=== PATIENT | male | born 1945 ===

== ENCOUNTER 2018-01-21 13:49 | Inpatient (IN) ==
--- NOTE | 2018-01-21 14:09 | XR ---
EXAM DATE: 01/21/2018 1:52 PM EDT AGE/SEX: 89 years / Male INDICATIONS: TRAUMA ALERT. Patient fell from a ladder. CLINICAL DATA: This is the patient's initial encounter. Patient reports that signs and symptoms have been present for 1 day and indicates a pain score of Nonresponsive. MEDICAL/SURGICAL HISTORY: . Unobtainable. . Unobtainable. COMPARISON: No prior exams available for comparison. FINDINGS: Examination of the pelvis demonstrates no evidence of fracture or dislocation. Bony mineralization i s normal. There is no widening of the sacroiliac joints. No foreign body is identified. CONCLUSION: Negative examination. Electronically signed by: Jaguar Braun MD 01/21/2018 2:08 PM EDT
[2018-01-21 14:11] LABS: Baso # (Auto) 0.1 th/mm3 (0.0-0.2); Baso % (Auto) 0.9 % (0.0-2.0); Eos # (Auto) 0.2 th/mm3 (0.0-0.4); Eos % (Auto) 2.6 % (0.0-4.0); Hematocrit 39.9 % (39.0-51.0); Hemoglobin 14.5 gm/dL (13.0-17.0); Lymph % (Auto) 13.1 % (9.0-44.0); Mean Corpuscular Volume 85.3 fL (80.0-100.0); Mean Platelet Volume 7.7 fL (7.0-11.0); Mono # (Auto) 0.6 th/mm3 (0.0-0.9); Mono % (Auto) 8.1 % (0.0-8.0); Neut # (Auto) 5.9 th/mm3 (1.8-7.7); Neut % (Auto) 75.3 % (16.0-70.0); Platelet Count 169 th/mm3 (150-450); Red Blood Count 4.68 mil/mm3 (4.50-5.90); Red Cell Distribution Width 13.1 % (11.6-17.2); White Blood Count 7.8 th/mm3 (4.0-11.0)
--- NOTE | 2018-01-21 14:12 | XR ---
EXAM DATE: 01/21/2018 1:52 PM EDT AGE/SEX: 89 years / Male INDICATIONS: TRAUMA ALERT. Patient fell from a ladder. CLINICAL DATA: This is the patient's initial encounter. Patient reports that signs and symptoms have been present for 1 day and indicates a pain score of Nonresponsive. MEDICAL/SURGICAL HISTORY: . Unobtainable. . Unobtainable. COMPARISON: No prior exams available for comparison. FINDINGS: Artifact from backboard. Mild cardiomegaly. No infiltrate, pneumothorax or failure. The portion of th e bony skeleton visualized is unremarkable. CONCLUSION: Artifact, negative for pneumothorax Electronically signed by: Mich Sepulveda MD 01/21/2018 2:11 PM EDT
--- NOTE | 2018-01-21 14:15 | ED ---
HPI General Stated Complaint: Trauma Alert/Fall History of Present Illness HPI narrative: This is a 71-year-old male who fell backwards off a ladder. Its estimated he was about 5 foot in the air. He fell backwards onto grass. However, just after he hit the ground. He could not move his legs. He has very significant weakness of both arms. He has no sensation below the nipple level. He is brought in as a trauma alert on suspicion of spinal cord injury. Symptoms are severe. Duration 30 minutes. No alleviating factors. No exacerbating factors. He takes no blood thinners. Related Data Allergies Allergy/AdvReac Type Severity Reaction Status Date / Time No Allergy Information Allergy Unverified 01/21/18 13:51 Available Review of Systems ROS: all other systems reviewed are negative Exam Narrative Exam Narrative: GENERAL: Well-nourished, well-developed patient in no apparent distress. SKIN: Focused skin assessment reveals no rash and nodules. Skin is Warm and dry. Has minimal abrasion to the lower left side HEAD: Atraumatic. Normocephalic. EYES: Pupils equal and round. No scleral icterus. No injection or drainage. ENT: No nasal bleeding or discharge. Mucous membranes pink and moist. NECK: Trachea midline. No JVD. CARDIOVASCULAR: Regular rate and rhythm. No murmur appreciated. RESPIRATORY: No accessory muscle use. Clear to auscultation. Breath sounds equal bilaterally. GASTROINTESTINAL: Abdomen soft, non-tender, nondistended. Hepatic and splenic margins not palpable. MUSCULOSKELETAL: No obvious deformities. No clubbing. No cyanosis. No edema. No bony tenderness. NEUROLOGICAL: Awake and alert. No obvious cranial nerve deficits. Motor exam shows that both legs are paralyzed. He is [place] 0 movement in either leg. He cannot wiggle his toes. He has very advanced weakness of both arms and hands and fingers. He has a very weak live hanger bilaterally. Sensory exam reveals loss of light touch basically from the nipple level down. This includes both arms both legs and the torso. He has poor sphincter tone. Normal speech. PSYCHIATRIC: Appropriate mood and affect; insight and judgment normal. Course Initial Documented Vital Signs Pulse Oximetry 96 01/21/18 14:08 Last Documented Vital Signs Pulse Oximetry 96 01/21/18 14:08 Critical Care Time Critical Care Time: Yes Total Critical Care Time: 80 Attestation: Aggregate critical care time was 80 minutes. Time to perform other separately billable procedures was not included in the critical care time. My time did not include minutes spent treating any other patients simultaneously or on activities that did not directly contribute to the patient's treatment. The services I provided to this patient were to treat and/or prevent clinically significant deterioration that could result in: Spinal cord injury, permanent neurologic deficit, spinal shock I provided critical care services requiring my management, as noted below: Chart data review, documentation time, medication orders and management, vital sign assessments/reviewing monitor data, ordering and reviewing lab tests, ordering and interpreting/reviewing x-rays and diagnostic studies, care of the patient and discussion of the patient with the admitting physicians. Medical Decision Making MDM Narrative Medical decision making narrative: This patient arrives critically ill as a trauma alert with suspicion of spinal cord injury. He has prominent neurologic abnormalities on exam. He has a heart rate of 16 a blood pressure of 100 systolic. I placed 2 IVs and I am giving him 2 L bolus normal saline IV. Mental status is normal. Chest and pelvis x-rays show no obvious fracture I am sending him to CT scan for hernández scan plus complete spine CT imaging High likelihood he will need MRIs of his spinal cord as well I reviewed the case in detail with neurosurgeon on-call Dr. Szymanski. Trauma surgeon is in the operating room with the previous trauma case. I spoke with the backup trauma surgeon but he is an hour and 15 minutes away so no report given. I am told belatedly that the trauma surgeon saw the patient in the CAT scanner. I reviewed the CTs of the spine with radiologist Dr. Neil Sepulveda. I reviewed the findings a second time with neurosurgeon who is aware of the C6 pedicle fracture. Medical Screen Exam Complete: Yes Emergency Medical Condition: Yes Differential Diagnosis Differential Diagnosis: Spinal cord injury, vertebral fracture, spinal cord hematoma, spinal shock Lab Data Lab results reviewed: Yes I reviewed the patient's lab results. Lab results narrative: I-STAT looks normal. Result diagrams: 01/21/18 13:50 Lab Results 01/21/18 01/21/18 01/21/18 Range/Units 13:50 13:50 13:50 WBC 7.8 (4.0-11.0) th/mm3 RBC 4.68 (4.50-5.90) mil/mm3 Hgb 14.5 (13.0-17.0) gm/dL POC Hgb (Calc) 12.9 L (13.0-17.0) g/dL Hct 39.9 (39.0-51.0) % POC Hct 38.0 L (39-51.0) % MCV 85.3 (80.0-100.0) fL MCH 31.0 (27.0-34.0) pg MCHC 36.3 H (32.0-36.0) % RDW 13.1 (11.6-17.2) % Plt Count 169 (150-450) th/mm3 MPV 7.7 (7.0-11.0) fL Prelim Diff (Auto) Slide review pending Neut % (Auto) 75.3 H (16.0-70.0) % Lymph % (Auto) 13.1 (9.0-44.0) % [place] % (Auto) 8.1 H (0.0-8.0) % Eos % (Auto) 2.6 (0.0-4.0) % Baso % (Auto) 0.9 (0.0-2.0) % Neut # (Auto) 5.9 (1.8-7.7) th/mm3 Lymph # (Auto) 1.0 (1.0-4.8) th/mm3 [place] # (Auto) 0.6 (0.0-0.9) th/mm3 Eos # (Auto) 0.2 (0.0-0.4) th/mm3 Baso # (Auto) 0.1 (0.0-0.2) th/mm3 Differential Comment . PT 11.0 (9.8-11.6) sec INR 1.1 Ratio APTT 20.6 L (24.3-30.1) sec POC Sodium 146 H (137-144) mmol/L POC Potassium 4.3 (3.6-5.0) mmol/L POC Chloride 107 (102-111) mmol/L POC BUN 20 (5-21) mg/dL POC Creatinine 1.0 (0.6-1.3) mg/dL POC Glucose 105 (68-110) mg/dL Serum Alcohol (0-5) mg/dL Blood Type Antibody Screen 01/21/18 01/21/18 Range/Units 13:50 13:50 WBC (4.0-11.0) th/mm3 RBC (4.50-5.90) mil/mm3 Hgb (13.0-17.0) gm/dL POC Hgb (Calc) (13.0-17.0) g/dL Hct (39.0-51.0) % POC Hct (39-51.0) % MCV (80.0-100.0) fL MCH (27.0-34.0) pg MCHC (32.0-36.0) % RDW (11.6-17.2) % Plt Count (150-450) th/mm3 MPV (7.0-11.0) fL Prelim Diff (Auto) Neut % (Auto) (16.0-70.0) % Lymph % (Auto) (9.0-44.0) % [place] % (Auto) (0.0-8.0) % Eos % (Auto) (0.0-4.0) % Baso % (Auto) (0.0-2.0) % Neut # (Auto) (1.8-7.7) th/mm3 Lymph # (Auto) (1.0-4.8) th/mm3 [place] # (Auto) (0.0-0.9) th/mm3 Eos # (Auto) (0.0-0.4) th/mm3 Baso # (Auto) (0.0-0.2) th/mm3 Differential Comment PT (9.8-11.6) sec INR Ratio APTT (24.3-30.1) sec POC Sodium (137-144) mmol/L POC Potassium (3.6-5.0) mmol/L POC Chloride (102-111) mmol/L POC BUN (5-21) mg/dL POC Creatinine (0.6-1.3) mg/dL POC Glucose (68-110) mg/dL Serum Alcohol Less than 3 (0-5) mg/dL Blood Type O Negative Antibody Screen Negative Imaging Data Attestation: I personally reviewed and interpreted this imaging study as follows : Radiologist's impression: Chest X-Ray 01/21/18 13:52 CONCLUSION: Artifact, negative for pneumothorax Pelvis X-Ray 01/21/18 13:52 CONCLUSION: Negative examination. Abdomen/Pelvis CT 01/21/18 13:56 Bony Structures: See the CT of the thoracic and lumbar spine is reported separately. The pelvis is intact. CONCLUSION: 1. No acute abnormality. 2. 2.9 x 2.0 cm rim calcified nodule within the right costophrenic angle with associated calcified pleural plaque. Consider outpatient PET CT to further assess. At this point a mesothelioma cannot be completely excluded. Cervical Spine CT 01/21/18 13:56 CONCLUSION: 1. Fracture at the C5 and C6 level. 2. MRI would be of benefit given the symptomatology. Chest CT 01/21/18 13:56 CONCLUSION: 1. No acute abnormality. 2. 2.9 cm rim calcified nodule involving the posterior costophrenic sulcus on the right. 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 A mesothelioma must be considered. Consider PET CT to further assess. Head CT 01/21/18 13:56 CONCLUSION: Negative for an acute process . Discharge Plan Discharge Disposition Patient Disposition: 30 Still Patient Discharge Details Diagnosis: Spinal cord injury at T1-T6 level, Closed C6 fracture Physicians Team ED Provider: Kwabena Bryant Primary Care Provider: UNKNOWN, Other Providers: Elizabeth Noyola ; Sarah Lainez ; Chucky Cuellar ; Jennifer Paz ; Cate Iverson ; Carlito Fuentes ; Justin Richards ; Jose Cruz Pedraza ; [employer] Discharge Interventions Interventions: ED Discharge Assessment Last Done: 01/21/18 14:42 Status ED Status: In Room
--- NOTE | 2018-01-21 14:18 | CT ---
EXAM DATE: 01/21/2018 1:59 PM EDT AGE/SEX: 89 years / Male INDICATIONS: Trauma alert, Fall from ladder, flaccidly in lower extremities CLINICAL DATA: This is the patient's initial encounter. Patient reports that signs and symptoms have been present for 1 day and indicates a pain score of Nonresponsive. MEDICAL/SURGICAL HISTORY: Non-responsive. Non-responsive. RADIATION DOSE: 61.02 CTDI (mGy) COMPARISON: No prior exams available for comparison. TECHNIQUE: CT of the head without contrast. Using automated exposure control and adjustment of the mA and/or kV according to patient size, radiation dose was kept as low as reasonably achievable to ob tain optimal diagnostic quality images. DICOM format image data is available electronically for revi ew and comparison. FINDINGS: Cerebrum: The ventricles are normal for age. No evidence of midline shift, mass lesion, hemorrhage or acute infarction. No extraaxial fluid collections are seen. Posterior Fossa: The cerebellum and brainstem are intact. The 4th ventricle is midline. The cerebe llopontine angle is unremarkable. Extracranial: The visualized portion of the orbits is intact. Skull: The calvaria is intact. No evidence of skull fracture. CONCLUSION: Negative for an acute process . Electronically signed by: Mich Sepulveda MD 01/21/2018 2:17 PM EDT
[2018-01-21 14:22] LABS: Mean Corpuscular HGB Conc 36.3 % (32.0-36.0)
[2018-01-21 14:28] LABS: Activated Partial Thrombo Time 20.6 sec (24.3-30.1); INR 1.1 Ratio
--- NOTE | 2018-01-21 14:32 | CT ---
EXAM DATE: 01/21/2018 1:59 PM EDT AGE/SEX: 89 years / Male INDICATIONS: Trauma alert, Fall from ladder, flaccidly in lower extremities CLINICAL DATA: This is the patient's initial encounter. Patient reports that signs and symptoms have been present for 1 day and indicates a pain score of Nonresponsive. MEDICAL/SURGICAL HISTORY: Non-responsive. Non-responsive. ORAL CONTRAST: No oral contrast ingested. RADIATION DOSE: 16.96 CTDI (mGy) ; Combined studies COMPARISON: No prior exams available for comparison. TECHNIQUE: Multiple contiguous axial images were obtained through the abdomen and pelvis following b olus infusion of 100 ml Omnipaque 350 (iohexol) nonionic water-soluble contrast as a cumulative dos e for multiple exams. No oral contrast ingested. Using automated exposure control and adjustment of the mA and/or kV according to patient size, radiation dose was kept as low as reasonably achievable t o obtain optimal diagnostic quality images. DICOM format image data is available electronically for review and comparison. FINDINGS: Lower Lungs: There is an oval-shaped soft tissue mass involving the posterior right costophrenic sulc us. This measures 2.9 x 2.0 cm there is rim calcification involving this nodule. There is a calcified pleural plaque also seen within the lower hemithoraces bilaterally but more pronounced on the right. . Liver: The liver has a homogeneous density without space-occupying lesion. There is no dilation of th e biliary tree. Spleen: Homogeneous density without enlargement. Pancreas: Unremarkable without mass or calcification. Kidneys: Normal in size and shape. No evidence of mass or hydronephrosis. Adrenal Glands: Unremarkable. Aorta: The aorta and proximal iliac vessels are grossly unremarkable without aneurysmal dilation. Bowel/Mesentery: Scattered colonic diverticula without acute inflammation. The bowel loops are gross ly unremarkable. The cecum and sigmoid colon have a normal configuration. Abdominal Wall: Intact. Retroperitoneum: No evidence of adenopathy in the retrocrural, para-aortic, or deep pelvic regions. Bladder: Contours are smooth. Reproductive Organs: No abnormal masses or calcifications seen. Inguinal: The inguinal region is unremarkable without evidence of adenopathy. Bony Structures: See the CT of the thoracic and lumbar spine is reported separately. The pelvis is in tact. CONCLUSION: 1. No acute abnormality. 2. 2.9 x 2.0 cm rim calcified nodule within the right costophrenic angle with associated calcified p leural plaque. Consider outpatient PET CT to further assess. At this point a mesothelioma cannot be c ompletely excluded. Electronically signed by: Jaguar Braun MD 01/21/2018 2:30 PM EDT
--- NOTE | 2018-01-21 14:41 | CT ---
EXAM DATE: 01/21/2018 1:59 PM EDT AGE/SEX: 89 years / Male INDICATIONS: Trauma alert, Fall from ladder, flaccidly in lower extremities CLINICAL DATA: This is the patient's initial encounter. Patient reports that signs and symptoms have been present for 1 day and indicates a pain score of Nonresponsive. MEDICAL/SURGICAL HISTORY: Non-responsive. Non-responsive. RADIATION DOSE: 16.96 CTDI (mGy) ; Combined studies COMPARISON: No prior exams available for comparison. TECHNIQUE: Multiple contiguous axial images were obtained through the chest during bolus infusion of 100 ml Omnipaque 350 (iohexol) nonionic water-soluble contrast as a cumulative dose for multiple ex ams. Images were obtained in suspended respiration using multiple row detector helical technique. Using automated exposure control and adjustment of the mA and/or kV according to patient size, radiat ion dose was kept as low as reasonably achievable to obtain optimal diagnostic quality images. DICOM format image data is available electronically for review and comparison. FINDINGS: Lungs: The lungs are symmetrically aerated. No infiltrates or nodular densities are seen. Mediastinum: The heart is at the upper limits of normal in terms of size. No pericardial effusion. C oronary artery and aortic atherosclerotic calcifications are noted. No mediastinal fluid or hematoma. Tiny anterior mediastinal lymph nodes without adenopathy.. Pleurae: There is a rim calcified nodule within the posterior costophrenic sulcus on the right. This measures 2.9 x 2.0 cm. There is an associated smooth calcified pleural plaque with this mass. Tiny c alcified pleural plaques are seen involving the posterior left costophrenic angle. No effusions. Axillae: Unremarkable. Bony Structures: Unremarkable. Miscellaneous: The examination was extended to include the upper abdomen, and both adrenal glands ar e normal in size and configuration. CONCLUSION: 1. No acute abnormality. 2. 2.9 cm rim calcified nodule involving the posterior costophrenic sulcus on the right. 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 A mesothelioma must be considered. Consider PET CT to further assess. Electronically signed by: Jaguar Braun MD 01/21/2018 2:40 PM EDT
--- NOTE | 2018-01-21 14:57 | CT ---
EXAM DATE: 01/21/2018 1:59 PM EDT AGE/SEX: 89 years / Male INDICATIONS: Trauma alert, Fall from ladder, flaccidly in lower extremities CLINICAL DATA: This is the patient's initial encounter. Patient reports that signs and symptoms have been present for 1 day and indicates a pain score of Nonresponsive. MEDICAL/SURGICAL HISTORY: Non-responsive. Non-responsive. RADIATION DOSE: 22.03 CTDI (mGy) COMPARISON: No prior exams available for comparison. TECHNIQUE: Contiguous axial images were obtained using helical multirow detector technique. The vol umetric data was post-processed with multiplanar reconstruction in oblique axial, sagittal, and coron al planes. Using automated exposure control and adjustment of the mA and/or kV according to patient s ize, radiation dose was kept as low as reasonably achievable to obtain optimal diagnostic quality vanesa ges. DICOM format image data is available electronically for review and comparison. FINDINGS: Vertebrae: Normal vertebral body height. Alignment: Normal. No subluxation. C2-3: The bony spinal canal is normal in size. No evidence of disc bulge or herniation. The neural foramina are bilaterally patent. C3-4: The bony spinal canal is normal in size. No evidence of disc bulge or herniation. The neural foramina are bilaterally patent. C4-5: Mild uncinate ridging is present with minimal spinal stenosis and bilateral neural foraminal e ncroachment. C5-6: Moderate uncinate ridging with minimal central to right-sided disc protrusion. There is a frac ture of the lamina of C5 Minimal right-sided neural foraminal encroachment. C6-7: There is a fracture of the right pedicle of C6 in anatomic alignment. Mild degenerative change s. C7-T1: Mild degenerative changes. CONCLUSION: 1. Fracture at the C5 and C6 level. 2. MRI would be of benefit given the symptomatology. Electronically signed by: Mich Sepulveda MD 01/21/2018 2:55 PM EDT
[2018-01-21] MEDS ORDERED: Morphine Sulfate Inj 2 MG/ML Vial IV.PUSH PRN (15:02)
--- NOTE | 2018-01-21 15:09 | CT ---
EXAM DATE: 01/21/2018 1:59 PM EDT AGE/SEX: 89 years / Male INDICATIONS: Trauma alert, Fall from ladder, flaccidly in lower extremities CLINICAL DATA: This is the patient's initial encounter. Patient reports that signs and symptoms have been present for 1 day and indicates a pain score of Nonresponsive. MEDICAL/SURGICAL HISTORY: Non-responsive. Non-responsive. RADIATION DOSE: 0.0 CTDI (mGy) ; Reconstructed from previous dataset, no dose COMPARISON: No prior exams available for comparison. TECHNIQUE: Contiguous axial images were acquired with a multirow detector CT scanner after intraveno us administration of 100 ml Omnipaque 350 (iohexol) nonionic water-soluble contrast as a cumulative dose for multiple exams. Multiplanar reconstructions in the sagittal and coronal plane were also per formed. Using automated exposure control and adjustment of the mA and/or kV according to patient size , radiation dose was kept as low as reasonably achievable to obtain optimal diagnostic quality images . DICOM format image data is available electronically for review and comparison. FINDINGS: There is good preservation of vertebral body heights. There are moderate calcified pleural plaques ar e evident. T12-L1: The thecal sac has a normal diameter. No evidence of disc bulge or protrusion. The neural foramina are patent bilaterally. L1-L2: The thecal sac has a normal diameter. No evidence of disc bulge or protrusion. The neural f oramina are patent bilaterally. L2-L3: Mild disc bulging present. Minimal bilateral neural foraminal encroachment. L3-L4: Central to right-sided disc bulging with minimal right-sided neural foraminal encroachment. L4-L5: Mild generalized disc bulging present with moderate degenerative changes in the facets. Minim al neural foraminal encroachment. L5-S1: Mild lateral recess stenosis. Neural foramen are adequate. Degenerative changes about both SI joints. CONCLUSION: 1. Negative CT scan of the thoracic spine for acute process. MRI be of benefit given the symptomatol ogy. 2. Arrangements have been made for such. Electronically signed by: Mich Sepulveda MD 01/21/2018 3:07 PM EDT
--- NOTE | 2018-01-21 15:10 | CT ---
EXAM DATE: 01/21/2018 1:59 PM EDT AGE/SEX: 89 years / Male INDICATIONS: Trauma alert, Fall from ladder, flaccidly in lower extremities CLINICAL DATA: This is the patient's initial encounter. Patient reports that signs and symptoms have been present for 1 day and indicates a pain score of Nonresponsive. MEDICAL/SURGICAL HISTORY: Non-responsive. Non-responsive. RADIATION DOSE: 0.0 CTDI (mGy) ; Reconstructed from previous dataset, no dose COMPARISON: No prior exams available for comparison. TECHNIQUE: Contiguous axial images were acquired using a multirow detector CT scanner after intraven ous administration of 100 ml Omnipaque 350 (iohexol) nonionic water-soluble contrast as a cumulative dose for multiple exams. Multiplanar reconstruction in the sagittal and coronal planes was perform ed. Using automated exposure control and adjustment of the mA and/or kV according to patient size, r adiation dose was kept as low as reasonably achievable to obtain optimal diagnostic quality images. DICOM format image data is available electronically for review and comparison. FINDINGS: There is minimal loss of vertebral body height at T7 and T8. In spite of the history thoracic spine fracture is not evident. There is no abnormal contrast enhance ment. Minimal asymmetrical apical pleural thickening is evident. There is no abnormal contrast enhancement. There are mild degenerative changes in the midthoracic spine with some vacuum disc changes evident at T7-T8 and T8-T9. Moderate pleural calcifications. CONCLUSION: 1. Mild degenerative changes in the thoracic spine,.. Etiology for the flaccid lower extremities is not apparent. Arrangements have been made for emergent MRI. Electronically signed by: Mich Sepulveda MD 01/21/2018 3:09 PM EDT
[2018-01-21 16:10] LABS: Platelet Estimate Normal (Normal); Platelet Morphology Normal (Normal)
--- NOTE | 2018-01-21 16:20 | P.CONNS ---
History of Present Illness Primary Care Provider: UNKNOWN Chief Complaint: paraplegia History of Present Illness: 71yo previously healthy man who fell 3 feet back off a ladder earlier this day. Cannot feel his legs nor his distal arms (distal to biceps). Cannot use his hands. History of Rheumatoid Arthritis, no blood thinner. Imaging shows fracture at C6 (C-spine) with MRI showing posterior compression of the cord at this level due to ligament, poss hematoma. [facility] - History History Provided By: Patient - Medical History Medical History: Medical History (Last Updated 01/21/18 @ 15:53 by Mayelin Beverly RN) Rheumatoid arthritis - Tobacco History Second Hand Smoke Exposure: No Tobacco Use In Past 30 Days: No Smoking Status: Never smoker - Alcohol History How Often Do You Have a Drink Containing Alcohol: Monthly or less - Substance Use History Substance History: No History of Abuse - Immunization History Hx Influenza Vaccine This Season: No Medications and Allergies Active Medications: Active Medications Al Hydroxide/Mg Hydroxide (Milk Of Magntyson Liq) 30 ml PO BID LOS Bacitracin (Baciguent Oint) 1 applicatio TOPICAL BID LOS Chlorhexidine Gluconate (Chlorhexidine 2% Cloth) 3 pack TOPICAL DAILY@0400 LOS Stop: 01/27/18 03:59 Chlorhexidine Gluconate (Chlorhexidine 2% Cloth) 3 pack TOPICAL DAILY@0400 PRN PRN Reason: Extra cloth needed Stop: 01/27/18 03:59 Docusate Sodium (Colace) 100 mg PO BID [facility] Enalaprilat (Vasotec Inj) 1.25 mg IV.PUSH Q8H PRN PRN Reason: Blood pressure 180/95 Sodium Chloride (Ns Inj) 1,000 mls @ 50 mls/hr IV.CONT .Q20H LOS Morphine Sulfate (Morphine Inj) 2 mg IV.PUSH Q3H PRN PRN Reason: BREAKTHROUGH PAIN Ondansetron HCl (Zofran Inj) 4 mg IV.PUSH Q6H PRN PRN Reason: NAUSEA OR VOMITING Oxycodone/Acetaminophen (Percocet 5/325 Mg) 1 tab PO Q4H PRN PRN Reason: Acute Pain scale 1 - 5 Oxycodone/Acetaminophen (Percocet 7.5/325 Mg) 1 tab PO Q4H PRN PRN Reason: Acute Pain SCALE 6 - 10 Pantoprazole Sodium (Protonix Inj) 40 mg IV.PUSH Q24H LOS Sodium Chloride (Ns Flush) 2 ml IV.FLUSH UNSCH PRN PRN Reason: FLUSH AFTER USING IV ACCESS Allergies Allergy/AdvReac Type Severity Reaction Status Date / Time No Allergy Information Allergy Unverified 01/21/18 13:51 Available Exam Vital signs: Vital Signs 01/21/18 14:08 01/21/18 14:38 01/21/18 14:45 Temperature Pulse Rate 79 83 Respiratory Rate 6 L 20 Blood Pressure 139/66 Pulse Oximetry 96 98 98 01/21/18 15:00 Temperature 97.7 F Pulse Rate 77 Respiratory Rate 30 H Blood Pressure 148/75 H Pulse Oximetry 97 Intake & Output 01/20/18 01/21/18 01/21/18 18:59 06:59 18:59 Weight 65.9 kg Other: Weight On Admission 65.9 kg Narrative: C6 paraplegia A&O x 3 Delt 5, Biceps 4, Triceps 4, Hand 1-2 No lower extremity function No sensation below nippe and not in arms below elbows Results - Laboratory Findings CBC and BMP: 01/21/18 13:50 Abnormal lab findings: Abnormal Labs 01/21/18 01/21/18 01/21/18 13:50 13:50 13:50 POC Hgb (Calc) 12.9 L POC Hct 38.0 L MCHC 36.3 H Neut % (Auto) 75.3 H Pettis % (Auto) 8.1 H APTT 20.6 L POC Sodium 146 H Assessment and Plan - Plan 71yoM with unstable C-spine injury C6 level, requiring posterior decompression and fusion. Urgent decompression and stabilization. C4 to T2 with laminectomy at C4/5/6. MAP > 80 postop in ICU. Keep intubated overnight. Linneus J collar Reactive cord edema can cause delayed respiratory failure ascending up to C3 and beyond-- will need to monitor in ICU in delayed fashion.
--- NOTE | 2018-01-21 16:26 | P.HPCC ---
History of Present Illness Primary Care Physician: UNKNOWN History of Present Illness: 71 y.o male fell from the ladder about 5 feet.Could not move his legs and had weakness b/l UE- level 1 trauma alert,HD stable,no abdominal pain Inpatient Certification: I certify that the inpatient services were ordered in accordance with Medicare regulations governing the order. This includes certification that hospital inpatient services are reasonable and necessary and in the case of services not specified as inpatient-only under 42 CFR 419.22(n), that they are appropriately provided as inpatient services in accordance to with the 2-midnight benchmark under 43 CFR 412.3(e) Estimated Total Length of Stay (Days): 3 Plans for Post Hospital Care: Not yet determined Review of Systems All other systems reviewed negative except as stated in HPI [facility] - History History Provided By: Patient - Medical History Medical History: Medical History (Last Updated 01/21/18 @ 15:53 by Mayelin Beverly RN) Rheumatoid arthritis - Tobacco History Second Hand Smoke Exposure: No Tobacco Use In Past 30 Days: No Smoking Status: Never smoker - Alcohol History How Often Do You Have a Drink Containing Alcohol: Monthly or less - Substance Use History Substance History: No History of Abuse - Immunization History Hx Influenza Vaccine This Season: No Medications and Allergies Active Medications: Active Medications Al Hydroxide/Mg Hydroxide (Milk Of Bibi Evans) 30 ml PO BID LOS Bacitracin (Baciguent Oint) 1 applicatio TOPICAL BID LOS Chlorhexidine Gluconate (Chlorhexidine 2% Cloth) 3 pack TOPICAL DAILY@0400 [facility] Stop: 01/27/18 03:59 Chlorhexidine Gluconate (Chlorhexidine 2% Cloth) 3 pack TOPICAL DAILY@0400 PRN PRN Reason: Extra cloth needed Stop: 01/27/18 03:59 Docusate Sodium (Colace) 100 mg PO BID LOS Enalaprilat (Vasotec Inj) 1.25 mg IV.PUSH Q8H PRN PRN Reason: Blood pressure 180/95 Sodium Chloride (Ns Inj) 1,000 mls @ 50 mls/hr IV.CONT .Q20H LOS Morphine Sulfate (Morphine Inj) 2 mg IV.PUSH Q3H PRN PRN Reason: BREAKTHROUGH PAIN Ondansetron HCl (Zofran Inj) 4 mg IV.PUSH Q6H PRN PRN Reason: NAUSEA OR VOMITING Oxycodone/Acetaminophen (Percocet 5/325 Mg) 1 tab PO Q4H PRN PRN Reason: Acute Pain scale 1 - 5 Oxycodone/Acetaminophen (Percocet 7.5/325 Mg) 1 tab PO Q4H PRN PRN Reason: Acute Pain SCALE 6 - 10 Pantoprazole Sodium (Protonix Inj) 40 mg IV.PUSH Q24H LOS Sodium Chloride (Ns Flush) 2 ml IV.FLUSH UNSCH PRN PRN Reason: FLUSH AFTER USING IV ACCESS Allergies Allergy/AdvReac Type Severity Reaction Status Date / Time No Allergy Information Allergy Unverified 01/21/18 13:51 Available Results - Labs CBC & Chem 7: 01/21/18 13:50 Labs: Short CBC 01/21/18 Range/Units 13:50 WBC 7.8 (4.0-11.0) th/mm3 Hgb 14.5 (13.0-17.0) gm/dL Hct 39.9 (39.0-51.0) % Plt Count 169 (150-450) th/mm3 - Imaging Impressions Chest X-Ray 01/21/18 13:52 CONCLUSION: Artifact, negative for pneumothorax Pelvis X-Ray 01/21/18 13:52 CONCLUSION: Negative examination. Abdomen/Pelvis CT 01/21/18 13:56 Bony Structures: See the CT of the thoracic and lumbar spine is reported separately. The pelvis is intact. CONCLUSION: 1. No acute abnormality. 2. 2.9 x 2.0 cm rim calcified nodule within the right costophrenic angle with associated calcified pleural plaque. Consider outpatient PET CT to further assess. At this point a mesothelioma cannot be completely excluded. Cervical Spine CT 01/21/18 13:56 CONCLUSION: 1. Fracture at the C5 and C6 level. 2. MRI would be of benefit given the symptomatology. Chest CT 01/21/18 13:56 CONCLUSION: 1. No acute abnormality. 2. 2.9 cm rim calcified nodule involving the posterior costophrenic sulcus on the right. 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 A mesothelioma must be considered. Consider PET CT to further assess. Head CT 01/21/18 13:56 CONCLUSION: Negative for an acute process . Lumbar Spine CT 01/21/18 13:56 CONCLUSION: 1. Negative CT scan of the thoracic spine for acute process. MRI be of benefit given the symptomatology. 2. Arrangements have been made for such. Thoracic Spine CT 01/21/18 13:56 CONCLUSION: 1. Mild degenerative changes in the thoracic spine,.. Etiology for the flaccid lower extremities is not apparent. Arrangements have been made for emergent MRI. Exam Vital signs: Vital Signs 01/21/18 14:08 01/21/18 14:38 01/21/18 14:45 Temperature Pulse Rate 79 83 Respiratory Rate 6 L 20 Blood Pressure 139/66 Pulse Oximetry 96 98 98 01/21/18 15:00 Temperature 97.7 F Pulse Rate 77 Respiratory Rate 30 H Blood Pressure 148/75 H Pulse Oximetry 97 Intake & Output 01/20/18 01/21/18 01/21/18 18:59 06:59 18:59 Weight 65.9 kg Other: Weight On Admission 65.9 kg - Constitutional mild distress, average body habitus - Routine HEENT Exam Head: Present: normocephalic, atraumatic Eye: Present: EOMI, PERRL ENT: Present: mucous membranes moist - Routine Neck Exam Present: supple (midline tenderness), trachea midline - Routine Respiratory Exam Present: CTA bilaterally - Routine Cardiovascular Exam Present: RRR - Routine Abdominal Exam Present: soft - Routine Extremities Exam Present: normal capillary refill (no swelling no deformity) - Routine Neurological Exam Present: alert, oriented X3 (no movements b/l LE; weakness b/l UE) Caprini VTE Risk Assessment Caprini VTE Risk Assessment: Moderate/High Risk (score >= 2) VTE Pharmacological Exception Reason: High risk for bleeding (TRAUMA) Caprini Risk Assessment Model: Point Value = 1 Point Value = 2 Point Value = 3 Point Value = 5 Age 41-60 Minor surgery BMI > 25 kg/m2 Swollen legs Varicose veins or History of unexplained or recurrent spontaneous Oral contraceptives or hormone replacement Sepsis (< 1 month) Serious lung disease, including pneumonia (< 1 month) Abnormal pulmonary function Acute myocardial infarction Congestive heart failure (< 1 month) History of inflammatory bowel disease Medical patient at bed rest Age 61-74 Arthroscopic surgery Major open surgery (> 45 min) Laparoscopic surgery (> 45 min) Malignancy Confined to bed (> 72 hours) Immobilizing plaster cast Central venous access Age >= 75 History of VTE Family history of VTE Factor V Leiden Prothrombin [id number] Lupus anticoagulant Anticardiolipin antibodies Elevated serum homocysteine Heparin-induced thrombocytopenia Other congenital or acquired thrombophilia Stroke (< 1 month) Elective arthroplasty Hip, pelvis, or leg fracture Acute spinal cord injury (< 1 month) Prophylaxis Regimen: Total Risk Factor Score Risk Level Prophylaxis Regimen 0-1 Low Early ambulation 2 Moderate Order ONE of the following: *Sequential Compression Device (SCD) *Heparin 5000 units SQ BID 3-4 Higher Order ONE of the following medications: *Heparin 5000 units SQ TID *Enoxaparin/Lovenox 40 mg SQ daily (WT < 150 kg, CrCl > 30 mL/min) *Enoxaparin/Lovenox 30 mg SQ daily (WT < 150 kg, CrCl > 10-29 mL/min) *Enoxaparin/Lovenox 30 mg SQ BID (WT < 150 kg, CrCl > 30 mL/min) AND/OR *Sequential Compression Device (SCD) 5 or more Highest Order ONE of the following medications: *Heparin 5000 units SQ TID (Preferred with Epidurals) *Enoxaparin/Lovenox 40 mg SQ daily (WT < 150 kg, CrCl > 30 mL/min) *Enoxaparin/Lovenox 30 mg SQ daily (WT < 150 kg, CrCl > 10-29 mL/min) *Enoxaparin/Lovenox 30 mg SQ BID (WT < 150 kg, CrCl > 30 mL/min) AND *Sequential Compression Device (SCD) Assessment and Plan - Assessment and Plan Plan: C5/C6 fx SCI MRI p admit ISC neuro protection d/w NS -patient going to the OR H&P: Quality - VTE Deep Vein Thrombosis/Pulmonary Embolism Present on Admission: No
--- NOTE | 2018-01-21 16:26 | MR ---
EXAM DATE: 01/21/2018 3:38 PM EDT AGE/SEX: 89 years / Male INDICATIONS: Pain. Neck pain due to fall off ladder. CLINICAL DATA: This is the patient's initial encounter. Patient reports that signs and symptoms have been present for 1 day and indicates a pain score of 8/10. MEDICAL/SURGICAL HISTORY: None. Tonsillectomy. COMPARISON: [facility] [place]AST, 01/21/2018. . TECHNIQUE: Multiplanar, multisequence MRI examination of the cervical spine was performed without co ntrast. FINDINGS: There is increased signal in the cervical cord from mid C4-C6 C7 with radiographically significant sp inal stenosis from C4 to C7. Thecal sac is obliterated both anteriorly and posteriorly. Findings woul d be consistent with cord contusion from significant spinal stenosis. There is subtle increased signa l in the interspinous ligaments at the C5-C6 level and to lesser degree the C4-C5 level suggesting mo tion at these levels. C2-C3: The thecal sac has a normal configuration. There is no evidence of disc herniation or spinal canal stenosis. The neural foramina are patent bilaterally. C3-C4: Mild bulging is present without significant spinal stenosis. Neural foramen are adequate. C4-C5: Mild bulging without significant spinal stenosis. Minimal left-sided neural foraminal encroac hment. C5-C6: Central disc bulge there is space ridging and mild bilateral neural foraminal encroachment. C entral disc bulging with mild interspace ridging with minimal right-sided neural foraminal encroachme nt. C6-C7: Central disc bulging with mild interspace ridging with minimal right-sided neural foraminal e ncroachment. C7-T1: No epidural impressions seen. Both vertebral arteries are patent on the axial images. MRA of the carotids and vertebral pending. CONCLUSION: Cord contusion mid C4-C6 C7 with injury pattern suggesting instability across the C5-C6 level. Electronically signed by: Mich Sepulveda MD 01/21/2018 4:24 PM EDT
--- NOTE | 2018-01-21 16:30 | MR ---
EXAM DATE: 01/21/2018 3:38 PM EDT AGE/SEX: 89 years / Male INDICATIONS: Pain. Trauma today from fall of ladder. CLINICAL DATA: This is the patient's initial encounter. Patient reports that signs and symptoms have been present for 1 day and indicates a pain score of 9/10. MEDICAL/SURGICAL HISTORY: None. Tonsillectomy. [place] [facility] [place] 01/21/2018. . TECHNIQUE: Multiplanar, multisequence MRI of the thoracic spine was performed. FINDINGS: Limited MRI of the thoracic spine was performed in this individual with flaccid paralysis. Signal int ensity in the thoracic cord is normal. There is mild interspace ridging at T4-T5 without cord willy claudia. There is mild interspace ridging at T7-T8 without cord compression. There is good preservation of vertebral body heights without acute compression. Soft tissue mass pleural-based with calcification arising on the right at T11. Multiple calcified ple ural plaques. CONCLUSION: 1. Limited MRI show no cortical cord contusion. Electronically signed by: Mich Sepulveda MD 01/21/2018 4:29 PM EDT
[2018-01-21] MEDS ORDERED: Gelatin Size 100 Topical Foam ONE (16:43)
[2018-01-21] MEDS ORDERED: Thrombin Topical Soln 5,000 UNIT Vial TOPICAL ONE (16:43)
[2018-01-21] MEDS ORDERED: Lidocaine PF 1% Inj 5 ML Syringe OTHER ONE (17:01)
[2018-01-21] MEDS ORDERED: Neostigmine Inj 5 MG/5 ML Syringe IV.PUSH ONE (17:01)
[2018-01-21] MEDS ORDERED: Glycopyrrolate Inj 1 MG/5 ML Syringe IV.PUSH ONE (17:01)
[2018-01-21] MEDS ORDERED: Succinylcholine Inj 100 MG/5 ML Syringe IV.PUSH ONE (17:01)
[2018-01-21] MEDS ORDERED: Phenylephrine/NS 1000 MCG/10ML Syringe IV.PUSH ONE (17:01)
--- NOTE | 2018-01-21 17:09 | MR ---
EXAM DATE: 01/21/2018 4:00 PM EDT AGE/SEX: 89 years / Male INDICATIONS: . Neck pain due to fall off ladder. CLINICAL DATA: This is the patient's initial encounter. Patient reports that signs and symptoms have been present for 1 day and indicates a pain score of 8/10. MEDICAL/SURGICAL HISTORY: None. Tonsillectomy. COMPARISON: [facility] – [place], [place] CERVICAL SPINE W/O CONTRAST, 01/21/2018.. . TECHNIQUE: 10 ml Gadavist (gadobutrol) contrast infused MRA (single exam dose) of the extracranial circulation was performed using a neurovascular coil. Postprocessing was performed, including rotati ng sub-volume maximum intensity projections of each carotid artery, rotating full-volume maximum inte nsity projections of both carotid arteries, sagittal and coronal sliding thin-slab reformations of ea ch carotid artery, and left oblique sliding thin-slab reformation through the aortic arch to include the origin of the arch branch vessels. FINDINGS: Aortic Arch : There is a three-vessel origin of the great vessels from the aorta. No evidence of o stial narrowing. Right Carotid : Atherosclerotic plaque involving the origin of the ICA generates a 10-20% stenosis w ithout ulceration. The more cephalad portion of the extracranial ICA is tortuous but patent. Common c arotid artery is patent.. Left Carotid : Atherosclerotic plaque involving the origin of the ICA generates a 20-30% stenosis wi thout ulceration. The more cephalad aspects of the extracranial ICA are patent. ECA and CCA are paten t. Vertebrals : The vertebral arteries have a symmetric diameter. No stenotic lesions are seen. CONCLUSION: 1. Atherosclerotic plaque involving the ICA origins bilaterally generating a 20-30% stenosis on the left at a 10-20% stenosis on the right. 2. Patent vertebral arteries. Percent stenosis is calculated using the diameter of the stenotic region over the diameter of the nor mal distal internal carotid artery Electronically signed by: Jaguar Braun MD 01/21/2018 5:07 VALARIE
[2018-01-21] MEDS ORDERED: Lidocaine 1%/Epinephrine 1:100,000 Inj 50 ML Vial ONE (18:07)
[2018-01-21] MEDS ORDERED: Propofol Inj 500 MG/50 ML Vial ONE (18:30)
[2018-01-21] MEDS: Pantoprazole Inj 40 MG Vial IV.PUSH SCH (18:39)
[2018-01-21] MEDS ORDERED: ceFAZolin 2 GM Premix Inj 2 GM/50 ML PIGGYBACK IV.SIG ONE (18:54)
[2018-01-21] MEDS ORDERED: Gadobutrol PF 10 MMOL/10 ML Vial (for RAD) IV.SIG ONE (19:01)
--- NOTE | 2018-01-21 21:02 | XR ---
EXAM DATE: 01/21/2018 12:00 AM EDT AGE/SEX: 89 years / Male INDICATIONS: Cervical spine fusion. CLINICAL DATA: This is the patient's initial encounter. Patient reports that signs and symptoms have been present for 1 day and indicates a pain score of Nonresponsive. MEDICAL/SURGICAL HISTORY: Non-responsive. Non-responsive. COMPARISON: . FINDINGS: Screws are seen through the posterior elements at C3 bilaterally, right C4, bilaterally at C5, bilate rally at C6, and bilaterally at T1. The inferior cervical spine is not well-visualized on the lateral view provided. There are vertical rods connecting these screws on the right and left sides. The myra ent is status post laminectomy at C3-C6. CONCLUSION: Good placement of surgical hardware. Electronically signed by: Edgardo Green MD 01/21/2018 9:01 PM EDT
--- NOTE | 2018-01-21 21:12 | P.OP ---
Date of procedure: 01/21/18 Anesthesia: GETA Surgeon: Antelmo Szymanski MD Estimated blood loss (mL): 250 Operation and Findings: Procedure: C4-6 laminectomy C3-T1 instrumentation posterior cervical C3,C4,C5,C6 lateral mass skipping left C4 -- all 3.5 x 14mm T1 pedicle - 4.0 x 28mm Exateck [place], 90mm rods Description: 71yoM with C6 level SCI with C6 fracture and posterior compression. Urgent decompression and stabilization indicated. Patient brought to Main OR where procedure was done under General Anesthesia, with MAPS > 80mm and Monitoring (MEP/SSEP, with only signal recorded weakly from right upper extremity, throughout the case). Patient placed prone on the Ilia table with lami rolls and head fixated in a 3-pin headrest. Posterior cervicothoracic spine prepped and draped in the usual sterile fashion. After infiltration with local anesthetic, incision carried down to C7 spinous process , verified by fluoroscopy. Subperiosteal dissection carried down from C3 to T1 bilaterally. Pedicle screws placed at T1 using AP fluoro and then lateral mass screws placed at C3,C4,C5, and C6 bilaterally with left C4 unable to accept a screw. Laminectomy performed using 2-0 Kerrison punch rongeurs starting at C6 working rostral to C4, with areas of maximal compression at C5/6 and C4/5 with a fracture noted through lamina of C6. Cord decompressed. Rods placed 90mm bilaterally and set screws secured. Bone graft placed along edges of bone and rods. Hemostasis assured with surgiflo and a 7-flat drain used and secured to skin with nylon. Wound irrigated with gentamicin irrigation prior to placement of graft, gelfoam placed over the dura, then closed in layers with interrupted 0 -Vicryl for deep fascia, superficial fascia, inverted 2-0 Vicryl for dermis and erica for skin. Sterile dressings applied. Patient returned supine, taken out of pins, taken to ICU in stable condition. Plan for intubation to stay in place next few days and MAP > 80 x 24(-48 hours) . Case discussed with his , who understands guarded prognosis re: SCI recovery.
[2018-01-21] MEDS ORDERED: fentaNYL Citrate Inj 100 MCG/2 ML Ampul ONE (21:27)
[2018-01-21 21:37] LABS: ABG Base Excess -1.8 mmol/L (-2-2); ABG PCO2 41 mmHg (38-42); ABG PO2 407 mmHg (61-120)
--- NOTE | 2018-01-21 21:52 | XR ---
EXAM DATE: 01/21/2018 9:31 PM EDT AGE/SEX: 89 years / Male INDICATIONS: Evaluate ET tube placement. CLINICAL DATA: This is the patient's subsequent encounter. Patient reports that signs and symptoms h ave been present for 1 day and indicates a pain score of Nonresponsive. MEDICAL/SURGICAL HISTORY: Non-responsive. Non-responsive. [place] [facility] [place]. . FINDINGS: ET tube is present with tip overlapping approximately 2-3 above the romy. There is cr owding of the bronchovascular markings due to the partially expiratory nature of the radiographs crea ting prominence of the perivascular interstitial markings, however mild case of pulmonary edema is no t excluded. Focal consolidation is not seen. The rest of the examination has not changed. CONCLUSION: ET tube placement as above. Electronically signed by: Michell Alcala MD 01/21/2018 9:50 PM EDT
[2018-01-21] MEDS: Sod Chloride 0.9% Inj 1,000 ML IV.CONT SCH (21:57)
[2018-01-21] MEDS: fentaNYL 10 mcg/mL Premix Drip 2,500 MCG/250 ML BAG IV.SIG PRN (22:14)
[2018-01-21] MEDS: Propofol 1000 mg/100 ml Inj 1,000 MG/100 ML BOTTLE IV.CONT PRN (22:19)
[2018-01-21 22:22] LABS: Baso # (Auto) 0.1 th/mm3 (0.0-0.2); Baso % (Auto) 0.6 % (0.0-2.0); Eos % (Auto) 0.1 % (0.0-4.0); Hematocrit 40.2 % (39.0-51.0); Hemoglobin 13.6 gm/dL (13.0-17.0); Lymph # (Auto) 0.6 th/mm3 (1.0-4.8); Mean Corpuscular HGB Conc 33.7 % (32.0-36.0); Mean Corpuscular Hemoglobin 29.5 pg (27.0-34.0); Mean Corpuscular Volume 87.4 fL (80.0-100.0); Mean Platelet Volume 7.5 fL (7.0-11.0); Mono # (Auto) 0.5 th/mm3 (0.0-0.9); Mono % (Auto) 4.1 % (0.0-8.0); Neut # (Auto) 10.1 th/mm3 (1.8-7.7); Neut % (Auto) 90.2 % (16.0-70.0); Platelet Count 130 th/mm3 (150-450); Red Cell Distribution Width 13.2 % (11.6-17.2); White Blood Count 11.2 th/mm3 (4.0-11.0)
[2018-01-21 22:43] LABS: Calcium 7.8 mg/dL (8.5-10.1); Carbon Dioxide 25.5 meq/L (21.0-32.0); Potassium 4.5 meq/L (3.5-5.1)
[2018-01-22] MEDS ORDERED: Sod Chloride 0.9% Inj 1,000 ML IV.SIG ONE (03:05)
[2018-01-22] MEDS ORDERED: Chlorhexidine Gluconate 2% 1 Pack (2 Cloths) TOPICAL PRN (04:00)
[2018-01-22 04:42] LABS: Baso % (Auto) 0.3 % (0.0-2.0); Hemoglobin 12.5 gm/dL (13.0-17.0); Lymph # (Auto) 0.4 th/mm3 (1.0-4.8); Lymph % (Auto) 3.6 % (9.0-44.0); Mean Corpuscular HGB Conc 34.7 % (32.0-36.0); Mean Corpuscular Hemoglobin 29.9 pg (27.0-34.0); Mean Corpuscular Volume 86.1 fL (80.0-100.0); Mean Platelet Volume 7.4 fL (7.0-11.0); Mono # (Auto) 0.6 th/mm3 (0.0-0.9); Mono % (Auto) 5.7 % (0.0-8.0); Neut # (Auto) 10.2 th/mm3 (1.8-7.7); Neut % (Auto) 90.4 % (16.0-70.0); Platelet Count 124 th/mm3 (150-450); Red Blood Count 4.18 mil/mm3 (4.50-5.90); Red Cell Distribution Width 13.3 % (11.6-17.2); White Blood Count 11.3 th/mm3 (4.0-11.0)
--- NOTE | 2018-01-22 04:58 | XR ---
EXAM DATE: 01/22/2018 6:00 AM EDT AGE/SEX: 72 years / Male INDICATIONS: Follow up trauma. CLINICAL DATA: This is the patient's subsequent encounter. Patient reports that signs and symptoms h ave been present for 2 days and indicates a pain score of Nonresponsive. MEDICAL/SURGICAL HISTORY: None. . C-spine fusion. COMPARISON: [facility], CHEST 1V SINGLE AP, 01/21/2018. . FINDINGS: Endotracheal tube in good position. Previous fusion of the cervical spine. Basilar and dependent atel ectasis in the lungs. No effusion or pneumothorax. CONCLUSION: Mild basilar dependent atelectasis in the lungs. No significant effusion. No pneumothorax. Endotrache al tube in good position. Electronically signed by: Woody Valdez MD 01/22/2018 4:57 AM EDT
[2018-01-22 05:16] LABS: Albumin 2.8 g/dL (3.4-5.0); Calcium 7.2 mg/dL (8.5-10.1); Carbon Dioxide 25.1 meq/L (21.0-32.0); Potassium 4.1 meq/L (3.5-5.1); Total Protein 5.1 g/dL (6.4-8.2)
[2018-01-22] MEDS: Chlorhexidine Gluconate 2% 1 Pack (2 Cloths) TOPICAL SCH (06:06)
[2018-01-22 09:00] LABS: ABG Base Excess -0.5 mmol/L (-2-2); ABG PCO2 36 mmHg (38-42); ABG PO2 248 mmHg (61-120)
[2018-01-22] MEDS ORDERED: Magnesium Oxide 400 MG Tablet PO PRN (09:42)
[2018-01-22] MEDS ORDERED: Potassium Chlor 20 mEq Premix 20 MEQ/100 ML PIGGYBACK IV.SIG PRN ×2 (09:42)
[2018-01-22] MEDS ORDERED: Potassium Chloride 25 MEQ Effervescent Tablet PO PRN (09:42)
[2018-01-22] MEDS ORDERED: Potassium Chlor 40 mEq Premix 40 MEQ/100 ML PIGGYBACK IV.SIG PRN ×2 (09:42)
[2018-01-22] MEDS ORDERED: Magnesium Sulfate Inj 2 GM in Sodium Chlor 0.9% Inj 96 ML IV.SIG PRN (09:42)
[2018-01-22] MEDS ORDERED: Sodium Phosphate Inj 30 MMOL in Sodium Chlor 0.9% Inj 250 ML IV.SIG PRN (09:42)
[2018-01-22] MEDS ORDERED: Magnesium Sulfate Inj 4 GM in Sodium Chlor 0.9% Inj 92 ML IV.SIG PRN (09:42)
[2018-01-22] MEDS ORDERED: Potassium Phosphate Inj 30 MMOL in Sodium Chlor 0.9% Inj 250 ML IV.SIG PRN (09:42)
[2018-01-22] MEDS ORDERED: Potassium Phosphate 500 MG Soluble Tablet PO PRN ×2 (09:42)
--- NOTE | 2018-01-22 11:39 | P.PNNS ---
Subjective Interval history: Intubated Physical Exam Vital signs: Vital Signs 01/21/18 14:08 01/21/18 14:38 01/21/18 14:45 Temperature Pulse Rate 79 83 Respiratory Rate 6 L 20 Blood Pressure 139/66 Pulse Oximetry 96 98 98 01/21/18 15:00 01/21/18 16:00 01/21/18 22:00 Temperature 97.7 F 98.7 F 97.6 F Pulse Rate 77 70 72 Respiratory Rate 30 H 20 16 Blood Pressure 148/75 H 172/69 H Pulse Oximetry 97 99 100 01/21/18 22:51 01/21/18 23:00 01/22/18 00:00 Temperature 98.8 F Pulse Rate 63 64 Respiratory Rate 16 16 16 Blood Pressure Pulse Oximetry 100 100 100 01/22/18 00:03 01/22/18 01:00 01/22/18 02:00 Temperature Pulse Rate 63 60 Respiratory Rate 16 16 16 Blood Pressure Pulse Oximetry 100 100 99 01/22/18 03:00 01/22/18 04:00 01/22/18 04:14 Temperature Pulse Rate 64 65 Respiratory Rate 16 16 20 Blood Pressure Pulse Oximetry 100 99 100 01/22/18 05:00 01/22/18 06:00 01/22/18 06:30 Temperature Pulse Rate 65 65 67 Respiratory Rate 16 14 9 L Blood Pressure Pulse Oximetry 99 99 99 01/22/18 07:00 01/22/18 07:30 01/22/18 07:56 Temperature Pulse Rate 67 63 Respiratory Rate 13 10 L 16 Blood Pressure 114/54 L 115/55 L Pulse Oximetry 99 99 99 01/22/18 08:00 01/22/18 08:30 01/22/18 09:00 Temperature 100.1 F H Pulse Rate 62 60 63 Respiratory Rate 6 L 14 8 L Blood Pressure 109/57 L Pulse Oximetry 98 98 99 Intake & Output 01/21/18 01/22/18 01/22/18 18:59 06:59 18:59 Intake Total 50 / 50 2400 / 2400 Output Total 0 / 0 2350 / 2350 Balance 50 / 50 50 / 50 Weight 65.9 kg 72.8 kg Intake: IV 50 / 50 1000 / 1000 NS Inj 1,000 ML @ As Directed 1000 / 1000 IV.SIG ONCE ONE Rx#:[id number] Ancef 2 GM Premix Inj 2 gm In 50 / 50 50 ml @ 100 mls/hr IV.SIG ONCE ONE Rx#:[id number] Oral 0 / 0 Anesthesia Amount 1400 / 1400 Output: Urine 0 / 0 Estimated Blood Loss 250 / 250 Urine Amount (Catheter) 2099 / 2099 Indwelling Urethral Catheter 2099 / 2099 Wound Drainage 0 / 0 # 1 UPPER BACK 0 / 0 Other: Date of Last Bowel Movement 01/21/18 # Bowel Movements 0 Weight On Admission 65.9 kg Narrative: Intubated E3 FC in the UEs R L D 4- 1 B 4- 2 T 4- 1 WE 1 0 HI 1 0 LE 0 0 C5-6 sensory level - Urinary Catheter Management Indwelling Urethral Catheter Cath placed during this visit: yes Reason for continuing: Hourly intake/output Insertion date: 01/21/18 Insertion time: 17:35 Assessment and Plan - Plan 71yoM POD 1 C3-T2 fusion, C4-6 lami for cervical spine fractures and SCI -continue MAP goal >85 -Collar at all times
[2018-01-22] MEDS: Docusate Sodium 100 MG Capsule PO SCH ×2 (12:21→21:40)
[2018-01-22] MEDS ORDERED: Dextrose 50% in Water 50 ML Vial IV.PUSH PRN (12:57)
--- NOTE | 2018-01-22 13:09 | P.PNCC ---
Subjective Brief History: 71 y.o male fell from the ladder about 5 feet.Could not move his legs and had weakness b/l UE- level 1 trauma alert,HD stable,no abdominal pain 24 Hour Review/Hospital Course: 01/22 With spinal cord injury0 C5-C6 level he went to the OR with the neurosurgeon for decompression and fusion He is moving his upper extremities not the lowers however Hemodynamically normal with a map around 80 Sodium is 149 so we will give him 1 L of LR Pain is controlled fentanyl drip and propofol drip for sedation Abdomen is soft and benign Objective Vital Signs / I&O: Vital Signs 01/21/18 14:08 01/21/18 14:38 01/21/18 14:45 Temperature Pulse Rate 79 83 Respiratory Rate 6 L 20 Blood Pressure 139/66 Pulse Oximetry 96 98 98 01/21/18 15:00 01/21/18 16:00 01/21/18 22:00 Temperature 97.7 F 98.7 F 97.6 F Pulse Rate 77 70 72 Respiratory Rate 30 H 20 16 Blood Pressure 148/75 H 172/69 H Pulse Oximetry 97 99 100 01/21/18 22:51 01/21/18 23:00 01/22/18 00:00 Temperature 98.8 F Pulse Rate 63 64 Respiratory Rate 16 16 16 Blood Pressure Pulse Oximetry 100 100 100 01/22/18 00:03 01/22/18 01:00 01/22/18 02:00 Temperature Pulse Rate 63 60 Respiratory Rate 16 16 16 Blood Pressure Pulse Oximetry 100 100 99 01/22/18 03:00 01/22/18 04:00 01/22/18 04:14 Temperature Pulse Rate 64 65 Respiratory Rate 16 16 20 Blood Pressure Pulse Oximetry 100 99 100 01/22/18 05:00 01/22/18 06:00 01/22/18 06:30 Temperature Pulse Rate 65 65 67 Respiratory Rate 16 14 9 L Blood Pressure Pulse Oximetry 99 99 99 01/22/18 07:00 01/22/18 07:30 01/22/18 07:56 Temperature Pulse Rate 67 63 Respiratory Rate 13 10 L 16 Blood Pressure 114/54 L 115/55 L Pulse Oximetry 99 99 99 01/22/18 08:00 01/22/18 08:30 01/22/18 09:00 Temperature 100.1 F H Pulse Rate 62 60 63 Respiratory Rate 6 L 14 8 L Blood Pressure 109/57 L Pulse Oximetry 98 98 99 Intake & Output 01/21/18 01/22/18 01/22/18 18:59 06:59 18:59 Intake Total 50 / 50 2400 / 2400 Output Total 0 / 0 2350 / 2350 Balance 50 / 50 50 / 50 Weight 65.9 kg 72.8 kg Intake: IV 50 / 50 1000 / 1000 NS Inj 1,000 ML @ As Directed 1000 / 1000 IV.SIG ONCE ONE Rx#:[id number] Ancef 2 GM Premix Inj 2 gm In 50 / 50 50 ml @ 100 mls/hr IV.SIG ONCE ONE Rx#:[id number] Oral 0 / 0 Anesthesia Amount 1400 / 1400 Output: Urine 0 / 0 Estimated Blood Loss 250 / 250 Urine Amount (Catheter) 2099 Indwelling Urethral Catheter 2099 Wound Drainage 0 / 0 # 1 UPPER BACK 0 / 0 Other: Date of Last Bowel Movement 01/21/18 # Bowel Movements 0 Weight On Admission 65.9 kg Result Diagrams: 01/22/18 04:25 01/22/18 04:25 Imaging: Impressions Cervical Spine X-Ray 01/21/18 00:00 CONCLUSION: Good placement of surgical hardware. Neck MRA 01/21/18 00:00 CONCLUSION: 1. Atherosclerotic plaque involving the ICA origins bilaterally generating a 20 -30% stenosis on the left at a 10-20% stenosis on the right. 2. Patent vertebral arteries. Percent stenosis is calculated using the diameter of the stenotic region over the diameter of the normal distal internal carotid artery Thoracic Spine MRI 01/21/18 00:00 CONCLUSION: 1. Limited MRI show no cortical cord contusion. Chest X-Ray 01/21/18 13:52 CONCLUSION: Artifact, negative for pneumothorax Pelvis X-Ray 01/21/18 13:52 CONCLUSION: Negative examination. Abdomen/Pelvis CT 01/21/18 13:56 Bony Structures: See the CT of the thoracic and lumbar spine is reported separately. The pelvis is intact. CONCLUSION: 1. No acute abnormality. 2. 2.9 x 2.0 cm rim calcified nodule within the right costophrenic angle with associated calcified pleural plaque. Consider outpatient PET CT to further assess. At this point a mesothelioma cannot be completely excluded. Cervical Spine CT 01/21/18 13:56 CONCLUSION: 1. Fracture at the C5 and C6 level. 2. MRI would be of benefit given the symptomatology. Chest CT 01/21/18 13:56 CONCLUSION: 1. No acute abnormality. 2. 2.9 cm rim calcified nodule involving the posterior costophrenic sulcus on the right. 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 A mesothelioma must be considered. Consider PET CT to further assess. Head CT 01/21/18 13:56 CONCLUSION: Negative for an acute process . Lumbar Spine CT 01/21/18 13:56 CONCLUSION: 1. Negative CT scan of the thoracic spine for acute process. MRI be of benefit given the symptomatology. 2. Arrangements have been made for such. Thoracic Spine CT 01/21/18 13:56 CONCLUSION: 1. Mild degenerative changes in the thoracic spine,.. Etiology for the flaccid lower extremities is not apparent. Arrangements have been made for emergent MRI. Cervical Spine MRI 01/21/18 15:23 CONCLUSION: Cord contusion mid C4-C6 C7 with injury pattern suggesting instability across the C5-C6 level. Chest X-Ray 01/21/18 21:31 CONCLUSION: ET tube placement as above. Chest X-Ray 01/22/18 06:00 CONCLUSION: Mild basilar dependent atelectasis in the lungs. No significant effusion. No pneumothorax. Endotracheal tube in good position. 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
[2018-01-22] MEDS: Oral Hygiene Kit OROPHARYNG SCH ×2 (13:58→15:00)
[2018-01-22] MEDS: Pantoprazole Inj 40 MG Vial IV.PUSH SCH (15:00)
[2018-01-22] MEDS: Propofol 1000 mg/100 ml Inj 1,000 MG/100 ML BOTTLE IV.CONT PRN (15:03)
[2018-01-22] MEDS: Insulin NovoLOG Aspart Correctional Sugar Inj SQ SCH (18:26)
[2018-01-22] MEDS: Sod Chloride 0.9% Inj 1,000 ML IV.CONT SCH (18:26)
[2018-01-22] MEDS: Chlorhexidine 0.12% Oral Kit 15 ML UDC OROPHARYNG SCH (20:00)
[2018-01-23] MEDS: Insulin NovoLOG Aspart Correctional Sugar Inj SQ SCH ×4 (01:00→18:36)
[2018-01-23] MEDS: Chlorhexidine Gluconate 2% 1 Pack (2 Cloths) TOPICAL SCH (04:24)
[2018-01-23] MEDS: Oral Hygiene Kit OROPHARYNG SCH ×4 (04:24→16:36)
[2018-01-23 04:51] LABS: Baso # (Auto) 0.1 th/mm3 (0.0-0.2); Baso % (Auto) 0.5 % (0.0-2.0); Hematocrit 35.3 % (39.0-51.0); Hemoglobin 12.1 gm/dL (13.0-17.0); Lymph # (Auto) 0.9 th/mm3 (1.0-4.8); Lymph % (Auto) 8.1 % (9.0-44.0); Mean Corpuscular HGB Conc 34.3 % (32.0-36.0); Mean Corpuscular Hemoglobin 30.6 pg (27.0-34.0); Mean Platelet Volume 7.6 fL (7.0-11.0); Mono # (Auto) 1.2 th/mm3 (0.0-0.9); Mono % (Auto) 11.5 % (0.0-8.0); Neut # (Auto) 8.4 th/mm3 (1.8-7.7); Neut % (Auto) 79.9 % (16.0-70.0); Platelet Count 99 th/mm3 (150-450); Red Blood Count 3.96 mil/mm3 (4.50-5.90); Red Cell Distribution Width 13.6 % (11.6-17.2); White Blood Count 10.5 th/mm3 (4.0-11.0)
[2018-01-23 05:20] LABS: Albumin 2.8 g/dL (3.4-5.0); Anion Gap 7 meq/L (5-15); Aspartate Aminotransferase 38 U/L (15-37); Blood Urea Nitrogen 24 mg/dL (7-18); Calcium 7.5 mg/dL (8.5-10.1); Carbon Dioxide 26.5 meq/L (21.0-32.0); Chloride 113 meq/L (98-107); Glomerular Filtration Rate 72 mL/min (>89); Glucose,Random 118 mg/dL (74-106); Potassium 4.2 meq/L (3.5-5.1); Sodium 146 meq/L (136-145)
[2018-01-23 05:24] LABS: Alanine Aminotransferase 29 U/L (12-78); Alkaline Phosphatase 57 U/L (45-117); Total Protein 5.7 g/dL (6.4-8.2)
[2018-01-23 05:50] LABS: ABG Base Excess 1.1 mmol/L (-2-2); ABG PCO2 40 mmHg (38-42); ABG PO2 68 mmHg (61-120)
[2018-01-23] MEDS: Propofol 1000 mg/100 ml Inj 1,000 MG/100 ML BOTTLE IV.CONT PRN ×2 (06:00→20:48)
--- NOTE | 2018-01-23 06:40 | XR ---
EXAM DATE: 01/23/2018 6:00 AM EDT AGE/SEX: 72 years / Male INDICATIONS: Shortness of breath. CLINICAL DATA: This is the patient's subsequent encounter. Patient reports that signs and symptoms h ave been present for 2 days and indicates a pain score of Nonresponsive. MEDICAL/SURGICAL HISTORY: Rheumatoid arthritis. Fusion, cervical. COMPARISON: [facility], CHEST 1V SINGLE AP, 01/22/2018. . FINDINGS: Endotracheal tube in good position. NG coiled in stomach. Basilar airspace disease slightly increased from January 22. No significant effusion or pneumothorax. CONCLUSION: Increase in basilar airspace disease since January 22. Nasogastric tube has been placed with tip in t he stomach. Electronically signed by: Woody Valdez MD 01/23/2018 6:39 AM EDT
[2018-01-23 07:01] LABS: Platelet Morphology Normal (Normal); RBC Morphology Normal (Normal)
--- NOTE | 2018-01-23 08:17 | P.PNNS ---
Subjective Interval history: per nursing patient with spontaneous movements in the UEs but not antigravity Physical Exam Vital signs: Vital Signs 01/22/18 08:30 01/22/18 09:00 01/22/18 10:00 Temperature 100.1 F H Pulse Rate 60 63 67 Respiratory Rate 14 8 L 17 Blood Pressure 109/57 L Pulse Oximetry 98 99 100 01/22/18 10:26 01/22/18 11:00 01/22/18 11:26 Temperature Pulse Rate 63 62 63 Respiratory Rate 13 16 16 Blood Pressure 107/58 L 109/58 L Pulse Oximetry 99 99 99 01/22/18 12:00 01/22/18 12:26 01/22/18 13:00 Temperature 99.3 F Pulse Rate 62 64 61 Respiratory Rate 16 16 16 Blood Pressure 111/55 L Pulse Oximetry 100 100 100 01/22/18 13:26 01/22/18 14:00 01/22/18 14:26 Temperature Pulse Rate 61 70 67 Respiratory Rate 6 L 22 6 L Blood Pressure 113/55 L 120/61 Pulse Oximetry 100 100 100 01/22/18 15:00 01/22/18 15:26 01/22/18 16:00 Temperature Pulse Rate 67 63 63 Respiratory Rate 16 16 16 Blood Pressure 108/58 L Pulse Oximetry 100 99 100 01/22/18 16:26 01/22/18 17:00 01/22/18 17:26 Temperature Pulse Rate 62 61 62 Respiratory Rate 16 16 16 Blood Pressure 113/58 L 117/55 L Pulse Oximetry 100 100 100 01/22/18 18:00 01/22/18 18:26 01/22/18 19:00 Temperature Pulse Rate 61 61 63 Respiratory Rate 16 16 16 Blood Pressure 113/56 L Pulse Oximetry 100 100 98 01/22/18 19:41 01/22/18 20:00 01/22/18 20:20 Temperature 100.4 F H Pulse Rate 61 66 Respiratory Rate 16 16 19 Blood Pressure 111/58 L Pulse Oximetry 98 96 01/22/18 21:00 01/22/18 22:00 01/22/18 23:00 Temperature 99.2 F Pulse Rate 66 60 72 Respiratory Rate 16 16 19 Blood Pressure 107/57 L 120/58 L 117/58 L Pulse Oximetry 98 01/23/18 00:00 01/23/18 01:00 01/23/18 01:09 Temperature 100.0 F H 98.7 F 98.7 F Pulse Rate 61 71 71 Respiratory Rate 17 17 17 Blood Pressure 129/54 L 139/59 L 139/59 L Pulse Oximetry 97 97 01/23/18 01:19 01/23/18 03:47 01/23/18 05:09 Temperature 99.7 F H Pulse Rate 57 L 66 Respiratory Rate 17 16 16 Blood Pressure 124/59 L Pulse Oximetry 97 97 93 L 01/23/18 07:33 Temperature Pulse Rate 69 Respiratory Rate 19 Blood Pressure Pulse Oximetry Intake & Output 01/22/18 01/23/18 01/23/18 18:59 06:59 18:59 Intake Total 2099 / 2099 286 / 286 Output Total 500 / 500 450 / 450 Balance 1600 / 1600 -164 / -164 Weight 70.4 kg Intake: IV 2099 100 / 100 Diprivan 1000 mg/100 ml Inj 1, 100 / 100 100 / 100 000 mg In 100 ml @ 5 MCG/KG/MIN 1.977 mls/hr IV.CONT TITRATE PRN Rx#:[id number] NS Inj 1,000 ML @ 50 mls/hr IV. 1000 / 1000 CONT .Q20H LOS Rx#:[id number] LR 1000 mL Inj 1,000 ML @ Wide 1000 / 1000 Open IV.SIG BOLUS ONE Rx#: [id number] Tube Feeding 86 / 86 Tube Irrigant 100 / 100 Output: Urine Amount (Catheter) 500 / 500 425 / 425 Indwelling Urethral Catheter 500 / 500 425 / 425 Gastric Drainage 25 / 25 Right Nare Nasogastric Tube 25 / 25 Wound Drainage 0 / 0 0 / 0 # 1 UPPER BACK 0 / 0 0 / 0 Other: # Incontinent Bowel Movements 0 Narrative: Intubated E3 with significant prompting and stimulation will intermittently follow simple commands. exam challenging to assess individual muscle groups. with painful stimulation is able to assess if at least antigravity R L D 1 1 B 3 2 T 2 2 WE 0 0 HI 0 0 LE 0 0 KIANA without any output. holds suction. without any kinks of clots noted along the tubing - Urinary Catheter Management Indwelling Urethral Catheter Cath placed during this visit: yes Reason for continuing: Hourly intake/output Insertion date: 01/21/18 Insertion time: 17:35 Assessment and Plan - Plan 71yoM POD 2 C3-T2 fusion, C4-6 lami for cervical spine fractures and SCI -neuro decline, stat MRI cervical spine to evaluate for post op hematoma ( without any KIANA output) versus evolution of cord edema -continue MAP goal >85 for 48-72 hours post op -Collar at all times
--- NOTE | 2018-01-23 08:41 | MR ---
EXAM DATE: 01/23/2018 7:07 AM EDT AGE/SEX: 72 years / Male INDICATIONS: . Change in strength. CLINICAL DATA: This is the patient's initial encounter. Patient reports that signs and symptoms have been present for 2 days and indicates a pain score of 0/10. MEDICAL/SURGICAL HISTORY: Hypothyroidism. Hypercholesterolemia. Arthritis. Tonsillectomy. COMPARISON: [facility] [place], MR CERVICAL SPINE W/O CONTRAST, 01/21/2018. [facility] [place], MR THORACIC SPINE W/O CONTR AST, 01/21/2018. . TECHNIQUE: Multiplanar, multisequence MRI examination of the cervical spine was performed without co ntrast. FINDINGS: There is a large fluid collection identified within the posterior soft tissues with a drai n present and terminating at the level of C5/C6 posteriorly. There is posterior decompression from C4 through C6. There is metallic susceptibility artifact present throughout the cervical spine from C2 through C7/T1. These findings are new from prior exam of January 21, 2018. Vertebrae: Normal vertebral body height. Homogeneous marrow signal. Alignment: Normal. Cord: There is abnormal expansion of the the cervical cord from C4 through C6 measuring approximatel y 5 cm in length. There is progressive increased T2 signal identified within the cord within this are a of expansion. Post Fossa: The cerebellar tonsils are normal in position. CONCLUSION: 1. Patient is status post posterior fusion and decompression of the cervical spine with a large flui d collection and drain placement. There is progressive abnormal enlargement of the cervical cord from C4 through C6 with increased T2 signal consistent with progressive myelopathy. No abnormal increased T1 signal identified within the cord to suggest hemorrhage. Electronically signed by: Ellen Zavala MD 01/23/2018 8:40 AM EDT
--- NOTE | 2018-01-23 09:37 | P.DIET ---
Nutritional Evaluation Type of nutrition evaluation: initial Nutrition consult regarding: Tube Feeding Objective - Diagnosis Trauma Alert: Fall - Objective Whigham body weight: 62 kg % IBW: 107 Body Weight Used for Calculations: Actual (66kg) Energy Needs - Lower Range (kCal/kg): 28 Energy Needs - Upper Range (kCal/kg): 33 Lower Limit kCal/kg (kCals): 1,848 Upper Limit kCal/kg (kCals): 2,178 Lower Limit Protein Factor (Grams per Kg): 1.2 Upper Limit Protein Factor (Grams per Kg): 1.5 Lower Protein Needs (Protein): 79 Upper Protein Needs (Protein): 99 Dietitian Reviewed in Medical Record: Curent medications, Intake & Output, Labs , Medical history, Tube feeding Diet Order: NPO Objective Comments: PMH: RA Assessment Assessment: Pt at nutritional risk r/t dx and need for a TF for nutrition support. Pt admitted due to fall from a ladder, POD 2 C3-T2 fusion, C4-6 lami for cervical spine fractures and SCI. Pt is intubated and sedated on propofol. Nutritional needs as assessed above. Current TF Jevity 1.5 with goal rate 55ml/hr will provide 1980kcals, 84gms protein and 1003mls free water. This is adequate to meet pt's nutritional needs at this time. Propofol adds kcals when running. Will monitor TF tolerance, clinical course. Recommendations: TF Jevity 1.5 with goal rate 55ml/hr Dietitian to Monitor: Lab values, Intake & Output, Tube feeding tolerance, Weight change, Medical course
--- NOTE | 2018-01-23 09:42 | P.EN ---
Reviewed MRI cervical spine with radiology. Without any compressive hematoma but with significant extension of cord edema. -continue Map goals >80-85 -MR demonstrates adequate decompression, no further surgery indicated at this time -likely will require early trach/PEG 2/2 high cervical cord injury -would not recommend steroids, high associated morbidity with limited benefit
[2018-01-23] MEDS: Acetaminophen 325 MG Tablet PO PRN ×2 (09:49→16:35)
[2018-01-23] MEDS: Docusate Sodium 100 MG Capsule PO SCH ×2 (09:49→20:48)
[2018-01-23] MEDS: Chlorhexidine 0.12% Oral Kit 15 ML UDC OROPHARYNG SCH ×2 (09:49→20:49)
[2018-01-23] MEDS ORDERED: Sod Chloride 0.9% Inj 1,000 ML IV.SIG SCH (11:30)
[2018-01-23] MEDS: Sod Chloride 0.9% Inj 1,000 ML IV.CONT SCH ×2 (11:59→15:16)
[2018-01-23] MEDS: Pantoprazole Inj 40 MG Vial IV.PUSH SCH (15:16)
[2018-01-23] MEDS: fentaNYL 10 mcg/mL Premix Drip 2,500 MCG/250 ML BAG IV.SIG PRN (20:48)
[2018-01-24] MEDS: Insulin NovoLOG Aspart Correctional Sugar Inj SQ SCH ×4 (01:01→18:42)
[2018-01-24] MEDS: Oral Hygiene Kit OROPHARYNG SCH ×4 (01:01→16:38)
--- NOTE | 2018-01-24 04:33 | XR ---
EXAM DATE: 01/24/2018 6:00 AM EDT AGE/SEX: 72 years / Male INDICATIONS: Respiratory distress. CLINICAL DATA: This is the patient's subsequent encounter. Patient reports that signs and symptoms h ave been present for 3 days and indicates a pain score of Nonresponsive. MEDICAL/SURGICAL HISTORY: Rheumatoid arthritis. Fusion, cervical. COMPARISON: [facility], CHEST 1V SINGLE AP, 01/23/2018. . FINDINGS: The cardiac silhouette is enlarged in transverse diameter. A nasogastric tube is in place with its ti p in the stomach. There is bilateral lower lobe atelectasis versus pneumonia left greater than right Small bilateral pleural effusions are identified. CONCLUSION: Bilateral lower lobe atelectasis versus pneumonia. There has been no significant change when compared to the prior exam. Electronically signed by: Pk Sena MD 01/24/2018 4:32 AM EDT
[2018-01-24 05:51] LABS: Baso % (Auto) 0.4 % (0.0-2.0); Hematocrit 30.3 % (39.0-51.0); Hemoglobin 10.7 gm/dL (13.0-17.0); Lymph # (Auto) 0.5 th/mm3 (1.0-4.8); Lymph % (Auto) 8.8 % (9.0-44.0); Mean Corpuscular HGB Conc 35.5 % (32.0-36.0); Mean Corpuscular Volume 87.4 fL (80.0-100.0); Mean Platelet Volume 7.7 fL (7.0-11.0); Mono # (Auto) 0.5 th/mm3 (0.0-0.9); Mono % (Auto) 9.2 % (0.0-8.0); Neut # (Auto) 4.7 th/mm3 (1.8-7.7); Neut % (Auto) 81.6 % (16.0-70.0); Platelet Count 83 th/mm3 (150-450); Red Blood Count 3.46 mil/mm3 (4.50-5.90); Red Cell Distribution Width 13.3 % (11.6-17.2); White Blood Count 5.7 th/mm3 (4.0-11.0)
[2018-01-24 06:04] LABS: ABG Base Excess 1.7 mmol/L (-2-2); ABG PCO2 40 mmHg (38-42); ABG PO2 116 mmHg (61-120)
[2018-01-24 06:17] LABS: Albumin 2.3 g/dL (3.4-5.0); Anion Gap 6 meq/L (5-15); Aspartate Aminotransferase 44 U/L (15-37); Blood Urea Nitrogen 24 mg/dL (7-18); Calcium 7.5 mg/dL (8.5-10.1); Carbon Dioxide 26.2 meq/L (21.0-32.0); Chloride 115 meq/L (98-107); Glomerular Filtration Rate 84 mL/min (>89); Glucose,Random 137 mg/dL (74-106); Sodium 147 meq/L (136-145)
[2018-01-24 06:19] LABS: Alanine Aminotransferase 36 U/L (12-78)
[2018-01-24 06:21] LABS: Alkaline Phosphatase 83 U/L (45-117); Total Protein 5.2 g/dL (6.4-8.2)
[2018-01-24] MEDS: Chlorhexidine Gluconate 2% 1 Pack (2 Cloths) TOPICAL SCH (07:27)
[2018-01-24] MEDS: Sod Chloride 0.9% Inj 1,000 ML IV.CONT SCH (08:25)
[2018-01-24] MEDS: Acetaminophen 325 MG Tablet PO PRN ×2 (08:26→16:38)
[2018-01-24] MEDS: Docusate Sodium 100 MG Capsule PO SCH ×2 (08:26→22:25)
[2018-01-24] MEDS: Propofol 1000 mg/100 ml Inj 1,000 MG/100 ML BOTTLE IV.CONT PRN (08:26)
[2018-01-24] MEDS: Chlorhexidine 0.12% Oral Kit 15 ML UDC OROPHARYNG SCH ×2 (08:27→22:25)
[2018-01-24 09:11] LABS: Lymphocytes 10 % (9-44); Monocytes 4 % (0-8)
[2018-01-24 09:12] LABS: Platelet Morphology Normal (Normal)
[2018-01-24] MEDS ORDERED: RASS Change Order MISCELLANE ONE ×2 (12:00)
[2018-01-24] MEDS ORDERED: Sodium Chloride 0.9% 2 ML Flush PRN IV.FLUSH (12:02)
[2018-01-24] MEDS: Midazolam 50 MG/50 ML Inj 50 MG/50 ML BAG IV.CONT PRN ×2 (12:37→22:28)
--- NOTE | 2018-01-24 14:34 | XR ---
EXAM DATE: 01/24/2018 2:09 PM EDT AGE/SEX: 72 years / Male INDICATIONS: Post ET tube exchange. CLINICAL DATA: This is the patient's subsequent encounter. Patient reports that signs and symptoms h ave been present for 1 day and indicates a pain score of Nonresponsive. MEDICAL/SURGICAL HISTORY: None. None. COMPARISON: [facility] [place], CHEST 1V SINGLE AP, 01/24/2018. . FINDINGS: ETT is less than 5 mm above the romy. NGT is in the stomach. Redemonstration of bilateral pleural-p arenchymal opacities in the lower lung zones. Cardiomediastinal contours are stable. Remainder of exa m is unchanged. CONCLUSION: 1. ETT is less than 5 mm above the romy. 2. NGT in the stomach. 3. Persistent bilateral lower lung zone pleural-parenchymal opacities. Electronically signed by: Yoav Andrews MD 01/24/2018 2:32 PM EDT
--- NOTE | 2018-01-24 14:36 | P.PNNS ---
Subjective Interval history: intubated, sedated. f/u postop MRI C-spine obtained Physical Exam Vital signs: Vital Signs 01/23/18 15:00 01/23/18 16:00 01/23/18 16:25 Temperature 102.2 F H Pulse Rate 75 69 69 Respiratory Rate 24 19 20 Blood Pressure Pulse Oximetry 92 L 92 L 01/23/18 16:50 01/23/18 17:00 01/23/18 17:17 Temperature Pulse Rate 71 66 63 Respiratory Rate 5 L 27 H 6 L Blood Pressure 118/58 L 102/51 L Pulse Oximetry 94 L 93 L 94 L 01/23/18 18:00 01/23/18 18:13 01/23/18 18:24 Temperature Pulse Rate 65 69 Respiratory Rate 20 21 21 Blood Pressure 102/52 L 134/65 Pulse Oximetry 96 95 95 01/23/18 18:29 01/23/18 19:00 01/23/18 20:00 Temperature 99.3 F Pulse Rate 65 72 64 Respiratory Rate 19 16 10 L Blood Pressure Pulse Oximetry 95 96 01/23/18 20:24 01/23/18 20:48 01/23/18 21:00 Temperature Pulse Rate 62 74 69 Respiratory Rate 18 26 H 15 Blood Pressure 112/59 L Pulse Oximetry 96 92 L 93 L 01/23/18 22:00 01/23/18 22:24 01/23/18 23:20 Temperature Pulse Rate 65 63 Respiratory Rate 16 16 17 Blood Pressure 106/56 L Pulse Oximetry 96 97 96 01/24/18 00:00 01/24/18 03:06 01/24/18 03:55 Temperature 99.4 F Pulse Rate 66 59 L Respiratory Rate 16 16 23 Blood Pressure 107/55 L Pulse Oximetry 94 L 92 L 01/24/18 04:00 01/24/18 08:00 01/24/18 08:18 Temperature 99.8 F H 102.0 F H Pulse Rate 73 69 81 Respiratory Rate 20 18 26 H Blood Pressure 125/59 L 124/58 L Pulse Oximetry 93 L 94 L 91 L 01/24/18 11:20 Temperature Pulse Rate Respiratory Rate 17 Blood Pressure Pulse Oximetry 95 Intake & Output 01/23/18 01/24/18 01/24/18 18:59 06:59 18:59 Intake Total 2670 / 2670 730 / 730 1032 / 1032 Output Total 550 / 550 450 / 450 Balance 2120 / 2120 280 / 280 1032 / 1032 Weight 75.1 kg Intake: IV 1999 / 1999 350 / 350 1032 / 1032 Diprivan 1000 mg/100 ml Inj 1, 100 / 100 132 / 132 000 mg In 100 ml @ 5 MCG/KG/MIN 1.977 mls/hr IV.CONT TITRATE PRN Rx#:[id number] NS Inj 1,000 ML @ 50 mls/hr IV. 1000 / 1000 900 / 900 CONT .Q20H LOS Rx#:[id number] NS Inj 1,000 ML @ 999 mls/hr IV 1000 / 1000 .SIG .Q1H1M [facility] Rx#:[id number] fentaNYL 10 mcg/mL Premix Drip 250 / 250 2,500 mcg In 250 ml @ 50 MCG/HR 5 mls/hr IV.SIG TITRATE PRN Rx #:[id number] Oral 670 / 670 Tube Feeding 280 / 280 Tube Irrigant 100 / 100 Output: Urine 0 / 0 Urine Amount (Catheter) 550 / 550 450 / 450 Indwelling Urethral Catheter 550 / 550 450 / 450 Wound Drainage 0 / 0 # 1 UPPER BACK 0 / 0 Other: Date of Last Bowel Movement 01/21/18 # Bowel Movements 0 # Incontinent Bowel Movements 0 Narrative: intubated, sedated [place] collar in place nursing report spont LUE withdrawal to central pain, questionable gross 1/5 LE movement. no movement or response to extremities to my exam pupils 4 mm equal bilaterally wound dressing clean and dry. - Urinary Catheter Management Indwelling Urethral Catheter Cath placed during this visit: yes Reason for continuing: Hourly intake/output Insertion date: 01/21/18 Insertion time: 17:35 Assessment and Plan - Plan 71yoM with C6 level SCI with C6 fracture and posterior compression. Urgent decompression and stabilization indicated. s/p C3-T1 posterior fusion, C4-6 lami for cervical spine fractures and SCI by Dr. Szymanski (01/21) 01/23 neuro decline, stat MRI cervical spine to evaluate for post op hematoma ( without any KIANA output) versus evolution of cord edema follow up MRI C-spine 01/23 Patient is status post posterior fusion and decompression of the cervical spine with a large fluid collection and drain placement. There is progressive abnormal enlargement of the cervical cord from C4 through C6 with increased T2 signal consistent with progressive myelopathy. No abnormal increased T1 signal identified within the cord to suggest hemorrhage. Plan: cont critical care management cont neuro checks sedation weaning as tolerated continue MAP goal >85 for 48-72 hours post op
[2018-01-24] MEDS: Metoprolol Inj 5 MG/5 ML Vial IV.PUSH SCH ×2 (16:38→22:24)
[2018-01-24] MEDS: Pantoprazole Inj 40 MG Vial IV.PUSH SCH (16:38)
--- NOTE | 2018-01-24 16:46 | P.PNCC ---
Subjective Brief History: 71 y.o male fell from the ladder about 5 feet.Could not move his legs and had weakness b/l UE- level 1 trauma alert,HD stable,no abdominal pain C6 paraplegia A&O x 3 Delt 5, Biceps 4, Triceps 4, Hand 1-2 No lower extremity function No sensation below nippe and not in arms below elbows 24 Hour Review/Hospital Course: 01/22 With spinal cord injury0 C5-C6 level he went to the OR with the neurosurgeon for decompression and fusion He is moving his upper extremities not the lowers however Hemodynamically normal with a map around 80 Sodium is 149 so we will give him 1 L of LR Pain is controlled fentanyl drip and propofol drip for sedation Abdomen is soft and benign 01/24/2018 Neurologically patient is the same Remains somewhat sedated on ventilator on propofol and fentanyl Hemodynamically stable and somewhat hypertensive will be started on Coreg and Catapres patch EKG does not show any acute changes Bilateral breath sounds patient remains on assist control ventilation with good PO2 FiO2 gradient Tolerating CPAP trials and depending on patient's progression he may be extubated will in next few days Patients with this level of injury C5-C6 should be able to breathe on their own and utilize the diaphragm as well as intercostal muscles Nonetheless spinal cord injury can be higher and lower than the actual level of the vertebral fracture so the patient may need temporary tracheostomy and will see this in next few days Objective Vital Signs / I&O: Vital Signs 01/23/18 16:50 01/23/18 17:00 01/23/18 17:17 Temperature Pulse Rate 71 66 63 Respiratory Rate 5 L 27 H 6 L Blood Pressure 118/58 L 102/51 L Pulse Oximetry 94 L 93 L 94 L 01/23/18 18:00 01/23/18 18:13 01/23/18 18:24 Temperature Pulse Rate 65 69 Respiratory Rate 20 21 21 Blood Pressure 102/52 L 134/65 Pulse Oximetry 96 95 95 01/23/18 18:29 01/23/18 19:00 01/23/18 20:00 Temperature 99.3 F Pulse Rate 65 72 64 Respiratory Rate 19 16 10 L Blood Pressure Pulse Oximetry 95 96 01/23/18 20:24 01/23/18 20:48 01/23/18 21:00 Temperature Pulse Rate 62 74 69 Respiratory Rate 18 26 H 15 Blood Pressure 112/59 L Pulse Oximetry 96 92 L 93 L 01/23/18 22:00 01/23/18 22:24 01/23/18 23:20 Temperature Pulse Rate 65 63 Respiratory Rate 16 16 17 Blood Pressure 106/56 L Pulse Oximetry 96 97 96 01/24/18 00:00 01/24/18 03:06 01/24/18 03:55 Temperature 99.4 F Pulse Rate 66 59 L Respiratory Rate 16 16 23 Blood Pressure 107/55 L Pulse Oximetry 94 L 92 L 01/24/18 04:00 01/24/18 08:00 01/24/18 08:18 Temperature 99.8 F H 102.0 F H Pulse Rate 73 69 81 Respiratory Rate 20 18 26 H Blood Pressure 125/59 L 124/58 L Pulse Oximetry 93 L 94 L 91 L 01/24/18 11:20 01/24/18 16:12 Temperature Pulse Rate 71 Respiratory Rate 17 18 Blood Pressure Pulse Oximetry 95 92 L Intake & Output 01/23/18 01/24/18 01/24/18 18:59 06:59 18:59 Intake Total 2670 / 2670 730 / 730 1032 / 1032 Output Total 550 / 550 450 / 450 Balance 2120 / 2120 280 / 280 1032 / 1032 Weight 75.1 kg Intake: IV 1999 / 1999 350 / 350 1032 / 1032 Diprivan 1000 mg/100 ml Inj 1, 100 / 100 132 / 132 000 mg In 100 ml @ 5 MCG/KG/MIN 1.977 mls/hr IV.CONT TITRATE PRN Rx#:[id number] NS Inj 1,000 ML @ 50 mls/hr IV. 1000 / 1000 900 / 900 CONT .Q20H [facility] Rx#:[id number] NS Inj 1,000 ML @ 999 mls/hr IV 1000 / 1000 .SIG .Q1H1M [facility] Rx#:[id number] fentaNYL 10 mcg/mL Premix Drip 250 / 250 2,500 mcg In 250 ml @ 50 MCG/HR 5 mls/hr IV.SIG TITRATE PRN Rx #:[id number] Oral 670 / 670 Tube Feeding 280 / 280 Tube Irrigant 100 / 100 Output: Urine 0 / 0 Urine Amount (Catheter) 550 / 550 450 / 450 Indwelling Urethral Catheter 550 / 550 450 / 450 Wound Drainage 0 / 0 # 1 UPPER BACK 0 / 0 Other: Date of Last Bowel Movement 10/12/18 # Bowel Movements 0 # Incontinent Bowel Movements 0 Result Diagrams: 01/24/18 05:15 01/24/18 05:15 Imaging: Impressions Chest X-Ray 01/24/18 06:00 CONCLUSION: Bilateral lower lobe atelectasis versus pneumonia. There has been no significant change when compared to the prior exam. Chest X-Ray 01/24/18 14:09 CONCLUSION: 1. ETT is less than 5 mm above the romy. 2. NGT in the stomach. 3. Persistent bilateral lower lung zone pleural-parenchymal opacities. 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 patient is the same Remains somewhat sedated on ventilator on propofol and fentanyl Hemodynamic/Cardiac: Hemodynamically stable and somewhat hypertensive will be started on Coreg and Catapres patch EKG does not show any acute changes Pulmonary/Respiratory: Bilateral breath sounds patient remains on assist control ventilation with good PO2 FiO2 gradient Tolerating CPAP trials and depending on patient's progression he may be extubated will in next few days Patients with this level of injury C5-C6 should be able to breathe on their own and utilize the diaphragm as well as intercostal muscles Nonetheless spinal cord injury can be higher and lower than the actual level of the vertebral fracture so the patient may need temporary tracheostomy and will see this in next few days Abdomen/GI Nutrition: Abdomen soft active bowel sounds will start on enteral feedings Renal/I&O: Renal function preserved and normal patient somewhat hypervolemic probably Assessment and Plan Plan: Continue neuro protection for ACI Continue pain control and sedation Continue mechanical ventilation Plan to extubate in the next 48 hours Attestation: Critical care 34 minutes
--- NOTE | 2018-01-24 17:54 | P.PNWCN ---
Wound Care Nurse Consult Description: Received consult from Doctor Paz for pressure injury prevention evaluate for specialty bed Communicated with: NA Vogt [facility] Recommendation: Please order Wave bed from [facility]. Manually turn and reposition patient every 2 hours. Additional information: Patient is a new paraplegic, needs low air loss mattress or bed.
[2018-01-24] MEDS ORDERED: Piperacil/Tazo 3.375 GM Premix 50 ML IV.SIG SCH (21:00)
[2018-01-24] MEDS: Sodium Chloride 0.9% 2 ML Flush BID IV.FLUSH SCH (22:43)
[2018-01-24 22:47] LABS: ABG Base Excess 2.4 mmol/L (-2-2); ABG PCO2 43 mmHg (38-42); ABG PO2 60 mmHg (61-120)
[2018-01-25] MEDS: Insulin NovoLOG Aspart Correctional Sugar Inj SQ SCH ×2 (01:05→07:51)
[2018-01-25] MEDS: Oral Hygiene Kit OROPHARYNG SCH ×4 (01:06→15:58)
[2018-01-25] MEDS: Chlorhexidine Gluconate 2% 1 Pack (2 Cloths) TOPICAL SCH (04:24)
[2018-01-25] MEDS: Metoprolol Inj 5 MG/5 ML Vial IV.PUSH SCH ×4 (05:52→20:36)
[2018-01-25 06:53] LABS: Baso % (Auto) 0.4 % (0.0-2.0); Eos % (Auto) 0.5 % (0.0-4.0); Hematocrit 30.4 % (39.0-51.0); Hemoglobin 10.4 gm/dL (13.0-17.0); Lymph # (Auto) 0.4 th/mm3 (1.0-4.8); Lymph % (Auto) 8.2 % (9.0-44.0); Mean Corpuscular HGB Conc 34.3 % (32.0-36.0); Mean Corpuscular Hemoglobin 30.5 pg (27.0-34.0); Mean Corpuscular Volume 88.8 fL (80.0-100.0); Mean Platelet Volume 8.5 fL (7.0-11.0); Mono # (Auto) 0.4 th/mm3 (0.0-0.9); Mono % (Auto) 7.8 % (0.0-8.0); Neut % (Auto) 83.1 % (16.0-70.0); Platelet Count 95 th/mm3 (150-450); Red Blood Count 3.42 mil/mm3 (4.50-5.90); Red Cell Distribution Width 13.2 % (11.6-17.2); White Blood Count 4.8 th/mm3 (4.0-11.0)
[2018-01-25 07:53] LABS: Anion Gap 6 meq/L (5-15); Blood Urea Nitrogen 26 mg/dL (7-18); Calcium 7.7 mg/dL (8.5-10.1); Chloride 114 meq/L (98-107); Glomerular Filtration Rate Greater Than 89 mL/min (>89); Glucose,Random 125 mg/dL (74-106); Sodium 148 meq/L (136-145)
[2018-01-25] MEDS: Docusate Sodium Liq 100 MG/10 ML UDC NG/OG SCH ×2 (08:53→20:37)
[2018-01-25] MEDS: Chlorhexidine 0.12% Oral Kit 15 ML UDC OROPHARYNG SCH ×2 (08:53→20:35)
[2018-01-25] MEDS: Sodium Chloride 0.9% 2 ML Flush BID IV.FLUSH SCH ×2 (08:54→20:36)
[2018-01-25 09:21] LABS: ABG Base Excess 3.5 mmol/L (-2-2); ABG PCO2 39 mmHg (38-42); ABG PO2 195 mmHg (61-120)
[2018-01-25] MEDS: Enoxaparin Inj 30 MG/0.3 ML Syringe SQ SCH ×2 (11:36→20:36)
[2018-01-25] MEDS: Acetaminophen 325 MG Tablet PO PRN ×2 (11:50→20:35)
--- NOTE | 2018-01-25 15:42 | ECG ---
Date Performed: 01/24/2018 Time Performed: 10:57:09 PTAGE: 72 years EKG: Sinus rhythm MODERATE INTRAVENTRICULAR CONDUCTION DELAY BORDERLINE ECG NO PREVIOUS TRACING DOCTOR: Ivana Maher Interpretating Date/Time 01/25/2018 15:41:03
[2018-01-25] MEDS: Pantoprazole Inj 40 MG Vial IV.PUSH SCH (15:52)
--- NOTE | 2018-01-25 16:38 | P.PNNS ---
Subjective Interval history: intubated, off all sedative drips since early this morning. nursing called in the afternoon to report pt has not opened eyes, no movements. Ct Brain on arrival rereviewed and was negative Physical Exam Vital signs: Vital Signs 01/24/18 17:00 01/24/18 17:01 01/24/18 17:28 Temperature Pulse Rate 78 76 70 Respiratory Rate 16 0 L 0 L Blood Pressure 145/66 H 121/55 L Pulse Oximetry 95 93 L 93 L 01/24/18 18:00 01/24/18 18:01 01/24/18 19:00 Temperature Pulse Rate 65 65 61 Respiratory Rate 0 L 0 L 0 L Blood Pressure 106/51 L Pulse Oximetry 93 L 93 L 94 L 01/24/18 19:01 01/24/18 19:55 01/24/18 20:00 Temperature 98.9 F Pulse Rate 62 61 62 Respiratory Rate 16 16 12 Blood Pressure 106/57 L 119/60 Pulse Oximetry 94 L 94 L 95 01/24/18 20:01 01/24/18 21:00 01/24/18 21:01 Temperature Pulse Rate 61 60 60 Respiratory Rate 7 L 16 13 Blood Pressure 119/60 121/61 Pulse Oximetry 95 94 L 94 L 01/24/18 22:00 01/24/18 22:01 01/24/18 23:00 Temperature Pulse Rate 87 86 66 Respiratory Rate 21 21 0 L Blood Pressure 159/74 H Pulse Oximetry 85 L 87 L 97 01/24/18 23:01 01/25/18 00:00 01/25/18 00:01 Temperature 99.8 F H Pulse Rate 66 61 61 Respiratory Rate 0 L 0 L 0 L Blood Pressure 109/54 L 114/57 L 114/57 L Pulse Oximetry 97 98 98 01/25/18 00:34 01/25/18 01:00 01/25/18 01:01 Temperature Pulse Rate 70 69 Respiratory Rate 22 16 15 Blood Pressure 139/66 Pulse Oximetry 98 97 96 01/25/18 02:00 01/25/18 02:01 01/25/18 03:00 Temperature Pulse Rate 62 62 60 Respiratory Rate 16 16 16 Blood Pressure 116/57 L Pulse Oximetry 97 97 98 01/25/18 03:01 01/25/18 04:00 01/25/18 04:01 Temperature 99.9 F H Pulse Rate 60 62 62 Respiratory Rate 16 16 16 Blood Pressure 130/66 131/51 L 144/64 H Pulse Oximetry 98 97 97 01/25/18 05:00 01/25/18 05:13 01/25/18 05:27 Temperature Pulse Rate 78 81 83 Respiratory Rate 7 L 9 L 22 Blood Pressure 128/62 Pulse Oximetry 91 L 90 L 92 L 01/25/18 06:00 01/25/18 06:01 01/25/18 07:00 Temperature Pulse Rate 72 71 66 Respiratory Rate 13 15 10 L Blood Pressure 133/62 Pulse Oximetry 96 96 96 01/25/18 07:01 01/25/18 08:00 01/25/18 08:01 Temperature 99.8 F H 99.8 F H Pulse Rate 66 67 67 Respiratory Rate 12 12 16 Blood Pressure 117/59 L 134/65 134/65 Pulse Oximetry 96 96 95 01/25/18 08:02 01/25/18 09:00 01/25/18 09:01 Temperature Pulse Rate 68 63 63 Respiratory Rate 18 4 L 12 Blood Pressure 128/61 Pulse Oximetry 95 95 95 01/25/18 10:00 01/25/18 10:01 01/25/18 11:00 Temperature Pulse Rate 66 66 66 Respiratory Rate 11 L 13 17 Blood Pressure 133/64 Pulse Oximetry 94 L 94 L 95 01/25/18 11:01 01/25/18 11:56 01/25/18 12:00 Temperature 100.9 F H Pulse Rate 66 85 Respiratory Rate 16 21 17 Blood Pressure 129/63 Pulse Oximetry 95 90 L 90 L 01/25/18 12:01 01/25/18 13:00 01/25/18 13:01 Temperature Pulse Rate 85 73 75 Respiratory Rate 20 20 24 Blood Pressure 146/68 H 116/61 Pulse Oximetry 90 L 93 L 93 L 01/25/18 14:00 01/25/18 14:01 01/25/18 15:00 Temperature Pulse Rate 69 69 70 Respiratory Rate 26 H 28 H 26 H Blood Pressure 118/58 L Pulse Oximetry 94 L 94 L 92 L 01/25/18 15:01 01/25/18 16:02 Temperature 100.1 F H Pulse Rate 70 73 Respiratory Rate 25 H 23 Blood Pressure 119/59 L 128/63 Pulse Oximetry 92 L 91 L Intake & Output 10/01/25/18 01/25/18 18:59 06:59 18:59 Intake Total 1833 / 1833 640 / 640 300 / 300 Output Total 550 / 550 475 / 475 Balance 1283 / 1283 165 / 165 300 / 300 Intake: IV 1032 / 1032 50 / 50 300 / 300 Versed Inj 50 mg In 50 ml @ 2 50 / 50 50 / 50 MG/HR 2 mls/hr IV.CONT TITRATE PRN Rx#:[id number] Diprivan 1000 mg/100 ml Inj 1, 132 / 132 000 mg In 100 ml @ 5 MCG/KG/MIN 1.977 mls/hr IV.CONT TITRATE PRN Rx#:[id number] NS Inj 1,000 ML @ 50 mls/hr IV. 900 / 900 CONT .Q20H LOS Rx#:[id number] fentaNYL 10 mcg/mL Premix Drip 250 / 250 2,500 mcg In 250 ml @ 50 MCG/HR 5 mls/hr IV.SIG TITRATE PRN Rx #:[id number] Oral 0 / 0 Tube Feeding 681 / 681 500 / 500 Water Bolus Amount 120 / 120 90 / 90 Output: Urine Amount (Catheter) 550 / 550 475 / 475 Indwelling Urethral Catheter 550 / 550 475 / 475 Other: Date of Last Bowel Movement 01/21/18 01/21/18 # Bowel Movements 0 0 Narrative: intubated, sedated Rosebud collar in place not opening eyes, not following commands no movement or response to pain to extremities to my exam pupils 4 mm equal bilaterally plantars silent b/l,no ankle clonus - Urinary Catheter Management Indwelling Urethral Catheter Cath placed during this visit: yes Reason for continuing: Hourly intake/output Insertion date: 01/21/18 Insertion time: 17:35 Assessment and Plan - Plan 71yoM with C6 level SCI with C6 fracture and posterior compression. Urgent decompression and stabilization indicated. s/p C3-T1 posterior fusion, C4-6 lami for cervical spine fractures and SCI by Dr. Szymanski (01/21) 01/23 neuro decline, stat MRI cervical spine to evaluate for post op hematoma ( without any KIANA output) versus evolution of cord edema follow up MRI C-spine 01/23 Patient is status post posterior fusion and decompression of the cervical spine with a large fluid collection and drain placement. There is progressive abnormal enlargement of the cervical cord from C4 through C6 with increased T2 signal consistent with progressive myelopathy. No abnormal increased T1 signal identified within the cord to suggest hemorrhage. 01/25: pt has been off sedation since the morning, remains unresponsive, CT Brain on arrival negative intracranial pathologies Plan: maria luisa marie obtain f/u CT Brain tomorrow am cont keep off sedation as tolerated and f/u exam cont q1 hour neuro checks cont critical care management
[2018-01-25] MEDS ORDERED: hydrALAZINE HCl Inj 20 MG/ML Vial IV.PUSH PRN (17:36)
--- NOTE | 2018-01-25 17:55 | P.PNCC ---
Subjective Brief History: 71 y.o male fell from the ladder about 5 feet.Could not move his legs and had weakness b/l UE- level 1 trauma alert,HD stable,no abdominal pain C6 paraplegia A&O x 3 Delt 5, Biceps 4, Triceps 4, Hand 1-2 No lower extremity function No sensation below nippe and not in arms below elbows 24 Hour Review/Hospital Course: 01/22 With spinal cord injury0 C5-C6 level he went to the OR with the neurosurgeon for decompression and fusion He is moving his upper extremities not the lowers however Hemodynamically normal with a map around 80 Sodium is 149 so we will give him 1 L of LR Pain is controlled fentanyl drip and propofol drip for sedation Abdomen is soft and benign 01/24/2018 Neurologically patient is the same Remains somewhat sedated on ventilator on propofol and fentanyl Hemodynamically stable and somewhat hypertensive will be started on Coreg and Catapres patch EKG does not show any acute changes Bilateral breath sounds patient remains on assist control ventilation with good PO2 FiO2 gradient Tolerating CPAP trials and depending on patient's progression he may be extubated will in next few days Patients with this level of injury C5-C6 should be able to breathe on their own and utilize the diaphragm as well as intercostal muscles Nonetheless spinal cord injury can be higher and lower than the actual level of the vertebral fracture so the patient may need temporary tracheostomy and will see this in next few days 01/25/2018 Patient with effective high level paraplegia All the sedation has been removed but patient is not regaining consciousness does not follow commands and is ventilatory fully dependent [place] Coma Scale remains 3 Pupils are equal reactive 3 mm Positive gag and cough reflex yet no other activity We will repeat CT scan of the brain to evaluate for any intracranial abnormality and if questionable do an MRI Hemodynamically patient is stable but hypertensive On Lopressor/Catapres patch/hydralazine Bilateral breath sounds good pulmonary function and PO2 FiO2 gradient Renal function preserved I discussed the situation with the family and depending on patient's progress and neurologic cerebral findings we will decide on further care As the things sit now patient will require tracheostomy and PEG for regardless the level of paraplegia patient is unconscious unable to protect his upper airway Objective Vital Signs / I&O: Vital Signs 01/24/18 18:00 01/24/18 18:01 01/24/18 19:00 Temperature Pulse Rate 65 65 61 Respiratory Rate 0 L 0 L 0 L Blood Pressure 106/51 L Pulse Oximetry 93 L 93 L 94 L 01/24/18 19:01 01/24/18 19:55 01/24/18 20:00 Temperature 98.9 F Pulse Rate 62 61 62 Respiratory Rate 16 16 12 Blood Pressure 106/57 L 119/60 Pulse Oximetry 94 L 94 L 95 01/24/18 20:01 01/24/18 21:00 01/24/18 21:01 Temperature Pulse Rate 61 60 60 Respiratory Rate 7 L 16 13 Blood Pressure 119/60 121/61 Pulse Oximetry 95 94 L 94 L 01/24/18 22:00 01/24/18 22:01 01/24/18 23:00 Temperature Pulse Rate 87 86 66 Respiratory Rate 21 21 0 L Blood Pressure 159/74 H Pulse Oximetry 85 L 87 L 97 01/24/18 23:01 01/25/18 00:00 01/25/18 00:01 Temperature 99.8 F H Pulse Rate 66 61 61 Respiratory Rate 0 L 0 L 0 L Blood Pressure 109/54 L 114/57 L 114/57 L Pulse Oximetry 97 98 98 01/25/18 00:34 01/25/18 01:00 01/25/18 01:01 Temperature Pulse Rate 70 69 Respiratory Rate 22 16 15 Blood Pressure 139/66 Pulse Oximetry 98 97 96 01/25/18 02:00 01/25/18 02:01 01/25/18 03:00 Temperature Pulse Rate 62 62 60 Respiratory Rate 16 16 16 Blood Pressure 116/57 L Pulse Oximetry 97 97 98 01/25/18 03:01 01/25/18 04:00 01/25/18 04:01 Temperature 99.9 F H Pulse Rate 60 62 62 Respiratory Rate 16 16 16 Blood Pressure 130/66 131/51 L 144/64 H Pulse Oximetry 98 97 97 01/25/18 05:00 01/25/18 05:13 01/25/18 05:27 Temperature Pulse Rate 78 81 83 Respiratory Rate 7 L 9 L 22 Blood Pressure 128/62 Pulse Oximetry 91 L 90 L 92 L 01/25/18 06:00 01/25/18 06:01 01/25/18 07:00 Temperature Pulse Rate 72 71 66 Respiratory Rate 13 15 10 L Blood Pressure 133/62 Pulse Oximetry 96 96 96 01/25/18 07:01 01/25/18 08:00 01/25/18 08:01 Temperature 99.8 F H 99.8 F H Pulse Rate 66 67 67 Respiratory Rate 12 12 16 Blood Pressure 117/59 L 134/65 134/65 Pulse Oximetry 96 96 95 01/25/18 08:02 01/25/18 09:00 01/25/18 09:01 Temperature Pulse Rate 68 63 63 Respiratory Rate 18 4 L 12 Blood Pressure 128/61 Pulse Oximetry 95 95 95 01/25/18 10:00 01/25/18 10:01 01/25/18 11:00 Temperature Pulse Rate 66 66 66 Respiratory Rate 11 L 13 17 Blood Pressure 133/64 Pulse Oximetry 94 L 94 L 95 01/25/18 11:01 01/25/18 11:56 01/25/18 12:00 Temperature 100.9 F H Pulse Rate 66 85 Respiratory Rate 16 21 17 Blood Pressure 129/63 Pulse Oximetry 95 90 L 90 L 01/25/18 12:01 01/25/18 13:00 01/25/18 13:01 Temperature Pulse Rate 85 73 75 Respiratory Rate 20 20 24 Blood Pressure 146/68 H 116/61 Pulse Oximetry 90 L 93 L 93 L 01/25/18 14:00 01/25/18 14:01 01/25/18 15:00 Temperature Pulse Rate 69 69 70 Respiratory Rate 26 H 28 H 26 H Blood Pressure 118/58 L Pulse Oximetry 94 L 94 L 92 L 01/25/18 15:01 01/25/18 16:02 01/25/18 16:35 Temperature 100.1 F H Pulse Rate 70 73 Respiratory Rate 25 H 23 19 Blood Pressure 119/59 L 128/63 Pulse Oximetry 92 L 91 L 91 L Intake & Output 01/24/18 01/25/18 01/25/18 18:59 06:59 18:59 Intake Total 1833 / 1833 640 / 640 300 / 300 Output Total 550 / 550 475 / 475 Balance 1283 / 1283 165 / 165 300 / 300 Intake: IV 1032 / 1032 50 / 50 300 / 300 Versed Inj 50 mg In 50 ml @ 2 50 / 50 50 / 50 MG/HR 2 mls/hr IV.CONT TITRATE PRN Rx#:[id number] Diprivan 1000 mg/100 ml Inj 1, 132 / 132 000 mg In 100 ml @ 5 MCG/KG/MIN 1.977 mls/hr IV.CONT TITRATE PRN Rx#:[id number] NS Inj 1,000 ML @ 50 mls/hr IV. 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: Patient with effective high level paraplegia All the sedation has been removed but patient is not regaining consciousness does not follow commands and is ventilatory fully dependent [place] Coma Scale remains 3 Pupils are equal reactive 3 mm Positive gag and cough reflex yet no other activity We will repeat CT scan of the brain to evaluate for any intracranial abnormality and if questionable do an MRI Hemodynamic/Cardiac: Hemodynamically patient is stable but hypertensive On Lopressor/Catapres patch/hydralazine Pulmonary/Respiratory: Bilateral breath sounds good pulmonary function and PO2 FiO2 gradient I discussed the situation with the family and depending on patient's progress and neurologic cerebral findings we will decide on further care As the things sit now patient will require tracheostomy and PEG for regardless the level of paraplegia patient is unconscious unable to protect his upper airway Abdomen/GI Nutrition: Abdomen soft enteral feeds tolerated Renal/I&O: Renal function preserved Assessment and Plan Plan: Continue neuro protection for ACI Continue pain control and sedation Continue mechanical ventilation Plan to extubate in the next 48 hours Attestation: Critical care time 34 minutes
[2018-01-26] MEDS: Oral Hygiene Kit OROPHARYNG SCH ×5 (03:03→23:30)
[2018-01-26] MEDS: Chlorhexidine Gluconate 2% 1 Pack (2 Cloths) TOPICAL SCH (03:06)
[2018-01-26] MEDS: Metoprolol Inj 5 MG/5 ML Vial IV.PUSH SCH ×4 (03:06→20:38)
[2018-01-26] MEDS: Acetaminophen 325 MG Tablet PO PRN ×3 (04:33→20:39)
--- NOTE | 2018-01-26 06:02 | XR ---
EXAM DATE: 01/26/2018 6:00 AM EDT AGE/SEX: 72 years / Male INDICATIONS: Shortness of breath. CLINICAL DATA: This is the patient's subsequent encounter. Patient reports that signs and symptoms h ave been present for 3 days and indicates a pain score of Nonresponsive. MEDICAL/SURGICAL HISTORY: None. None. COMPARISON: C, CHEST 1V SINGLE AP, 01/24/2018. . FINDINGS: The cardiac silhouette is enlarged in transverse diameter. Support lines and tubes are in satisfactor y position. There is bilateral lower lobe atelectasis versus pneumonia. Moderate size bilateral pleur al effusions are identified. CONCLUSION: Bilateral lower lobe atelectasis versus pneumonia. Bilateral effusions. There has been no significant change when compared to the prior exam. Electronically signed by: Pk Sena MD 01/26/2018 6:01 AM EDT
[2018-01-26 06:05] LABS: ABG Base Excess 3.9 mmol/L (-2-2); ABG PCO2 38 mmHg (38-42); ABG PO2 187 mmHg (61-120)
[2018-01-26 06:24] LABS: Baso % (Auto) 0.4 % (0.0-2.0); Eos % (Auto) 0.5 % (0.0-4.0); Hematocrit 28.5 % (39.0-51.0); Hemoglobin 9.8 gm/dL (13.0-17.0); Lymph # (Auto) 0.4 th/mm3 (1.0-4.8); Lymph % (Auto) 8.4 % (9.0-44.0); Mean Corpuscular HGB Conc 34.5 % (32.0-36.0); Mean Corpuscular Hemoglobin 30.4 pg (27.0-34.0); Mean Corpuscular Volume 88.4 fL (80.0-100.0); Mean Platelet Volume 7.9 fL (7.0-11.0); Mono # (Auto) 0.5 th/mm3 (0.0-0.9); Mono % (Auto) 9.9 % (0.0-8.0); Neut # (Auto) 4.1 th/mm3 (1.8-7.7); Neut % (Auto) 80.8 % (16.0-70.0); Platelet Count 108 th/mm3 (150-450); Red Blood Count 3.23 mil/mm3 (4.50-5.90); Red Cell Distribution Width 13.2 % (11.6-17.2)
[2018-01-26 06:52] LABS: Calcium 7.5 mg/dL (8.5-10.1); Carbon Dioxide 29.1 meq/L (21.0-32.0); Potassium 4.3 meq/L (3.5-5.1)
[2018-01-26] MEDS ORDERED: Vancomycin Consult Pharmacy 1 EACH OTHER SCH (09:45)
[2018-01-26] MEDS: Chlorhexidine 0.12% Oral Kit 15 ML UDC OROPHARYNG SCH ×2 (09:57→20:40)
[2018-01-26] MEDS: Enoxaparin Inj 30 MG/0.3 ML Syringe SQ SCH ×2 (09:58→20:38)
[2018-01-26] MEDS: Sodium Chloride 0.9% 2 ML Flush BID IV.FLUSH SCH ×2 (09:58→20:40)
[2018-01-26] MEDS: Docusate Sodium Liq 100 MG/10 ML UDC NG/OG SCH ×2 (09:58→20:40)
[2018-01-26] MEDS ORDERED: Vancomycin Inj 1,000 MG in Sodium Chlor 0.9% Inj 250 ML IV.SIG SCH (10:00)
[2018-01-26] MEDS: Vancomycin Inj 750 MG in Sodium Chlor 0.9% Inj 250 ML IV.SIG SCH ×2 (12:03→23:31)
--- NOTE | 2018-01-26 14:03 | P.PNCC ---
Subjective Brief History: 71 y.o male fell from the ladder about 5 feet.Could not move his legs and had weakness b/l UE- level 1 trauma alert,HD stable,no abdominal pain C6 paraplegia A&O x 3 Delt 5, Biceps 4, Triceps 4, Hand 1-2 No lower extremity function No sensation below nippe and not in arms below elbows 24 Hour Review/Hospital Course: 01/22 With spinal cord injury0 C5-C6 level he went to the OR with the neurosurgeon for decompression and fusion He is moving his upper extremities not the lowers however Hemodynamically normal with a map around 80 Sodium is 149 so we will give him 1 L of LR Pain is controlled fentanyl drip and propofol drip for sedation Abdomen is soft and benign 01/24/2018 Neurologically patient is the same Remains somewhat sedated on ventilator on propofol and fentanyl Hemodynamically stable and somewhat hypertensive will be started on Coreg and Catapres patch EKG does not show any acute changes Bilateral breath sounds patient remains on assist control ventilation with good PO2 FiO2 gradient Tolerating CPAP trials and depending on patient's progression he may be extubated will in next few days Patients with this level of injury C5-C6 should be able to breathe on their own and utilize the diaphragm as well as intercostal muscles Nonetheless spinal cord injury can be higher and lower than the actual level of the vertebral fracture so the patient may need temporary tracheostomy and will see this in next few days 01/25/2018 Patient with effective high level paraplegia All the sedation has been removed but patient is not regaining consciousness does not follow commands and is ventilatory fully dependent Sharifa Coma Scale remains 3 Pupils are equal reactive 3 mm Positive gag and cough reflex yet no other activity We will repeat CT scan of the brain to evaluate for any intracranial abnormality and if questionable do an MRI Hemodynamically patient is stable but hypertensive On Lopressor/Catapres patch/hydralazine Bilateral breath sounds good pulmonary function and PO2 FiO2 gradient Renal function preserved I discussed the situation with the family and depending on patient's progress and neurologic cerebral findings we will decide on further care As the things sit now patient will require tracheostomy and PEG for regardless the level of paraplegia patient is unconscious unable to protect his upper airway 01/26/2018 This morning patient is moving little more his upper extremities No activity in the lower extremities Level of consciousness is still decreased beyond what would be expected for several days of any sedation CT of the head pending Hemodynamically stable Bilateral breath sounds patient assist control ventilation with increased PEEP in order to expand the lungs Throughout the night patient has been varying levels of oxygen support with FiO2 ranging from 50% to 100% PO2 FiO2 gradient and therefore varies considerably but I believe this is due to VQ mismatch and heavy secretions and atelectasis Nonetheless patient scheduled for CTA of the chest to make sure he does not have pulmonary embolism which she would be a prime candidate for Very heavy secretions and bilateral atelectasis. Patient underwent successful bronchoscopy with removal of massive amounts of thick tenuous mucus secretions Cultures have been obtained through Lukens trap Abdomen soft enteral feeds tolerated Objective Vital Signs / I&O: Vital Signs 01/25/18 14:00 01/25/18 14:01 01/25/18 15:00 Temperature Pulse Rate 69 69 70 Respiratory Rate 26 H 28 H 26 H Blood Pressure 118/58 L Pulse Oximetry 94 L 94 L 92 L 01/25/18 15:01 01/25/18 16:00 01/25/18 16:01 Temperature Pulse Rate 70 71 72 Respiratory Rate 25 H 27 H 26 H Blood Pressure 119/59 L 128/63 Pulse Oximetry 92 L 91 L 91 L 01/25/18 16:02 01/25/18 16:35 01/25/18 17:00 Temperature 100.1 F H Pulse Rate 73 81 Respiratory Rate 23 19 20 Blood Pressure 128/63 Pulse Oximetry 91 L 91 L 90 L 01/25/18 17:01 01/25/18 18:00 01/25/18 18:01 Temperature Pulse Rate 80 75 75 Respiratory Rate 22 20 19 Blood Pressure 170/79 H 127/60 Pulse Oximetry 90 L 92 L 93 L 01/25/18 18:06 01/25/18 19:34 01/25/18 20:00 Temperature 103.0 F H Pulse Rate 75 76 Respiratory Rate 18 18 18 Blood Pressure Pulse Oximetry 94 L 01/26/18 00:00 01/26/18 00:10 01/26/18 04:00 Temperature 100.4 F H 102.2 F H Pulse Rate 64 64 Respiratory Rate 18 18 18 Blood Pressure Pulse Oximetry 96 96 96 01/26/18 04:29 01/26/18 04:46 01/26/18 07:00 Temperature Pulse Rate 69 59 L Respiratory Rate 21 24 17 Blood Pressure Pulse Oximetry 93 L 99 01/26/18 07:15 01/26/18 07:30 01/26/18 07:43 Temperature Pulse Rate 58 L 59 L 58 L Respiratory Rate 17 17 16 Blood Pressure Pulse Oximetry 99 99 99 01/26/18 07:45 01/26/18 08:00 01/26/18 08:15 Temperature 97.6 F Pulse Rate 58 L 60 61 Respiratory Rate 17 15 17 Blood Pressure Pulse Oximetry 99 99 99 01/26/18 08:30 01/26/18 08:45 01/26/18 09:00 Temperature Pulse Rate 61 60 60 Respiratory Rate 17 17 15 Blood Pressure Pulse Oximetry 99 99 99 01/26/18 09:15 01/26/18 09:30 01/26/18 09:45 Temperature Pulse Rate 61 63 64 Respiratory Rate 17 19 18 Blood Pressure Pulse Oximetry 99 98 98 01/26/18 10:00 01/26/18 10:15 01/26/18 10:30 Temperature Pulse Rate 67 68 62 Respiratory Rate 21 16 7 L Blood Pressure Pulse Oximetry 94 L 97 97 01/26/18 10:32 01/26/18 10:45 01/26/18 11:00 Temperature Pulse Rate 62 64 70 Respiratory Rate 8 L 19 27 H Blood Pressure 134/66 Pulse Oximetry 96 96 91 L 01/26/18 11:10 01/26/18 11:15 01/26/18 11:30 Temperature Pulse Rate 73 74 Respiratory Rate 25 H 23 Blood Pressure Pulse Oximetry 98 88 L 88 L 01/26/18 11:45 01/26/18 12:00 01/26/18 12:15 Temperature 103.4 F H Pulse Rate 72 71 71 Respiratory Rate 23 20 16 Blood Pressure Pulse Oximetry 91 L 92 L 91 L 01/26/18 12:29 Temperature Pulse Rate Respiratory Rate 23 Blood Pressure Pulse Oximetry 90 L Intake & Output 01/25/18 01/26/18 01/26/18 18:59 06:59 18:59 Intake Total 1123 / 1123 693 / 693 357.5 / 357.5 Output Total 650 / 650 650 / 650 Balance 473 / 473 43 / 43 357.5 / 357.5 Intake: IV 300 / 300 357.5 / 357.5 Versed Inj 50 mg In 50 ml @ 2 50 / 50 MG/HR 2 mls/hr IV.CONT TITRATE PRN Rx#:[id number] Vancomycin Inj 750 MG In NS Inj 257.5 / 257.5 250 ML @ 250 mls/hr IV.SIG Q12H [facility] Rx#:[id number] Rocephin Inj 1,000 MG In NS Inj 100 / 100 100 ML @ 200 mls/hr IV.SIG Q24H [facility] Rx#:[id number] fentaNYL 10 mcg/mL Premix Drip 250 / 250 2,500 mcg In 250 ml @ 50 MCG/HR 5 mls/hr IV.SIG TITRATE PRN Rx #:[id number] Tube Feeding 703 / 703 573 / 573 Tube Irrigant 120 / 120 Water Bolus Amount 120 / 120 Output: Urine 0 / 0 Urine Amount (Catheter) 650 / 650 650 / 650 Indwelling Urethral Catheter 650 / 650 650 / 650 Other: Date of Last Bowel Movement 01/21/18 01/26/18 01/25/18 # Bowel Movements 2 Result Diagrams: 01/26/18 06:15 01/26/18 06:15 Imaging: Impressions Chest X-Ray 01/26/18 06:00 CONCLUSION: Bilateral lower lobe atelectasis versus pneumonia. Bilateral effusions. There has been no significant change when compared to the prior exam. Disinhibition Score: 14.00 Aggression Score: 14.00 Lability Score: 14.00 Agitated Behavior Total Score: 14 - Exam PHYSICAL METALLURGIST: This morning patient is moving little more his upper extremities No activity in the lower extremities Level of consciousness is still decreased beyond what would be expected for several days of any sedation CT of the head pending Hemodynamic/Cardiac: Hemodynamically patient is stable Pulmonary/Respiratory: Hemodynamically stable Bilateral breath sounds patient assist control ventilation with increased PEEP in order to expand the lungs Throughout the night patient has been varying levels of oxygen support with FiO2 ranging from 50% to 100% PO2 FiO2 gradient and therefore varies considerably but I believe this is due to VQ mismatch and heavy secretions and atelectasis Nonetheless patient scheduled for CTA of the chest to make sure he does not have pulmonary embolism which she would be a prime candidate for Very heavy secretions and bilateral atelectasis. Patient underwent successful bronchoscopy with removal of massive amounts of thick tenuous mucus secretions Cultures have been obtained through Lukens trap Abdomen/GI Nutrition: Abdomen soft enteral feeds tolerated Renal/I&O: Renal function preserved and normal Assessment and Plan Plan: Continue neuro protection for ACI Continue pain control and sedation Continue mechanical ventilation Plan to extubate in the next 48 hours Attestation: Based on patient's progress will have to decide with the patient will require tracheostomy Critical care time 34 minutes
--- NOTE | 2018-01-26 15:29 | CT ---
EXAM DATE: 01/26/2018 1:21 PM EDT AGE/SEX: 72 years / Male INDICATIONS: Follow up trauma. Fall from ladder five days go. CLINICAL DATA: This is the patient's subsequent encounter. Patient reports that signs and symptoms h ave been present for 4 - 6 days and indicates a pain score of Nonresponsive. MEDICAL/SURGICAL HISTORY: . Spinal cord injury. . Spinal fusion. RADIATION DOSE: 57.14 CTDI (mGy) COMPARISON: [facility] [place] CERVICAL [place] W/O CONTRAST, 01/23/2018. . TECHNIQUE: CT of the head without contrast. Using automated exposure control and adjustment of the mA and/or kV according to patient size, radiation dose was kept as low as reasonably achievable to ob tain optimal diagnostic quality images. DICOM format image data is available electronically for revi ew and comparison. FINDINGS: Cerebrum: The ventricles are normal for age. No evidence of midline shift, mass lesion, hemorrhage or acute infarction. No extraaxial fluid collections are seen. Posterior Fossa: The cerebellum and brainstem are intact. The 4th ventricle is midline. The cerebe llopontine angle is unremarkable. Extracranial: The visualized portion of the orbits is intact. Skull: The calvaria is intact. No evidence of skull fracture. CONCLUSION: 1. Negative for an acute process. . Electronically signed by: Mich Sepulveda MD 01/26/2018 3:28 PM EDT
--- NOTE | 2018-01-26 15:33 | CT ---
EXAM DATE: 01/26/2018 1:21 PM EDT AGE/SEX: 72 years / Male INDICATIONS: Shortness of breath. CLINICAL DATA: This is the patient's initial encounter. Patient reports that signs and symptoms have been present for 4 - 6 days and indicates a pain score of Nonresponsive. MEDICAL/SURGICAL HISTORY: . Spinal cord injury. . Spinal fusion. RADIATION DOSE: 16.60 CTDI (mGy) COMPARISON: [facility], CHEST 1V SINGLE AP, 01/26/2018. . TECHNIQUE: Volumetric scanning was performed using a multi-row detector CT scanner during bolus infu claudia of 74 ml Omnipaque 350 (iohexol) nonionic water-soluble contrast as a single exam dose. The christopher a was post processed with a variety of visualization algorithms including full volume maximum intensi ty projection and sliding thin slab reformation. Using automated exposure control and adjustment of the mA and/or kV according to patient size, radiation dose was kept as low as reasonably achievable t o obtain optimal diagnostic quality images. DICOM format image data is available electronically for review and comparison. FINDINGS: Pulmonary Arteries: No filling defects are seen in the pulmonary arteries out to the subsegmental ve ssels. The left and right pulmonary arteries are normal in diameter. Lung: There consolidative infiltrates in the perihilar and posterior lower lung zones bilaterally, s lightly worse on the right than the left. Effusion: Loculated and nonloculated pleural fluid bilaterally, right greater than left. Scattered p leural calcifications. Mediastinum: Mild prominence of central mediastinal lymph nodes which is nonspecific in the setting of pleural and parenchymal lung disease. Other: The axilla is unremarkable. CONCLUSION: This study is negative for pulmonary embolism. Electronically signed by: Edgardo Neves MD 01/26/2018 3:31 PM EDT
[2018-01-26] MEDS: Pantoprazole Inj 40 MG Vial IV.PUSH SCH (16:00)
--- NOTE | 2018-01-26 16:59 | MP ---
cc: Jennifer Paz MD DATE OF OPERATION: 01/26/2018 PREOPERATIVE DIAGNOSIS: High paraplegia, bilateral pulmonary atelectasis, and respiratory failure. POSTOPERATIVE DIAGNOSIS: High paraplegia, bilateral pulmonary atelectasis, and respiratory failure. OPERATIVE PROCEDURE: Bronchoscopy lavage and clearing of the airway; Lukens cultures. SURGEON: Dr. Paz. ANESTHESIA: General sedation. ESTIMATED BLOOD LOSS: None. INDICATIONS: The patient is prepared and then through the endotracheal tube, the bronchoscope was inserted into the trachea and then bronchi. Even in the trachea that is visible, the patient has large amount of grayish brown secretions in both mainstem bronchi. First, the right main stem bronchus was entered. Secretions were suctioned off. These are very thick and tenuous and then a bronchus was irrigated with saline repeatedly. This was continued through the second and third aberration of the bronchi. Same was repeated with the left side. Again, large amount of grayish secretions are suctioned off. Initial secretions are trapped in a Lukens trap and this was sent for aerobes and anaerobes and fungus. Trachea and bronchi again irrigated with copious amounts of saline and then bronchoscope is withdrawn. The patient is placed back on the respirator with good effect and good pO2 effect to gradient. MD JOEL Phillips/humaira/ashly , 02:26 PM , 02:33 PM
--- NOTE | 2018-01-26 17:02 | P.PNNS ---
Subjective Interval history: intubated, remains off sedation, starting to slightly open eyes, grimacing, has gross 1-2/5 response to pain both feet Physical Exam Vital signs: Vital Signs 01/25/18 17:00 01/25/18 17:01 01/25/18 18:00 Temperature Pulse Rate 81 80 75 Respiratory Rate 20 22 20 Blood Pressure 170/79 H Pulse Oximetry 90 L 90 L 92 L 01/25/18 18:01 01/25/18 18:06 01/25/18 19:34 Temperature Pulse Rate 75 75 Respiratory Rate 19 18 18 Blood Pressure 127/60 Pulse Oximetry 93 L 01/25/18 20:00 01/26/18 00:00 01/26/18 00:10 Temperature 103.0 F H 100.4 F H Pulse Rate 76 64 Respiratory Rate 18 18 18 Blood Pressure Pulse Oximetry 94 L 96 96 01/26/18 04:00 01/26/18 04:29 01/26/18 04:46 Temperature 102.2 F H Pulse Rate 64 69 Respiratory Rate 18 21 24 Blood Pressure Pulse Oximetry 96 93 L 01/26/18 07:00 01/26/18 07:15 01/26/18 07:30 Temperature Pulse Rate 59 L 58 L 59 L Respiratory Rate 17 17 17 Blood Pressure Pulse Oximetry 99 99 99 01/26/18 07:43 01/26/18 07:45 01/26/18 08:00 Temperature 97.6 F Pulse Rate 58 L 58 L 60 Respiratory Rate 16 17 15 Blood Pressure Pulse Oximetry 99 99 99 01/26/18 08:15 01/26/18 08:30 01/26/18 08:45 Temperature Pulse Rate 61 61 60 Respiratory Rate 17 17 17 Blood Pressure Pulse Oximetry 99 99 99 01/26/18 09:00 01/26/18 09:15 01/26/18 09:30 Temperature Pulse Rate 60 61 63 Respiratory Rate 15 17 19 Blood Pressure Pulse Oximetry 99 99 98 01/26/18 09:45 01/26/18 10:00 01/26/18 10:15 Temperature Pulse Rate 64 67 68 Respiratory Rate 18 21 16 Blood Pressure Pulse Oximetry 98 94 L 97 01/26/18 10:30 01/26/18 10:32 01/26/18 10:45 Temperature Pulse Rate 62 62 64 Respiratory Rate 7 L 8 L 19 Blood Pressure 134/66 Pulse Oximetry 97 96 96 01/26/18 11:00 01/26/18 11:10 01/26/18 11:15 Temperature Pulse Rate 70 73 Respiratory Rate 27 H 25 H Blood Pressure Pulse Oximetry 91 L 98 88 L 01/26/18 11:30 01/26/18 11:45 01/26/18 12:00 Temperature 103.4 F H Pulse Rate 74 72 71 Respiratory Rate 23 23 20 Blood Pressure Pulse Oximetry 88 L 91 L 92 L 01/26/18 12:15 01/26/18 12:29 01/26/18 12:30 Temperature Pulse Rate 71 71 Respiratory Rate 16 23 19 Blood Pressure Pulse Oximetry 91 L 90 L 90 L 01/26/18 12:45 01/26/18 13:00 01/26/18 13:15 Temperature Pulse Rate 69 68 66 Respiratory Rate 17 15 12 Blood Pressure Pulse Oximetry 91 L 92 L 93 L 01/26/18 13:30 01/26/18 13:45 01/26/18 14:00 Temperature Pulse Rate 65 64 63 Respiratory Rate 8 L 5 L 7 L Blood Pressure Pulse Oximetry 93 L 94 L 94 L 01/26/18 14:15 01/26/18 14:30 01/26/18 14:32 Temperature Pulse Rate 63 61 61 Respiratory Rate 6 L 10 L 7 L Blood Pressure 123/62 Pulse Oximetry 94 L 94 L 94 L 01/26/18 14:45 01/26/18 15:00 01/26/18 15:15 Temperature Pulse Rate 64 67 67 Respiratory Rate 19 18 19 Blood Pressure Pulse Oximetry 92 L 94 L 94 L 01/26/18 15:30 01/26/18 15:44 01/26/18 15:45 Temperature Pulse Rate 70 68 Respiratory Rate 25 H 21 Blood Pressure Pulse Oximetry 94 L 93 L 92 L 01/26/18 16:01 Temperature 99.7 F H Pulse Rate 66 Respiratory Rate 23 Blood Pressure 123/62 Pulse Oximetry 96 Intake & Output 01/25/18 01/26/18 01/26/18 18:59 06:59 18:59 Intake Total 1123 / 1123 693 / 693 357.5 / 357.5 Output Total 650 / 650 650 / 650 Balance 473 / 473 43 / 43 357.5 / 357.5 Intake: IV 300 / 300 357.5 / 357.5 Versed Inj 50 mg In 50 ml @ 2 50 / 50 MG/HR 2 mls/hr IV.CONT TITRATE PRN Rx#:[id number] Vancomycin Inj 750 MG In NS Inj 257.5 / 257.5 250 ML @ 250 mls/hr IV.SIG Q12H [facility] Rx#:[id number] Rocephin Inj 1,000 MG In NS Inj 100 / 100 100 ML @ 200 mls/hr IV.SIG Q24H [facility] Rx#:[id number] fentaNYL 10 mcg/mL Premix Drip 250 / 250 2,500 mcg In 250 ml @ 50 MCG/HR 5 mls/hr IV.SIG TITRATE PRN Rx #:[id number] Tube Feeding 703 / 703 573 / 573 Tube Irrigant 120 / 120 Water Bolus Amount 120 / 120 Output: Urine 0 / 0 Urine Amount (Catheter) 650 / 650 650 / 650 Indwelling Urethral Catheter 650 / 650 650 / 650 Other: Date of Last Bowel Movement 01/21/18 01/26/18 01/25/18 # Bowel Movements 2 Narrative: intubated, sedated Bullock collar in place slightly opening eyes, grimacing. not following commands gross 1-2/5 movement feet to pain no movement or response to pain to upper extremities to my exam pupils 4 mm equal bilaterally plantars silent b/l,no ankle clonus - Urinary Catheter Management Indwelling Urethral Catheter Cath placed during this visit: yes Reason for continuing: Hourly intake/output Insertion date: 01/21/18 Insertion time: 17:35 Assessment and Plan - Plan 71yoM with C6 level SCI with C6 fracture and posterior compression. Urgent decompression and stabilization indicated. s/p C3-T1 posterior fusion, C4-6 lami for cervical spine fractures and SCI by Dr. Szymanski (01/21) 01/23 neuro decline, stat MRI cervical spine to evaluate for post op hematoma ( without any KIANA output) versus evolution of cord edema follow up MRI C-spine 01/23 Patient is status post posterior fusion and decompression of the cervical spine with a large fluid collection and drain placement. There is progressive abnormal enlargement of the cervical cord from C4 through C6 with increased T2 signal consistent with progressive myelopathy. No abnormal increased T1 signal identified within the cord to suggest hemorrhage. 01/26: neuro exam improving. f/u CT Brain negative. Plan: cont neuro checks and follow up exam, cont cervical bracing cont critical care management
[2018-01-27] MEDS: Metoprolol Inj 5 MG/5 ML Vial IV.PUSH SCH ×2 (03:02→09:06)
[2018-01-27] MEDS: Oral Hygiene Kit OROPHARYNG SCH ×2 (03:02→12:05)
[2018-01-27 05:02] LABS: Baso % (Auto) 0.4 % (0.0-2.0); Eos % (Auto) 0.4 % (0.0-4.0); Hematocrit 28.6 % (39.0-51.0); Hemoglobin 9.8 gm/dL (13.0-17.0); Lymph # (Auto) 0.7 th/mm3 (1.0-4.8); Lymph % (Auto) 13.3 % (9.0-44.0); Mean Corpuscular HGB Conc 34.2 % (32.0-36.0); Mean Corpuscular Hemoglobin 30.2 pg (27.0-34.0); Mean Corpuscular Volume 88.4 fL (80.0-100.0); Mono # (Auto) 0.6 th/mm3 (0.0-0.9); Mono % (Auto) 11.9 % (0.0-8.0); Platelet Count 114 th/mm3 (150-450); Red Blood Count 3.24 mil/mm3 (4.50-5.90); Red Cell Distribution Width 13.5 % (11.6-17.2); White Blood Count 5.4 th/mm3 (4.0-11.0)
[2018-01-27 05:29] LABS: Albumin 1.7 g/dL (3.4-5.0); Anion Gap 5 meq/L (5-15); Aspartate Aminotransferase 37 U/L (15-37); Blood Urea Nitrogen 32 mg/dL (7-18); Calcium 7.8 mg/dL (8.5-10.1); Chloride 116 meq/L (98-107); Glomerular Filtration Rate 75 mL/min (>89); Glucose,Random 144 mg/dL (74-106); Potassium 4.3 meq/L (3.5-5.1); Sodium 149 meq/L (136-145)
[2018-01-27 05:33] LABS: Alanine Aminotransferase 36 U/L (12-78); Alkaline Phosphatase 198 U/L (45-117); Total Protein 5.5 g/dL (6.4-8.2)
--- NOTE | 2018-01-27 05:45 | XR ---
EXAM DATE: 01/27/2018 6:00 AM EDT AGE/SEX: 72 years / Male INDICATIONS: Shortness of breath CLINICAL DATA: This is the patient's subsequent encounter. Patient reports that signs and symptoms h ave been present for 2 days and indicates a pain score of Nonresponsive. MEDICAL/SURGICAL HISTORY: Non-responsive. Non-responsive. [place] [facility] [place]. . FINDINGS: The cardiac silhouette is normal in transverse diameter. There is patchy alveolar disease bilaterally compatible with edema or pneumonia. A moderate size right sided effusion is present. There is improving left basilar atelectasis. CONCLUSION: Diffuse edema versus pneumonia. Improving left basilar atelectasis. Electronically signed by: Pk Sena MD 01/27/2018 5:44 AM EDT
[2018-01-27 05:52] LABS: ABG Base Excess 3.4 mmol/L (-2-2); ABG PCO2 38 mmHg (38-42); ABG PO2 129 mmHg (61-120)
[2018-01-27] MEDS: Docusate Sodium Liq 100 MG/10 ML UDC NG/OG SCH (09:06)
[2018-01-27] MEDS: Sodium Chloride 0.9% 2 ML Flush BID IV.FLUSH SCH (09:06)
[2018-01-27] MEDS: Enoxaparin Inj 30 MG/0.3 ML Syringe SQ SCH (09:06)
[2018-01-27] MEDS: Chlorhexidine 0.12% Oral Kit 15 ML UDC OROPHARYNG SCH (09:06)
[2018-01-27] MEDS ORDERED: Pharmacy Ordered Lab Info OTHER ONE (11:45)
--- NOTE | 2018-01-27 12:04 | P.DS ---
Date of admission: 01/21/18 15:08 Primary care physician: UNKNOWN Attending physician on discharge: Jennifer Paz Anticipated date of discharge: 01/27/18 Brief History from admission: 71 y.o male fell from the ladder about 5 feet. Could not move his legs and had weakness b/l UE- level 1 trauma alert,HD stable,no abdominal pain DS: Diagnosis - Discharge Diagnosis (1) Spinal cord injury at T1-T6 level Status: Acute (2) Closed C6 fracture Status: Acute DS: Summary Hospital Course: [place]: This is a 71 y.o male fell from the ladder about 5 feet. Could not move his legs and had weakness b/l UE- level 1 trauma alert. HD stable, no abdominal pain. INJURIES: C5, C6 fx C4-C6, C7 cord contusion Paraplegic A&O x 3 Delt 5, Biceps 4, Triceps 4, Hand 1-2 No lower extremity function No sensation below nippe and not in arms below elbows Procedures: 01/21: Posterior C3-T1 instrumentation. C4-C6 laminectomy. 01/21: Return from the OR intubated. 01/24: ETT exchanged (cuff leak) 01/26: BRONCHOSCOPY Consults: Neurosurgery. Neurology. Infectious disease. Rehab medicine. Case management. Hospital Course: 01/22/2018 With spinal cord injury0 C5-C6 level he went to the OR with the neurosurgeon for decompression and fusion He is moving his upper extremities not the lowers however Hemodynamically normal with a map around 80 Sodium is 149 so we will give him 1 L of LR Pain is controlled fentanyl drip and propofol drip for sedation Abdomen is soft and benign 01/24/2018 Neurologically patient is the same Remains somewhat sedated on ventilator on propofol and fentanyl Hemodynamically stable and somewhat hypertensive will be started on Coreg and Catapres patch EKG does not show any acute changes Bilateral breath sounds patient remains on assist control ventilation with good PO2 FiO2 gradient Tolerating CPAP trials and depending on patient's progression he may be extubated will in next few days Patients with this level of injury C5-C6 should be able to breathe on their own and utilize the diaphragm as well as intercostal muscles Nonetheless spinal cord injury can be higher and lower than the actual level of the vertebral fracture so the patient may need temporary tracheostomy and will see this in next few days 01/25/2018 Patient with effective high level paraplegia All the sedation has been removed but patient is not regaining consciousness does not follow commands and is ventilatory fully dependent Sharifa Coma Scale remains 3 Pupils are equal reactive 3 mm Positive gag and cough reflex yet no other activity We will repeat CT scan of the brain to evaluate for any intracranial abnormality and if questionable do an MRI Hemodynamically patient is stable but hypertensive On Lopressor/Catapres patch/hydralazine Bilateral breath sounds good pulmonary function and PO2 FiO2 gradient Renal function preserved I discussed the situation with the family and depending on patient's progress and neurologic cerebral findings we will decide on further care As the things sit now patient will require tracheostomy and PEG for regardless the level of paraplegia patient is unconscious unable to protect his upper airway 01/26/2018 This morning patient is moving little more his upper extremities No activity in the lower extremities Level of consciousness is still decreased beyond what would be expected for several days of any sedation CT of the head pending Hemodynamically stable Bilateral breath sounds patient assist control ventilation with increased PEEP in order to expand the lungs Throughout the night patient has been varying levels of oxygen support with FiO2 ranging from 50% to 100% PO2 FiO2 gradient and therefore varies considerably but I believe this is due to VQ mismatch and heavy secretions and atelectasis Nonetheless patient scheduled for CTA of the chest to make sure he does not have pulmonary embolism which she would be a prime candidate for Very heavy secretions and bilateral atelectasis. Patient underwent successful bronchoscopy with removal of massive amounts of thick tenuous mucus secretions Cultures have been obtained through [place] trap Abdomen soft enteral feeds tolerated 01/27/2018 Collaborated with neurosurgery. Patient is cleared to transfer to [facility] for further management and care. All hospital medications will continue at [facility]. We have recommended to patient to continue with stool softeners while taking narcotic pain medications to prevent constipation. Pt has been receiving PT and OT while admitted at [place]. PT and OT will continue at [facility] All follow up appointments have been provided and discussed with the patient. It is recommended that the patient keeps all his follow up appointments for continued recovery. Staple removal from neck on POD: 14 (02/04) Patient's condition and plan of care discussed with collaborating trauma surgeon. He is agreeable to plan for discharge today. Therefore, the patient is stable to be safely discharged to [facility] from a trauma surgery standpoint. Thank you for allowing us to participate in his care. We wish Pk the best in his recovery. - Time Spent with Patient Total time spent providing and/or coordinating discharge services: Greater than 30 minutes - Quality: VTE Deep Vein Thrombosis/Pulmonary Embolism Present on Admission: No Exam Vital signs: Vital Signs 01/26/18 12:00 01/26/18 12:15 01/26/18 12:29 Temperature 103.4 F H Pulse Rate 71 71 Respiratory Rate 20 16 23 Blood Pressure Pulse Oximetry 92 L 91 L 90 L 01/26/18 12:30 01/26/18 12:45 01/26/18 13:00 Temperature Pulse Rate 71 69 68 Respiratory Rate 19 17 15 Blood Pressure Pulse Oximetry 90 L 91 L 92 L 01/26/18 13:15 01/26/18 13:30 01/26/18 13:45 Temperature Pulse Rate 66 65 64 Respiratory Rate 12 8 L 5 L Blood Pressure Pulse Oximetry 93 L 93 L 94 L 01/26/18 14:00 01/26/18 14:15 01/26/18 14:30 Temperature Pulse Rate 63 63 61 Respiratory Rate 7 L 6 L 10 L Blood Pressure Pulse Oximetry 94 L 94 L 94 L 01/26/18 14:32 01/26/18 14:45 01/26/18 15:00 Temperature Pulse Rate 61 64 67 Respiratory Rate 7 L 19 18 Blood Pressure 123/62 Pulse Oximetry 94 L 92 L 94 L 01/26/18 15:15 01/26/18 15:30 01/26/18 15:44 Temperature Pulse Rate 67 70 Respiratory Rate 19 25 H Blood Pressure Pulse Oximetry 94 L 94 L 93 L 01/26/18 15:45 01/26/18 16:00 01/26/18 16:01 Temperature 99.7 F H Pulse Rate 68 65 66 Respiratory Rate 21 22 23 Blood Pressure 123/62 Pulse Oximetry 92 L 96 96 01/26/18 16:15 01/26/18 16:30 01/26/18 16:45 Temperature Pulse Rate 63 64 66 Respiratory Rate 21 16 21 Blood Pressure Pulse Oximetry 96 97 97 01/26/18 17:00 01/26/18 17:01 01/26/18 17:15 Temperature Pulse Rate 67 64 69 Respiratory Rate 18 22 17 Blood Pressure Pulse Oximetry 98 97 98 01/26/18 17:30 01/26/18 17:45 01/26/18 18:00 Temperature Pulse Rate 69 69 68 Respiratory Rate 23 19 20 Blood Pressure Pulse Oximetry 98 99 98 01/26/18 19:00 01/26/18 20:00 01/26/18 20:18 Temperature 102.3 F H Pulse Rate 65 70 Respiratory Rate 24 26 H 23 Blood Pressure Pulse Oximetry 99 96 01/26/18 21:00 01/26/18 22:00 01/26/18 23:00 Temperature 103.1 F H Pulse Rate 67 66 66 Respiratory Rate 24 22 23 Blood Pressure Pulse Oximetry 97 98 96 01/27/18 00:00 01/27/18 00:01 01/27/18 01:00 Temperature 102.5 F H 102.0 F H Pulse Rate 66 63 Respiratory Rate 23 21 21 Blood Pressure Pulse Oximetry 96 96 96 01/27/18 02:00 01/27/18 03:00 01/27/18 04:00 Temperature 99.4 F Pulse Rate 60 58 L 61 Respiratory Rate 19 19 14 Blood Pressure Pulse Oximetry 96 97 97 01/27/18 04:10 01/27/18 04:15 01/27/18 05:00 Temperature Pulse Rate 59 L 59 L Respiratory Rate 16 21 18 Blood Pressure Pulse Oximetry 95 95 01/27/18 05:46 01/27/18 08:30 Temperature 99.6 F Pulse Rate 58 L Respiratory Rate 18 21 Blood Pressure Pulse Oximetry 98 93 L Intake & Output 01/26/18 01/27/18 01/27/18 18:59 06:59 18:59 Intake Total 1122.5 / 1122.5 875.5 / 875.5 Output Total 750 / 750 750 / 750 Balance 372.5 / 372.5 125.5 / 125.5 Weight 65.9 kg Intake: IV 357.5 / 357.5 257.5 / 257.5 Vancomycin Inj 750 MG In NS Inj 257.5 / 257.5 257.5 / 257.5 250 ML @ 250 mls/hr IV.SIG Q12H LOS Rx#:[id number] Rocephin Inj 1,000 MG In NS Inj 100 / 100 100 ML @ 200 mls/hr IV.SIG Q24H LOS Rx#:[id number] Tube Feeding 465 / 465 618 / 618 Tube Irrigant 100 / 100 Water Bolus Amount 200 / 200 Output: Urine Amount (Catheter) 750 / 750 750 / 750 Indwelling Urethral Catheter 750 / 750 750 / 750 Other: Date of Last Bowel Movement 01/25/18 01/25/18 # Bowel Movements 0 Narrative: GENERAL: This is a 72-year-old male lying in bed. Mechanically ventilated. SKIN: Warm and dry. HEAD: Atraumatic. Normocephalic. EYES: PERRLA ENT: ET tube in place to ventilator. OG tube in place to tube feeding. No nasal bleeding or discharge. Mucous membranes pink and moist. NECK: Trachea midline. No JVD. CARDIOVASCULAR: Regular rate and rhythm. RESPIRATORY: No accessory muscle use. Lungs are clear to auscultation. Breath sounds equal bilaterally. No distress or dyspnea. GASTROINTESTINAL: BS + x 4 quads. Abdomen soft, non-tender, nondistended. MUSCULOSKELETAL: Extremities without cyanosis, or edema. Very minimal bilateral upper extremity movement. + peripheral pulses x 4 extremities. Warm with good capillary refill and sensation. Still unable to move bilateral lower extremities. NEUROLOGICAL: Awake and alert. Mechanically ventilated Results Procedures completed during hospitalization: . Labs on day of discharge: Labs from last 24 hours 01/27/18 01/27/18 01/27/18 05:42 04:45 04:45 WBC 5.4 RBC 3.24 L Hgb 9.8 L Hct 28.6 L MCV 88.4 MCH 30.2 MCHC 34.2 RDW 13.5 Plt Count 114 L MPV 8.0 Neut % (Auto) 74.0 H Lymph % (Auto) 13.3 [place] % (Auto) 11.9 H Eos % (Auto) 0.4 Baso % (Auto) 0.4 Neut # (Auto) 4.0 Lymph # (Auto) 0.7 L [place] # (Auto) 0.6 Eos # (Auto) 0.0 Baso # (Auto) 0.0 WBC Differential . Differential Comment Auto diff final Puncture Site Art line Patient Temperature 98.6 O2 Saturation 97 ABG pH 7.46 H ABG pCO2 38 ABG pO2 129 H ABG HCO3 27 H ABG O2 Content 13.7 ABG Base Excess 3.4 H ABG Methemoglobin 1.0 Hemoglobin 9.8 L Carboxyhemoglobin 1.1 O2 Delivery Device Ventilator Liter Flow 70.00 Vent Setting See comment Critical Value No Sodium 149 H Potassium 4.3 Chloride 116 H Carbon Dioxide 28.0 Anion Gap 5 BUN 32 H Creatinine 0.98 Estimated GFR 75 L Random Glucose 144 H Calcium 7.8 L Total Bilirubin 0.5 AST 37 ALT 36 Alkaline Phosphatase 198 H Total Protein 5.5 L Albumin 1.7 L Preliminary micro results at discharge 01/26/18 09:40 Aerobic Blood Culture - Preliminary Blood - Other No growth in 1 day Anaerobic Blood Culture - Preliminary No growth in 1 day 01/26/18 09:48 Aerobic Blood Culture - Preliminary Blood - Other No growth in 1 day Anaerobic Blood Culture - Preliminary No growth in 1 day - Impressions ITS Impressions Cervical Spine X-Ray 01/21/18 00:00 CONCLUSION: Good placement of surgical hardware. Neck MRA 01/21/18 00:00 CONCLUSION: 1. Atherosclerotic plaque involving the ICA origins bilaterally generating a 20 -30% stenosis on the left at a 10-20% stenosis on the right. 2. Patent vertebral arteries. Percent stenosis is calculated using the diameter of the stenotic region over the diameter of the normal distal internal carotid artery Thoracic Spine MRI 01/21/18 00:00 CONCLUSION: 1. Limited MRI show no cortical cord contusion. Pelvis X-Ray 01/21/18 13:52 CONCLUSION: Negative examination. Abdomen/Pelvis CT 01/21/18 13:56 Bony Structures: See the CT of the thoracic and lumbar spine is reported separately. The pelvis is intact. CONCLUSION: 1. No acute abnormality. 2. 2.9 x 2.0 cm rim calcified nodule within the right costophrenic angle with associated calcified pleural plaque. Consider outpatient PET CT to further assess. At this point a mesothelioma cannot be completely excluded. Cervical Spine CT 01/21/18 13:56 CONCLUSION: 1. Fracture at the C5 and C6 level. 2. MRI would be of benefit given the symptomatology. Chest CT 01/21/18 13:56 CONCLUSION: 1. No acute abnormality. 2. 2.9 cm rim calcified nodule involving the posterior costophrenic sulcus on the right. 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 A mesothelioma must be considered. Consider PET CT to further assess. Lumbar Spine CT 01/21/18 13:56 CONCLUSION: 1. Negative CT scan of the thoracic spine for acute process. MRI be of benefit given the symptomatology. 2. Arrangements have been made for such. Thoracic Spine CT 01/21/18 13:56 CONCLUSION: 1. Mild degenerative changes in the thoracic spine,.. Etiology for the flaccid lower extremities is not apparent. Arrangements have been made for emergent MRI. Cervical Spine MRI 01/23/18 06:01 CONCLUSION: 1. Patient is status post posterior fusion and decompression of the cervical spine with a large fluid collection and drain placement. There is progressive abnormal enlargement of the cervical cord from C4 through C6 with increased T2 signal consistent with progressive myelopathy. No abnormal increased T1 signal identified within the cord to suggest hemorrhage. Head CT 01/26/18 06:00 CONCLUSION: 1. Negative for an acute process. . Chest CTA 01/26/18 09:39 CONCLUSION: This study is negative for pulmonary embolism. Chest X-Ray 01/27/18 06:00 CONCLUSION: Diffuse edema versus pneumonia. Improving left basilar atelectasis. Discharge Plan - Discharge Disposition Patient Disposition: [facility] Inpatient - Discharge Condition Condition: Stable - Discharge Order Discharge Orders: Discharge Order (Routine); Ordered 01/27/18 Ordered By: Sarah Lainez - Discharge Details Anticipated Discharge Date: 01/27/18 - Physicians Team Primary Care Provider: UNKNOWN, Attending Provider: Elizabeth Noyola Other Providers: Chucky Cuellar MD ; Justin Richards MD ; [employer] [employer] ; Milo,Jose Cruz, MD ; Sarah Lainez ARNP ; Carlito Fuentes MD ; Elizabeth Noyola MD ; Cate Iverson ARNP ; Jennifer Paz MD ; Antelmo Szymanski MD ; Kristin Villatoro MD ; [facility] ; Shari Roy MD ; Pk Duncan MD
[2018-01-27] MEDS: Acetaminophen 325 MG Tablet PO PRN (12:10)
[2018-01-27 12:23] VITALS: O2SAT 92
--- NOTE | 2018-01-27 12:57 | P.CONID ---
History of Present Illness Service: ID Consult date: 01/27/18 Requesting Physician: Sarah Lainez Reason for Consult: s/p trauma Primary Care Provider: UNKNOWN Chief Complaint: paraplegia History of Present Illness: 72 yo male sp ladder fall on 01/21 resulted in C spine fracture sp C4-6 laminectomyC3-T1 instrumentation posterior cervical C3,C4,C5,C6 lateral mass skipping left C4 -- all 3.5 x 14mm T1 pedicle - 4.0 x 28mm Exateck [place], 90mm rods by Dr Szymanski Pt developped icommplete quadriplegia' Pt remains intubated since admission He developped high grade fever in 102-103 in the last 4 days and copious dark secretiosn CTA yday showed no pulm embolism, + consolidative infiltrates in the perihilar and posterior lower lung zones bilaterally, slightly worse on the right than the left. S/p BAL yday, culture P Gstain with GPC pt was started on vancomycin, Rocephin Art line was removed yday, no central lines no diarrhea Review of Systems unobtainable due to endotracheal tube PMFSH - History History Provided By: Patient - Medical History Medical History: Medical History (Last Reviewed 01/27/18 @ 13:25 by Shari Roy MD) Rheumatoid arthritis - Family History Family History: Family History (Last Updated 01/27/18 @ 13:25 by Shari Roy MD) Other Family history non-contributory No pertinent family history - Tobacco History Second Hand Smoke Exposure: No Tobacco Use In Past 30 Days: No Smoking Status: Never smoker - Alcohol History How Often Do You Have a Drink Containing Alcohol: Monthly or less - Substance Use History Substance History: No History of Abuse - Immunization History Hx Influenza Vaccine This Season: No Medications and Allergies Active Medications: Active Medications Acetaminophen (Tylenol) 650 mg PO Q4H PRN PRN Reason: PAIN 1-10 AND/OR FEVER >101F Last Admin: 01/27/18 12:10 Dose: 650 mg Albuterol (Duoneb Neb (Prn)) 1 ampul NEB Q2HR NEB PRN PRN Reason: WHEEZING Last Admin: 01/27/18 04:15 Dose: 1 ampul Bacitracin (Baciguent Oint) 1 applicatio TOPICAL BID LOS Last Admin: 01/27/18 09:07 Dose: 1 applicatio Chlorhexidine Gluconate (Peridex 0.12% Oral Kit) 15 ml OROPHARYNG BID@0800, 2000 [facility] Last Admin: 01/27/18 09:06 Dose: 15 ml Clonidine HCl (Catapress-Tts 0.3 Mg Patch.7d) 1 patch T-DERMAL Q7D [facility] Last Admin: 01/25/18 20:43 Dose: 1 patch Docusate Sodium (Colace Liq) 100 mg NG/OG BID [facility] Last Admin: 01/27/18 09:06 Dose: 100 mg Enalaprilat (Vasotec Inj) 1.25 mg IV.PUSH Q8H PRN PRN Reason: Blood pressure 180/95 Last Admin: 01/25/18 20:13 Dose: 1.25 mg Enoxaparin Sodium (Lovenox Inj) 30 mg SQ Q12HR [facility] Last Admin: 01/27/18 09:06 Dose: 30 mg Fentanyl (Duragesic 50 Mcg Patch.72hr) 1 patch T-DERMAL Q3D [facility] Last Admin: 01/25/18 11:36 Dose: 1 patch Hydralazine HCl (Apresoline Inj) 10 mg IV.PUSH Q4H PRN PRN Reason: HYPERTENSION Stop: 02/01/18 17:35 Magnesium Sulfate 4 gm/ Sodium (Chloride) 100 mls @ 50 mls/hr IV.SIG UNSCH PRN PRN Reason: For Magnesium 0.9 - 1.1 mg/dL Magnesium Sulfate 2 gm/ Sodium (Chloride) 100 mls @ 50 mls/hr IV.SIG UNSCH PRN PRN Reason: For Magnesium 1.2 - 1.6 mg/dL Potassium Chloride (Kcl 20 Meq Premix Inj) 20 meq in 100 mls @ 50 mls/hr IV.SIG Q2H PRN PRN Reason: For Potassium 3.3 - 3.5 mEq/L Potassium Chloride (Kcl 40 Meq Premix Inj) 40 meq in 100 mls @ 25 mls/hr IV.SIG UNSCH PRN PRN Reason: For Potassium 3.3 - 3.5 mEq/L Potassium Chloride (Kcl 20 Meq Premix Inj) 20 meq in 100 mls @ 50 mls/hr IV.SIG Q2H PRN PRN Reason: For Potassium 2.8 - 3.2 mEq/L Potassium Phosphate 30 mmol/ (Sodium Chloride) 260 mls @ 42 mls/hr IV.SIG UNSCH PRN PRN Reason: SEE LABEL COMMENTS Sodium Phosphate 30 mmol/ (Sodium Chloride) 260 mls @ 42 mls/hr IV.SIG UNSCH PRN PRN Reason: For Phosphorus < 2.5 mg/dL Potassium Chloride (Kcl 40 Meq Premix Inj) 40 meq in 100 mls @ 25 mls/hr IV.SIG Q2H PRN PRN Reason: For Potassium 2.8 - 3.2 mEq/L Ceftriaxone Sodium 1,000 mg/ (Sodium Chloride) 100 mls @ 200 mls/hr IV.SIG Q24H LOS Last Admin: 01/27/18 10:45 Dose: 200 mls/hr Pharmacy Profile Note (Vancomycin Consult Pharmacy) 0 mls @ 0 mls/hr OTHER UNSCH LOS Vancomycin HCl 750 mg/ Sodium (Chloride) 257.5 mls @ 250 mls/hr IV.SIG Q12H LOS Last Infusion: 01/27/18 00:35 Dose: Infused Lactulose (Lactulose Liq) 30 ml PO DAILY LOS Last Admin: 01/27/18 09:07 Dose: Not Given Magnesium Oxide (Mag-Ox) 800 mg PO UNSCH PRN PRN Reason: For Magnesium 1.2 - 1.6 mg/dL Metoprolol Tartrate (Lopressor Inj) 5 mg IV.PUSH Q6H LOS Last Admin: 01/27/18 09:06 Dose: 5 mg Miscellaneous Medication () 1 each OROPHARYNG 0000,0400,1200,1600 [facility] Last Admin: 01/27/18 12:05 Dose: 1 each Ondansetron HCl (Zofran Inj) 4 mg IV.PUSH Q6H PRN PRN Reason: NAUSEA OR VOMITING Oxycodone HCl (Roxicodone) 5 mg PO Q4H PRN PRN Reason: BREAKTHROUGH PAIN Last Admin: 01/25/18 17:13 Dose: 5 mg Pantoprazole Sodium (Protonix Inj) 40 mg IV.PUSH Q24H LOS Last Admin: 01/26/18 16:00 Dose: 40 mg Patch Removal (Remove Old Patch) 1 each T-DERMAL Q3D LOS Patch Removal (Remove Old Patch) 1 each T-DERMAL Q7D LOS Potassium Bicarb/Potassium Chloride (K-Lyte Cl Eff) 50 meq PO UNSCH PRN PRN Reason: For Potassium 3.3 - 3.5 mEq/L Potassium Phosphate (K-Phos Original) 2,000 mg PO UNSCH PRN PRN Reason: SEE LABEL COMMENTS Potassium Phosphate (K-Phos Original) 2,000 mg PO Q4H PRN PRN Reason: Phosphorus Less Than 2.5 mg/dL Sodium Chloride (Ns Flush) 2 ml IV.FLUSH BID [facility] Last Admin: 01/27/18 09:06 Dose: 2 ml Sodium Chloride (Ns Flush) 2 ml IV.FLUSH PRN PRN PRN Reason: FLUSH AFTER USING IV ACCESS Sterile Water (Free Water) 200 ml G-TUBE Q8HR [facility] Last Admin: 01/27/18 05:02 Dose: 200 ml Allergies Allergy/AdvReac Type Severity Reaction Status Date / Time No Known Allergies Allergy Verified 01/21/18 18:40 Home Medications Medication Instructions Recorded Confirmed Type carboxymethylcellulose sodium 1 drp EACH EYE Q4-6H PRN 01/23/18 01/23/18 History cholecalciferol (vitamin D3) 1,000 unit PO DAILY 01/23/18 01/23/18 History etanercept 50 mg SUBCUT QWEEK 01/23/18 01/23/18 History hydrophilic cream 1 applic TOPICAL TID PRN 01/23/18 01/23/18 History hydroquinone 1 applic TOPICAL BID PRN 01/23/18 01/23/18 History levothyroxine 1 tab PO QAM 01/23/18 01/23/18 History simvastatin 40 mg PO QPM 01/23/18 01/23/18 History triamcinolone acetonide 1 dose TOPICAL BID PRN 01/23/18 01/23/18 History Exam Vital signs: Vital Signs 01/26/18 13:00 01/26/18 13:15 01/26/18 13:30 Temperature Pulse Rate 68 66 65 Respiratory Rate 15 12 8 L Blood Pressure Pulse Oximetry 92 L 93 L 93 L 01/26/18 13:45 01/26/18 14:00 01/26/18 14:15 Temperature Pulse Rate 64 63 63 Respiratory Rate 5 L 7 L 6 L Blood Pressure Pulse Oximetry 94 L 94 L 94 L 01/26/18 14:30 01/26/18 14:32 01/26/18 14:45 Temperature Pulse Rate 61 61 64 Respiratory Rate 10 L 7 L 19 Blood Pressure 123/62 Pulse Oximetry 94 L 94 L 92 L 10/17/18 15:00 01/26/18 15:15 01/26/18 15:30 Temperature Pulse Rate 67 67 70 Respiratory Rate 18 19 25 H Blood Pressure Pulse Oximetry 94 L 94 L 94 L 01/26/18 15:44 01/26/18 15:45 01/26/18 16:00 Temperature Pulse Rate 68 65 Respiratory Rate 21 22 Blood Pressure Pulse Oximetry 93 L 92 L 96 01/26/18 16:01 01/26/18 16:15 01/26/18 16:30 Temperature 99.7 F H Pulse Rate 66 63 64 Respiratory Rate 23 21 16 Blood Pressure 123/62 Pulse Oximetry 96 96 97 01/26/18 16:45 01/26/18 17:00 01/26/18 17:01 Temperature Pulse Rate 66 67 64 Respiratory Rate 21 18 22 Blood Pressure Pulse Oximetry 97 98 97 01/26/18 17:15 01/26/18 17:30 01/26/18 17:45 Temperature Pulse Rate 69 69 69 Respiratory Rate 17 23 19 Blood Pressure Pulse Oximetry 98 98 99 01/26/18 18:00 01/26/18 19:00 01/26/18 20:00 Temperature 102.3 F H Pulse Rate 68 65 70 Respiratory Rate 20 24 26 H Blood Pressure Pulse Oximetry 98 99 96 01/26/18 20:18 01/26/18 21:00 01/26/18 22:00 Temperature 103.1 F H Pulse Rate 67 66 Respiratory Rate 23 24 22 Blood Pressure Pulse Oximetry 97 98 01/26/18 23:00 01/27/18 00:00 01/27/18 00:01 Temperature 102.5 F H Pulse Rate 66 66 Respiratory Rate 23 23 21 Blood Pressure Pulse Oximetry 96 96 96 01/27/18 01:00 01/27/18 02:00 01/27/18 03:00 Temperature 102.0 F H 99.4 F Pulse Rate 63 60 58 L Respiratory Rate 21 19 19 Blood Pressure Pulse Oximetry 96 96 97 01/27/18 04:00 01/27/18 04:10 01/27/18 04:15 Temperature Pulse Rate 61 59 L Respiratory Rate 14 16 21 Blood Pressure Pulse Oximetry 97 95 01/27/18 05:00 01/27/18 05:46 01/27/18 07:00 Temperature 99.6 F Pulse Rate 59 L 58 L 61 Respiratory Rate 18 18 20 Blood Pressure 132/55 L Pulse Oximetry 95 98 94 L 01/27/18 08:00 01/27/18 08:30 01/27/18 09:00 Temperature 100 F H Pulse Rate 55 L 55 L Respiratory Rate 21 21 20 Blood Pressure 134/59 L 137/55 L Pulse Oximetry 94 L 93 L 94 L 01/27/18 10:00 01/27/18 11:00 01/27/18 12:00 Temperature 102 F H Pulse Rate 64 64 64 Respiratory Rate 27 H 30 H 29 H Blood Pressure 148/61 H 152/58 H 146/67 H Pulse Oximetry 94 L 93 L 94 L 01/27/18 12:19 Temperature Pulse Rate Respiratory Rate 28 H Blood Pressure Pulse Oximetry 92 L Intake & Output 01/26/18 01/27/18 01/27/18 18:59 06:59 18:59 Intake Total 1122.5 / 1122.5 875.5 / 875.5 Output Total 750 / 750 750 / 750 Balance 372.5 / 372.5 125.5 / 125.5 Weight 65.9 kg Intake: IV 357.5 / 357.5 257.5 / 257.5 Vancomycin Inj 750 MG In NS Inj 257.5 / 257.5 257.5 / 257.5 250 ML @ 250 mls/hr IV.SIG Q12H LOS Rx#:[id number] Rocephin Inj 1,000 MG In NS Inj 100 / 100 100 ML @ 200 mls/hr IV.SIG Q24H LOS Rx#:[id number] Tube Feeding 465 / 465 618 / 618 Tube Irrigant 100 / 100 Water Bolus Amount 200 / 200 Output: Urine Amount (Catheter) 750 / 750 750 / 750 Indwelling Urethral Catheter 750 / 750 750 / 750 Other: Date of Last Bowel Movement 01/25/18 01/25/18 # Bowel Movements 0 - Constitutional no acute distress, average body habitus - Routine HEENT Exam Head: Present: normocephalic, atraumatic Eye: Present: EOMI, PERRL - Routine Neck Exam Present: trachea midline Comments: C-collar in place - Routine Respiratory Exam Present: patient mechanically ventilated, rhonchi (scattered) - Routine Cardiovascular Exam Present: RRR, S1, S2. Absent: murmur, gallop, rubs - Routine Abdominal Exam Present: soft, normoactive bowel sounds. Absent: tenderness, distended, organomegaly, mass - Routine Extremities Exam Absent: cyanosis, clubbing, edema - Routine Skin Exam Present: intact, dry, warm. Absent: rash - Routine Neurological Exam Present: alert, CN II-XII intact. Absent: moving all extremities (incomplete quadriplegia, some toe movements present amd gross BUE) - Routine Psychiatric Exam Present: cooperative. Absent: agitated Results - Labs CBC & Chem 7: 01/27/18 04:45 01/27/18 04:45 Labs: Laboratory Results - last 24 hr 01/27/18 01/27/18 01/27/18 04:45 04:45 05:42 WBC 5.4 RBC 3.24 L Hgb 9.8 L Hct 28.6 L MCV 88.4 MCH 30.2 MCHC 34.2 RDW 13.5 Plt Count 114 L MPV 8.0 Neut % (Auto) 74.0 H Lymph % (Auto) 13.3 [place] % (Auto) 11.9 H Eos % (Auto) 0.4 Baso % (Auto) 0.4 Neut # (Auto) 4.0 Lymph # (Auto) 0.7 L [place] # (Auto) 0.6 Eos # (Auto) 0.0 Baso # (Auto) 0.0 WBC Differential . Differential Comment Auto diff final Puncture Site Art line Patient Temperature 98.6 O2 Saturation 97 ABG pH 7.46 H ABG pCO2 38 ABG pO2 129 H ABG HCO3 27 H ABG O2 Content 13.7 ABG Base Excess 3.4 H ABG Methemoglobin 1.0 Hemoglobin 9.8 L Carboxyhemoglobin 1.1 O2 Delivery Device Ventilator Liter Flow 70.00 Vent Setting See comment Critical Value No Sodium 149 H Potassium 4.3 Chloride 116 H Carbon Dioxide 28.0 Anion Gap 5 BUN 32 H Creatinine 0.98 Estimated GFR 75 L Random Glucose 144 H Calcium 7.8 L Total Bilirubin 0.5 AST 37 ALT 36 Alkaline Phosphatase 198 H Total Protein 5.5 L Albumin 1.7 L - Imaging Impressions Head CT 01/26/18 06:00 CONCLUSION: 1. Negative for an acute process. . Chest CTA 01/26/18 09:39 CONCLUSION: This study is negative for pulmonary embolism. Chest X-Ray 01/27/18 06:00 CONCLUSION: Diffuse edema versus pneumonia. Improving left basilar atelectasis. Assessment and Plan - Plan Traumatic C spine fracture 01/21 - surgical repair - incomplete qudriplegia Acute VDRF PNA Gstain with GPC High fever - likely 2/2 PNA cont vancomycin change CFTX to cefepime fu blood and sputum clx chk UA, c+s if indicated dw RN
[2018-01-27] MEDS: Vancomycin Inj 750 MG in Sodium Chlor 0.9% Inj 250 ML IV.SIG SCH (12:58)
--- NOTE | 2018-01-27 13:11 | P.PNNS ---
Subjective Interval history: intubated, drowsy but awake, follows few simple commands. to select today Physical Exam Vital signs: Vital Signs 01/26/18 13:15 01/26/18 13:30 01/26/18 13:45 Temperature Pulse Rate 66 65 64 Respiratory Rate 12 8 L 5 L Blood Pressure Pulse Oximetry 93 L 93 L 94 L 01/26/18 14:00 01/26/18 14:15 01/26/18 14:30 Temperature Pulse Rate 63 63 61 Respiratory Rate 7 L 6 L 10 L Blood Pressure Pulse Oximetry 94 L 94 L 94 L 01/26/18 14:32 01/26/18 14:45 01/26/18 15:00 Temperature Pulse Rate 61 64 67 Respiratory Rate 7 L 19 18 Blood Pressure 123/62 Pulse Oximetry 94 L 92 L 94 L 01/26/18 15:15 01/26/18 15:30 01/26/18 15:44 Temperature Pulse Rate 67 70 Respiratory Rate 19 25 H Blood Pressure Pulse Oximetry 94 L 94 L 93 L 01/26/18 15:45 01/26/18 16:00 01/26/18 16:01 Temperature 99.7 F H Pulse Rate 68 65 66 Respiratory Rate 21 22 23 Blood Pressure 123/62 Pulse Oximetry 92 L 96 96 01/26/18 16:15 01/26/18 16:30 01/26/18 16:45 Temperature Pulse Rate 63 64 66 Respiratory Rate 21 16 21 Blood Pressure Pulse Oximetry 96 97 97 01/26/18 17:00 01/26/18 17:01 01/26/18 17:15 Temperature Pulse Rate 67 64 69 Respiratory Rate 18 22 17 Blood Pressure Pulse Oximetry 98 97 98 01/26/18 17:30 01/26/18 17:45 01/26/18 18:00 Temperature Pulse Rate 69 69 68 Respiratory Rate 23 19 20 Blood Pressure Pulse Oximetry 98 99 98 01/26/18 19:00 01/26/18 20:00 01/26/18 20:18 Temperature 102.3 F H Pulse Rate 65 70 Respiratory Rate 24 26 H 23 Blood Pressure Pulse Oximetry 99 96 01/26/18 21:00 01/26/18 22:00 01/26/18 23:00 Temperature 103.1 F H Pulse Rate 67 66 66 Respiratory Rate 24 22 23 Blood Pressure Pulse Oximetry 97 98 96 01/27/18 00:00 01/27/18 00:01 01/27/18 01:00 Temperature 102.5 F H 102.0 F H Pulse Rate 66 63 Respiratory Rate 23 21 21 Blood Pressure Pulse Oximetry 96 96 96 01/27/18 02:00 01/27/18 03:00 01/27/18 04:00 Temperature 99.4 F Pulse Rate 60 58 L 61 Respiratory Rate 19 19 14 Blood Pressure Pulse Oximetry 96 97 97 01/27/18 04:10 01/27/18 04:15 01/27/18 05:00 Temperature Pulse Rate 59 L 59 L Respiratory Rate 16 21 18 Blood Pressure Pulse Oximetry 95 95 01/27/18 05:46 01/27/18 07:00 01/27/18 08:00 Temperature 99.6 F 100 F H Pulse Rate 58 L 61 55 L Respiratory Rate 18 20 21 Blood Pressure 132/55 L 134/59 L Pulse Oximetry 98 94 L 94 L 01/27/18 08:30 01/27/18 09:00 01/27/18 10:00 Temperature Pulse Rate 55 L 64 Respiratory Rate 21 20 27 H Blood Pressure 137/55 L 148/61 H Pulse Oximetry 93 L 94 L 94 L 01/27/18 11:00 01/27/18 12:00 01/27/18 12:19 Temperature 102 F H Pulse Rate 64 64 Respiratory Rate 30 H 29 H 28 H Blood Pressure 152/58 H 146/67 H Pulse Oximetry 93 L 94 L 92 L Intake & Output 01/26/18 01/27/18 01/27/18 18:59 06:59 18:59 Intake Total 1122.5 / 1122.5 875.5 / 875.5 Output Total 750 / 750 750 / 750 Balance 372.5 / 372.5 125.5 / 125.5 Weight 65.9 kg Intake: IV 357.5 / 357.5 257.5 / 257.5 Vancomycin Inj 750 MG In NS Inj 257.5 / 257.5 257.5 / 257.5 250 ML @ 250 mls/hr IV.SIG Q12H LOS Rx#:[id number] Rocephin Inj 1,000 MG In NS Inj 100 / 100 100 ML @ 200 mls/hr IV.SIG Q24H LOS Rx#:[id number] Tube Feeding 465 / 465 618 / 618 Tube Irrigant 100 / 100 Water Bolus Amount 200 / 200 Output: Urine Amount (Catheter) 750 / 750 750 / 750 Indwelling Urethral Catheter 750 / 750 750 / 750 Other: Date of Last Bowel Movement 01/25/18 01/25/18 # Bowel Movements 0 Narrative: intubated, opens eyes, follows simple commands [place] collar in place gross 2/5 movement legs to pain, gross UE elbow flexion to command pupils 4 mm equal bilaterally plantars silent b/l,no ankle clonus post cervical wound clean and dry, slight pinpoint bleeding from erica, new [place] placed - Urinary Catheter Management Indwelling Urethral Catheter Cath placed during this visit: yes Reason for continuing: Hourly intake/output Insertion date: 01/21/18 Insertion time: 17:35 Assessment and Plan - Plan 71yoM with C6 level SCI with C6 fracture and posterior compression. Urgent decompression and stabilization indicated. s/p C3-T1 posterior fusion, C4-6 lami for cervical spine fractures and SCI by Dr. Szymanski (01/21) 01/23 neuro decline, stat MRI cervical spine to evaluate for post op hematoma ( without any KIANA output) versus evolution of cord edema follow up MRI C-spine 01/23 Patient is status post posterior fusion and decompression of the cervical spine with a large fluid collection and drain placement. There is progressive abnormal enlargement of the cervical cord from C4 through C6 with increased T2 signal consistent with progressive myelopathy. No abnormal increased T1 signal identified within the cord to suggest hemorrhage. Plan: neuro exam improving, cont trauma mgt clear from NRS standpoint to select dc erica 2 weeks post-op cont cervical collar f/u c-spine xrays in 3-4 weeks, send results to Dr. Klein office
[2018-01-27 13:42] VITALS: BP 121/62; PULSE 60; RESP 31; TEMP 101.3
== END 2018-01-27 13:45 ==
LOC: NEPI 13:49 → NEPE 14:43 → NEPI 14:43 → NEDA 15:08 → EDBD 15:08 → N03 15:12
PROVIDERS: ADMIT Surgery Trauma Surgery; ATTEND Surgery Trauma Surgery

== ENCOUNTER 2018-03-02 16:00 | Inpatient (IN) ==
--- NOTE | 2018-03-02 19:14 | P.HPCC ---
History of Present Illness Service: Critical Care Medicine Primary Care Physician: No Primary Care Physician History of Present Illness: 72yM s/p posterior cervical decompression and fusion 01/22/2018 after original injury of fall from ladder. course complicated by paraplegia requiring trach/ peg and LTAC placement. in LTAC ([facility]), he had worsening of two wounds on his posterior head/neck, one at the incisional site which is deeper and now has exposed bone. wound culture from 02/25 grew MRSA, he is on vancomycin. Discussed the case with Dr. Szymanski and he is planning on doing a washout and closure on sunday 03/04. 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 ROS unobtainable from the patient due to his trach dependency. Inpatient Certification: I certify that the inpatient services were ordered in accordance with Medicare regulations governing the order. This includes certification that hospital inpatient services are reasonable and necessary and in the case of services not specified as inpatient-only under 42 CFR 419.22(n), that they are appropriately provided as inpatient services in accordance to with the 2-midnight benchmark under 43 CFR 412.3(e) Review of Systems unobtainable due to mental condition PMFSH - History History Provided By: Medical Record - Medical / Surgical Hx Neg / Unobtainable Medical Problems Denied: Unable to Obtain Surgical History: Unable to Obtain - Medical History Medical History: Medical History (Last Reviewed 03/03/18 @ 03:00 by Juan Osorio MD) Rheumatoid arthritis - Family History Family History: Family History (Last Reviewed 03/03/18 @ 03:00 by Juan Osorio MD) Other Family history non-contributory No pertinent family history - Tobacco History Second Hand Smoke Exposure: No Smoking Status: Never smoker - Alcohol History How Often Do You Have a Drink Containing Alcohol: Monthly or less - Substance Use History Substance History: No History of Abuse Medications and Allergies Allergies Allergy/AdvReac Type Severity Reaction Status Date / Time No Known Allergies Allergy Verified 01/21/18 18:40 Home Medications Medication Instructions Recorded Confirmed Type carboxymethylcellulose sodium 1 drp EACH EYE Q4-6H PRN 01/23/18 01/23/18 History cholecalciferol (vitamin D3) 1,000 unit PO DAILY 01/23/18 01/23/18 History etanercept 50 mg SUBCUT QWEEK 01/23/18 01/23/18 History hydrophilic cream 1 applic TOPICAL TID PRN 01/23/18 01/23/18 History hydroquinone 1 applic TOPICAL BID PRN 01/23/18 01/23/18 History levothyroxine 1 tab PO QAM 01/23/18 01/23/18 History simvastatin 40 mg PO QPM 01/23/18 01/23/18 History triamcinolone acetonide 1 dose TOPICAL BID PRN 01/23/18 01/23/18 History Results - Labs CBC & Chem 7: 03/02/18 18:30 03/02/18 18:30 Exam Vital signs: Vital Signs 03/02/18 18:09 03/02/18 18:28 Temperature 37.2 C Pulse Rate 76 Respiratory Rate 24 Blood Pressure 106/61 Pulse Oximetry 99 Intake & Output 03/02/18 03/02/18 03/03/18 06:59 18:59 06:59 Weight 63.3 kg Other: Weight On Admission 63.3 kg Narrative: GENERAL: Elderly male, lying in bed, trach collar oxygen HEENT: Normocephalic. Atraumatic. Pupils equal, round, reactive, conjugate. Mucous membranes are moist NECK: Trachea is midline. There is no JVD. posterior neck has deep wound with exposed midline spine bony prominances. there is also a small area of wound on the posterior occiput with desquamated skin. CHEST: Trach collar O2. Equal chest rise CARDIOVASCULAR: Normal rate, regular rhythm. Sinus. ABDOMEN: Soft, nontender, nondistended. No guarding. MUSCULOSKELETAL: Pulses 2+. No peripheral edema. NEUROLOGICAL: RASS -1. incomplete quad. FAVIAN 4-/5 proximal uppers grossly, 2/5 distal uppers, 0/5 bilateral lower extremities. Septic Shock Reassessment Septic shock perfusion: reassessment completed Caprini VTE Risk Assessment Caprini VTE Risk Assessment: Moderate/High Risk (score >= 2) Caprini Risk Assessment Model: Point Value = 1 Point Value = 2 Point Value = 3 Point Value = 5 Age 41-60 Minor surgery BMI > 25 kg/m2 Swollen legs Varicose veins or History of unexplained or recurrent spontaneous Oral contraceptives or hormone replacement Sepsis (< 1 month) Serious lung disease, including pneumonia (< 1 month) Abnormal pulmonary function Acute myocardial infarction Congestive heart failure (< 1 month) History of inflammatory bowel disease Medical patient at bed rest Age 61-74 Arthroscopic surgery Major open surgery (> 45 min) Laparoscopic surgery (> 45 min) Malignancy Confined to bed (> 72 hours) Immobilizing plaster cast Central venous access Age >= 75 History of VTE Family history of VTE Factor V Leiden Prothrombin [id number] Lupus anticoagulant Anticardiolipin antibodies Elevated serum homocysteine Heparin-induced thrombocytopenia Other congenital or acquired thrombophilia Stroke (< 1 month) Elective arthroplasty Hip, pelvis, or leg fracture Acute spinal cord injury (< 1 month) Prophylaxis Regimen: Total Risk Factor Score Risk Level Prophylaxis Regimen 0-1 Low Early ambulation 2 Moderate Order ONE of the following: *Sequential Compression Device (SCD) *Heparin 5000 units SQ BID 3-4 Higher Order ONE of the following medications: *Heparin 5000 units SQ TID *Enoxaparin/Lovenox 40 mg SQ daily (WT < 150 kg, CrCl > 30 mL/min) *Enoxaparin/Lovenox 30 mg SQ daily (WT < 150 kg, CrCl > 10-29 mL/min) *Enoxaparin/Lovenox 30 mg SQ BID (WT < 150 kg, CrCl > 30 mL/min) AND/OR *Sequential Compression Device (SCD) 5 or more Highest Order ONE of the following medications: *Heparin 5000 units SQ TID (Preferred with Epidurals) *Enoxaparin/Lovenox 40 mg SQ daily (WT < 150 kg, CrCl > 30 mL/min) *Enoxaparin/Lovenox 30 mg SQ daily (WT < 150 kg, CrCl > 10-29 mL/min) *Enoxaparin/Lovenox 30 mg SQ BID (WT < 150 kg, CrCl > 30 mL/min) AND *Sequential Compression Device (SCD) Assessment and Plan - Assessment and Plan Plan: Assessment: 72yM with dehisced posterior cervical incisional wound with MRSA wound infection. would cover broadly with vancomycin and cefepime until cultures result. plan for OR sunday 03/04. keep in ICU. MRSA wound infection - vancomycin, cefepime - f/u cultures - nsgy consultation - plan for OR sunday 03/04 - daily cbc Incomplete quadriplegia - wean trach collar o2 as tolerated - aggressive pulmonary toilet - restart tube feeds Acute protein calorie malnutrition- severe - check prealbumin chronic respiratory failure - trach collar o2 - aggressive pulmonary toilet - PT consult chronic urinary retention - send u/a - keep mann - strict i/o's SCDs SQH Pepcid
[2018-03-02 19:18] LABS: Baso % (Auto) 0.8 % (0.0-2.0); Eos # (Auto) 0.1 th/mm3 (0.0-0.4); Eos % (Auto) 1.6 % (0.0-4.0); Hematocrit 29.4 % (39.0-51.0); Hemoglobin 9.8 gm/dL (13.0-17.0); Lymph # (Auto) 0.9 th/mm3 (1.0-4.8); Lymph % (Auto) 20.1 % (9.0-44.0); Mean Corpuscular HGB Conc 33.2 % (32.0-36.0); Mean Corpuscular Hemoglobin 29.4 pg (27.0-34.0); Mean Corpuscular Volume 88.5 fL (80.0-100.0); Mean Platelet Volume 8.6 fL (7.0-11.0); Mono # (Auto) 0.6 th/mm3 (0.0-0.9); Mono % (Auto) 12.8 % (0.0-8.0); Neut # (Auto) 2.8 th/mm3 (1.8-7.7); Neut % (Auto) 64.7 % (16.0-70.0); Platelet Count 180 th/mm3 (150-450); Red Blood Count 3.33 mil/mm3 (4.50-5.90); Red Cell Distribution Width 14.8 % (11.6-17.2); White Blood Count 4.4 th/mm3 (4.0-11.0)
--- NOTE | 2018-03-02 19:37 | P.CONNS ---
History of Present Illness Service: [facility] Primary Care Provider: No Primary Care Physician Chief Complaint: wound dehiscence History of Present Illness: 72yoM s/p posterior cervical decompression and fusion 01/22/18 after he fell from a ladder and became paraplegic with cord signal change. He has been at [facility] hospital. They called today indicating he had a large deep wound dehiscence of his cervical wound. He has been on Vancomycin. He has rhonchi when listening to his lungs. No labs for a few days, we will redraw. Also has minor skin erosion at the back of his head, likely from the collar. [facility] - History History Provided By: Patient - Medical History Medical History: Medical History (Last Reviewed 01/27/18 @ 13:25 by Shari Roy MD) Rheumatoid arthritis - Family History Family History: Family History (Last Updated 01/27/18 @ 13:25 by Shari Roy MD) Other Family history non-contributory No pertinent family history - Tobacco History Second Hand Smoke Exposure: No Smoking Status: Never smoker - Alcohol History How Often Do You Have a Drink Containing Alcohol: Monthly or less - Substance Use History Substance History: No History of Abuse Medications and Allergies Allergies Allergy/AdvReac Type Severity Reaction Status Date / Time No Known Allergies Allergy Verified 01/21/18 18:40 Home Medications Medication Instructions Recorded Confirmed Type carboxymethylcellulose sodium 1 drp EACH EYE Q4-6H PRN 01/23/18 01/23/18 History cholecalciferol (vitamin D3) 1,000 unit PO DAILY 01/23/18 01/23/18 History etanercept 50 mg SUBCUT QWEEK 01/23/18 01/23/18 History hydrophilic cream 1 applic TOPICAL TID PRN 01/23/18 01/23/18 History hydroquinone 1 applic TOPICAL BID PRN 01/23/18 01/23/18 History levothyroxine 1 tab PO QAM 01/23/18 01/23/18 History simvastatin 40 mg PO QPM 01/23/18 01/23/18 History triamcinolone acetonide 1 dose TOPICAL BID PRN 01/23/18 01/23/18 History Exam Vital signs: Vital Signs 03/02/18 18:09 03/02/18 18:28 Temperature 99 F Pulse Rate 76 Respiratory Rate 24 Blood Pressure 106/61 Pulse Oximetry 99 Intake & Output 03/02/18 03/02/18 03/03/18 06:59 18:59 06:59 Weight 63.3 kg Other: Weight On Admission 63.3 kg Narrative: A&O to name, confused open wound posterior cervical 2 x 3 x 3cm, yellow, down to bone minor wound back of scalp posterior occiput moves upper extremities (Deltoid - 4 , biceps - 3, moves forearms, not hands) does not move lower extremities Results - Laboratory Findings CBC and BMP: 03/02/18 18:30 03/02/18 18:30 Assessment and Plan - Plan 72yoM with cervical spinal cord injury, s/p cervicothoracic fusion on 01/21/18, wound dehiscence readmitted from [facility] today. Admit Plan OR surgical debridement of posterior cervical wound on Wednesday03/04/18 AM. ID consult, wound swabs taken, CBC with diff, BMP, continue Vancomycin and other PLATING TANK OPERATOR APPRENTICE doses imaging: CXR, C-spine xrays, and CT C-spine. May d/c collar after these are reviewed. Appreciate shipper/receiver comanagement.
[2018-03-02 19:47] LABS: Anion Gap 4 meq/L (5-15); Blood Urea Nitrogen 27 mg/dL (7-18); Calcium 7.8 mg/dL (8.5-10.1); Carbon Dioxide 30.3 meq/L (21.0-32.0); Chloride 107 meq/L (98-107); Glomerular Filtration Rate Greater Than 89 mL/min (>89); Glucose,Random 98 mg/dL (74-106); Potassium 4.3 meq/L (3.5-5.1); Sodium 141 meq/L (136-145)
[2018-03-02 20:28] LABS: Blast Cells 1 % (0-0); Eosinophils 4 % (0-4); Lymphocytes 12 % (9-44); Metamyelocytes 4 % (0-1); Monocytes 7 % (0-8); Myelocytes 2 % (0-0); Platelet Estimate Normal (Normal); Platelet Morphology Normal (Normal); Tallied Nucleated RBC 2 (0-0)
--- NOTE | 2018-03-02 20:50 | XR ---
EXAM DATE: 03/02/2018 8:46 PM EST AGE/SEX: 72 years / Male INDICATIONS: Shortness of breath CLINICAL DATA: This is the patient's subsequent encounter. Patient reports that signs and symptoms h ave been present for 2 weeks and indicates a pain score of Nonresponsive. MEDICAL/SURGICAL HISTORY: Non-responsive. Non-responsive. COMPARISON: C, CHEST 1V SINGLE AP, 01/27/2018. . FINDINGS: A single AP portable supine view of the chest was obtained and demonstrates interval placement of a t racheostomy tube. There is been placement of a left sided PICC line with the tip projected near the j unction of the right atrium and superior vena cava. There are no infiltrates or effusions. The heart size is at the upper limits of normal. Overlying electrocardiogram leads and oxygen tubing are presen t. The bony thorax is stable and intact. Postsurgical changes are noted in the cervical spine. CONCLUSION: 1. Interval placement of tracheostomy tube. 2. No acute cardiopulmonary disease. 3. Left-sided PICC line now noted. Electronically signed by: Willis Malik MD 03/02/2018 8:49 PM EST
--- NOTE | 2018-03-02 20:57 | CT ---
EXAM DATE: 03/02/2018 8:42 PM EST AGE/SEX: 72 years / Male INDICATIONS: Neck pain. CLINICAL DATA: This is the patient's initial encounter. Patient reports that signs and symptoms have been present for 1 day and indicates a pain score of 6/10. MEDICAL/SURGICAL HISTORY: None. Fusion, cervical. RADIATION DOSE: 23.08 CTDI (mGy) COMPARISON: [place], MR CERVICAL SPINE W/O CONTRAST, 01/21/2018. [place], MR CERVICAL SPINE W/O CONTR AST, 01/23/2018. [place], CT CERVICAL SPINE W/O CONTRAST, 01/21/2018. . TECHNIQUE: Contiguous axial images were obtained using helical multirow detector technique. The vol umetric data was post-processed with multiplanar reconstruction in oblique axial, sagittal, and coron al planes. Using automated exposure control and adjustment of the mA and/or kV according to patient s ize, radiation dose was kept as low as reasonably achievable to obtain optimal diagnostic quality vanesa ges. DICOM format image data is available electronically for review and comparison. FINDINGS: Patient is again seen to have had laminectomy at C4, C5 and C6. There is posterior fusion and instrum entation from C3 through T1. Alignment is unchanged, near-anatomic. There is large amount of metallic streak artifact. I don't see an epidural hematoma or definite epidural fluid collection. Small fluid seen in the laminectomy bed, roughly 1.2 x 1.5 cm in greatest transaxial dimension, but t his appears to be smaller than on the most recent MRI comparison. The previously seen surgical drain in this region has been removed. The fluid appears to be communicating with a large soft tissue defec t overlying the C7 and T1 posterior spinous processes. The defect measures approximately 2.8 cm acros s and extends down to bone. I don't convincingly see acute bone destruction. The fracture of the tip of the posterior spinous process of C7 is not new. No definite solid bone bridging as of yet. CONCLUSION: 1. Laminectomy and long segment posterior fusion of the cervical spine again noted. Alignment is unc hanged, near-anatomic, and the posterior bone graft material appears to be slowly incorporating but n ot convincingly solid at this time. 2. Limited study; no definite epidural fluid collection. The fluid collection in the laminectomy bed appears to be decreasing but now appears to communicate with a large soft tissue defect overlying th e posterior spinous processes of C7 and T1. Bone is exposed but without perceptible acute obstruction . Previously seen drain has been removed. Electronically signed by: Edgardo Garcia MD 03/02/2018 8:56 PM EST
--- NOTE | 2018-03-02 21:00 | XR ---
EXAM DATE: 03/02/2018 8:54 PM EST AGE/SEX: 72 years / Male INDICATIONS: Follow-up cervical fusion surgery 1 month ago CLINICAL DATA: This is the patient's subsequent encounter. Patient reports that signs and symptoms h ave been present for 1 month and indicates a pain score of Nonresponsive. MEDICAL/SURGICAL HISTORY: . Hypothyroidism. Hypercholesterolemia. Arthritis. Fusion, cervical. COMPARISON: [facility] [place], CT CERVICAL SPINE W/O CONTRAST, 03/02/2018. . FINDINGS: Cervical spine alignment is within normal limits. Laminectomy at C4, C5 and C6 again noted. There is posterior fusion instrumentation from C3 through T1. No acute fractures are demonstrated. No evidence of hardware failure or loosening. Cervical spine CT done the same day shows a large soft tissue defe ct overlying the posterior spinous processes of C7 and T1; this is not clearly visible on these radio graphs. Tracheostomy tube present. CONCLUSION: Electronically signed by: Edgardo Garcia MD 03/02/2018 8:58 PM EST
[2018-03-03] MEDS ORDERED: Vancomycin Inj 1,000 MG in Sodium Chlor 0.9% Inj 250 ML IV.SIG ONE (03:05)
[2018-03-03] MEDS ORDERED: Vancomycin Consult Pharmacy OTHER PRN (03:05)
[2018-03-03] MEDS ORDERED: Potassium Phosphate Inj 30 MMOL in Sodium Chlor 0.9% Inj 250 ML IV.SIG PRN (03:07)
[2018-03-03] MEDS ORDERED: Sodium Phosphate Inj 30 MMOL in Sodium Chlor 0.9% Inj 250 ML IV.SIG PRN (03:07)
[2018-03-03] MEDS ORDERED: Potassium Chlor 20 mEq Premix 20 MEQ/100 ML PIGGYBACK IV.SIG PRN ×2 (03:07)
[2018-03-03] MEDS ORDERED: Bisacodyl 10 MG Supp RECTAL PRN (03:07)
[2018-03-03] MEDS ORDERED: Potassium Chlor 40 mEq Premix 40 MEQ/100 ML PIGGYBACK IV.SIG PRN ×2 (03:07)
[2018-03-03] MEDS ORDERED: Labetalol HCl Inj 100 MG/20 ML Vial IV.PUSH PRN (03:07)
[2018-03-03] MEDS ORDERED: Potassium Phosphate 500 MG Soluble Tablet PO PRN ×2 (03:07)
[2018-03-03] MEDS ORDERED: Magnesium Sulfate Inj 4 GM in Sodium Chlor 0.9% Inj 92 ML IV.SIG PRN (03:07)
[2018-03-03] MEDS ORDERED: hydrALAZINE HCl Inj 20 MG/ML Vial IV.PUSH PRN (03:07)
[2018-03-03] MEDS ORDERED: Magnesium Oxide 400 MG Tablet PO PRN (03:07)
[2018-03-03] MEDS ORDERED: Dextrose 50% in Water 50 ML Vial IV.PUSH PRN (03:07)
[2018-03-03] MEDS ORDERED: Magnesium Sulfate Inj 2 GM in Sodium Chlor 0.9% Inj 96 ML IV.SIG PRN (03:07)
[2018-03-03] MEDS: Pantoprazole Inj 40 MG Vial IV.PUSH SCH (03:38)
[2018-03-03] MEDS: Chlorhexidine Gluconate 2% 1 Pack (2 Cloths) TOPICAL SCH (03:39)
[2018-03-03] MEDS ORDERED: Chlorhexidine Gluconate 2% 1 Pack (2 Cloths) TOPICAL PRN (04:00)
[2018-03-03 04:45] LABS: Bacteria,Urine Rare /hpf; Bilirubin,Urine Negative (Negative); Clarity,Urine Hazy (Clear); Color,Urine Yellow (Yellw/Straw); Glucose,Urine (UA) Negative (Negative); Hyaline Casts,Urine 1 /lpf (0-3); Leukocyte Esterase,Urine Negative (Negative); Mucus,Urine Few /lpf (Occasional); Nitrite,Urine Negative (Negative); Specific Gravity,Urine 1.023 (1.002-1.035); Squamous Epithelial Cell,Urine <1 /hpf (0-5); Urobilinogen,Urine 4 or Greater mg/dL (Less than 2)
[2018-03-03] MEDS: Heparin - SQ 10,000 UNITS/ML Vial SQ SCH ×2 (05:11→13:40)
[2018-03-03] MEDS ORDERED: Insulin NovoLIN Regular Correctional Sugar Inj SQ SCH (06:00)
[2018-03-03] MEDS: Insulin NovoLIN Regular Correctional Sugar Inj SQ SCH ×3 (06:19→18:45)
[2018-03-03] MEDS: Polyethylene Glycol 3350 17 GM Packet PO SCH ×2 (08:40→20:05)
[2018-03-03] MEDS: Senna/Docusate Sodium 8.6/50 MG Tablet PO SCH ×2 (08:41→20:05)
--- NOTE | 2018-03-03 13:36 | OTSOAPIP ---
PATIENT UNAVAILABLE DUE TO EXTENSIVE NURSING CARE BEING COMPLETED. WILL REATTEMPT NEXT TREATMENT DAY. JOSE J Therapist: Milly Dowell Signature on file
--- NOTE | 2018-03-03 14:26 | P.PNCC ---
Subjective Subjective Remarks/Hospital Course: 72yM s/p posterior cervical decompression and fusion 01/22/2018 after original injury of fall from ladder. Course complicated by paraplegia requiring trach/ peg and LTAC placement. In LTAC ([facility]), he had worsening of two wounds on his posterior head/neck, one at the incisional site which is deeper and now has exposed bone. Wound culture from 02/25 grew MRSA, he is on vancomycin. Discussed the case with Dr. Szymanski who is planning on doing a washout and closure on Sunday 03/04. 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 ROS unobtainable from the patient due to his trach dependency. 03/03: Stable overnight, collar cleared by neurosurgery, going to OR tomorrow. Objective Vital Signs / I&O: Vital Signs 03/02/18 18:09 03/02/18 18:28 03/02/18 19:00 Temperature 99 F Pulse Rate 76 76 Respiratory Rate 24 20 Blood Pressure 106/61 103/58 L Pulse Oximetry 99 03/02/18 20:00 03/02/18 20:11 03/02/18 21:00 Temperature 99.1 F Pulse Rate 76 70 Respiratory Rate 20 20 Blood Pressure 109/73 101/57 L Pulse Oximetry 100 03/02/18 22:00 03/02/18 22:20 03/02/18 22:28 Temperature Pulse Rate 74 70 70 Respiratory Rate 20 22 23 Blood Pressure 90/51 L 104/58 L Pulse Oximetry 100 100 03/02/18 23:00 03/02/18 23:28 03/03/18 00:00 Temperature 99.0 F Pulse Rate 69 70 69 Respiratory Rate 21 20 20 Blood Pressure 95/57 L Pulse Oximetry 100 100 100 03/03/18 00:28 03/03/18 01:00 03/03/18 01:28 Temperature Pulse Rate 71 72 72 Respiratory Rate 22 22 22 Blood Pressure 103/64 95/52 L Pulse Oximetry 100 100 100 03/03/18 02:00 03/03/18 02:28 03/03/18 03:00 Temperature Pulse Rate 73 73 78 Respiratory Rate 22 22 22 Blood Pressure 90/55 L Pulse Oximetry 100 100 100 03/03/18 03:28 03/03/18 03:51 03/03/18 04:00 Temperature 99.3 F Pulse Rate 75 75 86 Respiratory Rate 22 24 22 Blood Pressure 115/55 L Pulse Oximetry 98 94 L 03/03/18 04:28 03/03/18 04:29 03/03/18 05:00 Temperature Pulse Rate 89 86 Respiratory Rate 22 68 H Blood Pressure 114/61 Pulse Oximetry 99 100 100 03/03/18 05:28 03/03/18 06:00 03/03/18 06:28 Temperature Pulse Rate 81 79 76 Respiratory Rate 80 H 70 H 31 H Blood Pressure 90/50 L 89/51 L Pulse Oximetry 100 100 99 03/03/18 07:00 03/03/18 07:28 03/03/18 08:00 Temperature 100.1 F H Pulse Rate 75 74 75 Respiratory Rate 38 H 59 H 51 H Blood Pressure 89/50 L Pulse Oximetry 97 98 98 03/03/18 08:28 03/03/18 08:51 03/03/18 09:00 Temperature Pulse Rate 75 74 74 Respiratory Rate 51 H 18 50 H Blood Pressure 91/55 L Pulse Oximetry 98 100 100 03/03/18 09:28 03/03/18 10:00 03/03/18 10:28 Temperature Pulse Rate 80 78 80 Respiratory Rate 56 H 20 26 H Blood Pressure 98/53 L 98/56 L Pulse Oximetry 100 100 100 03/03/18 11:00 03/03/18 11:28 03/03/18 12:00 Temperature 100 F H Pulse Rate 79 79 81 Respiratory Rate 24 24 28 H Blood Pressure 99/57 L Pulse Oximetry 100 100 100 03/03/18 12:28 03/03/18 13:00 03/03/18 13:28 Temperature Pulse Rate 80 81 83 Respiratory Rate 25 H 27 H 30 H Blood Pressure 98/56 L 104/59 L Pulse Oximetry 100 100 100 Intake & Output 03/02/18 03/03/18 03/03/18 18:59 06:59 18:59 Intake Total 662 / 662 100 / 100 Output Total 500 / 500 Balance 162 / 162 100 / 100 Weight 63.3 kg 62.9 kg Intake: IV 350 / 350 100 / 100 Maxipime Inj 2,000 MG In NS Inj 100 / 100 100 / 100 100 ML @ 200 mls/hr IV.SIG Q8H [facility] Rx#:[id number] Vancomycin Inj 1,000 MG In NS 250 / 250 Inj 250 ML @ 250 mls/hr IV.SIG ONCE ONE Rx#:[id number] Tube Feeding Water Bolus Amount 300 / 300 Output: Urine Amount (Catheter) 500 / 500 Indwelling Urethral Catheter 500 / 500 Other: Date of Last Bowel Movement 03/03/18 03/03/18 # Bowel Movements 4 Weight On Admission 63.3 kg Result Diagrams: 03/02/18 18:30 03/02/18 18:30 Objective Remarks: GENERAL: Elderly male resting comfortably on trach collar HEENT: NCAT, PERRL NECK: Midline trachea, collar removed by neurosurgery, posterior neck has deep wound with exposed midline spine bony prominences. there is also a small area of wound on the posterior occiput with desquamated skin. CHEST: Trach collar O2. Lungs clear bilaterally CARDIOVASCULAR: Normal rate, regular rhythm. ABDOMEN: Soft, non-tender, non-distended. No guarding. MUSCULOSKELETAL: Pulses 2+. No peripheral edema. NEUROLOGICAL: RASS -1. incomplete quad. FAVIAN 4-/5 proximal uppers grossly, 2/5 distal uppers, 0/5 bilateral lower extremities. Assessment and Plan - Assessment and Plan Plan: Assessment: 72yM with dehisced posterior cervical incisional wound with MRSA wound infection. would cover broadly with vancomycin and cefepime until cultures result. Plan for OR sunday 03/04. Keep in ICU. MRSA wound infection - ID following, MRSA growing from wound culture, de-escalate antibiotics - Blood/ urine cultures pending - Neurosurgery following, plan for OR tomorrow Incomplete quadriplegia - Wean trach collar o2 as tolerated - Aggressive pulmonary toilet - Restart tube feeds, NPO at midnight for OR - Turning/ offloading to prevent pressure wounds Acute protein calorie malnutrition- severe - Prealbumin on admission 16 - Tube feeds calculated, goal is jevity 1/5 @ 45 mL/hr, will add 2 packets beneprotein as well Chronic respiratory failure - Trach collar o2 - Aggressive pulmonary toilet - PT consult Chronic urinary retention - UA on admission showed few bacteria, no leukocytes or nitrites - Keep chronic indwelling Turner catheter SCDs SQH Pepcid Will keep in ICU until surgery given extensive wounds with extension to bone Level 2 follow up To help prompt me to consider important information that might be impacting today's encounter and assessment, information from prior notes written by myself or my colleagues may have been "brought forward" into today's note. My signature on this note, however, is an attestation that I personally performed the exam, history, and/or decision-making noted today, and, unless otherwise indicated, the interactions with patient, family, and staff as well as the review of records all occurred today. I also attest that the listed assessment and stated plan reflect my best clinical judgment today based on the combination of historical information, prior notes, and today's exam/ interactions. Code Status: Full
--- NOTE | 2018-03-03 15:18 | P.PNNS ---
Subjective Interval history: Pt awake and alert. Trach in place. On humidified O2. Pupils equal. Dr. Szymanski planning on surgery tomorrow. Physical Exam Vital signs: Vital Signs 03/02/18 18:09 03/02/18 18:28 03/02/18 19:00 Temperature 99 F Pulse Rate 76 76 Respiratory Rate 24 20 Blood Pressure 106/61 103/58 L Pulse Oximetry 99 03/02/18 20:00 03/02/18 20:11 03/02/18 21:00 Temperature 99.1 F Pulse Rate 76 70 Respiratory Rate 20 20 Blood Pressure 109/73 101/57 L Pulse Oximetry 100 03/02/18 22:00 03/02/18 22:20 03/02/18 22:28 Temperature Pulse Rate 74 70 70 Respiratory Rate 20 22 23 Blood Pressure 90/51 L 104/58 L Pulse Oximetry 100 100 03/02/18 23:00 03/02/18 23:28 03/03/18 00:00 Temperature 99.0 F Pulse Rate 69 70 69 Respiratory Rate 21 20 20 Blood Pressure 95/57 L Pulse Oximetry 100 100 100 03/03/18 00:28 03/03/18 01:00 03/03/18 01:28 Temperature Pulse Rate 71 72 72 Respiratory Rate 22 22 22 Blood Pressure 103/64 95/52 L Pulse Oximetry 100 100 100 03/03/18 02:00 03/03/18 02:28 03/03/18 03:00 Temperature Pulse Rate 73 73 78 Respiratory Rate 22 22 22 Blood Pressure 90/55 L Pulse Oximetry 100 100 100 03/03/18 03:28 03/03/18 03:51 03/03/18 04:00 Temperature 99.3 F Pulse Rate 75 75 86 Respiratory Rate 22 24 22 Blood Pressure 115/55 L Pulse Oximetry 98 94 L 03/03/18 04:28 03/03/18 04:29 03/03/18 05:00 Temperature Pulse Rate 89 86 Respiratory Rate 22 68 H Blood Pressure 114/61 Pulse Oximetry 99 100 100 03/03/18 05:28 03/03/18 06:00 03/03/18 06:28 Temperature Pulse Rate 81 79 76 Respiratory Rate 80 H 70 H 31 H Blood Pressure 90/50 L 89/51 L Pulse Oximetry 100 100 99 03/03/18 07:00 03/03/18 07:28 03/03/18 08:00 Temperature 100.1 F H Pulse Rate 75 74 75 Respiratory Rate 38 H 59 H 51 H Blood Pressure 89/50 L Pulse Oximetry 97 98 98 03/03/18 08:28 03/03/18 08:51 03/03/18 09:00 Temperature Pulse Rate 75 74 74 Respiratory Rate 51 H 18 50 H Blood Pressure 91/55 L Pulse Oximetry 98 100 100 03/03/18 09:28 03/03/18 10:00 03/03/18 10:28 Temperature Pulse Rate 80 78 80 Respiratory Rate 56 H 20 26 H Blood Pressure 98/53 L 98/56 L Pulse Oximetry 100 100 100 03/03/18 11:00 03/03/18 11:28 03/03/18 12:00 Temperature 100 F H Pulse Rate 79 79 81 Respiratory Rate 24 24 28 H Blood Pressure 99/57 L Pulse Oximetry 100 100 100 03/03/18 12:28 03/03/18 13:00 03/03/18 13:28 Temperature Pulse Rate 80 81 83 Respiratory Rate 25 H 27 H 30 H Blood Pressure 98/56 L 104/59 L Pulse Oximetry 100 100 100 Intake & Output 03/02/18 03/03/18 03/03/18 18:59 06:59 18:59 Intake Total 662 / 662 100 / 100 Output Total 500 / 500 Balance 162 / 162 100 / 100 Weight 63.3 kg 62.9 kg Intake: IV 350 / 350 100 / 100 Maxipime Inj 2,000 MG In NS Inj 100 / 100 100 / 100 100 ML @ 200 mls/hr IV.SIG Q8H [facility] Rx#:[id number] Vancomycin Inj 1,000 MG In NS 250 / 250 Inj 250 ML @ 250 mls/hr IV.SIG ONCE ONE Rx#:[id number] Tube Feeding Water Bolus Amount 300 / 300 Output: Urine Amount (Catheter) 500 / 500 Indwelling Urethral Catheter 500 / 500 Other: Date of Last Bowel Movement 03/03/18 03/03/18 # Bowel Movements 4 Weight On Admission 63.3 kg - Constitutional no acute distress - Routine HEENT Exam Head: Absent: normocephalic (Wound occipital area.) Eye: Present: PERRL. Absent: conjunctival icterus - Routine Respiratory Exam Present: CTA bilaterally. Absent: respiratory distress, rhonchi, wheezes - Routine Cardiovascular Exam Present: RRR, S1, S2. Absent: murmur - Routine Abdominal Exam Present: soft, normoactive bowel sounds. Absent: distended, firm - Routine Skin Exam Comments: Pt has a posterior cervical wound. - Routine Neurological Exam Present: alert. Absent: moving all extremities (moves upper extremities with weakness Deltoid 4/5, biceps 3/5, HI and LEs 0/5.) - Routine Psychiatric Exam Present: normal affect - Urinary Catheter Management Indwelling Urethral Catheter Cath placed during this visit: no Assessment and Plan - Assessment (1) Spinal cord injury at T1-T6 level Code(s): S24.101A - Unspecified injury at T1 level of thoracic spinal cord, initial encounter Status: Acute (2) Closed C6 fracture Code(s): S12.500A - Unspecified displaced fracture of sixth cervical vertebra, initial encounter for closed fracture Status: Acute Qualifiers: Encounter type: initial encounter Fracture morphology: unspecified fracture morphology (3) Wound dehiscence Code(s): T81.30XA - Disruption of wound, unspecified, initial encounter Status : Acute - Plan 72yoM with cervical spinal cord injury, s/p cervicothoracic fusion on 01/21/18, wound dehiscence readmitted from [facility] 03/02/18. Admit Per Dr. Szymanski plan OR surgical debridement of posterior cervical wound on Wednesday03/04/18 AM. Stop Heparin. ID consult, wound swabs taken, CBC with diff, BMP, continue Vancomycin and other SALON ASSISTANT doses Dr. Szymanski cleared and discontinued cervical collar. Discussed with family, RN, ID, Dr. Szymanski.
--- NOTE | 2018-03-03 15:37 | P.CONID ---
History of Present Illness Service: Infectious Disease Consult date: 03/03/18 Requesting Physician: Juan Osorio Reason for Consult: Evaluation and Mment of Surgical site wound infection plus ? epidural absce Primary Care Provider: No Primary Care Physician Chief Complaint: wound dehiscence History of Present Illness: is a 72 y/o CM with h/o fall from a ladder originally on 2017. He was diagnosed with paraplegia, ended up being trached and PEGed. Patient underwent C3-T1 Instrumentation to stabilize his spine by . Post op there was wound dehiscence noted and he was seen by Dr.Alexandra Manuela RUSSELL and started on Vanco IV. He was later sent to [facility] in [place]. He had a trach collar at some point leading to ulcer under his left chin and on back of his forehead timing of these is not known. He was transferred back to [facility] for washout of the wounds by . A CT spine was done which showed fluid collection in the deeper tissues connecting to exterior wound. Due to concern for discitis and epidural abscess ID consulted. At the time of my evaluation patient is in the intensive surgical care unit currently trached and pegged and in a trach collar. Patient opens his eyes but is unable to move any of his extremities except his right upper extremity that he possibly withdraws from spasms. Patient has ongoing diarrhea and was diagnosed with C. difficile at the other hospital. Upon opening straight collar and noticed a ulcer on her left mandible area, another ulcer on the posterior occipital area on the right side as well as the original surgical incision on the superior aspect appeared to be dehisced in both of these appear to be tracking down to the bone there is no surgical site has yellowish discharge which appears to be copious. Review of Systems unobtainable due to endotracheal tube PMFSH - History History Provided By: Medical Record - Medical / Surgical Hx Neg / Unobtainable Medical Problems Denied: Unable to Obtain - Medical History Medical History: Medical History (Last Reviewed 03/03/18 @ 09:02 by Samantha Garcia) Rheumatoid arthritis - Family History Family History: Family History (Last Reviewed 03/03/18 @ 09:02 by Samantha Garcia) Other Family history non-contributory No pertinent family history - Tobacco History Second Hand Smoke Exposure: No Smoking Status: Never smoker - Alcohol History How Often Do You Have a Drink Containing Alcohol: Monthly or less - Substance Use History Substance History: No History of Abuse Medications and Allergies Active Medications: Active Medications Albuterol (Duoneb Neb (Prn)) 1 ampul NEB Q2HR NEB PRN PRN Reason: WHEEZING Albuterol (Duoneb Neb (Oswaldo)) 1 ampul NEB Q6HR NEB [facility]WALDO Last Admin: 03/03/18 08:51 Dose: 1 ampul Bisacodyl (Dulcolax Supp) 10 mg RECTAL DAILY PRN PRN Reason: if no BM in last 24h Chlorhexidine Gluconate (Chlorhexidine 2% Cloth) 3 pack TOPICAL DAILY@0400 OSWALDO Stop: 03/08/18 03:59 Last Admin: 03/03/18 03:39 Dose: 3 pack Chlorhexidine Gluconate (Chlorhexidine 2% Cloth) 3 pack TOPICAL DAILY@0400 PRN PRN Reason: Extra cloth needed Stop: 03/08/18 03:59 Dextrose (D50w Vial) 50 ml IV.PUSH UNSCH PRN PRN Reason: PER HYPOGLYCEMIA PROTOCOL Glucagon (Glucagon Inj) 1 mg OTHER PRN PRN PRN Reason: for Hypoglycemia Protocol Heparin Sodium (Porcine) (Heparin Inj) 5,000 units SQ Q8HR [facility] Last Admin: 03/03/18 13:40 Dose: 5,000 units Hydralazine HCl (Apresoline Inj) 10 mg IV.PUSH Q30M PRN PRN Reason: sbp > 160, dbp > 95 Cefepime HCl 2,000 mg/ Sodium (Chloride) 100 mls @ 200 mls/hr IV.SIG Q8H [facility] Last Infusion: 03/03/18 13:00 Dose: Infused Magnesium Sulfate 4 gm/ Sodium (Chloride) 100 mls @ 50 mls/hr IV.SIG UNSCH PRN PRN Reason: For Magnesium 0.9 - 1.1 mg/dL Magnesium Sulfate 2 gm/ Sodium (Chloride) 100 mls @ 50 mls/hr IV.SIG UNSCH PRN PRN Reason: For Magnesium 1.2 - 1.6 mg/dL Potassium Chloride (Kcl 40 Meq Premix Inj) 40 meq in 100 mls @ 25 mls/hr IV.SIG Q2H PRN PRN Reason: For Potassium 2.8 - 3.2 mEq/L Potassium Chloride (Kcl 20 Meq Premix Inj) 20 meq in 100 mls @ 50 mls/hr IV.SIG Q2H PRN PRN Reason: For Potassium 3.3 - 3.5 mEq/L Potassium Chloride (Kcl 40 Meq Premix Inj) 40 meq in 100 mls @ 25 mls/hr IV.SIG UNSCH PRN PRN Reason: For Potassium 3.3 - 3.5 mEq/L Potassium Chloride (Kcl 20 Meq Premix Inj) 20 meq in 100 mls @ 50 mls/hr IV.SIG Q2H PRN PRN Reason: For Potassium 2.8 - 3.2 mEq/L Potassium Phosphate 30 mmol/ (Sodium Chloride) 260 mls @ 42 mls/hr IV.SIG UNSCH PRN PRN Reason: SEE LABEL COMMENTS Sodium Phosphate 30 mmol/ (Sodium Chloride) 260 mls @ 42 mls/hr IV.SIG UNSCH PRN PRN Reason: For Phosphorus < 2.5 mg/dL Vancomycin HCl 1,250 mg/ (Sodium Chloride) 262.5 mls @ 250 mls/hr IV.SIG Q12H [facility] Insulin Human Regular (Novolin R Correctional Sugar Inj) 0 units SQ Q6HR [facility]; Protocol Last Admin: 03/03/18 12:24 Dose: Not Given Labetalol HCl (Trandate Inj) 10 mg IV.PUSH Q20M PRN PRN Reason: sbp > 160 or DBP > 95 Lactulose (Lactulose Liq) 30 ml PO BID [facility] Last Admin: 03/03/18 08:40 Dose: Not Given Magnesium Oxide (Mag-Ox) 800 mg PO UNSCH PRN PRN Reason: For Magnesium 1.2 - 1.6 mg/dL Miscellaneous Information ([facility] Ordered Lab Info) 0 each OTHER ONCE ONE Stop: 03/04/18 15:46 Ondansetron HCl (Zofran Inj) 4 mg IV.PUSH Q6H PRN PRN Reason: NAUSEA OR VOMITING Pantoprazole Sodium (Protonix Inj) 40 mg IV.PUSH Q24H [facility] Last Admin: 03/03/18 03:38 Dose: 40 mg Pharmacy Profile Note (Vancomycin Consult Pharmacy) 1 each OTHER UNSCH PRN PRN Reason: Pharmacy to dose Polyethylene Glycol (Miralax) 17 gm PO BID [facility] Last Admin: 03/03/18 08:40 Dose: Not Given Potassium Bicarb/Potassium Chloride (K-Lyte Cl Eff) 50 meq PO UNSCH PRN PRN Reason: For Potassium 3.3 - 3.5 mEq/L Potassium Phosphate (K-Phos Original) 2,000 mg PO Q4H PRN PRN Reason: Phosphorus Less Than 2.5 mg/dL Potassium Phosphate (K-Phos Original) 2,000 mg PO UNSCH PRN PRN Reason: SEE LABEL COMMENTS Senna/Docusate Sodium (Cuca-Colace) 1 tab PO BID [facility] Last Admin: 03/03/18 08:41 Dose: Not Given Sodium Chloride (Ns Flush) 2 ml IV.FLUSH UNSCH PRN PRN Reason: FLUSH AFTER USING IV ACCESS Whey (Beneprotein Powder) 1 packet G-TUBE BID [facility] Allergies Allergy/AdvReac Type Severity Reaction Status Date / Time No Known Allergies Allergy Verified 01/21/18 18:40 Home Medications Medication Instructions Recorded Confirmed Type carboxymethylcellulose sodium 1 drp EACH EYE Q4-6H PRN 01/23/18 01/23/18 History cholecalciferol (vitamin D3) 1,000 unit PO DAILY 01/23/18 01/23/18 History etanercept 50 mg SUBCUT QWEEK 01/23/18 01/23/18 History hydrophilic cream 1 applic TOPICAL TID PRN 01/23/18 01/23/18 History hydroquinone 1 applic TOPICAL BID PRN 01/23/18 01/23/18 History levothyroxine 1 tab PO QAM 01/23/18 01/23/18 History simvastatin 40 mg PO QPM 01/23/18 01/23/18 History triamcinolone acetonide 1 dose TOPICAL BID PRN 01/23/18 01/23/18 History docusate sodium PO 5XW 03/03/18 History enalaprilat 1.25 mg/ml PO 03/03/18 History famotidine 20 mg PO BID 03/03/18 03/03/18 History metoprolol tartrate 5 mg IV.PUSH Q6H 03/03/18 History metoprolol tartrate 12.5 PO Q6HR 03/03/18 History Exam Vital signs: Vital Signs 03/02/18 18:09 03/02/18 18:28 03/02/18 19:00 Temperature 99 F Pulse Rate 76 76 Respiratory Rate 24 20 Blood Pressure 106/61 103/58 L Pulse Oximetry 99 03/02/18 20:00 03/02/18 20:11 03/02/18 21:00 Temperature 99.1 F Pulse Rate 76 70 Respiratory Rate 20 20 Blood Pressure 109/73 101/57 L Pulse Oximetry 100 03/02/18 22:00 03/02/18 22:20 03/02/18 22:28 Temperature Pulse Rate 74 70 70 Respiratory Rate 20 22 23 Blood Pressure 90/51 L 104/58 L Pulse Oximetry 100 100 03/02/18 23:00 03/02/18 23:28 03/03/18 00:00 Temperature 99.0 F Pulse Rate 69 70 69 Respiratory Rate 21 20 20 Blood Pressure 95/57 L Pulse Oximetry 100 100 100 03/03/18 00:28 03/03/18 01:00 03/03/18 01:28 Temperature Pulse Rate 71 72 72 Respiratory Rate 22 22 22 Blood Pressure 103/64 95/52 L Pulse Oximetry 100 100 100 03/03/18 02:00 03/03/18 02:28 03/03/18 03:00 Temperature Pulse Rate 73 73 78 Respiratory Rate 22 22 22 Blood Pressure 90/55 L Pulse Oximetry 100 100 100 03/03/18 03:28 03/03/18 03:51 03/03/18 04:00 Temperature 99.3 F Pulse Rate 75 75 86 Respiratory Rate 22 24 22 Blood Pressure 115/55 L Pulse Oximetry 98 94 L 03/03/18 04:28 03/03/18 04:29 03/03/18 05:00 Temperature Pulse Rate 89 86 Respiratory Rate 22 68 H Blood Pressure 114/61 Pulse Oximetry 99 100 100 03/03/18 05:28 03/03/18 06:00 03/03/18 06:28 Temperature Pulse Rate 81 79 76 Respiratory Rate 80 H 70 H 31 H Blood Pressure 90/50 L 89/51 L Pulse Oximetry 100 100 99 03/03/18 07:00 03/03/18 07:28 03/03/18 08:00 Temperature 100.1 F H Pulse Rate 75 74 75 Respiratory Rate 38 H 59 H 51 H Blood Pressure 89/50 L Pulse Oximetry 97 98 98 03/03/18 08:28 03/03/18 08:51 03/03/18 09:00 Temperature Pulse Rate 75 74 74 Respiratory Rate 51 H 18 50 H Blood Pressure 91/55 L Pulse Oximetry 98 100 100 03/03/18 09:28 03/03/18 10:00 03/03/18 10:28 Temperature Pulse Rate 80 78 80 Respiratory Rate 56 H 20 26 H Blood Pressure 98/53 L 98/56 L Pulse Oximetry 100 100 100 03/03/18 11:00 03/03/18 11:28 03/03/18 12:00 Temperature 100 F H Pulse Rate 79 79 81 Respiratory Rate 24 24 28 H Blood Pressure 99/57 L Pulse Oximetry 100 100 100 03/03/18 12:28 03/03/18 13:00 03/03/18 13:28 Temperature Pulse Rate 80 81 83 Respiratory Rate 25 H 27 H 30 H Blood Pressure 98/56 L 104/59 L Pulse Oximetry 100 100 100 Intake & Output 03/02/18 03/03/18 03/03/18 18:59 06:59 18:59 Intake Total 662 / 662 100 / 100 Output Total 500 / 500 Balance 162 / 162 100 / 100 Weight 63.3 kg 62.9 kg Intake: IV 350 / 350 100 / 100 Maxipime Inj 2,000 MG In NS Inj 100 / 100 100 / 100 100 ML @ 200 mls/hr IV.SIG Q8H [facility] Rx#:[id number] Vancomycin Inj 1,000 MG In NS 250 / 250 Inj 250 ML @ 250 mls/hr IV.SIG ONCE ONE Rx#:[id number] Tube Feeding Water Bolus Amount 300 / 300 Output: Urine Amount (Catheter) 500 / 500 Indwelling Urethral Catheter 500 / 500 Other: Date of Last Bowel Movement 03/03/18 03/03/18 # Bowel Movements 4 Weight On Admission 63.3 kg Narrative: GENERAL: Well-nourished well-developed, not in acute distress SKIN: Cool and dry, no generalized rash HEAD: Atraumatic. Normocephalic. No temporal or scalp tenderness. EYES: Pupils equal round and reactive. Scleral icterus. No injection or drainage. No petechia Trach site with no e.o infection Left mandibular area with ulceration down to the bone. Left scalp posterior occipital area on right with ulceration and unhealthy granulation tissue. Surgical site with dehiscence superiorly with yellowish discharge noted. NECK: Trachea midline. Supple, nontender, no meningeal signs. CARDIOVASCULAR: HS audible. RESPIRATORY: Clear to auscultation bilaterally. GASTROINTESTINAL: Abdomen soft nontender. MUSCULOSKELETAL: Extremities without clubbing, cyanosis. NEUROLOGICAL: Alert oriented 3. Nonfocal. Psych cooperative IV line sites ok. Results - Labs CBC & Chem 7: 03/02/18 18:30 03/02/18 18:30 Labs: Laboratory Results - last 24 hr 03/02/18 03/02/18 03/02/18 18:00 18:30 18:30 WBC 4.4 RBC 3.33 L Hgb 9.8 L Hct 29.4 L MCV 88.5 MCH 29.4 MCHC 33.2 RDW 14.8 Plt Count 180 MPV 8.6 Prelim Diff (Auto) Slide review pending Neut % (Auto) 64.7 Lymph % (Auto) 20.1 Bulloch % (Auto) 12.8 H Eos % (Auto) 1.6 Baso % (Auto) 0.8 Neut # (Auto) 2.8 Lymph # (Auto) 0.9 L Bulloch # (Auto) 0.6 Eos # (Auto) 0.1 Baso # (Auto) 0.0 WBC Differential Manual diff final Seg Neuts % (Manual) 49 Band Neuts % (Manual) 21 H Lymphocytes % (Manual) 12 Monocytes % (Manual) 7 Eosinophils % (Manual) 4 Metamyelocytes % (Man) 4 H Myelocytes % (Man) 2 H Blast Cells % (Manual) 1 H Abs Neuts (Manual) 3.3 Nucleated RBCs/100 WBC 2 H Differential Comment . Platelet Estimate Normal Platelet Morphology Normal ESR Sodium 141 Potassium 4.3 Chloride 107 Carbon Dioxide 30.3 Anion Gap 4 L BUN 27 H Creatinine 0.37 L Estimated GFR Greater than 89 POC Glucose Random Glucose 98 Lactic Acid Calcium 7.8 L C-Reactive Protein Prealbumin Urine Color Urine Clarity Urine pH Ur Specific Pender Urine Protein Urine Glucose (UA) Urine Ketones Urine Occult Blood Urine Nitrate Urine Bilirubin Urine Urobilinogen Ur Leukocyte Esterase Urine RBC Urine WBC Ur Squamous Epith Cells Urine Bacteria Hyaline Casts Urine Mucus Micro UA Comment Ur Microscopic Review Urine Culture Comments Nasal Screen MRSA (PCR) Mrsa detected 03/02/18 03/02/18 03/02/18 18:30 18:30 18:30 WBC RBC Hgb Hct MCV MCH MCHC RDW Plt Count MPV Prelim Diff (Auto) Neut % (Auto) Lymph % (Auto) Bulloch % (Auto) Eos % (Auto) Baso % (Auto) Neut # (Auto) Lymph # (Auto) Bulloch # (Auto) Eos # (Auto) Baso # (Auto) WBC Differential Seg Neuts % (Manual) Band Neuts % (Manual) Lymphocytes % (Manual) Monocytes % (Manual) Eosinophils % (Manual) Metamyelocytes % (Man) Myelocytes % (Man) Blast Cells % (Manual) Abs Neuts (Manual) Nucleated RBCs/100 WBC Differential Comment Platelet Estimate Platelet Morphology ESR 67 H Sodium Potassium Chloride Carbon Dioxide Anion Gap BUN Creatinine Estimated GFR POC Glucose Random Glucose Lactic Acid 1.2 Calcium C-Reactive Protein 4.70 H Prealbumin Urine Color Urine Clarity Urine pH Ur Specific Pender Urine Protein Urine Glucose (UA) Urine Ketones Urine Occult Blood Urine Nitrate Urine Bilirubin Urine Urobilinogen Ur Leukocyte Esterase Urine RBC Urine WBC Ur Squamous Epith Cells Urine Bacteria Hyaline Casts Urine Mucus Micro UA Comment Ur Microscopic Review Urine Culture Comments Nasal Screen MRSA (PCR) 03/03/18 03/03/18 03/03/18 04:00 04:20 06:04 WBC RBC Hgb Hct MCV MCH MCHC RDW Plt Count MPV Prelim Diff (Auto) Neut % (Auto) Lymph % (Auto) Bulloch % (Auto) Eos % (Auto) Baso % (Auto) Neut # (Auto) Lymph # (Auto) Bulloch # (Auto) Eos # (Auto) Baso # (Auto) WBC Differential Seg Neuts % (Manual) Band Neuts % (Manual) Lymphocytes % (Manual) Monocytes % (Manual) Eosinophils % (Manual) Metamyelocytes % (Man) Myelocytes % (Man) Blast Cells % (Manual) Abs Neuts (Manual) Nucleated RBCs/100 WBC Differential Comment Platelet Estimate Platelet Morphology ESR Sodium Potassium Chloride Carbon Dioxide Anion Gap BUN Creatinine Estimated GFR POC Glucose 110 Random Glucose Lactic Acid Calcium C-Reactive Protein Prealbumin 16 L Urine Color Yellow Urine Clarity Hazy H Urine pH 5.0 Ur Specific Pender 1.023 Urine Protein 30 H Urine Glucose (UA) Negative Urine Ketones Negative Urine Occult Blood Negative Urine Nitrate Negative Urine Bilirubin Negative Urine Urobilinogen 4 or greater Ur Leukocyte Esterase Negative Urine RBC 14 H Urine WBC 3 Ur Squamous Epith Cells <1 Urine Bacteria Rare H Hyaline Casts 1 Urine Mucus Few H Micro UA Comment Cath-culture ind Ur Microscopic Review Not Reportable Urine Culture Comments Cath-cult indicated Nasal Screen MRSA (PCR) 03/03/18 03/03/18 12:12 12:19 WBC RBC Hgb Hct MCV MCH MCHC RDW Plt Count MPV Prelim Diff (Auto) Neut % (Auto) Lymph % (Auto) Bulloch % (Auto) Eos % (Auto) Baso % (Auto) Neut # (Auto) Lymph # (Auto) Bulloch # (Auto) Eos # (Auto) Baso # (Auto) WBC Differential Seg Neuts % (Manual) Band Neuts % (Manual) Lymphocytes % (Manual) Monocytes % (Manual) Eosinophils % (Manual) Metamyelocytes % (Man) Myelocytes % (Man) Blast Cells % (Manual) Abs Neuts (Manual) Nucleated RBCs/100 WBC Differential Comment Platelet Estimate Platelet Morphology ESR Sodium Potassium Chloride Carbon Dioxide Anion Gap BUN Creatinine Estimated GFR POC Glucose 32 L* 115 H Random Glucose Lactic Acid Calcium C-Reactive Protein Prealbumin Urine Color Urine Clarity Urine pH Ur Specific Pender Urine Protein Urine Glucose (UA) Urine Ketones Urine Occult Blood Urine Nitrate Urine Bilirubin Urine Urobilinogen Ur Leukocyte Esterase Urine RBC Urine WBC Ur Squamous Epith Cells Urine Bacteria Hyaline Casts Urine Mucus Micro UA Comment Ur Microscopic Review Urine Culture Comments Nasal Screen MRSA (PCR) - Imaging Impressions Cervical Spine CT 03/02/18 00:00 CONCLUSION: 1. Laminectomy and long segment posterior fusion of the cervical spine again noted. Alignment is unchanged, near-anatomic, and the posterior bone graft material appears to be slowly incorporating but not convincingly solid at this time. 2. Limited study; no definite epidural fluid collection. The fluid collection in the laminectomy bed appears to be decreasing but now appears to communicate with a large soft tissue defect overlying the posterior spinous processes of C7 and T1. Bone is exposed but without perceptible acute obstruction. Previously seen drain has been removed. Cervical Spine X-Ray 03/02/18 00:00 CONCLUSION: Chest X-Ray 03/02/18 00:00 CONCLUSION: 1. Interval placement of tracheostomy tube. 2. No acute cardiopulmonary disease. 3. Left-sided PICC line now noted. Assessment and Plan - Plan MRSA epidural abscess/discitis Surgical site infection at site of recent C5-T1 Instrumentation (hardware in place) H/o fall as preceding incident to surgery. Occipital wound stage 3-4 down to bone ? osteomyelitis. Left mandible inferior aspect with ulcer down to done ? osteomyelitis. Cdiff diagnosed at [facility]. Trach in place PEG in place h/o HCAP at other hospital with [facility] Rxed per records. Recs: Continue Cefepime IV Continue Vanco IV (target 15-20) Start oral vanco for Cdiff Follow cultures Follow clinical course Imaging reviewed with [facility]. Felipe Marc may need exploration of deeper tissues as infection tracking down to bone based on review of imaging. Wounds reviewed with RN to resume care on Wednesday. Will continue to follow in the interim.
[2018-03-03] MEDS: Vancomycin Inj 1,250 MG in Sodium Chlor 0.9% Inj 250 ML IV.SIG SCH (18:01)
[2018-03-03] MEDS: Beneprotein Powder Packet G-TUBE SCH (20:04)
[2018-03-04] MEDS: Insulin NovoLIN Regular Correctional Sugar Inj SQ SCH ×4 (01:24→19:01)
[2018-03-04] MEDS: Pantoprazole Inj 40 MG Vial IV.PUSH SCH (04:07)
[2018-03-04] MEDS: Chlorhexidine Gluconate 2% 1 Pack (2 Cloths) TOPICAL SCH (04:08)
[2018-03-04 04:48] LABS: Baso % (Auto) 0.5 % (0.0-2.0); Eos % (Auto) 0.7 % (0.0-4.0); Hematocrit 27.2 % (39.0-51.0); Hemoglobin 9.1 gm/dL (13.0-17.0); Lymph # (Auto) 0.5 th/mm3 (1.0-4.8); Lymph % (Auto) 8.2 % (9.0-44.0); Mean Corpuscular HGB Conc 33.5 % (32.0-36.0); Mean Corpuscular Hemoglobin 29.8 pg (27.0-34.0); Mean Corpuscular Volume 88.9 fL (80.0-100.0); Mono # (Auto) 0.4 th/mm3 (0.0-0.9); Mono % (Auto) 6.5 % (0.0-8.0); Neut # (Auto) 5.5 th/mm3 (1.8-7.7); Neut % (Auto) 84.1 % (16.0-70.0); Platelet Count 187 th/mm3 (150-450); Red Blood Count 3.06 mil/mm3 (4.50-5.90); Red Cell Distribution Width 15.2 % (11.6-17.2); White Blood Count 6.5 th/mm3 (4.0-11.0)
[2018-03-04 04:57] LABS: INR 1.2 Ratio; Prothrombin Time 12.3 sec (9.8-11.6)
[2018-03-04] MEDS: Vancomycin Inj 1,250 MG in Sodium Chlor 0.9% Inj 250 ML IV.SIG SCH ×2 (05:40→18:36)
[2018-03-04] MEDS: Senna/Docusate Sodium 8.6/50 MG Tablet PO SCH ×2 (08:51→21:28)
[2018-03-04] MEDS: Beneprotein Powder Packet G-TUBE SCH ×2 (08:51→21:28)
[2018-03-04] MEDS: Polyethylene Glycol 3350 17 GM Packet PO SCH ×2 (08:51→21:27)
--- NOTE | 2018-03-04 09:55 | P.DIET ---
Nutritional Evaluation Type of nutrition evaluation: initial Nutrition consult regarding: Tube Feeding Nutrition screening: [facility] (03/03) Objective - Diagnosis Spinal Cord Injury - Objective % IBW: 84 (IBW: 75.5kg) Body Weight Used for Calculations: Actual (63.3kg) Energy Needs - Lower Range (kCal/kg): 30 Energy Needs - Upper Range (kCal/kg): 35 Lower Limit kCal/kg (kCals): 1,899 Upper Limit kCal/kg (kCals): 2,216 Lower Limit Protein Factor (Grams per Kg): 1.2 Upper Limit Protein Factor (Grams per Kg): 1.5 Lower Protein Needs (Protein): 76 Upper Protein Needs (Protein): 95 Fluid Factor (ml/kg): 32 Estimated Fluid Needs (ml): 2,026 Dietitian Reviewed in Medical Record: Current diet, Curent medications, Intake & Output, Labs, Medical history, Tube feeding, Wound/DTI Diet Order: NPO Objective Comments: Spinal Cord Injury (01/23/2018) Assessment Assessment: Pt at high nutritional risk r/t current clinical status and need for a TF for nutrition support. Pt s/p spinal cord injury from a fall from a ladder on . Pt admitted from [facility] with, per MD: worsening of two wounds on his posterior head/neck, one at the incisional site which is deeper and now has exposed bone. Pt is currently NPO for surgery. His nutritional needs as assessed above. TF order of Jevity 1.5 with goal rate 60ml/hr will provide 2160 kcals, 92gms protein and 1094mls free water. In addition, pt is receiving 2 packets Beneprotein/day which adds 50kcals and 12gms protein. This is adequate to meet pt's nutritional needs, pt would also benefit from Jhony to aid in wound healing. Will monitor clinical course. Recommendations: TF Jevity 1.5 with goal rate 60ml/hr Beneprotein 1 pkt bid Recommend Jhony bid for wound healing Dietitian to Monitor: Lab values, Intake & Output, Tube feeding tolerance, Weight change, Wound/skin status, Medical course
--- NOTE | 2018-03-04 09:58 | P.PNCC ---
Subjective Subjective Remarks/Hospital Course: 72yM s/p posterior cervical decompression and fusion 01/22/2018 after original injury of fall from ladder. Course complicated by paraplegia requiring trach/ peg and LTAC placement. In LTAC ([facility]), he had worsening of two wounds on his posterior head/neck, one at the incisional site which is deeper and now has exposed bone. Wound culture from 02/25 grew MRSA, he is on vancomycin. Discussed the case with Dr. Szymanski who is planning on doing a washout and closure on Sunday 03/04. 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 ROS unobtainable from the patient due to his trach dependency. 03/03: Stable overnight, collar cleared by neurosurgery, going to OR tomorrow. 03/04: Remains on trach collar. Awaiting surgery today Objective Vital Signs / I&O: Vital Signs 03/03/18 10:00 03/03/18 10:28 03/03/18 11:00 Temperature Pulse Rate 78 80 79 Respiratory Rate 20 26 H 24 Blood Pressure 98/56 L Pulse Oximetry 100 100 100 03/03/18 11:28 03/03/18 12:00 03/03/18 12:28 Temperature 100 F H Pulse Rate 79 81 80 Respiratory Rate 24 28 H 25 H Blood Pressure 99/57 L 98/56 L Pulse Oximetry 100 100 100 03/03/18 13:00 03/03/18 13:28 03/03/18 14:00 Temperature Pulse Rate 81 83 82 Respiratory Rate 27 H 30 H 31 H Blood Pressure 104/59 L Pulse Oximetry 100 100 100 03/03/18 14:28 03/03/18 15:00 03/03/18 15:28 Temperature Pulse Rate 81 83 83 Respiratory Rate 32 H 56 H 39 H Blood Pressure 96/55 L 102/63 Pulse Oximetry 100 100 100 03/03/18 16:00 03/03/18 16:28 03/03/18 16:29 Temperature Pulse Rate 81 83 82 Respiratory Rate 27 H 28 H 16 Blood Pressure 106/55 L Pulse Oximetry 100 98 03/03/18 17:00 03/03/18 17:28 03/03/18 18:00 Temperature 99.8 F H Pulse Rate 93 H 87 85 Respiratory Rate 36 H 53 H 43 H Blood Pressure 118/56 L Pulse Oximetry 100 100 100 03/03/18 18:28 03/03/18 19:00 03/03/18 20:00 Temperature 99.4 F Pulse Rate 82 77 80 Respiratory Rate 42 H 52 H 53 H Blood Pressure 108/53 L 96/54 L 92/53 L Pulse Oximetry 100 100 100 03/03/18 20:30 03/03/18 21:00 03/03/18 22:00 Temperature Pulse Rate 81 91 H 87 Respiratory Rate 24 30 H 68 H Blood Pressure 97/53 L Pulse Oximetry 98 99 100 03/03/18 23:00 03/03/18 23:39 03/04/18 00:00 Temperature 99.2 F Pulse Rate 85 86 91 H Respiratory Rate 24 22 37 H Blood Pressure 92/53 L 92/53 L Pulse Oximetry 97 99 03/04/18 01:00 03/04/18 02:00 03/04/18 02:28 Temperature Pulse Rate 88 86 86 Respiratory Rate 28 H 29 H 31 H Blood Pressure 115/55 L 104/54 L 99/56 L Pulse Oximetry 97 98 99 03/04/18 03:00 03/04/18 03:28 03/04/18 03:59 Temperature Pulse Rate 87 87 88 Respiratory Rate 29 H 28 H 24 Blood Pressure 99/58 L Pulse Oximetry 99 98 03/04/18 04:00 03/04/18 04:28 03/04/18 05:00 Temperature 99.3 F Pulse Rate 88 94 H 88 Respiratory Rate 28 H 21 13 Blood Pressure 111/58 L Pulse Oximetry 99 99 99 03/04/18 05:35 03/04/18 06:00 03/04/18 08:02 Temperature Pulse Rate 85 84 81 Respiratory Rate 27 H 25 H 16 Blood Pressure 99/58 L Pulse Oximetry 100 100 100 Intake & Output 03/03/18 03/04/18 03/04/18 18:59 06:59 18:59 Intake Total 689 / 689 754.5 / 754.5 262.5 / 262.5 Output Total 700 / 700 900 / 900 Balance -11 / -11 -145.5 / -145.5 262.5 / 262.5 Weight 63.2 kg Intake: IV 100 / 100 462.5 / 462.5 262.5 / 262.5 Maxipime Inj 2,000 MG In NS Inj 100 / 100 200 / 200 100 ML @ 200 mls/hr IV.SIG Q8H [facility] Rx#:[id number] Vancomycin Inj 1,250 MG In NS 262.5 / 262.5 262.5 / 262.5 Inj 250 ML @ 250 mls/hr IV.SIG Q12H [facility] Rx#:[id number] Tube Feeding 189 / 189 172 / 172 Water Bolus Amount 400 / 400 120 / 120 Output: Stool 100 / 100 500 / 500 Urine Amount (Catheter) 600 / 600 400 / 400 Indwelling Urethral Catheter 600 / 600 400 / 400 Other: Date of Last Bowel Movement 03/03/18 03/03/18 Result Diagrams: 03/04/18 04:20 03/02/18 18:30 Objective Remarks: GENERAL: Elderly male resting comfortably on trach collar HEENT: NCAT, PERRL NECK: Midline trachea, collar removed by neurosurgery, posterior neck has deep wound with exposed midline spine bony prominences. there is also a small area of wound on the posterior occiput with desquamated skin. CHEST: Trach collar O2. Lungs clear bilaterally CARDIOVASCULAR: Normal rate, regular rhythm. ABDOMEN: Soft, non-tender, non-distended. No guarding. MUSCULOSKELETAL: Pulses 2+. No peripheral edema. NEUROLOGICAL: RASS -1. incomplete quad. FAVIAN 4-/5 proximal uppers grossly, 2/5 distal uppers, 0/5 bilateral lower extremities. Assessment and Plan - Assessment and Plan Plan: Assessment: 72yM with dehisced posterior cervical incisional wound with MRSA wound infection. would cover broadly with vancomycin and cefepime until cultures result. Plan for OR sunday 03/04. Keep in ICU. MRSA wound infection - ID following, MRSA growing from wound culture, de-escalate antibiotics - Blood/ urine cultures pending - Neurosurgery following, plan for OR 03/04 Incomplete quadriplegia - Wean trach collar o2 as tolerated - Aggressive pulmonary toilet - Restart tube feeds, NPO at midnight for OR - Turning/ offloading to prevent pressure wounds Acute protein calorie malnutrition- severe - Prealbumin on admission 16 - Tube feeds calculated, goal is jevity 1/5 @ 45 mL/hr, 2 packets beneprotein daily Chronic respiratory failure - Trach collar o2 - Aggressive pulmonary toilet - PT consult Chronic urinary retention - UA on admission showed few bacteria, no leukocytes or nitrites - Keep chronic indwelling Turner catheter SCDs SQH Pepcid Will keep in ICU until surgery given extensive wounds with extension to bone Level 2 follow up To help prompt me to consider important information that might be impacting today's encounter and assessment, information from prior notes written by myself or my colleagues may have been "brought forward" into today's note. My signature on this note, however, is an attestation that I personally performed the exam, history, and/or decision-making noted today, and, unless otherwise indicated, the interactions with patient, family, and staff as well as the review of records all occurred today. I also attest that the listed assessment and stated plan reflect my best clinical judgment today based on the combination of historical information, prior notes, and today's exam/ interactions.
--- NOTE | 2018-03-04 10:53 | P.PNNS ---
Subjective Interval history: Plan for surgical debridement of neck wound today, possible wound vac Did not require vent overnight, using t-piece. 24 hours after surgery, may transfer to floor Physical Exam Vital signs: Vital Signs 03/03/18 11:00 03/03/18 11:28 03/03/18 12:00 Temperature 100 F H Pulse Rate 79 79 81 Respiratory Rate 24 24 28 H Blood Pressure 99/57 L Pulse Oximetry 100 100 100 03/03/18 12:28 03/03/18 13:00 03/03/18 13:28 Temperature Pulse Rate 80 81 83 Respiratory Rate 25 H 27 H 30 H Blood Pressure 98/56 L 104/59 L Pulse Oximetry 100 100 100 03/03/18 14:00 03/03/18 14:28 03/03/18 15:00 Temperature Pulse Rate 82 81 83 Respiratory Rate 31 H 32 H 56 H Blood Pressure 96/55 L Pulse Oximetry 100 100 100 03/03/18 15:28 03/03/18 16:00 03/03/18 16:28 Temperature Pulse Rate 83 81 83 Respiratory Rate 39 H 27 H 28 H Blood Pressure 102/63 106/55 L Pulse Oximetry 100 100 98 03/03/18 16:29 03/03/18 17:00 03/03/18 17:28 Temperature Pulse Rate 82 93 H 87 Respiratory Rate 16 36 H 53 H Blood Pressure 118/56 L Pulse Oximetry 100 100 03/03/18 18:00 03/03/18 18:28 03/03/18 19:00 Temperature 99.8 F H Pulse Rate 85 82 77 Respiratory Rate 43 H 42 H 52 H Blood Pressure 108/53 L 96/54 L Pulse Oximetry 100 100 100 03/03/18 20:00 03/03/18 20:30 03/03/18 21:00 Temperature 99.4 F Pulse Rate 80 81 91 H Respiratory Rate 53 H 24 30 H Blood Pressure 92/53 L 97/53 L Pulse Oximetry 100 98 99 03/03/18 22:00 03/03/18 23:00 03/03/18 23:39 Temperature Pulse Rate 87 85 86 Respiratory Rate 68 H 24 22 Blood Pressure 92/53 L Pulse Oximetry 100 97 03/04/18 00:00 03/04/18 01:00 03/04/18 02:00 Temperature 99.2 F Pulse Rate 91 H 88 86 Respiratory Rate 37 H 28 H 29 H Blood Pressure 92/53 L 115/55 L 104/54 L Pulse Oximetry 99 97 98 03/04/18 02:28 03/04/18 03:00 03/04/18 03:28 Temperature Pulse Rate 86 87 87 Respiratory Rate 31 H 29 H 28 H Blood Pressure 99/56 L 99/58 L Pulse Oximetry 99 99 98 03/04/18 03:59 03/04/18 04:00 03/04/18 04:28 Temperature 99.3 F Pulse Rate 88 88 94 H Respiratory Rate 24 28 H 21 Blood Pressure 111/58 L Pulse Oximetry 99 99 03/04/18 05:00 03/04/18 05:35 03/04/18 06:00 Temperature Pulse Rate 88 85 84 Respiratory Rate 13 27 H 25 H Blood Pressure 99/58 L Pulse Oximetry 99 100 100 03/04/18 08:02 Temperature Pulse Rate 81 Respiratory Rate 16 Blood Pressure Pulse Oximetry 100 Intake & Output 03/03/18 03/04/18 03/04/18 18:59 06:59 18:59 Intake Total 689 / 689 754.5 / 754.5 262.5 / 262.5 Output Total 700 / 700 900 / 900 Balance -11 / -11 -145.5 / -145.5 262.5 / 262.5 Weight 63.2 kg Intake: IV 100 / 100 462.5 / 462.5 262.5 / 262.5 Maxipime Inj 2,000 MG In NS Inj 100 / 100 200 / 200 100 ML @ 200 mls/hr IV.SIG Q8H LOS Rx#:[id number] Vancomycin Inj 1,250 MG In NS 262.5 / 262.5 262.5 / 262.5 Inj 250 ML @ 250 mls/hr IV.SIG Q12H LOS Rx#:[id number] Tube Feeding 189 / 189 172 / 172 Water Bolus Amount 400 / 400 120 / 120 Output: Stool 100 / 100 500 / 500 Urine Amount (Catheter) 600 / 600 400 / 400 Indwelling Urethral Catheter 600 / 600 400 / 400 Other: Date of Last Bowel Movement 03/03/18 03/03/18 Narrative: Left mandibular area with ulceration down to the bone. Left scalp posterior occipital area on right with ulceration and unhealthy granulation tissue. Surgical site with dehiscence superiorly with yellowish discharge noted. NECK: Trachea midline. Supple, nontender, no meningeal signs. Follows limited commands, A&O to person only. Moves proximal upper extremities, remainder flaccid per baseline after SCI - Urinary Catheter Management Indwelling Urethral Catheter Cath placed during this visit: no Assessment and Plan - Plan 72yoM with cervical spinal cord injury, s/p cervicothoracic fusion on 01/21/18, wound dehiscence readmitted from [facility] 03/02/18. Admit Per Dr. Szymanski plan OR surgical debridement of posterior cervical wound on Wednesday03/04/18 AM. Stop Heparin. 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 Szymanski cleared and discontinued cervical collar. Discussed with family, RN, ID, Dr. Szymanski. 03/04/18 CT c-spine reviewed showing stable construct C3-T1 -- collar dc/d Plan operative debridement with cultures and attempt at primary closure vs. wound vac. Appreciate ID recs. Would also attempt to increase this man's nutrition to facilitate wound healing -- via PEG
--- NOTE | 2018-03-04 13:07 | P.PNID ---
Subjective Remarks: is a 72 y/o CM with h/o fall from a ladder originally on 2017. He was diagnosed with paraplegia, ended up being trached and PEGed. Patient underwent C3-T1 Instrumentation to stabilize his spine by . Post op there was wound dehiscence noted and he was seen by Dr.Alexandra Manuela RUSSELL and started on Vanco IV. He was later sent to [facility] in [place]. He had a trach collar at some point leading to ulcer under his left chin and on back of his forehead timing of these is not known. He was transferred back to [facility] for washout of the wounds by . A CT spine was done which showed fluid collection in the deeper tissues connecting to exterior wound. Due to concern for discitis and epidural abscess ID consulted. At the time of my evaluation patient is in the intensive surgical care unit currently trached and pegged and in a trach collar. Patient opens his eyes but is unable to move any of his extremities except his right upper extremity that he possibly withdraws from spasms. Patient has ongoing diarrhea and was diagnosed with C. difficile at the other hospital. Upon opening straight collar and noticed a ulcer on her left mandible area, another ulcer on the posterior occipital area on the right side as well as the original surgical incision on the superior aspect appeared to be dehisced in both of these appear to be tracking down to the bone there is no surgical site has yellowish discharge which appears to be copious. Overnight events reviewed with RN No fever No rash No diarrhea Antibiotics: Cefepime IV Vanco IV Lines: Lines ok Past Medical History: reviewed. Allergies/Adverse Reactions: Allergies No Known Allergies Allergy (Verified 01/21/18 18:40) Objective Vital Signs 03/03/18 13:28 03/03/18 14:00 03/03/18 14:28 Temperature Pulse Rate 83 82 81 Respiratory Rate 30 H 31 H 32 H Blood Pressure 104/59 L 96/55 L Pulse Oximetry 100 100 100 03/03/18 15:00 03/03/18 15:28 03/03/18 16:00 Temperature Pulse Rate 83 83 81 Respiratory Rate 56 H 39 H 27 H Blood Pressure 102/63 Pulse Oximetry 100 100 100 03/03/18 16:28 03/03/18 16:29 03/03/18 17:00 Temperature Pulse Rate 83 82 93 H Respiratory Rate 28 H 16 36 H Blood Pressure 106/55 L Pulse Oximetry 98 100 03/03/18 17:28 03/03/18 18:00 03/03/18 18:28 Temperature 99.8 F H Pulse Rate 87 85 82 Respiratory Rate 53 H 43 H 42 H Blood Pressure 118/56 L 108/53 L Pulse Oximetry 100 100 100 03/03/18 19:00 03/03/18 20:00 03/03/18 20:30 Temperature 99.4 F Pulse Rate 77 80 81 Respiratory Rate 52 H 53 H 24 Blood Pressure 96/54 L 92/53 L Pulse Oximetry 100 100 98 03/03/18 21:00 03/03/18 22:00 03/03/18 23:00 Temperature Pulse Rate 91 H 87 85 Respiratory Rate 30 H 68 H 24 Blood Pressure 97/53 L 92/53 L Pulse Oximetry 99 100 97 03/03/18 23:39 03/04/18 00:00 03/04/18 01:00 Temperature 99.2 F Pulse Rate 86 91 H 88 Respiratory Rate 22 37 H 28 H Blood Pressure 92/53 L 115/55 L Pulse Oximetry 99 97 03/04/18 02:00 03/04/18 02:28 03/04/18 03:00 Temperature Pulse Rate 86 86 87 Respiratory Rate 29 H 31 H 29 H Blood Pressure 104/54 L 99/56 L Pulse Oximetry 98 99 99 03/04/18 03:28 03/04/18 03:59 03/04/18 04:00 Temperature 99.3 F Pulse Rate 87 88 88 Respiratory Rate 28 H 24 28 H Blood Pressure 99/58 L Pulse Oximetry 98 99 03/04/18 04:28 03/04/18 05:00 03/04/18 05:35 Temperature Pulse Rate 94 H 88 85 Respiratory Rate 21 13 27 H Blood Pressure 111/58 L 99/58 L Pulse Oximetry 99 99 100 03/04/18 06:00 03/04/18 08:02 03/04/18 11:00 Temperature Pulse Rate 84 81 78 Respiratory Rate 25 H 16 16 Blood Pressure Pulse Oximetry 100 100 Intake & Output 03/03/18 03/04/18 03/04/18 18:59 06:59 18:59 Intake Total 689 / 689 754.5 / 754.5 262.5 / 262.5 Output Total 700 / 700 900 / 900 Balance -11 / -11 -145.5 / -145.5 262.5 / 262.5 Weight 63.2 kg Intake: IV 100 / 100 462.5 / 462.5 262.5 / 262.5 Maxipime Inj 2,000 MG In NS Inj 100 / 100 200 / 200 100 ML @ 200 mls/hr IV.SIG Q8H LOS Rx#:[id number] Vancomycin Inj 1,250 MG In NS 262.5 / 262.5 262.5 / 262.5 Inj 250 ML @ 250 mls/hr IV.SIG Q12H [facility] Rx#:[id number] Tube Feeding 189 / 189 172 / 172 Water Bolus Amount 400 / 400 120 / 120 Output: Stool 100 / 100 500 / 500 Urine Amount (Catheter) 600 / 600 400 / 400 Indwelling Urethral Catheter 600 / 600 400 / 400 Other: Date of Last Bowel Movement 03/03/18 03/03/18 03/03/18 04:00 Catheterized Urine Urine Culture - Preliminary No growth in 24 hours 03/02/18 18:15 Wound - Head Gram Stain - Final 03/02/18 18:15 Wound - Head Wound Culture - Final S. aureus MRSA 03/02/18 18:10 Wound - Neck Gram Stain - Final 03/02/18 18:10 Wound - Neck Wound Culture - Final S. aureus MRSA 03/03/18 10:40 Blood - Line Aerobic Blood Culture - Preliminary No growth in 1 day 03/03/18 10:40 Blood - Line Anaerobic Blood Culture - Preliminary No growth in 1 day Lab - Hematology Results 03/02/18 03/02/18 03/04/18 18:30 18:30 04:20 WBC 4.4 6.5 RBC 3.33 L 3.06 L Hgb 9.8 L 9.1 L Hct 29.4 L 27.2 L MCV 88.5 88.9 MCH 29.4 29.8 MCHC 33.2 33.5 RDW 14.8 15.2 Plt Count 180 187 MPV 8.6 8.0 Prelim Diff (Auto) Slide review pending Neut % (Auto) 64.7 84.1 H Lymph % (Auto) 20.1 8.2 L [place] % (Auto) 12.8 H 6.5 Eos % (Auto) 1.6 0.7 Baso % (Auto) 0.8 0.5 Neut # (Auto) 2.8 5.5 Lymph # (Auto) 0.9 L 0.5 L [place] # (Auto) 0.6 0.4 Eos # (Auto) 0.1 0.0 Baso # (Auto) 0.0 0.0 WBC Differential Manual diff final . Seg Neuts % (Manual) 49 Band Neuts % (Manual) 21 H Lymphocytes % (Manual) 12 Monocytes % (Manual) 7 Eosinophils % (Manual) 4 Metamyelocytes % (Man) 4 H Myelocytes % (Man) 2 H Blast Cells % (Manual) 1 H Abs Neuts (Manual) 3.3 Nucleated RBCs/100 WBC 2 H Differential Comment . Auto diff final Platelet Estimate Normal Platelet Morphology Normal ESR 67 H Lab - Chemistry Results 03/02/18 03/02/18 03/02/18 18:30 18:30 18:30 Sodium 141 Potassium 4.3 Chloride 107 Carbon Dioxide 30.3 Anion Gap 4 L BUN 27 H Creatinine 0.37 L Estimated GFR Greater than 89 POC Glucose Random Glucose 98 Lactic Acid 1.2 Calcium 7.8 L C-Reactive Protein 4.70 H Prealbumin 03/03/18 03/03/18 03/03/18 04:20 06:04 12:12 Sodium Potassium Chloride Carbon Dioxide Anion Gap BUN Creatinine Estimated GFR POC Glucose 110 32 L* Random Glucose Lactic Acid Calcium C-Reactive Protein Prealbumin 16 L 03/03/18 03/03/18 03/04/18 12:19 18:04 00:29 Sodium Potassium Chloride Carbon Dioxide Anion Gap BUN Creatinine Estimated GFR POC Glucose 115 H 118 H 138 H Random Glucose Lactic Acid Calcium C-Reactive Protein Prealbumin Imaging: ITS Impressions Cervical Spine CT 03/02/18 00:00 CONCLUSION: 1. Laminectomy and long segment posterior fusion of the cervical spine again noted. Alignment is unchanged, near-anatomic, and the posterior bone graft material appears to be slowly incorporating but not convincingly solid at this time. 2. Limited study; no definite epidural fluid collection. The fluid collection in the laminectomy bed appears to be decreasing but now appears to communicate with a large soft tissue defect overlying the posterior spinous processes of C7 and T1. Bone is exposed but without perceptible acute obstruction. Previously seen drain has been removed. Cervical Spine X-Ray 03/02/18 00:00 CONCLUSION: Chest X-Ray 03/02/18 00:00 CONCLUSION: 1. Interval placement of tracheostomy tube. 2. No acute cardiopulmonary disease. 3. Left-sided PICC line now noted. Physical Exam: GENERAL: Well-nourished well-developed, not in acute distress SKIN: Cool and dry, no generalized rash HEAD: Atraumatic. Normocephalic. No temporal or scalp tenderness. EYES: Pupils equal round and reactive. Scleral icterus. No injection or drainage. No petechia Trach site with no e.o infection Left mandibular area with ulceration down to the bone. Left scalp posterior occipital area on right with ulceration and unhealthy granulation tissue. Surgical site with dehiscence superiorly with yellowish discharge noted. NECK: Trachea midline. Supple, nontender, no meningeal signs. CARDIOVASCULAR: HS audible. RESPIRATORY: Clear to auscultation bilaterally. GASTROINTESTINAL: Abdomen soft nontender. MUSCULOSKELETAL: Extremities without clubbing, cyanosis. NEUROLOGICAL: Alert oriented 3. Nonfocal. Psych cooperative IV line sites ok Assessment and Plan - Plan MRSA epidural abscess/discitis Surgical site infection at site of recent C5-T1 Instrumentation (hardware in place) H/o fall as preceding incident to surgery. Occipital wound stage 3-4 down to bone ? osteomyelitis. Left mandible inferior aspect with ulcer down to done ? osteomyelitis. Cdiff diagnosed at LTAC. Trach in place PEG in place h/o HCAP at other hospital with Sten Mal Rxed per records. Recs: Continue Cefepime IV Continue Vanco IV (target 15-20) Continue oral vanco for Cdiff Follow cultures Follow clinical course Imaging reviewed with [facility]. Felipe Marc will exploration of deeper tissues as infection tracking down to bone based on review of imaging. covering over the weekend.
[2018-03-04] MEDS ORDERED: Sugammadex Inj 200 MG/2 ML Vial IV.PUSH ONE (15:15)
[2018-03-04] MEDS ORDERED: Lidocaine PF 1% Inj 5 ML Syringe OTHER ONE (15:36)
[2018-03-04] MEDS ORDERED: Phenylephrine/NS 1000 MCG/10ML Syringe IV.PUSH ONE (15:36)
[2018-03-04] MEDS ORDERED: Pharmacy Ordered Lab Info OTHER ONE (15:45)
--- NOTE | 2018-03-04 17:18 | P.OP ---
- Preoperative Diagnosis (1) Wound dehiscence - Postoperative Diagnosis (1) Wound dehiscence Date of procedure: 03/04/18 Procedure: Operative debridement, resection of C7 and T1 spinous processes, irrigation with Vancomycin powder, closure over a drain Anesthesia: EDISON Surgeon: Antelmo Szymanski MD Pathology: other (bone sent to micro) Operation and Findings: Indications: This is a 72year old man who suffered a cervical spinal cord injury 6 weeks ago and became paraplegic. He underwent urgent posterior cervical decompression and fusion C3-T1. He has been in [facility] with little improvement in exam, and developed a wound dehiscence in the neck behind his collar, growing MRSA. We were contacted 2 days ago about the same and transferred him here. He also has a decub at the back of his head , likely secondary to the collar and his mandible. Description of procedure: Patient was brought to Main OR and general anesthesia induced through his trache. His mann was exchanged. He was placed in prone in Gerardo pins, exposing the posterior occiput and suboccipital region. This was clipped and prepped and draped in the usual sterile fashion. The open wound was debrided in skin edges and down to the spinous processes of C7 and T1. These were removed and sent to microbiology. Healthy bleeding edges were noted all around. The wound was irrigated with betadyne solution, then vancomycin powder and a 7flat channel drain placed. Muscle closed with 0-PDS and skin closed primarily with 2-0 Prolene vertical mattress. Drain secured with nylon. Plan for sutures to come out in extended fashion 3-4 weeks and drain to remain x 1 week.
[2018-03-04] MEDS ORDERED: fentaNYL Citrate Inj 100 MCG/2 ML Ampul ONE (17:38)
[2018-03-04 19:47] LABS: Anion Gap 8 meq/L (5-15); Blood Urea Nitrogen 18 mg/dL (7-18); Calcium 7.9 mg/dL (8.5-10.1); Carbon Dioxide 26.6 meq/L (21.0-32.0); Chloride 109 meq/L (98-107); Glomerular Filtration Rate Greater Than 89 mL/min (>89); Glucose,Random 106 mg/dL (74-106); Magnesium 2.4 mg/dL (1.5-2.5); Potassium 3.9 meq/L (3.5-5.1); Sodium 144 meq/L (136-145)
[2018-03-04 19:51] LABS: Vancomycin,Trough 13.7 mcg/mL (5.0-10.0)
[2018-03-05] MEDS: Insulin NovoLIN Regular Correctional Sugar Inj SQ SCH ×4 (04:06→18:55)
[2018-03-05] MEDS: Vancomycin Inj 1,250 MG in Sodium Chlor 0.9% Inj 250 ML IV.SIG SCH ×2 (04:07→17:14)
[2018-03-05] MEDS: Pantoprazole Inj 40 MG Vial IV.PUSH SCH (04:07)
[2018-03-05] MEDS: Chlorhexidine Gluconate 2% 1 Pack (2 Cloths) TOPICAL SCH (04:07)
[2018-03-05 07:13] LABS: Baso % (Auto) 0.2 % (0.0-2.0); Eos % (Auto) 0.1 % (0.0-4.0); Hematocrit 27.7 % (39.0-51.0); Hemoglobin 9.4 gm/dL (13.0-17.0); Lymph # (Auto) 0.4 th/mm3 (1.0-4.8); Lymph % (Auto) 4.8 % (9.0-44.0); Mean Corpuscular Hemoglobin 30.3 pg (27.0-34.0); Mean Corpuscular Volume 89.3 fL (80.0-100.0); Mean Platelet Volume 7.8 fL (7.0-11.0); Mono # (Auto) 0.3 th/mm3 (0.0-0.9); Mono % (Auto) 4.5 % (0.0-8.0); Neut # (Auto) 6.8 th/mm3 (1.8-7.7); Neut % (Auto) 90.4 % (16.0-70.0); Platelet Count 215 th/mm3 (150-450); Red Cell Distribution Width 15.4 % (11.6-17.2); White Blood Count 7.6 th/mm3 (4.0-11.0)
[2018-03-05 07:27] LABS: Anion Gap 8 meq/L (5-15); Blood Urea Nitrogen 17 mg/dL (7-18); Carbon Dioxide 25.5 meq/L (21.0-32.0); Chloride 110 meq/L (98-107); Glomerular Filtration Rate Greater Than 89 mL/min (>89); Glucose,Random 136 mg/dL (74-106); Magnesium 2.5 mg/dL (1.5-2.5); Phosphorus 3.1 mg/dL (2.5-4.9); Potassium 4.1 meq/L (3.5-5.1); Sodium 143 meq/L (136-145)
[2018-03-05] MEDS: Beneprotein Powder Packet G-TUBE SCH ×2 (09:30→20:18)
[2018-03-05] MEDS: Polyethylene Glycol 3350 17 GM Packet PO SCH ×2 (09:30→20:17)
[2018-03-05 09:36] LABS: Metamyelocytes 4 % (0-1); Monocytes 4 % (0-8); Myelocytes 1 % (0-0); Toxic Granulation 2+
[2018-03-05 09:37] LABS: Platelet Estimate Normal (Normal); Platelet Morphology Normal (Normal)
[2018-03-05] MEDS: Senna/Docusate Sodium 8.6/50 MG Tablet PO SCH ×2 (10:13→20:17)
--- NOTE | 2018-03-05 11:50 | P.PNNS ---
Subjective Interval history: Able to close neck primarily Drain with output. Physical Exam Vital signs: Vital Signs 03/04/18 16:36 03/04/18 16:37 03/04/18 16:38 Temperature Pulse Rate 70 70 69 Respiratory Rate Blood Pressure 75/47 L 77/48 L 146/66 H Pulse Oximetry 100 100 100 03/04/18 16:40 03/04/18 16:45 03/04/18 16:50 Temperature Pulse Rate 67 68 67 Respiratory Rate Blood Pressure 139/64 94/51 L 77/41 L Pulse Oximetry 100 100 100 03/04/18 16:51 03/04/18 16:55 03/04/18 17:00 Temperature Pulse Rate 66 65 66 Respiratory Rate Blood Pressure 134/58 L 127/60 89/49 L Pulse Oximetry 100 100 100 03/04/18 17:11 03/04/18 17:18 03/04/18 17:30 Temperature 98.4 F Pulse Rate 67 67 69 Respiratory Rate 20 20 Blood Pressure 115/60 101/59 L 103/72 Pulse Oximetry 100 100 100 03/04/18 17:41 03/04/18 17:45 03/04/18 18:00 Temperature 98.3 F Pulse Rate 68 68 68 Respiratory Rate 16 19 21 Blood Pressure 103/72 109/72 113/62 Pulse Oximetry 100 100 100 03/04/18 18:15 03/04/18 18:30 03/04/18 18:45 Temperature Pulse Rate 71 66 Respiratory Rate 12 24 Blood Pressure 114/56 L 123/60 142/61 H Pulse Oximetry 87 L 100 100 03/04/18 19:00 03/04/18 19:13 03/04/18 19:30 Temperature Pulse Rate 66 65 67 Respiratory Rate 23 20 23 Blood Pressure 99/52 L 101/57 L Pulse Oximetry 100 100 03/04/18 20:00 03/04/18 20:30 03/04/18 20:50 Temperature Pulse Rate 76 71 Respiratory Rate 23 24 Blood Pressure 94/53 L 85/52 L Pulse Oximetry 100 98 99 03/04/18 21:00 03/04/18 21:30 03/04/18 22:00 Temperature Pulse Rate 66 63 65 Respiratory Rate 21 21 23 Blood Pressure 98/55 L 102/62 111/56 L Pulse Oximetry 99 99 99 03/04/18 22:30 03/04/18 23:00 03/04/18 23:03 Temperature 97.8 F Pulse Rate 61 60 60 Respiratory Rate 20 17 18 Blood Pressure 90/50 L 90/52 L Pulse Oximetry 98 100 100 03/04/18 23:30 03/04/18 23:44 03/05/18 00:00 Temperature Pulse Rate 61 61 64 Respiratory Rate 20 24 20 Blood Pressure 91/50 L 93/50 L Pulse Oximetry 100 100 03/05/18 00:30 03/05/18 01:00 03/05/18 01:30 Temperature Pulse Rate 76 68 66 Respiratory Rate 22 21 18 Blood Pressure 95/67 L 96/51 L 90/54 L Pulse Oximetry 100 100 100 03/05/18 02:00 03/05/18 02:30 03/05/18 03:00 Temperature Pulse Rate 75 63 71 Respiratory Rate 26 H 19 20 Blood Pressure 114/76 94/50 L 104/56 L Pulse Oximetry 98 100 100 03/05/18 03:30 03/05/18 03:36 03/05/18 03:42 Temperature Pulse Rate 67 66 Respiratory Rate 21 22 Blood Pressure 105/62 Pulse Oximetry 100 100 03/05/18 04:00 03/05/18 04:39 03/05/18 05:00 Temperature 98.1 F Pulse Rate 73 85 79 Respiratory Rate 22 23 19 Blood Pressure 89/54 L 128/60 111/60 Pulse Oximetry 100 100 03/05/18 05:30 03/05/18 06:00 03/05/18 06:30 Temperature Pulse Rate 76 74 75 Respiratory Rate 18 21 23 Blood Pressure 120/70 104/60 102/68 Pulse Oximetry 100 100 98 03/05/18 07:00 03/05/18 07:41 03/05/18 08:00 Temperature 98.5 F Pulse Rate 76 78 76 Respiratory Rate 14 26 H 15 Blood Pressure 104/57 L 109/59 L Pulse Oximetry 100 100 100 03/05/18 08:09 03/05/18 08:38 03/05/18 09:00 Temperature Pulse Rate 74 74 75 Respiratory Rate 24 23 25 H Blood Pressure 121/60 122/59 L Pulse Oximetry 100 100 100 03/05/18 09:13 03/05/18 09:38 03/05/18 10:00 Temperature Pulse Rate 77 86 86 Respiratory Rate 17 30 H 23 Blood Pressure 123/79 Pulse Oximetry 100 99 100 Intake & Output 03/04/18 03/05/18 03/05/18 18:59 06:59 18:59 Intake Total 362.5 / 362.5 901.0 / 901.0 Output Total 55 / 55 870 / 870 Balance 307.5 / 307.5 31.0 / 31.0 Weight 60.6 kg Intake: IV 362.5 / 362.5 725.0 / 725.0 Maxipime Inj 2,000 MG In NS Inj 100 / 100 200 / 200 100 ML @ 200 mls/hr IV.SIG Q8H LOS Rx#:[id number] Vancomycin Inj 1,250 MG In NS 262.5 / 262.5 525.0 / 525.0 Inj 250 ML @ 250 mls/hr IV.SIG Q12H LOS Rx#:[id number] Oral 0 / 0 Tube Feeding 156 / 156 Tube Irrigant 20 / 20 Output: Stool 200 / 200 Estimated Blood Loss 50 / 50 Urine Amount (Catheter) 5 / 600 / 600 Indwelling Urethral Catheter 600 / 600 Wound Drainage 70 / 70 # 1 Posterior Neck 70 / 70 Other: Date of Last Bowel Movement 03/04/18 03/04/18 03/04/18 Narrative: Left mandibular area with ulceration down to the bone. Left scalp posterior occipital area on right with ulceration and unhealthy granulation tissue. Surgical bandage c/d/i, drain in place Looks more alert today Follows limited commands, A&O to person only. Moves proximal upper extremities, remainder flaccid per baseline after SCI Abdomen more distended than usual - Urinary Catheter Management Indwelling Urethral Catheter Cath placed during this visit: yes, but has since been removed by the nurse Reason for continuing: Hourly intake/output Insertion date: 03/04/18 Insertion time: 16:08 Removal date: 03/04/18 Removal time: 16:06 Assessment and Plan - Plan 72yoM with cervical spinal cord injury, s/p cervicothoracic fusion on 01/21/18, wound dehiscence readmitted from [facility] 03/02/18. Admit Per Dr. Szymanski plan OR surgical debridement of posterior cervical wound on Wednesday03/04/18 AM. Stop Heparin. 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 Szymanski cleared and discontinued cervical collar. Discussed with family, RN, ID, Dr. Szymanski. 03/04/18 CT c-spine reviewed showing stable construct C3-T1 -- collar dc/d Plan operative debridement with cultures and attempt at primary closure vs. wound vac. Appreciate ID recs. Would also attempt to increase this man's nutrition to facilitate wound healing -- via PEG 03/05/18 Continue KIANA drain Re: Abdominal distention, KUB and if concerning may proceed with abdomen/pelvis -- possible G surg consult Patient has C. Diff and has been having voluminous diarrhea, on po vancomycin, peg tube flushes well with little residual, no fever
--- NOTE | 2018-03-05 12:35 | XR ---
EXAM DATE: 03/05/2018 12:31 PM EST AGE/SEX: 72 years / Male INDICATIONS: Abdominal distention. Rule out free air. CLINICAL DATA: This is the patient's initial encounter. Patient reports that signs and symptoms have been present for 2 days and indicates a pain score of Nonresponsive. MEDICAL/SURGICAL HISTORY: . Hypothyroidism. Hypercholesterolemia. Arthritis. Fusion, cervical. . COMPARISON: [facility] – [place], [place] ABDOMEN & PELVIS W CONTRAST, 01/21/2018. . FINDINGS: There is diffuse distention of the colon measuring up to 6.3 cm. There is a gastrostomy catheter in place. No significantly dilated loops of small bowel are noted. There is no gross pneumatosis. No sai ss free air. Visualized portions of the chest demonstrate pleural calcifications on the right and a l eft sided PICC line in place. There is also partially imaged tracheostomy. Osseous structures appear intact. No significant abnormal calcification. CONCLUSION: 1. Diffuse colonic distention consistent with colonic ileus. 2. No gross free air as questioned. Electronically signed by: Yoav Andrews MD 03/05/2018 12:34 PM EST
--- NOTE | 2018-03-05 13:19 | P.PNCC ---
Subjective Subjective Remarks/Hospital Course: 72yM s/p posterior cervical decompression and fusion 01/22/2018 after original injury of fall from ladder. Course complicated by paraplegia requiring trach/ peg and LTAC placement. In LTAC ([facility]), he had worsening of two wounds on his posterior head/neck, one at the incisional site which is deeper and now has exposed bone. Wound culture from 02/25 grew MRSA, he is on vancomycin. Discussed the case with Dr. Szymanski who is planning on doing a washout and closure on Sunday 03/04. He does not think the CAREER PLACEMENT SERVICES COUNSELOR is grossly infected, though agrees that we should cover broadly with CAREER PLACEMENT SERVICES COUNSELOR penetrating antibiotics until further data is obtained. ROS unobtainable from the patient due to his trach dependency. 03/03: Stable overnight, collar cleared by neurosurgery, going to OR tomorrow. 03/04: Remains on trach collar. Awaiting surgery today. 03/05: Status post multiple neck debridements. Patient continues with profuse diarrhea, C. difficile positive at referring hospital. KUB obtained today shows a lot of air in the colon but no dangerous distention. Objective Vital Signs / I&O: Vital Signs 03/04/18 16:36 03/04/18 16:37 03/04/18 16:38 Temperature Pulse Rate 70 70 69 Respiratory Rate Blood Pressure 75/47 L 77/48 L 146/66 H Pulse Oximetry 100 100 100 03/04/18 16:40 03/04/18 16:45 03/04/18 16:50 Temperature Pulse Rate 67 68 67 Respiratory Rate Blood Pressure 139/64 94/51 L 77/41 L Pulse Oximetry 100 100 100 03/04/18 16:51 03/04/18 16:55 03/04/18 17:00 Temperature Pulse Rate 66 65 66 Respiratory Rate Blood Pressure 134/58 L 127/60 89/49 L Pulse Oximetry 100 100 100 03/04/18 17:11 03/04/18 17:18 03/04/18 17:30 Temperature 98.4 F Pulse Rate 67 67 69 Respiratory Rate 20 20 Blood Pressure 115/60 101/59 L 103/72 Pulse Oximetry 100 100 100 03/04/18 17:41 03/04/18 17:45 03/04/18 18:00 Temperature 98.3 F Pulse Rate 68 68 68 Respiratory Rate 16 19 21 Blood Pressure 103/72 109/72 113/62 Pulse Oximetry 100 100 100 03/04/18 18:15 03/04/18 18:30 03/04/18 18:45 Temperature Pulse Rate 71 66 Respiratory Rate 12 24 Blood Pressure 114/56 L 123/60 142/61 H Pulse Oximetry 87 L 100 100 03/04/18 19:00 03/04/18 19:13 03/04/18 19:30 Temperature Pulse Rate 66 65 67 Respiratory Rate 23 20 23 Blood Pressure 99/52 L 101/57 L Pulse Oximetry 100 100 03/04/18 20:00 03/04/18 20:30 03/04/18 20:50 Temperature Pulse Rate 76 71 Respiratory Rate 23 24 Blood Pressure 94/53 L 85/52 L Pulse Oximetry 100 98 99 03/04/18 21:00 03/04/18 21:30 03/04/18 22:00 Temperature Pulse Rate 66 63 65 Respiratory Rate 21 21 23 Blood Pressure 98/55 L 102/62 111/56 L Pulse Oximetry 99 99 99 03/04/18 22:30 03/04/18 23:00 03/04/18 23:03 Temperature 97.8 F Pulse Rate 61 60 60 Respiratory Rate 20 17 18 Blood Pressure 90/50 L 90/52 L Pulse Oximetry 98 100 100 03/04/18 23:30 03/04/18 23:44 03/05/18 00:00 Temperature Pulse Rate 61 61 64 Respiratory Rate 20 24 20 Blood Pressure 91/50 L 93/50 L Pulse Oximetry 100 100 03/05/18 00:30 03/05/18 01:00 03/05/18 01:30 Temperature Pulse Rate 76 68 66 Respiratory Rate 22 21 18 Blood Pressure 95/67 L 96/51 L 90/54 L Pulse Oximetry 100 100 100 03/05/18 02:00 03/05/18 02:30 03/05/18 03:00 Temperature Pulse Rate 75 63 71 Respiratory Rate 26 H 19 20 Blood Pressure 114/76 94/50 L 104/56 L Pulse Oximetry 98 100 100 03/05/18 03:30 03/05/18 03:36 03/05/18 03:42 Temperature Pulse Rate 67 66 Respiratory Rate 21 22 Blood Pressure 105/62 Pulse Oximetry 100 100 03/05/18 04:00 03/05/18 04:39 03/05/18 05:00 Temperature 98.1 F Pulse Rate 73 85 79 Respiratory Rate 22 23 19 Blood Pressure 89/54 L 128/60 111/60 Pulse Oximetry 100 100 03/05/18 05:30 03/05/18 06:00 03/05/18 06:30 Temperature Pulse Rate 76 74 75 Respiratory Rate 18 21 23 Blood Pressure 120/70 104/60 102/68 Pulse Oximetry 100 100 98 03/05/18 07:00 03/05/18 07:41 03/05/18 08:00 Temperature 98.5 F Pulse Rate 76 78 76 Respiratory Rate 14 26 H 15 Blood Pressure 104/57 L 109/59 L Pulse Oximetry 100 100 100 03/05/18 08:09 03/05/18 08:38 03/05/18 09:00 Temperature Pulse Rate 74 74 75 Respiratory Rate 24 23 25 H Blood Pressure 121/60 122/59 L Pulse Oximetry 100 100 100 03/05/18 09:13 03/05/18 09:38 03/05/18 10:00 Temperature Pulse Rate 77 86 86 Respiratory Rate 17 30 H 23 Blood Pressure 123/79 Pulse Oximetry 100 99 100 03/05/18 10:38 03/05/18 11:00 03/05/18 11:38 Temperature Pulse Rate 84 82 82 Respiratory Rate 24 22 27 H Blood Pressure 112/64 114/66 Pulse Oximetry 99 100 03/05/18 12:00 Temperature Pulse Rate 79 Respiratory Rate 18 Blood Pressure Pulse Oximetry 100 Intake & Output 03/04/18 03/05/18 03/05/18 18:59 06:59 18:59 Intake Total 362.5 / 362.5 901.0 / 901.0 Output Total 55 / 55 870 / 870 Balance 307.5 / 307.5 31.0 / 31.0 Weight 60.6 kg Intake: IV 362.5 / 362.5 725.0 / 725.0 Maxipime Inj 2,000 MG In NS Inj 100 / 100 200 / 200 100 ML @ 200 mls/hr IV.SIG Q8H LOS Rx#:[id number] Vancomycin Inj 1,250 MG In NS 262.5 / 262.5 525.0 / 525.0 Inj 250 ML @ 250 mls/hr IV.SIG Q12H LOS Rx#:[id number] Oral 0 / 0 Tube Feeding 156 / 156 Tube Irrigant 20 / 20 Output: Stool 200 / 200 Estimated Blood Loss 50 / 50 Urine Amount (Catheter) 600 / 600 Indwelling Urethral Catheter 600 / 600 Wound Drainage 70 / 70 # 1 Posterior Neck 70 / 70 Other: Date of Last Bowel Movement 03/04/18 03/04/18 03/04/18 Result Diagrams: 03/05/18 06:46 03/05/18 06:46 Objective Remarks: GENERAL: Elderly male resting comfortably on trach collar HEENT: NCAT, PERRL NECK: Midline trachea, dry dressings in place on several neck wounds. CHEST: Trach collar O2. Lungs clear bilaterally, comfortable respiratory pattern. CARDIOVASCULAR: Normal rate, regular rhythm. ABDOMEN: Soft, non-tender, moderately distended, no guarding. Bowel sounds are quite active. MUSCULOSKELETAL: Pulses 2+. No peripheral edema. Well perfused. NEUROLOGICAL: RASS -1. incomplete quad. FAVIAN 4-/5 proximal uppers grossly, 2/5 distal uppers, 0/5 bilateral lower extremities. Assessment and Plan - Assessment and Plan Plan: Assessment: 72yM with dehisced posterior cervical incisional wound with MRSA wound infection. would cover broadly with vancomycin and cefepime until cultures result. Plan for OR sunday 03/04. Keep in ICU. MRSA wound infection - ID following, MRSA growing from wound culture, de-escalate antibiotics - Blood/ urine cultures pending - Neurosurgery following, plan for OR 03/04 Incomplete quadriplegia - Wean trach collar o2 as tolerated - Aggressive pulmonary toilet - Restart tube feeds - Turning/ offloading to prevent pressure wounds Acute protein calorie malnutrition- severe - Prealbumin on admission 16 - Tube feeds calculated, goal is jevity 1/5 @ 45 mL/hr, 2 packets beneprotein daily -Use PEG tube Chronic respiratory failure - Trach collar o2 - Aggressive pulmonary toilet - PT consult Chronic urinary retention - UA on admission showed few bacteria, no leukocytes or nitrites - Keep chronic indwelling Turner catheter SCDs SQH Pepcid Overall impression: Will require long-term therapy for extensive neck wounds. Tolerating trach collar. Watch for dehydration secondary to diarrhea. Abdomen is presently benign.
[2018-03-06] MEDS: Pantoprazole Inj 40 MG Vial IV.PUSH SCH (03:51)
[2018-03-06] MEDS: Vancomycin Inj 1,250 MG in Sodium Chlor 0.9% Inj 250 ML IV.SIG SCH ×2 (03:52→16:20)
[2018-03-06 05:41] LABS: Baso % (Auto) 0.2 % (0.0-2.0); Eos % (Auto) 0.6 % (0.0-4.0); Hematocrit 25.7 % (39.0-51.0); Hemoglobin 8.8 gm/dL (13.0-17.0); Lymph # (Auto) 0.6 th/mm3 (1.0-4.8); Lymph % (Auto) 7.8 % (9.0-44.0); Mean Corpuscular HGB Conc 34.3 % (32.0-36.0); Mean Corpuscular Hemoglobin 30.6 pg (27.0-34.0); Mean Corpuscular Volume 89.1 fL (80.0-100.0); Mean Platelet Volume 7.3 fL (7.0-11.0); Mono # (Auto) 0.6 th/mm3 (0.0-0.9); Mono % (Auto) 8.3 % (0.0-8.0); Neut # (Auto) 6.1 th/mm3 (1.8-7.7); Neut % (Auto) 83.1 % (16.0-70.0); Platelet Count 226 th/mm3 (150-450); Red Blood Count 2.89 mil/mm3 (4.50-5.90); Red Cell Distribution Width 15.4 % (11.6-17.2); White Blood Count 7.3 th/mm3 (4.0-11.0)
[2018-03-06] MEDS: Chlorhexidine Gluconate 2% 1 Pack (2 Cloths) TOPICAL SCH (06:04)
[2018-03-06] MEDS: Insulin NovoLIN Regular Correctional Sugar Inj SQ SCH ×4 (07:57→19:13)
--- NOTE | 2018-03-06 08:04 | P.PNNS ---
Subjective Interval history: Stable, abdomen benign less distended this morning Physical Exam Vital signs: Vital Signs 03/05/18 08:09 03/05/18 08:38 03/05/18 09:00 Temperature Pulse Rate 74 74 75 Respiratory Rate 24 23 25 H Blood Pressure 121/60 122/59 L Pulse Oximetry 100 100 100 03/05/18 09:13 03/05/18 09:38 03/05/18 10:00 Temperature Pulse Rate 77 86 86 Respiratory Rate 17 30 H 23 Blood Pressure 123/79 Pulse Oximetry 100 99 100 03/05/18 10:38 03/05/18 11:00 03/05/18 11:38 Temperature Pulse Rate 84 82 82 Respiratory Rate 24 22 27 H Blood Pressure 112/64 114/66 Pulse Oximetry 99 100 03/05/18 12:00 03/05/18 12:38 03/05/18 13:00 Temperature Pulse Rate 79 79 78 Respiratory Rate 18 22 21 Blood Pressure 111/73 Pulse Oximetry 100 100 100 03/05/18 13:38 03/05/18 14:00 03/05/18 14:38 Temperature Pulse Rate 82 81 81 Respiratory Rate 22 26 H 26 H Blood Pressure 101/70 107/55 L Pulse Oximetry 100 100 100 03/05/18 15:00 03/05/18 15:38 03/05/18 16:00 Temperature 97.9 F Pulse Rate 79 80 77 Respiratory Rate 27 H 28 H 20 Blood Pressure 112/60 Pulse Oximetry 100 100 100 03/05/18 16:38 03/05/18 17:00 03/05/18 17:31 Temperature Pulse Rate 77 77 78 Respiratory Rate 18 30 H 24 Blood Pressure 104/56 L Pulse Oximetry 100 100 03/05/18 17:38 03/05/18 18:00 03/05/18 18:38 Temperature Pulse Rate 82 85 83 Respiratory Rate 30 H 28 H 30 H Blood Pressure 118/59 L 115/64 Pulse Oximetry 100 100 100 03/05/18 19:00 03/05/18 19:38 03/05/18 19:49 Temperature Pulse Rate 81 81 79 Respiratory Rate 28 H 21 26 H Blood Pressure 105/56 L Pulse Oximetry 100 100 100 03/05/18 20:00 03/05/18 20:38 03/05/18 21:00 Temperature Pulse Rate 84 87 85 Respiratory Rate 23 30 H 25 H Blood Pressure 112/60 Pulse Oximetry 100 100 100 03/05/18 21:38 03/05/18 22:00 03/05/18 22:38 Temperature Pulse Rate 80 78 79 Respiratory Rate 29 H 28 H 27 H Blood Pressure 101/57 L 112/63 Pulse Oximetry 100 100 100 03/05/18 23:00 03/05/18 23:16 03/05/18 23:38 Temperature Pulse Rate 78 77 91 H Respiratory Rate 25 H 24 27 H Blood Pressure 111/60 Pulse Oximetry 100 100 03/06/18 00:00 03/06/18 00:38 03/06/18 01:00 Temperature 98.0 F Pulse Rate 91 H 88 85 Respiratory Rate 30 H 29 H 27 H Blood Pressure 111/62 106/72 Pulse Oximetry 100 100 100 03/06/18 01:38 03/06/18 02:00 03/06/18 02:38 Temperature Pulse Rate 81 81 79 Respiratory Rate 28 H 31 H 26 H Blood Pressure 104/62 114/61 Pulse Oximetry 100 100 100 03/06/18 03:00 03/06/18 03:23 03/06/18 03:38 Temperature Pulse Rate 78 77 79 Respiratory Rate 30 H 24 30 H Blood Pressure 108/58 L Pulse Oximetry 99 99 03/06/18 04:00 03/06/18 04:38 03/06/18 05:00 Temperature 98.1 F Pulse Rate 84 79 77 Respiratory Rate 28 H 27 H 28 H Blood Pressure 111/58 L Pulse Oximetry 99 99 99 03/06/18 05:38 03/06/18 06:00 Temperature Pulse Rate 77 76 Respiratory Rate 30 H 21 Blood Pressure 115/59 L Pulse Oximetry 98 98 Intake & Output 03/05/18 03/06/18 03/06/18 18:59 06:59 18:59 Intake Total 931.5 / 931.5 878.5 / 878.5 Output Total 1425 / 1425 1330 / 1330 Balance -493.5 / -493.5 -451.5 / -451.5 Weight 62.4 kg Intake: IV 362.5 / 362.5 462.5 / 462.5 Maxipime Inj 2,000 MG In NS Inj 100 / 100 200 / 200 100 ML @ 200 mls/hr IV.SIG Q8H [facility] Rx#:[id number] Vancomycin Inj 1,250 MG In NS 262.5 / 262.5 262.5 / 262.5 Inj 250 ML @ 250 mls/hr IV.SIG Q12H LOS Rx#:[id number] Tube Feeding 469 / 469 356 / 356 Tube Irrigant 60 / 60 Water Bolus Amount 100 / 100 Output: Stool 1150 / 1150 500 / 500 Urine Amount (Catheter) 275 / 275 800 / 800 Indwelling Urethral Catheter 275 / 275 800 / 800 Wound Drainage # 1 Posterior Neck Other: Date of Last Bowel Movement 03/04/18 03/04/18 Narrative: Left mandibular area with ulceration down to the bone. Left scalp posterior occipital area on right with ulceration and unhealthy granulation tissue. Surgical bandage c/d/i, drain in place KIANA put out 30cc last shift Looks more alert today Follows limited commands, A&O to person only. Moves proximal upper extremities, remainder flaccid per baseline after SCI Abdomen more distended than usual - Urinary Catheter Management Indwelling Urethral Catheter Cath placed during this visit: yes, but has since been removed by the nurse Reason for continuing: Chronic Urinary Retention Insertion date: 03/04/18 Insertion time: 16:08 Removal date: 03/04/18 Removal time: 16:06 Assessment and Plan - Plan 72yoM with cervical spinal cord injury, s/p cervicothoracic fusion on 01/21/18, wound dehiscence readmitted from [facility] 03/02/18. Admit Per Dr. Szymanski plan OR surgical debridement of posterior cervical wound on Wednesday03/04/18 AM. Stop Heparin. 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 Szymanski cleared and discontinued cervical collar. Discussed with family, RN, ID, Dr. Szymanski. 03/04/18 CT c-spine reviewed showing stable construct C3-T1 -- collar dc/d Plan operative debridement with cultures and attempt at primary closure vs. wound vac. Appreciate ID recs. Would also attempt to increase this man's nutrition to facilitate wound healing -- via PEG 03/05/18 Continue KIANA drain Re: Abdominal distention, KUB and if concerning may proceed with abdomen/pelvis -- possible G surg consult Patient has C. Diff and has been having voluminous diarrhea, on po vancomycin, peg tube flushes well with little residual, no fever 03/06/18 Continue KIANA drain Transfer out when ok w/ ICU team. appreciate ID recs re MRSA osteo treatment. Continue good nutrition to heal wounds. Family requesting [facility] or alternate place than prior location.
[2018-03-06] MEDS: Beneprotein Powder Packet G-TUBE SCH ×2 (08:31→21:04)
[2018-03-06] MEDS: Senna/Docusate Sodium 8.6/50 MG Tablet PO SCH ×2 (08:31→21:04)
[2018-03-06] MEDS: Polyethylene Glycol 3350 17 GM Packet PO SCH ×2 (08:31→21:04)
[2018-03-06 10:40] LABS: Eosinophils 1 % (0-4); Lymphocytes 1 % (9-44); Metamyelocytes 3 % (0-1); Monocytes 5 % (0-8); Myelocytes 2 % (0-0)
[2018-03-06 10:45] LABS: Platelet Estimate Normal (Normal)
--- NOTE | 2018-03-06 11:01 | P.PNCC ---
Subjective Subjective Remarks/Hospital Course: 72yM s/p posterior cervical decompression and fusion 01/22/2018 after original injury of fall from ladder. Course complicated by paraplegia requiring trach/ peg and LTAC placement. In LTAC ([facility]), he had worsening of two wounds on his posterior head/neck, one at the incisional site which is deeper and now has exposed bone. Wound culture from 02/25 grew MRSA, he is on vancomycin. Discussed the case with Dr. Szymanski who is planning on doing a washout and closure on Sunday 03/04. He does not think the MANUFACTURING APPLICATIONS ENGINEER is grossly infected, though agrees that we should cover broadly with MANUFACTURING APPLICATIONS ENGINEER penetrating antibiotics until further data is obtained. ROS unobtainable from the patient due to his trach dependency. 03/03: Stable overnight, collar cleared by neurosurgery, going to OR tomorrow. 03/04: Remains on trach collar. Awaiting surgery today. 03/05: Status post multiple neck debridements. Patient continues with profuse diarrhea, C. difficile positive at referring hospital. KUB obtained today shows a lot of air in the colon but no dangerous distention. 03/06: Remains with acceptable respiratory effort on T-piece. Gas exchange acceptable. KIANA bulb remains draining neck region. We can start making arrangements for transfer either to [place] or back to [facility]. Objective Vital Signs / I&O: Vital Signs 03/05/18 11:00 03/05/18 11:38 03/05/18 12:00 Temperature Pulse Rate 82 82 79 Respiratory Rate 22 27 H 18 Blood Pressure 114/66 Pulse Oximetry 100 100 03/05/18 12:38 03/05/18 13:00 03/05/18 13:38 Temperature Pulse Rate 79 78 82 Respiratory Rate 22 21 22 Blood Pressure 111/73 101/70 Pulse Oximetry 100 100 100 03/05/18 14:00 03/05/18 14:38 03/05/18 15:00 Temperature Pulse Rate 81 81 79 Respiratory Rate 26 H 26 H 27 H Blood Pressure 107/55 L Pulse Oximetry 100 100 100 03/05/18 15:38 03/05/18 16:00 03/05/18 16:38 Temperature 97.9 F Pulse Rate 80 77 77 Respiratory Rate 28 H 20 18 Blood Pressure 112/60 104/56 L Pulse Oximetry 100 100 100 03/05/18 17:00 03/05/18 17:31 03/05/18 17:38 Temperature Pulse Rate 77 78 82 Respiratory Rate 30 H 24 30 H Blood Pressure 118/59 L Pulse Oximetry 100 100 03/05/18 18:00 03/05/18 18:38 03/05/18 19:00 Temperature Pulse Rate 85 83 81 Respiratory Rate 28 H 30 H 28 H Blood Pressure 115/64 Pulse Oximetry 100 100 100 03/05/18 19:38 03/05/18 19:49 03/05/18 20:00 Temperature Pulse Rate 81 79 84 Respiratory Rate 21 26 H 23 Blood Pressure 105/56 L Pulse Oximetry 100 100 100 03/05/18 20:38 03/05/18 21:00 03/05/18 21:38 Temperature Pulse Rate 87 85 80 Respiratory Rate 30 H 25 H 29 H Blood Pressure 112/60 101/57 L Pulse Oximetry 100 100 100 03/05/18 22:00 03/05/18 22:38 03/05/18 23:00 Temperature Pulse Rate 78 79 78 Respiratory Rate 28 H 27 H 25 H Blood Pressure 112/63 Pulse Oximetry 100 100 100 03/05/18 23:16 03/05/18 23:38 03/06/18 00:00 Temperature 98.0 F Pulse Rate 77 91 H 91 H Respiratory Rate 24 27 H 30 H Blood Pressure 111/60 111/62 Pulse Oximetry 100 100 03/06/18 00:38 03/06/18 01:00 03/06/18 01:38 Temperature Pulse Rate 88 85 81 Respiratory Rate 29 H 27 H 28 H Blood Pressure 106/72 104/62 Pulse Oximetry 100 100 100 03/06/18 02:00 03/06/18 02:38 03/06/18 03:00 Temperature Pulse Rate 81 79 78 Respiratory Rate 31 H 26 H 30 H Blood Pressure 114/61 Pulse Oximetry 100 100 99 03/06/18 03:23 03/06/18 03:38 03/06/18 04:00 Temperature 98.1 F Pulse Rate 77 79 84 Respiratory Rate 24 30 H 28 H Blood Pressure 108/58 L Pulse Oximetry 99 99 03/06/18 04:38 03/06/18 05:00 03/06/18 05:38 Temperature Pulse Rate 79 77 77 Respiratory Rate 27 H 28 H 30 H Blood Pressure 111/58 L 115/59 L Pulse Oximetry 99 99 98 03/06/18 06:00 03/06/18 06:38 03/06/18 07:00 Temperature Pulse Rate 76 71 71 Respiratory Rate 21 27 H 28 H Blood Pressure 102/55 L Pulse Oximetry 98 100 100 03/06/18 07:38 03/06/18 08:00 03/06/18 08:38 Temperature 98.7 F Pulse Rate 76 72 72 Respiratory Rate 24 29 H 28 H Blood Pressure 119/55 L 113/60 Pulse Oximetry 100 99 100 03/06/18 09:00 03/06/18 09:07 03/06/18 09:38 Temperature Pulse Rate 74 75 88 Respiratory Rate 27 H 24 26 H Blood Pressure 109/58 L Pulse Oximetry 99 100 100 03/06/18 10:00 03/06/18 10:38 Temperature Pulse Rate 87 80 Respiratory Rate 28 H 28 H Blood Pressure 111/53 L Pulse Oximetry 100 100 Intake & Output 03/05/18 03/06/18 03/06/18 18:59 06:59 18:59 Intake Total 931.5 / 931.5 878.5 / 878.5 Output Total 1425 / 1425 1330 / 1330 Balance -493.5 / -493.5 -451.5 / -451.5 Weight 62.4 kg Intake: IV 362.5 / 362.5 462.5 / 462.5 Maxipime Inj 2,000 MG In NS Inj 100 / 100 200 / 200 100 ML @ 200 mls/hr IV.SIG Q8H LOS Rx#:[id number] Vancomycin Inj 1,250 MG In NS 262.5 / 262.5 262.5 / 262.5 Inj 250 ML @ 250 mls/hr IV.SIG Q12H LOS Rx#:[id number] Tube Feeding 469 / 469 356 / 356 Tube Irrigant 60 / 60 Water Bolus Amount 100 / 100 Output: Stool 1150 / 1150 500 / 500 Urine Amount (Catheter) 275 / 275 800 / 800 Indwelling Urethral Catheter 275 / 275 800 / 800 Wound Drainage # 1 Posterior Neck Other: Date of Last Bowel Movement 03/04/18 03/04/18 03/04/18 Result Diagrams: 03/06/18 05:00 03/05/18 06:46 Objective Remarks: GENERAL: Elderly male, no distress HEENT: NCAT, PERRL NECK: Midline trachea, dry dressings in place on several neck wounds. CHEST: Trach collar O2. Lungs clear bilaterally, comfortable respiratory pattern. CARDIOVASCULAR: Normal rate, regular rhythm. No JVD ABDOMEN: Soft, non-tender, moderately distended, no guarding. Bowel sounds are hyper active. MUSCULOSKELETAL: Pulses 2+. No peripheral edema. Well perfused. NEUROLOGICAL: RASS 1+. incomplete quad. FAVIAN 4-/5 proximal uppers grossly, 2/5 distal uppers, 0/5 bilateral lower extremities. Assessment and Plan - Assessment and Plan Plan: Assessment: 72yM with dehisced posterior cervical incisional wound with MRSA wound infection, now debrided and closed over drain. MRSA wound infection - ID following, MRSA growing from wound culture, de-escalate antibiotics - Blood/ urine cultures pending - Neurosurgery following, plan for OR 03/04 Incomplete quadriplegia - Wean trach collar o2 as tolerated - Aggressive pulmonary toilet - Restart tube feeds - Turning/ offloading to prevent pressure wounds Acute protein calorie malnutrition- severe - Prealbumin on admission 16 - Tube feeds calculated, goal is jevity 1/5 @ 45 mL/hr, 2 packets beneprotein daily -Use PEG tube Chronic respiratory failure - Trach collar o2 - Aggressive pulmonary toilet - PT consult Chronic urinary retention - UA on admission showed few bacteria, no leukocytes or nitrites - Keep chronic indwelling Turnre catheter SCDs SQH Pepcid Overall impression: Satisfactorily wean from mechanical ventilation. Tolerating trach collar. Watch for dehydration secondary to diarrhea. Abdomen remains benign. Disposition hopefully to inpatient rehab
[2018-03-06] MEDS ORDERED: Pharmacy Ordered Lab Info OTHER ONE (15:45)
[2018-03-06 16:51] LABS: Anion Gap 4 meq/L (5-15); Blood Urea Nitrogen 15 mg/dL (7-18); Calcium 7.8 mg/dL (8.5-10.1); Carbon Dioxide 27.3 meq/L (21.0-32.0); Chloride 117 meq/L (98-107); Glomerular Filtration Rate Greater Than 89 mL/min (>89); Glucose,Random 128 mg/dL (74-106); Magnesium 2.2 mg/dL (1.5-2.5); Potassium 3.2 meq/L (3.5-5.1); Sodium 148 meq/L (136-145)
[2018-03-06 16:58] LABS: Vancomycin,Trough 16.7 mcg/mL (5.0-10.0)
[2018-03-07] MEDS: Insulin NovoLIN Regular Correctional Sugar Inj SQ SCH ×4 (00:38→18:35)
[2018-03-07] MEDS: Vancomycin Inj 1,250 MG in Sodium Chlor 0.9% Inj 250 ML IV.SIG SCH ×2 (04:14→15:45)
[2018-03-07] MEDS: Pantoprazole Inj 40 MG Vial IV.PUSH SCH (04:15)
[2018-03-07 06:02] LABS: Baso % (Auto) 0.3 % (0.0-2.0); Eos % (Auto) 0.5 % (0.0-4.0); Hematocrit 28.9 % (39.0-51.0); Hemoglobin 9.5 gm/dL (13.0-17.0); Lymph # (Auto) 0.7 th/mm3 (1.0-4.8); Lymph % (Auto) 8.4 % (9.0-44.0); Mean Corpuscular HGB Conc 32.8 % (32.0-36.0); Mean Corpuscular Hemoglobin 30.1 pg (27.0-34.0); Mean Corpuscular Volume 91.6 fL (80.0-100.0); Mean Platelet Volume 7.2 fL (7.0-11.0); Mono # (Auto) 0.7 th/mm3 (0.0-0.9); Mono % (Auto) 7.8 % (0.0-8.0); Neut # (Auto) 7.3 th/mm3 (1.8-7.7); Platelet Count 210 th/mm3 (150-450); Red Blood Count 3.15 mil/mm3 (4.50-5.90); Red Cell Distribution Width 15.9 % (11.6-17.2); White Blood Count 8.7 th/mm3 (4.0-11.0)
[2018-03-07 06:08] LABS: Anion Gap 7 meq/L (5-15); Blood Urea Nitrogen 12 mg/dL (7-18); Calcium 7.5 mg/dL (8.5-10.1); Carbon Dioxide 23.9 meq/L (21.0-32.0); Chloride 117 meq/L (98-107); Glomerular Filtration Rate Greater Than 89 mL/min (>89); Glucose,Random 105 mg/dL (74-106); Magnesium 2.3 mg/dL (1.5-2.5); Potassium 3.6 meq/L (3.5-5.1); Sodium 148 meq/L (136-145)
[2018-03-07] MEDS: Senna/Docusate Sodium 8.6/50 MG Tablet PO SCH ×2 (08:46→20:01)
[2018-03-07] MEDS: Beneprotein Powder Packet G-TUBE SCH ×2 (08:46→21:15)
[2018-03-07] MEDS: Polyethylene Glycol 3350 17 GM Packet PO SCH ×2 (08:46→20:01)
[2018-03-07] MEDS: Chlorhexidine Gluconate 2% 1 Pack (2 Cloths) TOPICAL SCH (08:47)
--- NOTE | 2018-03-07 08:52 | P.PNCC ---
Subjective Subjective Remarks/Hospital Course: 72yM s/p posterior cervical decompression and fusion 01/22/2018 after original injury of fall from ladder. Course complicated by paraplegia requiring trach/ peg and LTAC placement. In LTAC ([facility]), he had worsening of two wounds on his posterior head/neck, one at the incisional site which is deeper and now has exposed bone. Wound culture from 02/25 grew MRSA, he is on vancomycin. Discussed the case with Dr. Szymanski who is planning on doing a washout and closure on Sunday 03/04. 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 ROS unobtainable from the patient due to his trach dependency. 03/03: Stable overnight, collar cleared by neurosurgery, going to OR tomorrow. 03/04: Remains on trach collar. Awaiting surgery today. 03/05: Status post multiple neck debridements. Patient continues with profuse diarrhea, C. difficile positive at referring hospital. KUB obtained today shows a lot of air in the colon but no dangerous distention. 03/06: Remains with acceptable respiratory effort on T-piece. Gas exchange acceptable. KIANA bulb remains draining neck region. We can start making arrangements for transfer either to [place] or back to [facility]. 03/07: Continues to breathe comfortably on T-piece. Once KIANA drain is out of neck we can safely transfer him to a rehab facility. He came to us from [facility]. Objective Vital Signs / I&O: Vital Signs 03/06/18 09:00 03/06/18 09:07 03/06/18 09:38 Temperature Pulse Rate 74 75 88 Respiratory Rate 27 H 24 26 H Blood Pressure 109/58 L Pulse Oximetry 99 100 100 03/06/18 10:00 03/06/18 10:38 03/06/18 11:00 Temperature Pulse Rate 87 80 74 Respiratory Rate 28 H 28 H 29 H Blood Pressure 111/53 L Pulse Oximetry 100 100 100 03/06/18 11:38 03/06/18 12:00 03/06/18 12:20 Temperature 98.5 F Pulse Rate 73 72 75 Respiratory Rate 29 H 31 H 18 Blood Pressure 107/53 L Pulse Oximetry 100 100 03/06/18 12:38 03/06/18 13:00 03/06/18 13:38 Temperature Pulse Rate 87 87 82 Respiratory Rate 36 H 29 H 27 H Blood Pressure 120/57 L 98/57 L Pulse Oximetry 100 100 100 03/06/18 14:00 03/06/18 14:38 03/06/18 15:00 Temperature Pulse Rate 81 75 79 Respiratory Rate 22 23 27 H Blood Pressure 127/68 Pulse Oximetry 100 100 100 03/06/18 15:38 03/06/18 16:00 03/06/18 16:57 Temperature 99.1 F Pulse Rate 78 76 77 Respiratory Rate 24 23 17 Blood Pressure 131/59 L 134/61 Pulse Oximetry 100 100 100 03/06/18 17:00 03/06/18 17:28 03/06/18 17:38 Temperature Pulse Rate 80 82 80 Respiratory Rate 26 H 24 17 Blood Pressure 113/58 L Pulse Oximetry 100 100 03/06/18 18:00 03/06/18 19:00 03/06/18 19:38 Temperature Pulse Rate 93 H 89 Respiratory Rate 29 H 19 Blood Pressure 121/56 L 121/56 L Pulse Oximetry 100 100 03/06/18 20:00 03/06/18 20:38 03/06/18 21:00 Temperature 98.2 F Pulse Rate 87 89 Respiratory Rate 22 21 Blood Pressure 121/59 L Pulse Oximetry 100 100 03/06/18 21:38 03/06/18 22:00 03/06/18 22:38 Temperature Pulse Rate 83 Respiratory Rate 19 Blood Pressure 115/79 104/64 Pulse Oximetry 100 03/06/18 23:00 03/06/18 23:20 03/06/18 23:38 Temperature Pulse Rate 81 81 Respiratory Rate 23 18 Blood Pressure 137/62 Pulse Oximetry 100 03/07/18 00:00 03/07/18 01:00 03/07/18 02:00 Temperature 98.4 F Pulse Rate 87 79 81 Respiratory Rate 22 24 22 Blood Pressure Pulse Oximetry 96 100 100 03/07/18 02:38 03/07/18 03:00 03/07/18 03:10 Temperature Pulse Rate 79 79 Respiratory Rate 23 22 Blood Pressure 102/53 L Pulse Oximetry 100 03/07/18 04:00 03/07/18 05:00 03/07/18 06:00 Temperature 98.8 F Pulse Rate 82 78 84 Respiratory Rate 22 24 24 Blood Pressure 119/55 L 112/59 L 166/124 H Pulse Oximetry 97 99 100 03/07/18 06:04 03/07/18 06:30 03/07/18 07:00 Temperature Pulse Rate 86 82 83 Respiratory Rate 35 H 28 H 28 H Blood Pressure 124/59 L 138/66 Pulse Oximetry 100 99 99 03/07/18 07:30 03/07/18 07:35 03/07/18 07:36 Temperature Pulse Rate 78 81 Respiratory Rate 29 H 18 Blood Pressure 113/62 Pulse Oximetry 100 97 Intake & Output 03/06/18 03/07/18 03/07/18 18:59 06:59 18:59 Intake Total 1068.5 / 1068.5 1574.5 / 1574.5 Output Total 1210 / 1210 410 / 410 Balance -141.5 / -141.5 1164.5 / 1164.5 Weight 62.4 kg 64.6 kg Intake: IV 362.5 / 362.5 712.5 / 712.5 Maxipime Inj 2,000 MG In NS Inj 100 / 100 200 / 200 100 ML @ 200 mls/hr IV.SIG Q8H LOS Rx#:[id number] Vancomycin Inj 1,250 MG In NS 262.5 / 262.5 512.5 / 512.5 Inj 250 ML @ 250 mls/hr IV.SIG Q12H LOS Rx#:[id number] Tube Feeding 386 / 386 562 / 562 Tube Irrigant 120 / 120 Water Bolus Amount 200 / 200 300 / 300 Output: Stool 800 / 800 Urine Amount (Catheter) 400 / 400 400 / 400 Indwelling Urethral Catheter 400 / 400 400 / 400 Wound Drainage # 1 Posterior Neck Other: Date of Last Bowel Movement 03/06/18 03/07/18 Result Diagrams: 03/07/18 04:49 03/07/18 04:49 Objective Remarks: GENERAL: Elderly male, no distress HEENT: NCAT, PERRL NECK: Midline trachea, dry dressings in place on several neck wounds. Trach site clean CHEST: Trach T piece O2. Lungs clear bilaterally, comfortable respiratory pattern. CARDIOVASCULAR: Normal rate, regular rhythm. No JVD ABDOMEN: Soft, non-tender, moderately-distended, no guarding. Bowel sounds are hyper active. MUSCULOSKELETAL: Pulses 2+. No peripheral edema. Well perfused. NEUROLOGICAL: RASS 1+. incomplete quad. FAVIAN 4-/5 proximal uppers grossly, 2/5 distal uppers, 0/5 bilateral lower extremities. Assessment and Plan - Assessment and Plan Plan: Assessment: 72yM with dehisced posterior cervical incisional wound with MRSA wound infection, now debrided and closed over drain. MRSA wound infection - ID following, MRSA growing from wound culture, de-escalate antibiotics - Blood/ urine cultures pending - Neurosurgery following Incomplete quadriplegia - Wean trach collar o2 as tolerated - Aggressive pulmonary toilet - Turning/ offloading to prevent pressure wounds -Feedings per PEG tube Acute protein calorie malnutrition- severe - Prealbumin on admission 16 - Tube feeds calculated, goal is jevity 1/5 @ 45 mL/hr, 2 packets beneprotein daily - Use PEG tube Chronic respiratory failure - Trach collar o2 - Aggressive pulmonary toilet - PT consult Chronic urinary retention - UA on admission showed few bacteria, no leukocytes or nitrites - Keep chronic indwelling Turner catheter SCDs SQH Pepcid Overall impression: Satisfactorily weaned from mechanical ventilation 3 days ago. Tolerating trach collar. Watch for dehydration secondary to diarrhea. Abdomen remains benign. Disposition hopefully to inpatient rehab when neck drain is removed.
--- NOTE | 2018-03-07 11:05 | P.PNNS ---
Subjective Interval history: no significant neuro changes overnight Physical Exam Vital signs: Vital Signs 03/06/18 11:38 03/06/18 12:00 03/06/18 12:20 Temperature 98.5 F Pulse Rate 73 72 75 Respiratory Rate 29 H 31 H 18 Blood Pressure 107/53 L Pulse Oximetry 100 100 03/06/18 12:38 03/06/18 13:00 03/06/18 13:38 Temperature Pulse Rate 87 87 82 Respiratory Rate 36 H 29 H 27 H Blood Pressure 120/57 L 98/57 L Pulse Oximetry 100 100 100 03/06/18 14:00 03/06/18 14:38 03/06/18 15:00 Temperature Pulse Rate 81 75 79 Respiratory Rate 22 23 27 H Blood Pressure 127/68 Pulse Oximetry 100 100 100 03/06/18 15:38 03/06/18 16:00 03/06/18 16:57 Temperature 99.1 F Pulse Rate 78 76 77 Respiratory Rate 24 23 17 Blood Pressure 131/59 L 134/61 Pulse Oximetry 100 100 100 03/06/18 17:00 03/06/18 17:28 03/06/18 17:38 Temperature Pulse Rate 80 82 80 Respiratory Rate 26 H 24 17 Blood Pressure 113/58 L Pulse Oximetry 100 100 03/06/18 18:00 03/06/18 19:00 03/06/18 19:38 Temperature Pulse Rate 93 H 89 Respiratory Rate 29 H 19 Blood Pressure 121/56 L 121/56 L Pulse Oximetry 100 100 03/06/18 20:00 03/06/18 20:38 03/06/18 21:00 Temperature 98.2 F Pulse Rate 87 89 Respiratory Rate 22 21 Blood Pressure 121/59 L Pulse Oximetry 100 100 03/06/18 21:38 03/06/18 22:00 03/06/18 22:38 Temperature Pulse Rate 83 Respiratory Rate 19 Blood Pressure 115/79 104/64 Pulse Oximetry 100 03/06/18 23:00 03/06/18 23:20 03/06/18 23:38 Temperature Pulse Rate 81 81 Respiratory Rate 23 18 Blood Pressure 137/62 Pulse Oximetry 100 03/07/18 00:00 03/07/18 01:00 03/07/18 02:00 Temperature 98.4 F Pulse Rate 87 79 81 Respiratory Rate 22 24 22 Blood Pressure Pulse Oximetry 96 100 100 03/07/18 02:38 03/07/18 03:00 03/07/18 03:10 Temperature Pulse Rate 79 79 Respiratory Rate 23 22 Blood Pressure 102/53 L Pulse Oximetry 100 03/07/18 04:00 03/07/18 05:00 03/07/18 06:00 Temperature 98.8 F Pulse Rate 82 78 84 Respiratory Rate 22 24 24 Blood Pressure 119/55 L 112/59 L 166/124 H Pulse Oximetry 97 99 100 03/07/18 06:04 03/07/18 06:30 03/07/18 07:00 Temperature Pulse Rate 86 82 83 Respiratory Rate 35 H 28 H 28 H Blood Pressure 124/59 L 138/66 Pulse Oximetry 100 99 99 03/07/18 07:30 03/07/18 07:35 03/07/18 07:36 Temperature Pulse Rate 78 81 Respiratory Rate 29 H 18 Blood Pressure 113/62 Pulse Oximetry 100 97 Intake & Output 03/06/18 03/07/18 03/07/18 18:59 06:59 18:59 Intake Total 1068.5 / 1068.5 1574.5 / 1574.5 Output Total 1210 / 1210 410 / 410 Balance -141.5 / -141.5 1164.5 / 1164.5 Weight 62.4 kg 64.6 kg Intake: IV 362.5 / 362.5 712.5 / 712.5 Maxipime Inj 2,000 MG In NS Inj 100 / 100 200 / 200 100 ML @ 200 mls/hr IV.SIG Q8H LOS Rx#:[id number] Vancomycin Inj 1,250 MG In NS 262.5 / 262.5 512.5 / 512.5 Inj 250 ML @ 250 mls/hr IV.SIG Q12H LOS Rx#:[id number] Tube Feeding 386 / 386 562 / 562 Tube Irrigant 120 / 120 Water Bolus Amount 200 / 200 300 / 300 Output: Stool 800 / 800 Urine Amount (Catheter) 400 / 400 400 / 400 Indwelling Urethral Catheter 400 / 400 400 / 400 Wound Drainage # 1 Posterior Neck Other: Date of Last Bowel Movement 03/06/18 03/07/18 Narrative: Left mandibular area with ulceration down to the bone. Left scalp posterior occipital area on right with ulceration and unhealthy granulation tissue. Surgical bandage c/d/i, drain in place KIANA put out 22cc output overnight Follows limited commands Moves proximal upper extremities, remainder flaccid per baseline after SCI - Urinary Catheter Management Indwelling Urethral Catheter Cath placed during this visit: yes, but has since been removed by the nurse Reason for continuing: Chronic Urinary Retention Insertion date: 03/04/18 Insertion time: 16:08 Removal date: 03/04/18 Removal time: 16:06 Assessment and Plan - Plan 72yoM with cervical spinal cord injury, s/p cervicothoracic fusion on 01/21/18, wound dehiscence readmitted from [facility] 03/02/18. Admit Per Dr. Szymanski plan OR surgical debridement of posterior cervical wound on Wednesday03/04/18 AM. Stop Heparin. ID consult, wound swabs taken, CBC with diff, BMP, continue Vancomycin and other SIGNAL WORKER doses Dr. Szymanski cleared and discontinued cervical collar. Discussed with family, RN, ID, Dr. Szyamnski. 03/04/18 CT c-spine reviewed showing stable construct C3-T1 -- collar dc/d Plan operative debridement with cultures and attempt at primary closure vs. wound vac. Appreciate ID recs. Would also attempt to increase this man's nutrition to facilitate wound healing -- via PEG 03/05/18 Continue KIANA drain Re: Abdominal distention, KUB and if concerning may proceed with abdomen/pelvis -- possible G surg consult Patient has C. Diff and has been having voluminous diarrhea, on po vancomycin, peg tube flushes well with little residual, no fever 03/06/18 Continue KIANA drain Transfer out when ok w/ ICU team. appreciate ID recs re MRSA osteo treatment. Continue good nutrition to heal wounds. Family requesting [place] or alternate place than prior location.
--- NOTE | 2018-03-07 12:48 | P.PNID ---
Subjective Remarks: is a 72 y/o CM with h/o fall from a ladder originally on 2017. He was diagnosed with paraplegia, ended up being trached and PEGed. Patient underwent C3-T1 Instrumentation to stabilize his spine by . Post op there was wound dehiscence noted and he was seen by Dr.Alexandra Manuela RUSSELL and started on Vanco IV. He was later sent to [facility] [place]. He had a trach collar at some point leading to ulcer under his left chin and on back of his forehead timing of these is not known. He was transferred back to [facility] for washout of the wounds by . A CT spine was done which showed fluid collection in the deeper tissues connecting to exterior wound. Due to concern for discitis and epidural abscess ID consulted. At the time of my evaluation patient is in the intensive surgical care unit currently trached and pegged and in a trach collar. Patient opens his eyes but is unable to move any of his extremities except his right upper extremity that he possibly withdraws from spasms. Patient has ongoing diarrhea and was diagnosed with C. difficile at the other hospital. Upon opening straight collar and noticed a ulcer on her left mandible area, another ulcer on the posterior occipital area on the right side as well as the original surgical incision on the superior aspect appeared to be dehisced in both of these appear to be tracking down to the bone there is no surgical site has yellowish discharge which appears to be copious. Overnight events reviewed with RN No fever No rash No diarrhea Antibiotics: Cefepime IV Vanco IV Lines: Lines ok Past Medical History: reviewed. Allergies/Adverse Reactions: Allergies No Known Allergies Allergy (Verified 01/21/18 18:40) Objective Vital Signs 03/06/18 13:00 03/06/18 13:38 03/06/18 14:00 Temperature Pulse Rate 87 82 81 Respiratory Rate 29 H 27 H 22 Blood Pressure 98/57 L Pulse Oximetry 100 100 100 03/06/18 14:38 03/06/18 15:00 03/06/18 15:38 Temperature Pulse Rate 75 79 78 Respiratory Rate 23 27 H 24 Blood Pressure 127/68 131/59 L Pulse Oximetry 100 100 100 03/06/18 16:00 03/06/18 16:57 03/06/18 17:00 Temperature 99.1 F Pulse Rate 76 77 80 Respiratory Rate 23 17 26 H Blood Pressure 134/61 Pulse Oximetry 100 100 100 03/06/18 17:28 03/06/18 17:38 03/06/18 18:00 Temperature Pulse Rate 82 80 93 H Respiratory Rate 24 17 29 H Blood Pressure 113/58 L Pulse Oximetry 100 100 03/06/18 19:00 03/06/18 19:38 03/06/18 20:00 Temperature 98.2 F Pulse Rate 89 87 Respiratory Rate 19 22 Blood Pressure 121/56 L 121/56 L Pulse Oximetry 100 100 03/06/18 20:38 03/06/18 21:00 03/06/18 21:38 Temperature Pulse Rate 89 Respiratory Rate 21 Blood Pressure 121/59 L 115/79 Pulse Oximetry 100 03/06/18 22:00 03/06/18 22:38 03/06/18 23:00 Temperature Pulse Rate 83 81 Respiratory Rate 19 23 Blood Pressure 104/64 Pulse Oximetry 100 100 03/06/18 23:20 03/06/18 23:38 03/07/18 00:00 Temperature 98.4 F Pulse Rate 81 87 Respiratory Rate 18 22 Blood Pressure 137/62 Pulse Oximetry 96 03/07/18 01:00 03/07/18 02:00 03/07/18 02:38 Temperature Pulse Rate 79 81 Respiratory Rate 24 22 Blood Pressure 102/53 L Pulse Oximetry 100 100 03/07/18 03:00 03/07/18 03:10 03/07/18 04:00 Temperature 98.8 F Pulse Rate 79 79 82 Respiratory Rate 23 22 22 Blood Pressure 119/55 L Pulse Oximetry 100 97 03/07/18 05:00 03/07/18 06:00 03/07/18 06:04 Temperature Pulse Rate 78 84 86 Respiratory Rate 24 24 35 H Blood Pressure 112/59 L 166/124 H Pulse Oximetry 99 100 100 03/07/18 06:30 03/07/18 07:00 03/07/18 07:30 Temperature Pulse Rate 82 83 78 Respiratory Rate 28 H 28 H 29 H Blood Pressure 124/59 L 138/66 113/62 Pulse Oximetry 99 99 100 03/07/18 07:35 03/07/18 07:36 03/07/18 08:00 Temperature 98.8 F Pulse Rate 81 86 Respiratory Rate 18 30 H Blood Pressure 103/55 L Pulse Oximetry 97 95 03/07/18 08:30 03/07/18 09:00 03/07/18 09:30 Temperature Pulse Rate 84 78 77 Respiratory Rate 31 H 15 28 H Blood Pressure 105/61 107/58 L 115/56 L Pulse Oximetry 97 97 99 03/07/18 10:00 03/07/18 10:30 03/07/18 11:00 Temperature Pulse Rate 72 76 74 Respiratory Rate 25 H 28 H 30 H Blood Pressure 110/59 L 116/87 114/56 L Pulse Oximetry 98 97 97 03/07/18 11:13 Temperature Pulse Rate 76 Respiratory Rate 20 Blood Pressure Pulse Oximetry Intake & Output 03/06/18 03/07/18 03/07/18 18:59 06:59 18:59 Intake Total 1068.5 / 1068.5 1574.5 / 1574.5 Output Total 1210 / 1210 410 / 410 Balance -141.5 / -141.5 1164.5 / 1164.5 Weight 62.4 kg 64.6 kg Intake: IV 362.5 / 362.5 712.5 / 712.5 Maxipime Inj 2,000 MG In NS Inj 100 / 100 200 / 200 100 ML @ 200 mls/hr IV.SIG Q8H [facility] Rx#:[id number] Vancomycin Inj 1,250 MG In NS 262.5 / 262.5 512.5 / 512.5 Inj 250 ML @ 250 mls/hr IV.SIG Q12H [facility] Rx#:[id number] Tube Feeding 386 / 386 562 / 562 Tube Irrigant 120 / 120 Water Bolus Amount 200 / 200 300 / 300 Output: Stool 800 / 800 Urine Amount (Catheter) 400 / 400 400 / 400 Indwelling Urethral Catheter 400 / 400 400 / 400 Wound Drainage # 1 Posterior Neck Other: Date of Last Bowel Movement 03/06/18 03/07/18 03/07/18 03/03/18 10:40 Blood - Line Aerobic Blood Culture - Preliminary No growth in 4 days 03/03/18 10:40 Blood - Line Anaerobic Blood Culture - Preliminary No growth in 4 days 03/04/18 16:21 Wound - Back Gram Stain - Final 03/04/18 16:21 Wound - Back Wound Culture - Final S. aureus MRSA 03/04/18 16:25 Wound - Back Gram Stain - Final 03/04/18 16:25 Wound - Back Wound Culture - Final S. aureus MRSA 03/03/18 04:00 Catheterized Urine Urine Culture - Final No growth in 48 hours 03/04/18 16:21 Wound - Back Fungal Smear - Pending 03/04/18 16:21 Wound - Back Fungal Culture - Pending 03/04/18 16:21 Wound - Back Acid Fast Bacilli Smear - Pending 03/04/18 16:21 Wound - Back Mycobacterial Culture - Pending 03/04/18 16:25 Other Fungal Smear - Pending 03/04/18 16:25 Other Fungal Culture - Pending 03/04/18 16:25 Other Acid Fast Bacilli Smear - Pending 03/04/18 16:25 Other Mycobacterial Culture - Pending 03/02/18 18:15 Wound - Head Gram Stain - Final 03/02/18 18:15 Wound - Head Wound Culture - Final S. aureus MRSA 03/02/18 18:10 Wound - Neck Gram Stain - Final 03/02/18 18:10 Wound - Neck Wound Culture - Final S. aureus MRSA Lab - Hematology Results 03/06/18 03/07/18 05:00 04:49 WBC 7.3 8.7 RBC 2.89 L 3.15 L Hgb 8.8 L 9.5 L Hct 25.7 L 28.9 L MCV 89.1 91.6 MCH 30.6 30.1 MCHC 34.3 32.8 RDW 15.4 15.9 Plt Count 226 210 MPV 7.3 7.2 Prelim Diff (Auto) Slide review pending Neut % (Auto) 83.1 H 83.0 H Lymph % (Auto) 7.8 L 8.4 L [place] % (Auto) 8.3 H 7.8 Eos % (Auto) 0.6 0.5 Baso % (Auto) 0.2 0.3 Neut # (Auto) 6.1 7.3 Lymph # (Auto) 0.6 L 0.7 L [place] # (Auto) 0.6 0.7 Eos # (Auto) 0.0 0.0 Baso # (Auto) 0.0 0.0 WBC Differential Manual diff final . Seg Neuts % (Manual) 84 H Band Neuts % (Manual) 4 Lymphocytes % (Manual) 1 L Monocytes % (Manual) 5 Eosinophils % (Manual) 1 Metamyelocytes % (Man) 3 H Myelocytes % (Man) 2 H Abs Neuts (Manual) 6.8 Differential Comment . Auto diff final Platelet Estimate Normal Platelet Morphology Enlarged H Lab - Chemistry Results 03/05/18 03/05/18 03/06/18 17:20 23:48 09:38 Sodium Potassium Chloride Carbon Dioxide Anion Gap BUN Creatinine Estimated GFR POC Glucose 125 H 136 H 142 H Random Glucose Calcium Phosphorus Magnesium 03/06/18 03/06/18 03/06/18 12:45 16:10 18:21 Sodium 148 H Potassium 3.2 L D Chloride 117 H Carbon Dioxide 27.3 Anion Gap 4 L BUN 15 Creatinine 0.31 L Estimated GFR Greater than 89 POC Glucose 122 H 129 H Random Glucose 128 H Calcium 7.8 L Phosphorus 3.0 Magnesium 2.2 03/07/18 03/07/18 03/07/18 00:27 04:49 08:54 Sodium 148 H Potassium 3.6 Chloride 117 H Carbon Dioxide 23.9 Anion Gap 7 BUN 12 Creatinine 0.31 L Estimated GFR Greater than 89 POC Glucose 124 H 138 H Random Glucose 105 Calcium 7.5 L Phosphorus 3.0 Magnesium 2.3 Imaging: ITS Impressions Cervical Spine CT 03/02/18 00:00 CONCLUSION: 1. Laminectomy and long segment posterior fusion of the cervical spine again noted. Alignment is unchanged, near-anatomic, and the posterior bone graft material appears to be slowly incorporating but not convincingly solid at this time. 2. Limited study; no definite epidural fluid collection. The fluid collection in the laminectomy bed appears to be decreasing but now appears to communicate with a large soft tissue defect overlying the posterior spinous processes of C7 and T1. Bone is exposed but without perceptible acute obstruction. Previously seen drain has been removed. Cervical Spine X-Ray 03/02/18 00:00 CONCLUSION: Chest X-Ray 03/02/18 00:00 CONCLUSION: 1. Interval placement of tracheostomy tube. 2. No acute cardiopulmonary disease. 3. Left-sided PICC line now noted. Abdomen X-Ray 03/05/18 00:00 CONCLUSION: 1. Diffuse colonic distention consistent with colonic ileus. 2. No gross free air as questioned. Physical Exam: GENERAL: Well-nourished well-developed, not in acute distress SKIN: Cool and dry, no generalized rash HEAD: Atraumatic. Normocephalic. No temporal or scalp tenderness. EYES: Pupils equal round and reactive. Scleral icterus. No injection or drainage. No petechia Trach site with no e.o infection Left mandibular area with ulceration down to the bone. Left scalp posterior occipital area on right with ulceration and unhealthy granulation tissue. Surgical site with dressing. NECK: Trachea midline. Supple, nontender, no meningeal signs. CARDIOVASCULAR: HS audible. RESPIRATORY: Clear to auscultation bilaterally. GASTROINTESTINAL: Abdomen soft nontender. MUSCULOSKELETAL: Extremities without clubbing, cyanosis. NEUROLOGICAL: Alert oriented 3. Nonfocal. Psych cooperative IV line sites ok Assessment and Plan - Plan MRSA epidural abscess/discitis Surgical site infection at site of recent C5-T1 Instrumentation (hardware in place) H/o fall as preceding incident to surgery. Occipital wound stage 3-4 down to bone ? osteomyelitis. Left mandible inferior aspect with ulcer down to done ? osteomyelitis. Cdiff diagnosed at [facility]. Trach in place PEG in place h/o HCAP at other hospital with Sten Mal Rxed per records. Recs: DC Cefepime IV as no gram negatives identified in wound. Continue Vanco IV (target 15-20) Continue oral vanco for Cdiff Follow cultures Follow clinical course Imaging reviewed with [facility].
[2018-03-07 13:16] LABS: Albumin 1.6 g/dL (3.4-5.0)
[2018-03-07 13:18] LABS: Total Protein 5.1 g/dL (6.4-8.2)
--- NOTE | 2018-03-07 14:23 | P.PNWCN ---
Wound Care Nurse Consult Additional information: Ron not seen for wound VAC management of back of the neck wound.Spoke with Doctor Stephon neurosurgeon, Wound VAC was not placed after surgical I&D of wound. Surgeon closed wound with sutures. Wound VAC change is no longer needed. Wound care inpatient is signing off.
[2018-03-08] MEDS: Insulin NovoLIN Regular Correctional Sugar Inj SQ SCH ×4 (01:07→18:03)
[2018-03-08] MEDS: Vancomycin Inj 1,250 MG in Sodium Chlor 0.9% Inj 250 ML IV.SIG SCH ×2 (03:14→16:39)
[2018-03-08] MEDS: Pantoprazole Inj 40 MG Vial IV.PUSH SCH (03:14)
[2018-03-08 05:09] LABS: Baso % (Auto) 0.4 % (0.0-2.0); Eos % (Auto) 0.6 % (0.0-4.0); Hematocrit 27.5 % (39.0-51.0); Hemoglobin 9.4 gm/dL (13.0-17.0); Lymph # (Auto) 0.9 th/mm3 (1.0-4.8); Lymph % (Auto) 12.4 % (9.0-44.0); Mean Corpuscular Hemoglobin 30.3 pg (27.0-34.0); Mean Corpuscular Volume 89.2 fL (80.0-100.0); Mean Platelet Volume 7.1 fL (7.0-11.0); Mono # (Auto) 0.6 th/mm3 (0.0-0.9); Mono % (Auto) 7.4 % (0.0-8.0); Neut % (Auto) 79.2 % (16.0-70.0); Platelet Count 201 th/mm3 (150-450); Red Blood Count 3.09 mil/mm3 (4.50-5.90); Red Cell Distribution Width 15.6 % (11.6-17.2); White Blood Count 7.6 th/mm3 (4.0-11.0)
[2018-03-08 05:15] LABS: Anion Gap 6 meq/L (5-15); Blood Urea Nitrogen 12 mg/dL (7-18); Calcium 8.1 mg/dL (8.5-10.1); Carbon Dioxide 27.4 meq/L (21.0-32.0); Chloride 115 meq/L (98-107); Glomerular Filtration Rate Greater Than 89 mL/min (>89); Glucose,Random 103 mg/dL (74-106); Magnesium 2.2 mg/dL (1.5-2.5); Phosphorus 2.9 mg/dL (2.5-4.9); Potassium 3.5 meq/L (3.5-5.1); Sodium 148 meq/L (136-145)
[2018-03-08 08:05] LABS: Lymphocytes 14 % (9-44); Metamyelocytes 3 % (0-1); Monocytes 3 % (0-8); Myelocytes 4 % (0-0); Promyelocyte 2 % (0-0)
[2018-03-08 08:06] LABS: Platelet Estimate Normal (Normal); Platelet Morphology Clumped (Normal)
[2018-03-08] MEDS: Beneprotein Powder Packet G-TUBE SCH ×2 (08:55→21:37)
[2018-03-08] MEDS: Senna/Docusate Sodium 8.6/50 MG Tablet PO SCH ×2 (08:56→20:56)
[2018-03-08] MEDS: Polyethylene Glycol 3350 17 GM Packet PO SCH ×2 (08:56→20:56)
--- NOTE | 2018-03-08 09:47 | P.PN ---
Subjective Interval history: Consulted by [facility] for med mgt and transfer of care. Chart reviewed. Patient awake and following simple commands. Nonverbal patient has tracheostomy on 5 L Physical Exam Vital signs: Vital Signs 03/07/18 10:00 03/07/18 10:30 03/07/18 11:00 Temperature Pulse Rate 72 76 74 Respiratory Rate 25 H 28 H 30 H Blood Pressure 110/59 L 116/87 114/56 L Pulse Oximetry 98 97 97 03/07/18 11:13 03/07/18 11:30 03/07/18 12:00 Temperature 98.9 F Pulse Rate 76 86 82 Respiratory Rate 20 32 H 29 H Blood Pressure 128/60 128/62 Pulse Oximetry 97 99 03/07/18 12:30 03/07/18 13:00 03/07/18 13:30 Temperature Pulse Rate 75 77 80 Respiratory Rate 25 H 26 H 29 H Blood Pressure 105/56 L 107/59 L 130/61 Pulse Oximetry 97 98 98 03/07/18 14:00 03/07/18 14:30 03/07/18 15:00 Temperature Pulse Rate 77 75 75 Respiratory Rate 27 H 14 15 Blood Pressure 132/68 122/57 L 169/75 H Pulse Oximetry 97 03/07/18 15:37 03/07/18 16:00 03/07/18 16:30 Temperature 99.0 F Pulse Rate 76 82 79 Respiratory Rate 18 28 H 18 Blood Pressure 118/63 112/67 Pulse Oximetry 03/07/18 17:00 03/07/18 17:30 03/07/18 18:00 Temperature Pulse Rate 79 85 80 Respiratory Rate 24 21 28 H Blood Pressure 130/71 144/74 H 130/70 Pulse Oximetry 03/07/18 18:30 03/07/18 19:00 03/07/18 19:56 Temperature Pulse Rate 76 77 80 Respiratory Rate 26 H 22 22 Blood Pressure 111/61 122/65 Pulse Oximetry 94 L 100 03/07/18 20:00 03/07/18 21:00 03/07/18 22:00 Temperature 98.9 F Pulse Rate 84 84 79 Respiratory Rate 24 21 19 Blood Pressure 157/73 H 139/73 118/56 L Pulse Oximetry 96 96 100 03/07/18 23:00 03/07/18 23:39 03/08/18 00:00 Temperature 99.3 F Pulse Rate 75 74 80 Respiratory Rate 23 22 23 Blood Pressure 109/61 119/58 L Pulse Oximetry 98 97 03/08/18 01:00 03/08/18 02:00 03/08/18 02:30 Temperature Pulse Rate 75 74 Respiratory Rate 16 18 Blood Pressure 150/65 H 117/56 L Pulse Oximetry 99 98 03/08/18 03:00 03/08/18 04:00 03/08/18 05:00 Temperature 99.2 F Pulse Rate 77 77 79 Respiratory Rate 24 22 23 Blood Pressure 120/67 121/63 154/66 H Pulse Oximetry 98 100 100 03/08/18 05:49 03/08/18 06:00 03/08/18 06:30 Temperature Pulse Rate 76 69 Respiratory Rate 22 23 Blood Pressure 128/90 141/64 H 93/52 L Pulse Oximetry 100 100 03/08/18 07:00 03/08/18 07:26 03/08/18 07:30 Temperature Pulse Rate 70 72 Respiratory Rate 22 23 Blood Pressure 127/62 120/62 Pulse Oximetry 100 100 100 Intake & Output 03/07/18 03/08/18 03/08/18 18:59 06:59 18:59 Intake Total 1006.5 / 1006.5 1146.5 / 1146.5 Output Total 575 / 575 815 / 815 Balance 431.5 / 431.5 331.5 / 331.5 Weight 60.7 kg Intake: IV 262.5 / 262.5 262.5 / 262.5 Vancomycin Inj 1,250 MG In NS 262.5 / 262.5 262.5 / 262.5 Inj 250 ML @ 250 mls/hr IV.SIG Q12H [facility] Rx#:[id number] Tube Feeding 644 / 644 584 / 584 Water Bolus Amount 100 / 100 300 / 300 Output: Stool 200 / 200 400 / 400 Urine Amount (Catheter) 375 / 375 400 / 400 Indwelling Urethral Catheter 375 / 375 400 / 400 Wound Drainage 0 / 0 15 15 # 1 Posterior Neck 0 / 0 Other: Date of Last Bowel Movement 03/07/18 03/08/18 Narrative: GENERAL: Elderly male, no distress HEENT: NCAT, PERRL NECK: Midline trachea, dry dressings in place on several neck wounds. Trach site clean CHEST: Trach T piece O2. Lungs clear bilaterally, comfortable respiratory pattern. CARDIOVASCULAR: Normal rate, regular rhythm. No JVD ABDOMEN: Soft, non-tender, moderately-distended, no guarding. Bowel sounds are hyper active. MUSCULOSKELETAL: Pulses 2+. No peripheral edema. Well perfused. NEUROLOGICAL: Incomplete quad. FAVIAN 4-/5 proximal uppers grossly, 2/5 distal uppers, 0/5 bilateral lower extremities. - Urinary Catheter Management Indwelling Urethral Catheter Cath placed during this visit: yes, but has since been removed by the nurse Reason for continuing: Chronic Urinary Retention Insertion date: 03/04/18 Insertion time: 16:08 Removal date: 03/04/18 Removal time: 16:06 Results - Labs CBC & Chem 7: 03/08/18 04:02 03/08/18 04:02 Laboratory Results - last 24 hr 03/07/18 03/07/18 03/08/18 12:39 13:56 00:45 WBC RBC Hgb Hct MCV MCH MCHC RDW Plt Count MPV Prelim Diff (Auto) Neut % (Auto) Lymph % (Auto) [place] % (Auto) Eos % (Auto) Baso % (Auto) Neut # (Auto) Lymph # (Auto) [place] # (Auto) Eos # (Auto) Baso # (Auto) WBC Differential Seg Neuts % (Manual) Band Neuts % (Manual) Lymphocytes % (Manual) Monocytes % (Manual) Metamyelocytes % (Man) Myelocytes % (Man) Promyelocytes % (Man) Abs Neuts (Manual) Differential Comment Platelet Estimate Platelet Morphology Sodium Potassium Chloride Carbon Dioxide Anion Gap BUN Creatinine Estimated GFR POC Glucose 141 H 122 H Random Glucose Calcium Phosphorus Magnesium Total Bilirubin 0.3 Direct Bilirubin 0.1 Indirect Bilirubin 0.2 AST 26 ALT 50 Alkaline Phosphatase 91 Total Protein 5.1 L Albumin 1.6 L 03/08/18 03/08/18 04:02 04:02 WBC 7.6 RBC 3.09 L Hgb 9.4 L Hct 27.5 L MCV 89.2 MCH 30.3 MCHC 34.0 RDW 15.6 Plt Count 201 MPV 7.1 Prelim Diff (Auto) Slide review pending Neut % (Auto) 79.2 H Lymph % (Auto) 12.4 [place] % (Auto) 7.4 Eos % (Auto) 0.6 Baso % (Auto) 0.4 Neut # (Auto) 6.0 Lymph # (Auto) 0.9 L [place] # (Auto) 0.6 Eos # (Auto) 0.0 Baso # (Auto) 0.0 WBC Differential Manual diff final Seg Neuts % (Manual) 73 H Band Neuts % (Manual) 1 Lymphocytes % (Manual) 14 Monocytes % (Manual) 3 Metamyelocytes % (Man) 3 H Myelocytes % (Man) 4 H Promyelocytes % (Man) 2 H Abs Neuts (Manual) 6.3 Differential Comment . Platelet Estimate Normal Platelet Morphology Clumped H Sodium 148 H Potassium 3.5 Chloride 115 H Carbon Dioxide 27.4 Anion Gap 6 BUN 12 Creatinine 0.28 L Estimated GFR Greater than 89 POC Glucose Random Glucose 103 Calcium 8.1 L Phosphorus 2.9 Magnesium 2.2 Total Bilirubin Direct Bilirubin Indirect Bilirubin AST ALT Alkaline Phosphatase Total Protein Albumin Microbiology 03/04/18 16:25 Other Acid Fast Bacilli Smear - Final No acid fast bacilli seen 03/04/18 16:21 Wound - Back Acid Fast Bacilli Smear - Final No acid fast bacilli seen 03/03/18 10:40 Blood - Line Aerobic Blood Culture - Preliminary No growth in 4 days 03/03/18 10:40 Blood - Line Anaerobic Blood Culture - Preliminary No growth in 4 days - Imaging ITS Impressions Cervical Spine CT 03/02/18 00:00 CONCLUSION: 1. Laminectomy and long segment posterior fusion of the cervical spine again noted. Alignment is unchanged, near-anatomic, and the posterior bone graft material appears to be slowly incorporating but not convincingly solid at this time. 2. Limited study; no definite epidural fluid collection. The fluid collection in the laminectomy bed appears to be decreasing but now appears to communicate with a large soft tissue defect overlying the posterior spinous processes of C7 and T1. Bone is exposed but without perceptible acute obstruction. Previously seen drain has been removed. Cervical Spine X-Ray 03/02/18 00:00 CONCLUSION: Chest X-Ray 03/02/18 00:00 CONCLUSION: 1. Interval placement of tracheostomy tube. 2. No acute cardiopulmonary disease. 3. Left-sided PICC line now noted. Abdomen X-Ray 03/05/18 00:00 CONCLUSION: 1. Diffuse colonic distention consistent with colonic ileus. 2. No gross free air as questioned. - Procedures Operative debridement, resection of C7 and T1 spinous processes, irrigation with Vancomycin powder, closure over a drain Assessment and Plan - Plan 72yM with dehisced posterior cervical incisional wound with MRSA wound infection , now debrided and closed over drain. MRSA wound infection status post surgery - ID following on IV Vanco, MRSA growing from wound culture - Blood/ urine cultures pending - Neurosurgery following Incomplete quadriplegia - Wean trach collar o2 as tolerated - Aggressive pulmonary toilet - Turning/ offloading to prevent pressure wounds - Feedings per PEG tube Acute protein calorie malnutrition- severe - Prealbumin on admission 16 - Tube feeds calculated, goal is jevity 1/5, 2 packets beneprotein daily - Use PEG tube Chronic respiratory failure - Trach collar o2 - Aggressive pulmonary toilet - PT consult Chronic urinary retention - UA on admission showed few bacteria, no leukocytes or nitrites - Keep chronic indwelling Turner catheter C diff ct po Vanco SCDs SQHeparin Prevacid Update med rec Overall impression: Satisfactorily weaned from mechanical ventilation. Tolerating trach collar. Watch for dehydration secondary to diarrhea. Discharge Planning: Inpt rehab. Transfer to med surg in am if stable
--- NOTE | 2018-03-08 14:10 | P.PNID ---
Subjective Remarks: is a 72 y/o CM with h/o fall from a ladder originally on 2017. He was diagnosed with paraplegia, ended up being trached and PEGed. Patient underwent C3-T1 Instrumentation to stabilize his spine by . Post op there was wound dehiscence noted and he was seen by Dr.Alexandra Manuela RUSSELL and started on Vanco IV. He was later sent to [facility] in [place]. He had a trach collar at some point leading to ulcer under his left chin and on back of his forehead timing of these is not known. He was transferred back to [facility] for washout of the wounds by . A CT spine was done which showed fluid collection in the deeper tissues connecting to exterior wound. Due to concern for discitis and epidural abscess ID consulted. At the time of my evaluation patient is in the intensive surgical care unit currently trached and pegged and in a trach collar. Patient opens his eyes but is unable to move any of his extremities except his right upper extremity that he possibly withdraws from spasms. Patient has ongoing diarrhea and was diagnosed with C. difficile at the other hospital. Upon opening straight collar and noticed a ulcer on her left mandible area, another ulcer on the posterior occipital area on the right side as well as the original surgical incision on the superior aspect appeared to be dehisced in both of these appear to be tracking down to the bone there is no surgical site has yellowish discharge which appears to be copious. Overnight events reviewed with RN No fever No rash No diarrhea Trach but off vent Antibiotics: Vanco IV Lines: Lines ok Past Medical History: reviewed. Allergies/Adverse Reactions: Allergies No Known Allergies Allergy (Verified 01/21/18 18:40) Objective Vital Signs 03/07/18 14:30 03/07/18 15:00 03/07/18 15:37 Temperature Pulse Rate 75 75 76 Respiratory Rate 14 15 18 Blood Pressure 122/57 L 169/75 H Pulse Oximetry 03/07/18 16:00 03/07/18 16:30 03/07/18 17:00 Temperature 99.0 F Pulse Rate 82 79 79 Respiratory Rate 28 H 18 24 Blood Pressure 118/63 112/67 130/71 Pulse Oximetry 03/07/18 17:30 03/07/18 18:00 03/07/18 18:30 Temperature Pulse Rate 85 80 76 Respiratory Rate 21 28 H 26 H Blood Pressure 144/74 H 130/70 111/61 Pulse Oximetry 03/07/18 19:00 03/07/18 19:56 03/07/18 20:00 Temperature 98.9 F Pulse Rate 77 80 84 Respiratory Rate 22 22 24 Blood Pressure 122/65 157/73 H Pulse Oximetry 94 L 100 96 03/07/18 21:00 03/07/18 22:00 03/07/18 23:00 Temperature Pulse Rate 84 79 75 Respiratory Rate 21 19 23 Blood Pressure 139/73 118/56 L 109/61 Pulse Oximetry 96 100 98 03/07/18 23:39 03/08/18 00:00 03/08/18 01:00 Temperature 99.3 F Pulse Rate 74 80 75 Respiratory Rate 22 23 16 Blood Pressure 119/58 L 150/65 H Pulse Oximetry 97 99 03/08/18 02:00 03/08/18 02:30 03/08/18 03:00 Temperature Pulse Rate 74 77 Respiratory Rate 18 24 Blood Pressure 117/56 L 120/67 Pulse Oximetry 98 98 03/08/18 04:00 03/08/18 05:00 03/08/18 05:49 Temperature 99.2 F Pulse Rate 77 79 Respiratory Rate 22 23 Blood Pressure 121/63 154/66 H 128/90 Pulse Oximetry 100 100 03/08/18 06:00 03/08/18 06:30 03/08/18 07:00 Temperature Pulse Rate 76 69 70 Respiratory Rate 22 23 22 Blood Pressure 141/64 H 93/52 L 127/62 Pulse Oximetry 100 100 100 03/08/18 07:26 03/08/18 07:30 03/08/18 08:00 Temperature 97.0 F L Pulse Rate 72 69 Respiratory Rate 23 21 Blood Pressure 120/62 128/64 Pulse Oximetry 100 100 100 03/08/18 08:30 03/08/18 09:00 03/08/18 09:30 Temperature Pulse Rate 69 75 78 Respiratory Rate 22 26 H 27 H Blood Pressure 123/59 L 128/70 127/67 Pulse Oximetry 100 100 100 03/08/18 10:00 03/08/18 10:30 03/08/18 11:00 Temperature Pulse Rate 78 79 75 Respiratory Rate 11 L 20 26 H Blood Pressure 133/66 147/74 H 127/78 Pulse Oximetry 100 100 100 03/08/18 11:30 03/08/18 12:00 03/08/18 12:30 Temperature 98.5 F Pulse Rate 75 76 72 Respiratory Rate 25 H 33 H 25 H Blood Pressure 128/68 130/63 131/66 Pulse Oximetry 100 100 100 03/08/18 13:00 03/08/18 13:30 Temperature Pulse Rate 76 78 Respiratory Rate 31 H 30 H Blood Pressure 145/74 H 179/74 H Pulse Oximetry 100 100 Intake & Output 03/07/18 03/08/18 03/08/18 18:59 06:59 18:59 Intake Total 1006.5 / 1006.5 1146.5 / 1146.5 Output Total 575 / 575 815 / 815 Balance 431.5 / 431.5 331.5 / 331.5 Weight 60.7 kg Intake: IV 262.5 / 262.5 262.5 / 262.5 Vancomycin Inj 1,250 MG In NS 262.5 / 262.5 262.5 / 262.5 Inj 250 ML @ 250 mls/hr IV.SIG Q12H [facility] Rx#:[id number] Tube Feeding 644 / 644 584 / 584 Water Bolus Amount 100 / 100 300 / 300 Output: Stool 200 / 200 400 / 400 Urine Amount (Catheter) 375 / 375 400 / 400 Indwelling Urethral Catheter 375 / 375 400 / 400 Wound Drainage 0 / 0 15 15 # 1 Posterior Neck 0 / 0 Other: Date of Last Bowel Movement 03/07/18 03/08/18 03/08/18 03/03/18 10:40 Blood - Line Aerobic Blood Culture - Final No growth in 5 days 03/03/18 10:40 Blood - Line Anaerobic Blood Culture - Final No growth in 5 days 03/04/18 16:25 Other Acid Fast Bacilli Smear - Final No acid fast bacilli seen 03/04/18 16:25 Other Mycobacterial Culture - Pending 03/04/18 16:21 Wound - Back Acid Fast Bacilli Smear - Final No acid fast bacilli seen 03/04/18 16:21 Wound - Back Mycobacterial Culture - Pending 03/04/18 16:21 Wound - Back Gram Stain - Final 03/04/18 16:21 Wound - Back Wound Culture - Final S. aureus MRSA 03/04/18 16:25 Wound - Back Gram Stain - Final 03/04/18 16:25 Wound - Back Wound Culture - Final S. aureus MRSA 03/03/18 04:00 Catheterized Urine Urine Culture - Final No growth in 48 hours Lab - Hematology Results 03/07/18 03/08/18 04:49 04:02 WBC 8.7 7.6 RBC 3.15 L 3.09 L Hgb 9.5 L 9.4 L Hct 28.9 L 27.5 L MCV 91.6 89.2 MCH 30.1 30.3 MCHC 32.8 34.0 RDW 15.9 15.6 Plt Count 210 201 MPV 7.2 7.1 Prelim Diff (Auto) Slide review pending Neut % (Auto) 83.0 H 79.2 H Lymph % (Auto) 8.4 L 12.4 [place] % (Auto) 7.8 7.4 Eos % (Auto) 0.5 0.6 Baso % (Auto) 0.3 0.4 Neut # (Auto) 7.3 6.0 Lymph # (Auto) 0.7 L 0.9 L [place] # (Auto) 0.7 0.6 Eos # (Auto) 0.0 0.0 Baso # (Auto) 0.0 0.0 WBC Differential . Manual diff final Seg Neuts % (Manual) 73 H Band Neuts % (Manual) 1 Lymphocytes % (Manual) 14 Monocytes % (Manual) 3 Metamyelocytes % (Man) 3 H Myelocytes % (Man) 4 H Promyelocytes % (Man) 2 H Abs Neuts (Manual) 6.3 Differential Comment Auto diff final . Platelet Estimate Normal Platelet Morphology Clumped H Lab - Chemistry Results 03/06/18 03/06/18 03/07/18 16:10 18:21 00:27 Sodium 148 H Potassium 3.2 L D Chloride 117 H Carbon Dioxide 27.3 Anion Gap 4 L BUN 15 Creatinine 0.31 L Estimated GFR Greater than 89 POC Glucose 129 H 124 H Random Glucose 128 H Calcium 7.8 L Phosphorus 3.0 Magnesium 2.2 Total Bilirubin Direct Bilirubin Indirect Bilirubin AST ALT Alkaline Phosphatase Total Protein Albumin 03/07/18 03/07/18 03/07/18 04:49 08:54 12:39 Sodium 148 H Potassium 3.6 Chloride 117 H Carbon Dioxide 23.9 Anion Gap 7 BUN 12 Creatinine 0.31 L Estimated GFR Greater than 89 POC Glucose 138 H Random Glucose 105 Calcium 7.5 L Phosphorus 3.0 Magnesium 2.3 Total Bilirubin 0.3 Direct Bilirubin 0.1 Indirect Bilirubin 0.2 AST 26 ALT 50 Alkaline Phosphatase 91 Total Protein 5.1 L Albumin 1.6 L 03/07/18 03/08/18 03/08/18 13:56 00:45 04:02 Sodium 148 H Potassium 3.5 Chloride 115 H Carbon Dioxide 27.4 Anion Gap 6 BUN 12 Creatinine 0.28 L Estimated GFR Greater than 89 POC Glucose 141 H 122 H Random Glucose 103 Calcium 8.1 L Phosphorus 2.9 Magnesium 2.2 Total Bilirubin Direct Bilirubin Indirect Bilirubin AST ALT Alkaline Phosphatase Total Protein Albumin 03/08/18 12:55 Sodium Potassium Chloride Carbon Dioxide Anion Gap BUN Creatinine Estimated GFR POC Glucose 113 H Random Glucose Calcium Phosphorus Magnesium Total Bilirubin Direct Bilirubin Indirect Bilirubin AST ALT Alkaline Phosphatase Total Protein Albumin Imaging: ITS Impressions Cervical Spine CT 03/02/18 00:00 CONCLUSION: 1. Laminectomy and long segment posterior fusion of the cervical spine again noted. Alignment is unchanged, near-anatomic, and the posterior bone graft material appears to be slowly incorporating but not convincingly solid at this time. 2. Limited study; no definite epidural fluid collection. The fluid collection in the laminectomy bed appears to be decreasing but now appears to communicate with a large soft tissue defect overlying the posterior spinous processes of C7 and T1. Bone is exposed but without perceptible acute obstruction. Previously seen drain has been removed. Cervical Spine X-Ray 03/02/18 00:00 CONCLUSION: Chest X-Ray 03/02/18 00:00 CONCLUSION: 1. Interval placement of tracheostomy tube. 2. No acute cardiopulmonary disease. 3. Left-sided PICC line now noted. Abdomen X-Ray 03/05/18 00:00 CONCLUSION: 1. Diffuse colonic distention consistent with colonic ileus. 2. No gross free air as questioned. Physical Exam: GENERAL: Well-nourished well-developed, not in acute distress SKIN: Cool and dry, no generalized rash HEAD: Atraumatic. Normocephalic. No temporal or scalp tenderness. EYES: Pupils equal round and reactive. Scleral icterus. No injection or drainage. No petechia Trach site with no e.o infection Left mandibular area with ulceration down to the bone. Left scalp posterior occipital area on right with ulceration and unhealthy granulation tissue. Surgical site with dressing. NECK: Trachea midline. Supple, nontender, no meningeal signs. CARDIOVASCULAR: HS audible. RESPIRATORY: Clear to auscultation bilaterally. GASTROINTESTINAL: Abdomen soft nontender. MUSCULOSKELETAL: Extremities without clubbing, cyanosis. NEUROLOGICAL: Alert oriented 3. Nonfocal. Psych cooperative IV line sites ok Assessment and Plan - Plan MRSA epidural abscess/discitis Surgical site infection at site of recent C5-T1 Instrumentation (hardware in place) H/o fall as preceding incident to surgery. Occipital wound stage 3-4 down to bone ? osteomyelitis. Left mandible inferior aspect with ulcer down to done ? osteomyelitis. Cdiff diagnosed at [facility]. Trach in place PEG in place h/o HCAP at other hospital with Sten Mal Rxed per records. 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 Continue oral vanco for Cdiff Follow cultures Follow clinical course D/w [employer] would like to communicate the discharge plan with place he is accepted. dw patients : Patient will likely need oral antibiotics for approx 4 months as well as periodic repeat imaging.
[2018-03-09] MEDS: Insulin NovoLIN Regular Correctional Sugar Inj SQ SCH ×4 (00:55→17:32)
[2018-03-09 03:47] LABS: Baso % (Auto) 0.7 % (0.0-2.0); Eos % (Auto) 0.6 % (0.0-4.0); Hematocrit 26.6 % (39.0-51.0); Hemoglobin 9.1 gm/dL (13.0-17.0); Lymph # (Auto) 0.8 th/mm3 (1.0-4.8); Lymph % (Auto) 15.3 % (9.0-44.0); Mean Corpuscular HGB Conc 34.3 % (32.0-36.0); Mean Corpuscular Hemoglobin 29.9 pg (27.0-34.0); Mean Corpuscular Volume 87.2 fL (80.0-100.0); Mean Platelet Volume 6.8 fL (7.0-11.0); Mono # (Auto) 0.4 th/mm3 (0.0-0.9); Mono % (Auto) 7.5 % (0.0-8.0); Neut # (Auto) 4.1 th/mm3 (1.8-7.7); Neut % (Auto) 75.9 % (16.0-70.0); Platelet Count 195 th/mm3 (150-450); Red Blood Count 3.05 mil/mm3 (4.50-5.90); Red Cell Distribution Width 15.6 % (11.6-17.2); White Blood Count 5.5 th/mm3 (4.0-11.0)
[2018-03-09 04:06] LABS: Anion Gap 6 meq/L (5-15); Blood Urea Nitrogen 13 mg/dL (7-18); Carbon Dioxide 29.3 meq/L (21.0-32.0); Chloride 115 meq/L (98-107); Glomerular Filtration Rate Greater Than 89 mL/min (>89); Glucose,Random 112 mg/dL (74-106); Magnesium 2.1 mg/dL (1.5-2.5); Phosphorus 3.2 mg/dL (2.5-4.9); Potassium 3.2 meq/L (3.5-5.1); Sodium 150 meq/L (136-145)
[2018-03-09] MEDS: Vancomycin Inj 1,250 MG in Sodium Chlor 0.9% Inj 250 ML IV.SIG SCH ×2 (06:34→17:34)
--- NOTE | 2018-03-09 09:25 | P.PN ---
Subjective Interval history: Follow-up C. difficile/ Still with diarrhea has rectal tube dw and Sainz rep Physical Exam Vital signs: Vital Signs 03/08/18 09:30 03/08/18 10:00 03/08/18 10:30 Temperature Pulse Rate 78 78 79 Respiratory Rate 27 H 11 L 20 Blood Pressure 127/67 133/66 147/74 H Pulse Oximetry 100 100 100 03/08/18 11:00 03/08/18 11:30 03/08/18 12:00 Temperature 98.5 F Pulse Rate 75 75 76 Respiratory Rate 26 H 25 H 33 H Blood Pressure 127/78 128/68 130/63 Pulse Oximetry 100 100 100 03/08/18 12:30 03/08/18 13:00 03/08/18 13:30 Temperature Pulse Rate 72 76 78 Respiratory Rate 25 H 31 H 30 H Blood Pressure 131/66 145/74 H 179/74 H Pulse Oximetry 100 100 100 03/08/18 14:00 03/08/18 14:30 03/08/18 15:00 Temperature Pulse Rate 76 84 85 Respiratory Rate 29 H 24 29 H Blood Pressure 132/81 144/74 H 167/83 H Pulse Oximetry 100 100 100 03/08/18 16:00 03/08/18 16:30 03/08/18 17:00 Temperature 98.0 F Pulse Rate 85 79 77 Respiratory Rate 16 28 H 20 Blood Pressure 134/73 121/68 150/71 H Pulse Oximetry 100 100 100 03/08/18 17:30 03/08/18 18:00 03/08/18 18:30 Temperature Pulse Rate 76 81 81 Respiratory Rate 24 26 H 33 H Blood Pressure 120/69 145/67 H 144/78 H Pulse Oximetry 100 100 100 03/08/18 19:00 03/08/18 19:30 03/08/18 20:00 Temperature 98.0 F Pulse Rate 85 78 82 Respiratory Rate 26 H 25 H 24 Blood Pressure 156/72 H 131/67 149/64 H Pulse Oximetry 100 100 100 03/08/18 20:30 03/08/18 21:00 03/08/18 21:30 Temperature Pulse Rate 76 79 72 Respiratory Rate 23 31 H 26 H Blood Pressure 120/64 134/68 129/62 Pulse Oximetry 100 100 100 03/08/18 22:00 03/08/18 22:30 03/08/18 23:00 Temperature Pulse Rate 77 78 78 Respiratory Rate 25 H 24 23 Blood Pressure 116/72 131/60 135/70 Pulse Oximetry 100 100 100 03/08/18 23:25 03/08/18 23:30 03/09/18 00:00 Temperature 98.8 F Pulse Rate 78 80 Respiratory Rate 25 H 27 H Blood Pressure 139/77 141/70 H Pulse Oximetry 100 100 100 03/09/18 00:42 03/09/18 01:00 03/09/18 01:30 Temperature Pulse Rate 76 82 82 Respiratory Rate 27 H 25 H Blood Pressure 114/68 121/58 L 122/58 L Pulse Oximetry 99 99 03/09/18 02:00 03/09/18 02:30 03/09/18 03:00 Temperature Pulse Rate 81 81 80 Respiratory Rate 28 H 27 H 27 H Blood Pressure 142/80 H 133/80 129/78 Pulse Oximetry 99 98 98 03/09/18 03:30 03/09/18 04:00 03/09/18 04:30 Temperature 98.8 F Pulse Rate 76 79 83 Respiratory Rate 23 26 H Blood Pressure 114/63 118/67 132/64 Pulse Oximetry 99 99 98 03/09/18 05:00 03/09/18 05:30 03/09/18 06:00 Temperature Pulse Rate 77 91 H 80 Respiratory Rate 28 H 27 H 26 H Blood Pressure 127/73 121/68 120/62 Pulse Oximetry 98 97 98 03/09/18 07:41 Temperature Pulse Rate Respiratory Rate Blood Pressure Pulse Oximetry 98 Intake & Output 03/08/18 03/09/18 03/09/18 18:59 06:59 18:59 Intake Total 805.50 / 805.50 1124 / 1124 262.5 / 262.5 Output Total 750 / 750 600 / 600 Balance 55.50 / 55.50 524 / 524 262.5 / 262.5 Weight 59.8 kg Intake: IV 262.50 / 262.50 262.5 / 262.5 Vancomycin Inj 1,250 MG In NS 262.50 / 262.50 262.5 / 262.5 Inj 250 ML @ 250 mls/hr IV.SIG Q12H [facility] Rx#:[id number] Oral 0 / 0 Tube Feeding 543 / 543 754 / 754 Tube Irrigant 120 / 120 Water Bolus Amount 250 / 250 Output: Stool 300 / 300 Urine Amount (Catheter) 450 / 450 600 / 600 Indwelling Urethral Catheter 450 / 450 600 / 600 Other: Date of Last Bowel Movement 03/08/18 03/09/18 Narrative: GENERAL: Elderly male, no distress NECK: dry dressings in place on several neck wounds. Trach site clean CHEST: Trach T piece O2. Lungs clear bilaterally, comfortable respiratory pattern. CARDIOVASCULAR: Normal rate, regular rhythm. No JVD ABDOMEN: Soft, non-tender, moderately-distended, no guarding. Bowel sounds are hyper active. MUSCULOSKELETAL: Pulses 2+. No peripheral edema. Well perfused. NEUROLOGICAL: Incomplete quad. FAVIAN 4-/5 proximal uppers grossly, 2/5 distal uppers, 0/5 bilateral lower extremities. - Urinary Catheter Management Indwelling Urethral Catheter Cath placed during this visit: yes, but has since been removed by the nurse Reason for continuing: Chronic Urinary Retention Insertion date: 03/04/18 Insertion time: 16:08 Removal date: 03/04/18 Removal time: 16:06 Results - Labs CBC & Chem 7: 03/09/18 03:36 03/09/18 03:36 Laboratory Results - last 24 hr 03/08/18 03/08/18 03/08/18 12:55 18:00 23:55 WBC RBC Hgb Hct MCV MCH MCHC RDW Plt Count MPV Neut % (Auto) Lymph % (Auto) Door % (Auto) Eos % (Auto) Baso % (Auto) Neut # (Auto) Lymph # (Auto) Door # (Auto) Eos # (Auto) Baso # (Auto) WBC Differential Differential Comment Sodium Potassium Chloride Carbon Dioxide Anion Gap BUN Creatinine Estimated GFR POC Glucose 113 H 126 H 117 H Random Glucose Calcium Phosphorus Magnesium 03/09/18 03/09/18 03:36 03:36 WBC 5.5 RBC 3.05 L Hgb 9.1 L Hct 26.6 L MCV 87.2 MCH 29.9 MCHC 34.3 RDW 15.6 Plt Count 195 MPV 6.8 L Neut % (Auto) 75.9 H Lymph % (Auto) 15.3 Door % (Auto) 7.5 Eos % (Auto) 0.6 Baso % (Auto) 0.7 Neut # (Auto) 4.1 Lymph # (Auto) 0.8 L Door # (Auto) 0.4 Eos # (Auto) 0.0 Baso # (Auto) 0.0 WBC Differential . Differential Comment Auto diff final Sodium 150 H Potassium 3.2 L Chloride 115 H Carbon Dioxide 29.3 Anion Gap 6 BUN 13 Creatinine 0.31 L Estimated GFR Greater than 89 POC Glucose Random Glucose 112 H Calcium 8.0 L Phosphorus 3.2 Magnesium 2.1 Microbiology 03/04/18 16:25 Other Fungal Smear - Final No fungal elements seen 03/04/18 16:21 Wound - Back Fungal Smear - Final No fungal elements seen 03/03/18 10:40 Blood - Line Aerobic Blood Culture - Final No growth in 5 days 03/03/18 10:40 Blood - Line Anaerobic Blood Culture - Final No growth in 5 days - Imaging ITS Impressions Cervical Spine CT 03/02/18 00:00 CONCLUSION: 1. Laminectomy and long segment posterior fusion of the cervical spine again noted. Alignment is unchanged, near-anatomic, and the posterior bone graft material appears to be slowly incorporating but not convincingly solid at this time. 2. Limited study; no definite epidural fluid collection. The fluid collection in the laminectomy bed appears to be decreasing but now appears to communicate with a large soft tissue defect overlying the posterior spinous processes of C7 and T1. Bone is exposed but without perceptible acute obstruction. Previously seen drain has been removed. Cervical Spine X-Ray 03/02/18 00:00 CONCLUSION: Chest X-Ray 03/02/18 00:00 CONCLUSION: 1. Interval placement of tracheostomy tube. 2. No acute cardiopulmonary disease. 3. Left-sided PICC line now noted. Abdomen X-Ray 03/05/18 00:00 CONCLUSION: 1. Diffuse colonic distention consistent with colonic ileus. 2. No gross free air as questioned. - Procedures Operative debridement, resection of C7 and T1 spinous processes, irrigation with Vancomycin powder, closure over a drain Assessment and Plan - Plan 72yM with dehisced posterior cervical incisional wound with MRSA wound infection , now debrided and closed over drain. MRSA wound infection status post surgery - ID following on IV Vanco, MRSA growing from wound culture. Started on rifampin will need at least 4 months of oral antibiotic with as needed periodic imaging studies - Blood/ urine cultures pending - Neurosurgery following Incomplete quadriplegia - Wean trach collar o2 as tolerated - Aggressive pulmonary toilet - Turning/ offloading to prevent pressure wounds - Feedings per PEG tube Acute protein calorie malnutrition- severe - Prealbumin on admission 16 - Tube feeds calculated, goal is jevity 1, 2 packets beneprotein daily - Use PEG tube Chronic respiratory failure - Trach collar o2 - Aggressive pulmonary toilet - PT consult Chronic urinary retention - UA on admission showed few bacteria, no leukocytes or nitrites - Keep chronic indwelling Turner catheter C diff ct po Vanco Hypernatremia and hypokalemia. Start free water via G-tube and replace potassium per protocol SCDs SQHeparin Prevacid Update med rec Overall impression: Satisfactorily weaned from mechanical ventilation. Tolerating trach collar. Watch for dehydration secondary to diarrhea. Discharge Planning: Inpt rehab when arranged. Transfer to med surg
[2018-03-09] MEDS: Potassium Chloride 25 MEQ Effervescent Tablet PO PRN (10:11)
[2018-03-09] MEDS: Lansoprazole ODT 15 MG Tablet G-TUBE SCH (10:12)
[2018-03-09] MEDS: Senna/Docusate Sodium 8.6/50 MG Tablet PO SCH ×2 (10:12→20:16)
[2018-03-09] MEDS: Polyethylene Glycol 3350 17 GM Packet PO SCH ×2 (10:12→20:16)
[2018-03-09] MEDS: Beneprotein Powder Packet G-TUBE SCH ×2 (10:12→20:16)
[2018-03-10] MEDS: Insulin NovoLIN Regular Correctional Sugar Inj SQ SCH ×4 (01:00→18:24)
[2018-03-10] MEDS: Vancomycin Inj 1,250 MG in Sodium Chlor 0.9% Inj 250 ML IV.SIG SCH ×2 (03:42→16:45)
[2018-03-10 04:43] LABS: Baso % (Auto) 0.3 % (0.0-2.0); Eos % (Auto) 0.6 % (0.0-4.0); Hematocrit 29.4 % (39.0-51.0); Hemoglobin 9.8 gm/dL (13.0-17.0); Lymph # (Auto) 0.8 th/mm3 (1.0-4.8); Lymph % (Auto) 13.5 % (9.0-44.0); Mean Corpuscular HGB Conc 33.1 % (32.0-36.0); Mean Corpuscular Hemoglobin 29.7 pg (27.0-34.0); Mean Corpuscular Volume 89.6 fL (80.0-100.0); Mean Platelet Volume 6.8 fL (7.0-11.0); Mono # (Auto) 0.5 th/mm3 (0.0-0.9); Mono % (Auto) 9.2 % (0.0-8.0); Neut # (Auto) 4.4 th/mm3 (1.8-7.7); Neut % (Auto) 76.4 % (16.0-70.0); Platelet Count 171 th/mm3 (150-450); Red Blood Count 3.29 mil/mm3 (4.50-5.90); Red Cell Distribution Width 15.7 % (11.6-17.2); White Blood Count 5.7 th/mm3 (4.0-11.0)
[2018-03-10 05:06] LABS: Anion Gap 8 meq/L (5-15); Blood Urea Nitrogen 15 mg/dL (7-18); Carbon Dioxide 27.7 meq/L (21.0-32.0); Chloride 114 meq/L (98-107); Glomerular Filtration Rate Greater Than 89 mL/min (>89); Glucose,Random 108 mg/dL (74-106); Magnesium 2.3 mg/dL (1.5-2.5); Phosphorus 3.8 mg/dL (2.5-4.9); Potassium 3.6 meq/L (3.5-5.1); Sodium 150 meq/L (136-145)
[2018-03-10 05:09] LABS: Prealbumin 13 mg/dL (20-40)
--- NOTE | 2018-03-10 07:34 | P.PN ---
Subjective Interval history: Follow-up C. difficile. Still having diarrhea but improving. Dw she is aware he will likely not walk again but wishes he could again. Physical Exam Vital signs: Vital Signs 03/09/18 07:41 03/09/18 08:00 03/09/18 08:30 Temperature Pulse Rate 82 77 Respiratory Rate 23 28 H Blood Pressure 108/59 L 131/60 Pulse Oximetry 98 98 98 03/09/18 09:00 03/09/18 09:30 03/09/18 10:00 Temperature 97.9 F Pulse Rate 67 71 82 Respiratory Rate 24 23 23 Blood Pressure 101/57 L 105/55 L 112/55 L Pulse Oximetry 98 99 99 03/09/18 10:30 03/09/18 11:00 03/09/18 12:00 Temperature 98.9 F Pulse Rate 74 76 82 Respiratory Rate 26 H 23 31 H Blood Pressure 101/55 L 108/55 L Pulse Oximetry 100 100 99 03/09/18 13:00 03/09/18 14:00 03/09/18 15:00 Temperature Pulse Rate 90 82 87 Respiratory Rate 31 H 30 H 27 H Blood Pressure Pulse Oximetry 99 99 98 03/09/18 15:30 03/09/18 16:00 03/09/18 17:00 Temperature Pulse Rate 86 85 85 Respiratory Rate 35 H 22 24 Blood Pressure 115/58 L Pulse Oximetry 97 98 99 03/09/18 17:53 03/09/18 18:00 03/09/18 19:00 Temperature Pulse Rate 82 85 90 Respiratory Rate 28 H 38 H Blood Pressure Pulse Oximetry 98 98 03/09/18 19:30 03/09/18 20:00 03/09/18 20:02 Temperature 100.1 F H Pulse Rate 85 83 Respiratory Rate 30 H 26 H Blood Pressure 116/63 Pulse Oximetry 98 98 99 03/09/18 21:00 03/09/18 22:00 03/09/18 23:00 Temperature Pulse Rate 87 90 82 Respiratory Rate 19 23 26 H Blood Pressure Pulse Oximetry 97 98 98 03/09/18 23:30 03/10/18 00:00 03/10/18 01:00 Temperature 98.7 F Pulse Rate 90 85 85 Respiratory Rate 26 H 18 27 H Blood Pressure 126/79 Pulse Oximetry 98 99 99 03/10/18 02:00 03/10/18 03:00 03/10/18 03:30 Temperature Pulse Rate 81 87 81 Respiratory Rate 24 31 H 31 H Blood Pressure 107/57 L Pulse Oximetry 98 99 99 03/10/18 04:00 03/10/18 06:00 Temperature 98.7 F Pulse Rate 84 82 Respiratory Rate 12 Blood Pressure Pulse Oximetry 99 Intake & Output 03/09/18 03/10/18 03/10/18 18:59 06:59 18:59 Intake Total 1248.5 / 1248.5 1533.0 / 1533.0 Output Total 700 / 700 1150 / 1150 Balance 548.5 / 548.5 383.0 / 383.0 Weight 55.4 kg Intake: IV 262.5 / 262.5 525.0 / 525.0 Vancomycin Inj 1,250 MG In NS 262.5 / 262.5 525.0 / 525.0 Inj 250 ML @ 250 mls/hr IV.SIG Q12H [facility] Rx#:[id number] Tube Feeding 586 / 586 548 / 548 Tube Irrigant 60 / 60 Water Bolus Amount 400 / 400 400 / 400 Output: Stool 200 / 200 500 / 500 Urine Amount (Catheter) 500 / 500 650 / 650 Indwelling Urethral Catheter 500 / 500 650 / 650 Other: Date of Last Bowel Movement 03/09/18 03/10/18 Narrative: GENERAL: Elderly male well-developed and well-nourished, no distress NECK: dry dressings in place on several neck wounds. Trach site clean CHEST: Trach T piece O2. Lungs clear bilaterally, comfortable respiratory pattern. CARDIOVASCULAR: Normal rate, regular rhythm. No JVD ABDOMEN: Soft, non-tender, moderately-distended, no guarding. Bowel sounds are normoactive. MUSCULOSKELETAL: Pulses 2+. No peripheral edema. NEUROLOGICAL: Incomplete quad. FAVIAN 4-/5 proximal uppers grossly, 2/5 distal uppers, 0/5 bilateral lower extremities. - Urinary Catheter Management Indwelling Urethral Catheter Cath placed during this visit: yes, but has since been removed by the nurse Reason for continuing: Chronic Urinary Retention Insertion date: 03/04/18 Insertion time: 16:08 Removal date: 03/04/18 Removal time: 16:06 Results - Labs CBC & Chem 7: 03/10/18 04:24 03/10/18 04:24 Laboratory Results - last 24 hr 03/09/18 03/09/18 03/09/18 12:25 13:35 23:49 WBC RBC Hgb Hct MCV MCH MCHC RDW Plt Count MPV Neut % (Auto) Lymph % (Auto) [place] % (Auto) Eos % (Auto) Baso % (Auto) Neut # (Auto) Lymph # (Auto) [place] # (Auto) Eos # (Auto) Baso # (Auto) WBC Differential Differential Comment Sodium Potassium Chloride Carbon Dioxide Anion Gap BUN Creatinine Estimated GFR POC Glucose 105 130 H Random Glucose Calcium Phosphorus Magnesium 2.4 Prealbumin 03/10/18 03/10/18 03/10/18 04:24 04:24 05:49 WBC 5.7 RBC 3.29 L Hgb 9.8 L Hct 29.4 L MCV 89.6 MCH 29.7 MCHC 33.1 RDW 15.7 Plt Count 171 MPV 6.8 L Neut % (Auto) 76.4 H Lymph % (Auto) 13.5 [place] % (Auto) 9.2 H Eos % (Auto) 0.6 Baso % (Auto) 0.3 Neut # (Auto) 4.4 Lymph # (Auto) 0.8 L [place] # (Auto) 0.5 Eos # (Auto) 0.0 Baso # (Auto) 0.0 WBC Differential . Differential Comment Auto diff final Sodium 150 H Potassium 3.6 Chloride 114 H Carbon Dioxide 27.7 Anion Gap 8 BUN 15 Creatinine 0.32 L Estimated GFR Greater than 89 POC Glucose 107 Random Glucose 108 H Calcium 8.0 L Phosphorus 3.8 Magnesium 2.3 Prealbumin 13 L Microbiology 03/04/18 16:25 Other Fungal Smear - Final No fungal elements seen 03/04/18 16:21 Wound - Back Fungal Smear - Final No fungal elements seen - Procedures Operative debridement, resection of C7 and T1 spinous processes, irrigation with Vancomycin powder, closure over a drain Assessment and Plan - Plan 72yM with dehisced posterior cervical incisional wound with MRSA wound infection , now debrided and closed over drain. MRSA wound infection status post surgery - ID following on IV Vanco stop date per ID, MRSA growing from wound culture. Ct rifampin at least 4 months of oral antibiotic with as needed periodic imaging studies - Blood/ urine cultures pending - Neurosurgery following Incomplete quadriplegia - Wean trach collar o2 as tolerated - Aggressive pulmonary toilet - Turning/ offloading to prevent pressure wounds - Feedings per PEG tube Acute protein calorie malnutrition- severe - Prealbumin on admission 16 - Tube feeds calculated, goal is jevity 1/5, 2 packets beneprotein daily - Use PEG tube Chronic respiratory failure - Trach collar o2 - Aggressive pulmonary toilet - PT consult Chronic urinary retention - UA on admission showed few bacteria, no leukocytes or nitrites - Keep chronic indwelling Turner catheter C diff ct po Vanco. Add Lactinex monitor electrolyte Hypernatremia and hypokalemia. Increase free water via G-tube and replace potassium per protocol SCDs SQHeparin Prevacid Update med rec Overall impression: Satisfactorily weaned from mechanical ventilation. Tolerating trach collar. Watch for dehydration secondary to diarrhea. Discharge Planning: Inpt rehab when arranged. Transfer to med surg
[2018-03-10] MEDS: Lansoprazole ODT 15 MG Tablet G-TUBE SCH (09:04)
[2018-03-10] MEDS: Lactobacillus Acidophilus/L. Spores Tablet G-TUBE SCH ×3 (09:04→18:18)
[2018-03-10] MEDS: Beneprotein Powder Packet G-TUBE SCH ×2 (09:05→20:43)
--- NOTE | 2018-03-10 14:45 | P.PNID ---
Subjective Remarks: is a 72 y/o CM with h/o fall from a ladder originally on 2017. He was diagnosed with paraplegia, ended up being trached and PEGed. Patient underwent C3-T1 Instrumentation to stabilize his spine by . Post op there was wound dehiscence noted and he was seen by Dr.Alexandra Manuela RUSSELL and started on Vanco IV. He was later sent to [facility] in [place]. He had a trach collar at some point leading to ulcer under his left chin and on back of his forehead timing of these is not known. He was transferred back to [facility] for washout of the wounds by . A CT spine was done which showed fluid collection in the deeper tissues connecting to exterior wound. Due to concern for discitis and epidural abscess ID consulted. At the time of my evaluation patient is in the intensive surgical care unit currently trached and pegged and in a trach collar. Patient opens his eyes but is unable to move any of his extremities except his right upper extremity that he possibly withdraws from spasms. Patient has ongoing diarrhea and was diagnosed with C. difficile at the other hospital. Upon opening straight collar and noticed a ulcer on her left mandible area, another ulcer on the posterior occipital area on the right side as well as the original surgical incision on the superior aspect appeared to be dehisced in both of these appear to be tracking down to the bone there is no surgical site has yellowish discharge which appears to be copious. Overnight events reviewed with RN No fever No rash No diarrhea Trach but off vent Antibiotics: Vanco IV Lines: Lines ok Past Medical History: reviewed. Allergies/Adverse Reactions: Allergies No Known Allergies Allergy (Verified 01/21/18 18:40) Objective Vital Signs 03/09/18 15:00 03/09/18 15:30 03/09/18 16:00 Temperature Pulse Rate 87 86 85 Respiratory Rate 27 H 35 H 22 Blood Pressure 115/58 L Pulse Oximetry 98 97 98 03/09/18 17:00 03/09/18 17:53 03/09/18 18:00 Temperature Pulse Rate 85 82 85 Respiratory Rate 24 28 H Blood Pressure Pulse Oximetry 99 98 03/09/18 19:00 03/09/18 19:30 03/09/18 20:00 Temperature 100.1 F H Pulse Rate 90 85 83 Respiratory Rate 38 H 30 H 26 H Blood Pressure 116/63 Pulse Oximetry 98 98 98 03/09/18 20:02 03/09/18 21:00 03/09/18 22:00 Temperature Pulse Rate 87 90 Respiratory Rate 19 23 Blood Pressure Pulse Oximetry 99 97 98 03/09/18 23:00 03/09/18 23:30 03/10/18 00:00 Temperature 98.7 F Pulse Rate 82 90 85 Respiratory Rate 26 H 26 H 18 Blood Pressure 126/79 Pulse Oximetry 98 98 99 03/10/18 01:00 03/10/18 02:00 03/10/18 03:00 Temperature Pulse Rate 85 81 87 Respiratory Rate 27 H 24 31 H Blood Pressure Pulse Oximetry 99 98 99 03/10/18 03:30 03/10/18 04:00 03/10/18 06:00 Temperature 98.7 F Pulse Rate 81 84 82 Respiratory Rate 31 H 12 Blood Pressure 107/57 L Pulse Oximetry 99 99 03/10/18 08:00 03/10/18 10:59 03/10/18 12:00 Temperature 98.5 F 97.3 F L Pulse Rate 66 82 Respiratory Rate 15 16 Blood Pressure 93/50 L 139/72 Pulse Oximetry 99 98 100 Intake & Output 03/09/18 03/10/18 03/10/18 18:59 06:59 18:59 Intake Total 1248.5 / 1248.5 1533.0 / 1533.0 Output Total 700 / 700 1150 / 1150 Balance 548.5 / 548.5 383.0 / 383.0 Weight 55.4 kg Intake: IV 262.5 / 262.5 525.0 / 525.0 Vancomycin Inj 1,250 MG In NS 262.5 / 262.5 525.0 / 525.0 Inj 250 ML @ 250 mls/hr IV.SIG Q12H [facility] Rx#:[id number] Tube Feeding 586 / 586 548 / 548 Tube Irrigant 60 / 60 Water Bolus Amount 400 / 400 400 / 400 Output: Stool 200 / 200 500 / 500 Urine Amount (Catheter) 500 / 500 650 / 650 Indwelling Urethral Catheter 500 / 500 650 / 650 Other: Date of Last Bowel Movement 03/09/18 03/10/18 03/10/18 03/04/18 16:25 Other Fungal Smear - Final No fungal elements seen 03/04/18 16:25 Other Fungal Culture - Pending 03/04/18 16:21 Wound - Back Fungal Smear - Final No fungal elements seen 03/04/18 16:21 Wound - Back Fungal Culture - Pending 03/03/18 10:40 Blood - Line Aerobic Blood Culture - Final No growth in 5 days 03/03/18 10:40 Blood - Line Anaerobic Blood Culture - Final No growth in 5 days 03/04/18 16:25 Other Acid Fast Bacilli Smear - Final No acid fast bacilli seen 03/04/18 16:25 Other Mycobacterial Culture - Pending 03/04/18 16:21 Wound - Back Acid Fast Bacilli Smear - Final No acid fast bacilli seen 03/04/18 16:21 Wound - Back Mycobacterial Culture - Pending Lab - Hematology Results 03/09/18 03/10/18 03:36 04:24 WBC 5.5 5.7 RBC 3.05 L 3.29 L Hgb 9.1 L 9.8 L Hct 26.6 L 29.4 L MCV 87.2 89.6 MCH 29.9 29.7 MCHC 34.3 33.1 RDW 15.6 15.7 Plt Count 195 171 MPV 6.8 L 6.8 L Neut % (Auto) 75.9 H 76.4 H Lymph % (Auto) 15.3 13.5 [place] % (Auto) 7.5 9.2 H Eos % (Auto) 0.6 0.6 Baso % (Auto) 0.7 0.3 Neut # (Auto) 4.1 4.4 Lymph # (Auto) 0.8 L 0.8 L [place] # (Auto) 0.4 0.5 Eos # (Auto) 0.0 0.0 Baso # (Auto) 0.0 0.0 WBC Differential . . Differential Comment Auto diff final Auto diff final Lab - Chemistry Results 03/08/18 03/08/18 03/09/18 18:00 23:55 03:36 Sodium 150 H Potassium 3.2 L Chloride 115 H Carbon Dioxide 29.3 Anion Gap 6 BUN 13 Creatinine 0.31 L Estimated GFR Greater than 89 POC Glucose 126 H 117 H Random Glucose 112 H Calcium 8.0 L Phosphorus 3.2 Magnesium 2.1 Prealbumin 03/09/18 03/09/18 03/09/18 12:25 13:35 23:49 Sodium Potassium Chloride Carbon Dioxide Anion Gap BUN Creatinine Estimated GFR POC Glucose 105 130 H Random Glucose Calcium Phosphorus Magnesium 2.4 Prealbumin 03/10/18 03/10/18 03/10/18 04:24 05:49 11:59 Sodium 150 H Potassium 3.6 Chloride 114 H Carbon Dioxide 27.7 Anion Gap 8 BUN 15 Creatinine 0.32 L Estimated GFR Greater than 89 POC Glucose 107 118 H Random Glucose 108 H Calcium 8.0 L Phosphorus 3.8 Magnesium 2.3 Prealbumin 13 L Imaging: ITS Impressions Cervical Spine CT 03/02/18 00:00 CONCLUSION: 1. Laminectomy and long segment posterior fusion of the cervical spine again noted. Alignment is unchanged, near-anatomic, and the posterior bone graft material appears to be slowly incorporating but not convincingly solid at this time. 2. Limited study; no definite epidural fluid collection. The fluid collection in the laminectomy bed appears to be decreasing but now appears to communicate with a large soft tissue defect overlying the posterior spinous processes of C7 and T1. Bone is exposed but without perceptible acute obstruction. Previously seen drain has been removed. Cervical Spine X-Ray 03/02/18 00:00 CONCLUSION: Chest X-Ray 03/02/18 00:00 CONCLUSION: 1. Interval placement of tracheostomy tube. 2. No acute cardiopulmonary disease. 3. Left-sided PICC line now noted. Abdomen X-Ray 03/05/18 00:00 CONCLUSION: 1. Diffuse colonic distention consistent with colonic ileus. 2. No gross free air as questioned. Physical Exam: GENERAL: Well-nourished well-developed, not in acute distress SKIN: Cool and dry, no generalized rash HEAD: Atraumatic. Normocephalic. No temporal or scalp tenderness. EYES: Pupils equal round and reactive. Scleral icterus. No injection or drainage. No petechia Trach site with no e.o infection Left mandibular area with ulceration down to the bone. Left scalp posterior occipital area on right with ulceration and unhealthy granulation tissue. Surgical site with dressing. NECK: Trachea midline. Supple, nontender, no meningeal signs. CARDIOVASCULAR: HS audible. RESPIRATORY: Clear to auscultation bilaterally. GASTROINTESTINAL: Abdomen soft nontender. MUSCULOSKELETAL: Extremities without clubbing, cyanosis. NEUROLOGICAL: Alert oriented 3. Nonfocal. Psych cooperative IV line sites ok Assessment and Plan - Plan MRSA epidural abscess/discitis Surgical site infection at site of recent C5-T1 Instrumentation (hardware in place) H/o fall as preceding incident to surgery. Occipital wound stage 3-4 down to bone ? osteomyelitis. Left mandible inferior aspect with ulcer down to done ? osteomyelitis. Cdiff diagnosed at LTAC. Trach in place PEG in place h/o HCAP at other hospital with Sten Mal Rxed per records. 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 dw patients : Patient will likely need oral antibiotics for approx 4 months as well as periodic repeat imaging. Tentative plan for spinal hardware infection 6-8 weeks depending on repeat imaging. Patient will need ID specialist consult at LTAC. Please call me when patient accepted or transferred to LTAC.
[2018-03-11] MEDS: Insulin NovoLIN Regular Correctional Sugar Inj SQ SCH ×4 (02:09→17:19)
[2018-03-11] MEDS: Vancomycin Inj 1,250 MG in Sodium Chlor 0.9% Inj 250 ML IV.SIG SCH ×2 (04:30→16:01)
[2018-03-11] MEDS: Lactobacillus Acidophilus/L. Spores Tablet G-TUBE SCH ×3 (08:23→17:19)
[2018-03-11] MEDS: Lansoprazole ODT 15 MG Tablet G-TUBE SCH (08:23)
[2018-03-11] MEDS: Beneprotein Powder Packet G-TUBE SCH ×2 (08:24→20:40)
--- NOTE | 2018-03-11 10:08 | P.PNNS ---
Subjective Interval history: Doing much better. Attempting to talk, moving arms. Incision c/d/i Physical Exam Vital signs: Vital Signs 03/10/18 10:59 03/10/18 12:00 03/10/18 16:00 Temperature 97.3 F L 97.7 F Pulse Rate 82 83 Respiratory Rate 16 18 Blood Pressure 139/72 139/63 Pulse Oximetry 98 100 98 03/10/18 19:00 03/10/18 19:30 03/10/18 20:00 Temperature 98.6 F Pulse Rate 77 77 77 Respiratory Rate 12 14 20 Blood Pressure 111/60 Pulse Oximetry 99 99 98 03/10/18 21:00 03/10/18 21:55 03/10/18 21:56 Temperature Pulse Rate 79 77 Respiratory Rate 4 L 31 H Blood Pressure 116/65 Pulse Oximetry 99 98 100 03/10/18 22:00 03/10/18 23:00 03/10/18 23:30 Temperature Pulse Rate 87 80 82 Respiratory Rate 25 H 11 L 24 Blood Pressure 132/65 Pulse Oximetry 100 100 100 03/11/18 00:00 03/11/18 01:00 03/11/18 02:00 Temperature 98.6 F Pulse Rate 80 81 77 Respiratory Rate 15 28 H 16 Blood Pressure Pulse Oximetry 100 99 98 03/11/18 03:00 03/11/18 03:30 03/11/18 04:00 Temperature Pulse Rate 82 74 78 Respiratory Rate 13 17 12 Blood Pressure 96/52 L Pulse Oximetry 99 97 98 03/11/18 05:00 03/11/18 06:00 03/11/18 06:10 Temperature 98.4 F Pulse Rate 80 93 H Respiratory Rate 18 21 Blood Pressure Pulse Oximetry 98 99 98 03/11/18 07:00 03/11/18 07:30 03/11/18 08:00 Temperature Pulse Rate 74 72 76 Respiratory Rate 9 L 0 L 11 L Blood Pressure 106/66 Pulse Oximetry 97 98 98 03/11/18 09:00 Temperature Pulse Rate 84 Respiratory Rate 21 Blood Pressure Pulse Oximetry 100 Intake & Output 03/10/18 03/11/18 03/11/18 18:59 06:59 18:59 Intake Total 1108.5 / 1108.5 1183.5 / 1183.5 Output Total 825 / 825 450 / 450 Balance 283.5 / 283.5 733.5 / 733.5 Weight 58.9 kg Intake: IV 262.5 / 262.5 262.5 / 262.5 Vancomycin Inj 1,250 MG In NS 262.5 / 262.5 262.5 / 262.5 Inj 250 ML @ 250 mls/hr IV.SIG Q12H [facility] Rx#:[id number] Tube Feeding 606 / 606 461 / 461 Water Bolus Amount 240 / 240 460 / 460 Output: Stool 100 / 100 Urine Amount (Catheter) 725 / 725 450 / 450 Indwelling Urethral Catheter 725 / 725 450 / 450 Other: Date of Last Bowel Movement 03/10/18 03/10/18 03/10/18 Narrative: Moving upper extremities vigorously of arms down to wrists, some movement of hands. Following commands. No movement of lower extremities Neck incision c/d/i- sutures in place - Urinary Catheter Management Indwelling Urethral Catheter Cath placed during this visit: yes, but has since been removed by the nurse Reason for continuing: Acute urinary retention Insertion date: 03/04/18 Insertion time: 16:08 Removal date: 03/04/18 Removal time: 16:06 Assessment and Plan - Plan 72yoM with cervical spinal cord injury, s/p cervicothoracic fusion on 01/21/18, wound dehiscence readmitted from [facility] 03/02/18. Admit Per Dr. Szymanski plan OR surgical debridement of posterior cervical wound on Wednesday03/04/18 AM. Stop Heparin. ID consult, wound swabs taken, CBC with diff, BMP, continue Vancomycin and other [employer] doses Dr. Szymanski cleared and discontinued cervical collar. Discussed with family, RN, ID, Dr. Szymanski. 03/04/18 CT c-spine reviewed showing stable construct C3-T1 -- collar dc/d Plan operative debridement with cultures and attempt at primary closure vs. wound vac. Appreciate ID recs. Would also attempt to increase this man's nutrition to facilitate wound healing -- via PEG 03/05/18 Continue KIANA drain Re: Abdominal distention, KUB and if concerning may proceed with abdomen/pelvis -- possible G surg consult Patient has C. Diff and has been having voluminous diarrhea, on po vancomycin, peg tube flushes well with little residual, no fever 03/06/18 Continue KIANA drain Transfer out when ok w/ ICU team. appreciate ID recs re MRSA osteo treatment. Continue good nutrition to heal wounds. Family requesting [facility] or alternate place than prior location. 03/11/18 Remove sutures in 2 weeks from today -- 03/25/18 He is cleared to go to [facility] from a neurosurgical point of view. Remainder of plans per ID, primary team
--- NOTE | 2018-03-11 11:51 | P.DIET ---
Nutritional Evaluation Type of nutrition evaluation: follow-up Nutrition consult regarding: Tube Feeding Nutrition screening: [facility] (03/03) Objective - Diagnosis Spinal Cord Injury - Objective % IBW: 84 (IBW: 75.5kg) Body Weight Used for Calculations: Actual (63.3kg) Energy Needs - Lower Range (kCal/kg): 30 Energy Needs - Upper Range (kCal/kg): 35 Lower Limit kCal/kg (kCals): 1,899 Upper Limit kCal/kg (kCals): 2,216 Lower Limit Protein Factor (Grams per Kg): 1.2 Upper Limit Protein Factor (Grams per Kg): 1.5 Lower Protein Needs (Protein): 76 Upper Protein Needs (Protein): 95 Fluid Factor (ml/kg): 32 Estimated Fluid Needs (ml): 2,026 Dietitian Reviewed in Medical Record: Current diet, Curent medications, Intake & Output, Labs, Medical history, Tube feeding, Wound/DTI Diet Order: NPO Objective Comments: Spinal Cord Injury (01/23/2018) Assessment Assessment: Pt remains at high nutritional risk r/t current clinical status and need for a TF for nutrition support. Pt is s/p spinal cord injury from a fall from a ladder on 01/23/18. He is now s/p debridement and primary closure of posterior cervical incision (03/04). Pt is receiving Jevity 1.5 @ 45 mls/hr. In addition, pt is receiving 2 packets Beneprotein/day which adds 50kcals and 12gms protein. Recommend increase TF rate to 60 mls/hr. Pt would also benefit from Jhony to aid in wound healing. Will monitor clinical course. Recommendations: TF Jevity 1.5 with goal rate 60ml/hr Beneprotein 1 pkt bid Recommend Jhony bid for wound healing Dietitian to Monitor: Lab values, Intake & Output, Tube feeding tolerance, Weight change, Wound/skin status, Medical course
[2018-03-11] MEDS: Gabapentin 100 MG Capsule G-TUBE SCH ×2 (12:20→17:19)
[2018-03-11 13:36] LABS: Anion Gap 6 meq/L (5-15); Blood Urea Nitrogen 17 mg/dL (7-18); Calcium 7.6 mg/dL (8.5-10.1); Carbon Dioxide 28.5 meq/L (21.0-32.0); Chloride 109 meq/L (98-107); Glomerular Filtration Rate Greater Than 89 mL/min (>89); Glucose,Random 125 mg/dL (74-106); Magnesium 2.1 mg/dL (1.5-2.5); Potassium 3.7 meq/L (3.5-5.1); Sodium 143 meq/L (136-145)
--- NOTE | 2018-03-11 14:03 | P.PN ---
Subjective Interval history: Follow-up C. difficile. No BM since yesterday. [facility]wait[facility] from [facility] Physical Exam Vital signs: Vital Signs 03/10/18 16:00 03/10/18 19:00 03/10/18 19:30 Temperature 97.7 F Pulse Rate 83 77 77 Respiratory Rate 18 12 14 Blood Pressure 139/63 111/60 Pulse Oximetry 98 99 99 03/10/18 20:00 03/10/18 21:00 03/10/18 21:55 Temperature 98.6 F Pulse Rate 77 79 Respiratory Rate 20 4 L Blood Pressure Pulse Oximetry 98 99 98 03/10/18 21:56 03/10/18 22:00 03/10/18 23:00 Temperature Pulse Rate 77 87 80 Respiratory Rate 31 H 25 H 11 L Blood Pressure 116/65 Pulse Oximetry 100 100 100 03/10/18 23:30 03/11/18 00:00 03/11/18 01:00 Temperature 98.6 F Pulse Rate 82 80 81 Respiratory Rate 24 15 28 H Blood Pressure 132/65 Pulse Oximetry 100 100 99 03/11/18 02:00 03/11/18 03:00 03/11/18 03:30 Temperature Pulse Rate 77 82 74 Respiratory Rate 16 13 17 Blood Pressure 96/52 L Pulse Oximetry 98 99 97 03/11/18 04:00 03/11/18 05:00 03/11/18 06:00 Temperature 98.4 F Pulse Rate 78 80 93 H Respiratory Rate 12 18 21 Blood Pressure Pulse Oximetry 98 98 99 03/11/18 06:10 03/11/18 07:00 03/11/18 07:30 Temperature Pulse Rate 74 72 Respiratory Rate 9 L 0 L Blood Pressure 106/66 Pulse Oximetry 98 97 98 03/11/18 08:00 03/11/18 09:00 03/11/18 10:00 Temperature Pulse Rate 76 84 82 Respiratory Rate 11 L 21 Blood Pressure Pulse Oximetry 98 100 Intake & Output 03/10/18 03/11/18 03/11/18 18:59 06:59 18:59 Intake Total 1108.5 / 1108.5 1183.5 / 1183.5 Output Total 825 / 825 450 / 450 Balance 283.5 / 283.5 733.5 / 733.5 Weight 58.9 kg Intake: IV 262.5 / 262.5 262.5 / 262.5 Vancomycin Inj 1,250 MG In NS 262.5 / 262.5 262.5 / 262.5 Inj 250 ML @ 250 mls/hr IV.SIG Q12H [facility] Rx#:[id number] Tube Feeding 606 / 606 461 / 461 Water Bolus Amount 240 / 240 460 / 460 Output: Stool 100 / 100 Urine Amount (Catheter) 725 / 725 450 / 450 Indwelling Urethral Catheter 725 / 725 450 / 450 Other: Date of Last Bowel Movement 03/10/18 03/10/18 03/10/18 Narrative: Moving upper extremities vigorously of arms down to wrists, some movement of hands. Following commands. No movement of lower extremities Neck incision c/d/i- sutures in place - Urinary Catheter Management Indwelling Urethral Catheter Cath placed during this visit: yes, but has since been removed by the nurse Reason for continuing: Acute urinary retention Insertion date: 03/04/18 Insertion time: 16:08 Removal date: 03/04/18 Removal time: 16:06 Results - Labs CBC & Chem 7: 03/10/18 04:24 03/11/18 12:46 Laboratory Results - last 24 hr 03/10/18 03/11/18 03/11/18 18:23 00:08 12:28 Sodium Potassium Chloride Carbon Dioxide Anion Gap BUN Creatinine Estimated GFR POC Glucose 127 H 135 H 130 H Random Glucose Calcium Magnesium 03/11/18 12:46 Sodium 143 Potassium 3.7 Chloride 109 H Carbon Dioxide 28.5 Anion Gap 6 BUN 17 Creatinine 0.38 L Estimated GFR Greater than 89 POC Glucose Random Glucose 125 H Calcium 7.6 L Magnesium 2.1 Microbiology 03/04/18 16:21 Wound - Back Fungal Smear - Final No fungal elements seen 03/04/18 16:21 Wound - Back Fungal Culture - Preliminary No growth in 1 week 03/04/18 16:21 Wound - Back Acid Fast Bacilli Smear - Final No acid fast bacilli seen 03/04/18 16:21 Wound - Back Mycobacterial Culture - Preliminary No growth in 1 week 03/04/18 16:25 Other Fungal Smear - Final No fungal elements seen 03/04/18 16:25 Other Fungal Culture - Preliminary No growth in 1 week 03/04/18 16:25 Other Acid Fast Bacilli Smear - Final No acid fast bacilli seen 03/04/18 16:25 Other Mycobacterial Culture - Preliminary No growth in 1 week - Procedures Operative debridement, resection of C7 and T1 spinous processes, irrigation with Vancomycin powder, closure over a drain Assessment and Plan - Plan 72yM with dehisced posterior cervical incisional wound with MRSA wound infection , now debrided and closed over drain. MRSA wound infection status post surgery - ID following on IV Vanco stop date per ID, MRSA growing from wound culture. Ct rifampin at least 4 months of oral antibiotic with as needed periodic imaging studies - Blood/ urine cultures pending - Neurosurgery following DC sutures March 25, 2018 Incomplete quadriplegia - Wean trach collar o2 as tolerated - Aggressive pulmonary toilet - Turning/ offloading to prevent pressure wounds - Feedings per PEG tube and mechanical soft per speech therapy Acute protein calorie malnutrition- severe - Prealbumin on admission 16 - Tube feeds calculated, goal is jevity 1.5 - Use PEG tube Chronic respiratory failure - Trach collar o2 - Aggressive pulmonary toilet - PT consult Chronic urinary retention - UA on admission showed few bacteria, no leukocytes or nitrites - Keep chronic indwelling Turner catheter C diff ct po Vanco. Improving Lactinex monitor electrolyte Hypernatremia and hypokalemia. Improving free water via G-tube and replace potassium per protocol SCDs SQHeparin Prevacid Update med rec Overall impression: Satisfactorily weaned from mechanical ventilation. Tolerating trach collar. Watch for dehydration secondary to diarrhea. Discharge Planning: [facility] will not be able to take the patient at this time. Referred to[facility]
[2018-03-11] MEDS ORDERED: Cathflo Activase Inj 2 MG Vial IV.PUSH ONE (17:00)
[2018-03-12] MEDS: Insulin NovoLIN Regular Correctional Sugar Inj SQ SCH ×4 (00:32→17:21)
[2018-03-12] MEDS ORDERED: Pharmacy Ordered Lab Info OTHER ONE ×2 (03:45→15:45)
[2018-03-12] MEDS: Vancomycin Inj 1,250 MG in Sodium Chlor 0.9% Inj 250 ML IV.SIG SCH ×2 (04:15→16:35)
[2018-03-12 07:00] LABS: Calcium 7.8 mg/dL (8.5-10.1); Carbon Dioxide 27.8 meq/L (21.0-32.0); Magnesium 2.5 mg/dL (1.5-2.5); Potassium 4.2 meq/L (3.5-5.1)
[2018-03-12] MEDS: Lactobacillus Acidophilus/L. Spores Tablet G-TUBE SCH ×3 (08:37→17:20)
[2018-03-12] MEDS: Beneprotein Powder Packet G-TUBE SCH ×2 (08:37→20:49)
[2018-03-12] MEDS: Gabapentin 100 MG Capsule G-TUBE SCH ×3 (08:37→17:21)
[2018-03-12] MEDS: Lansoprazole ODT 15 MG Tablet G-TUBE SCH (08:37)
--- NOTE | 2018-03-12 11:26 | P.PN ---
Subjective Interval history: Improving diarrhea has rectal tube. Moderate yellow trach secretions no fever. [facility]wait[facility] Physical Exam Vital signs: Vital Signs 03/11/18 11:30 03/11/18 12:00 03/11/18 13:00 Temperature Pulse Rate 84 83 84 Respiratory Rate 27 H 29 H 21 Blood Pressure 129/71 Pulse Oximetry 100 100 99 03/11/18 14:00 03/11/18 14:23 03/11/18 15:00 Temperature Pulse Rate 89 92 H Respiratory Rate 20 34 H Blood Pressure Pulse Oximetry 99 98 100 03/11/18 15:30 03/11/18 16:00 03/11/18 17:00 Temperature Pulse Rate 92 H 94 H 93 H Respiratory Rate 25 H 13 25 H Blood Pressure 134/78 Pulse Oximetry 99 98 98 03/11/18 18:00 03/11/18 19:00 03/11/18 19:30 Temperature Pulse Rate 93 H 94 H 95 H Respiratory Rate 22 18 25 H Blood Pressure 143/74 H Pulse Oximetry 98 98 97 03/11/18 19:32 03/11/18 20:00 03/11/18 21:00 Temperature 98.3 F Pulse Rate 94 H 96 H Respiratory Rate 17 18 Blood Pressure Pulse Oximetry 96 97 98 03/11/18 22:00 03/11/18 23:00 03/11/18 23:46 Temperature Pulse Rate 92 H 91 H 89 Respiratory Rate 15 26 H 24 Blood Pressure 107/59 L Pulse Oximetry 98 98 98 03/12/18 00:00 03/12/18 01:00 03/12/18 02:00 Temperature 98.4 F Pulse Rate 85 90 88 Respiratory Rate 15 24 18 Blood Pressure Pulse Oximetry 97 97 97 03/12/18 02:12 03/12/18 03:00 03/12/18 03:30 Temperature Pulse Rate 88 81 85 Respiratory Rate 22 21 18 Blood Pressure 116/68 115/90 Pulse Oximetry 98 97 98 03/12/18 04:00 03/12/18 05:00 03/12/18 06:00 Temperature 98.4 F Pulse Rate 84 85 90 Respiratory Rate 23 21 26 H Blood Pressure Pulse Oximetry 98 98 98 03/12/18 07:00 03/12/18 07:30 03/12/18 07:44 Temperature Pulse Rate 79 83 Respiratory Rate 24 22 Blood Pressure 114/57 L Pulse Oximetry 97 99 97 03/12/18 08:00 03/12/18 09:00 03/12/18 10:00 Temperature 98.6 F Pulse Rate 78 75 84 Respiratory Rate 19 23 32 H Blood Pressure 114/57 L Pulse Oximetry 97 98 99 03/12/18 11:00 Temperature Pulse Rate 85 Respiratory Rate 30 H Blood Pressure Pulse Oximetry 95 Intake & Output 03/11/18 03/12/18 03/12/18 18:59 06:59 18:59 Intake Total 1211.5 / 1211.5 1403.5 / 1403.5 Output Total 800 / 800 500 / 500 Balance 411.5 / 411.5 903.5 / 903.5 Weight 62 kg Intake: IV 262.5 / 262.5 242.5 / 242.5 Vancomycin Inj 1,250 MG In NS 262.5 / 262.5 242.5 / 242.5 Inj 250 ML @ 250 mls/hr IV.SIG Q12H [facility] Rx#:[id number] Tube Feeding 549 / 549 761 / 761 Water Bolus Amount 400 / 400 400 / 400 Output: Stool 50 / 50 400 / 400 Urine Amount (Catheter) 750 / 750 100 / 100 Indwelling Urethral Catheter 750 / 750 100 / 100 Other: Date of Last Bowel Movement 03/11/18 03/10/18 03/12/18 Narrative: Moving upper extremities vigorously of arms down to wrists, some movement of hands. Following commands. No movement of lower extremities Neck incision c/d/i- sutures in place - Urinary Catheter Management Indwelling Urethral Catheter Cath placed during this visit: yes, but has since been removed by the nurse Reason for continuing: Acute urinary retention Insertion date: 03/04/18 Insertion time: 16:08 Removal date: 03/04/18 Removal time: 16:06 Results - Labs CBC & Chem 7: 03/10/18 04:24 03/12/18 05:35 Laboratory Results - last 24 hr 03/11/18 03/11/18 03/11/18 12:28 12:46 17:34 Sodium 143 Potassium 3.7 Chloride 109 H Carbon Dioxide 28.5 Anion Gap 6 BUN 17 Creatinine 0.38 L Estimated GFR Greater than 89 POC Glucose 130 H 110 Random Glucose 125 H Calcium 7.6 L Magnesium 2.1 Vancomycin Trough 03/11/18 03/12/18 23:44 05:35 Sodium 143 Potassium 4.2 Chloride 107 Carbon Dioxide 27.8 Anion Gap 8 BUN 28 H Creatinine 1.13 Estimated GFR 64 L POC Glucose 121 H Random Glucose 111 H Calcium 7.8 L Magnesium 2.5 Vancomycin Trough Cancelled Microbiology 03/04/18 16:21 Wound - Back Fungal Smear - Final No fungal elements seen 03/04/18 16:21 Wound - Back Fungal Culture - Preliminary No growth in 1 week 03/04/18 16:21 Wound - Back Acid Fast Bacilli Smear - Final No acid fast bacilli seen 03/04/18 16:21 Wound - Back Mycobacterial Culture - Preliminary No growth in 1 week 03/04/18 16:25 Other Fungal Smear - Final No fungal elements seen 03/04/18 16:25 Other Fungal Culture - Preliminary No growth in 1 week 03/04/18 16:25 Other Acid Fast Bacilli Smear - Final No acid fast bacilli seen 03/04/18 16:25 Other Mycobacterial Culture - Preliminary No growth in 1 week - Procedures Operative debridement, resection of C7 and T1 spinous processes, irrigation with Vancomycin powder, closure over a drain Assessment and Plan - Plan 72yM with dehisced posterior cervical incisional wound with MRSA wound infection , now debrided and closed over drain. MRSA wound infection status post surgery - ID following on IV Vanco stop date per ID, MRSA growing from wound culture. Ct rifampin at least 4 months of oral antibiotic with as needed periodic imaging studies - Blood/ urine cultures pending - Neurosurgery following DC sutures March 25, 2018 - RN to verify PICC insertion date may need exchange Incomplete quadriplegia - Wean trach collar o2 as tolerated - Aggressive pulmonary toilet - Turning/ offloading to prevent pressure wounds - Feedings per PEG tube and mechanical soft per speech therapy Acute protein calorie malnutrition- severe - Prealbumin on admission 16 - Tube feeds calculated, goal is jevity 1.5 - Use PEG tube Chronic respiratory failure - Trach collar o2 - Aggressive pulmonary toilet - PT consult Chronic urinary retention - UA on admission showed few bacteria, no leukocytes or nitrites - Keep chronic indwelling Turner catheter C diff ct po Vanco. Improving Lactinex monitor electrolyte Hypernatremia and hypokalemia. Improving free water via G-tube and replace potassium per protocol SCDs SQHeparin Prevacid Update med rec Overall impression: Satisfactorily weaned from mechanical ventilation. Tolerating trach collar. Watch for dehydration secondary to diarrhea. CBC and BMP in am Discharge Planning: [facility] will not be able to take the patient at this time. [facility]erred to [facility] awaiting acceptance
[2018-03-13] MEDS: Insulin NovoLIN Regular Correctional Sugar Inj SQ SCH ×4 (00:18→18:30)
[2018-03-13] MEDS: Vancomycin Inj 1,250 MG in Sodium Chlor 0.9% Inj 250 ML IV.SIG SCH (04:59)
[2018-03-13 06:32] LABS: Calcium 6.8 mg/dL (8.5-10.1); Carbon Dioxide 25.8 meq/L (21.0-32.0); Potassium 3.4 meq/L (3.5-5.1)
[2018-03-13 06:41] LABS: Albumin 1.4 g/dL (3.4-5.0); Calcium-Albumin Corrected 8.9 mg/dL (8.5-10.1)
[2018-03-13 08:20] LABS: Baso % (Auto) 0.2 % (0.0-2.0); Eos % (Auto) 0.5 % (0.0-4.0); Hematocrit 22.4 % (39.0-51.0); Hemoglobin 7.6 gm/dL (13.0-17.0); Lymph # (Auto) 0.7 th/mm3 (1.0-4.8); Lymph % (Auto) 7.3 % (9.0-44.0); Mean Corpuscular Hemoglobin 29.5 pg (27.0-34.0); Mean Corpuscular Volume 86.8 fL (80.0-100.0); Mean Platelet Volume 7.4 fL (7.0-11.0); Mono # (Auto) 0.7 th/mm3 (0.0-0.9); Mono % (Auto) 7.1 % (0.0-8.0); Neut # (Auto) 7.8 th/mm3 (1.8-7.7); Neut % (Auto) 84.9 % (16.0-70.0); Platelet Count 143 th/mm3 (150-450); Red Blood Count 2.58 mil/mm3 (4.50-5.90); Red Cell Distribution Width 15.2 % (11.6-17.2); White Blood Count 9.2 th/mm3 (4.0-11.0)
--- NOTE | 2018-03-13 08:58 | P.PN ---
Subjective Interval history: Follow-up anemia and C. difficile. No gross bleeding. Improving diarrhea. Still with significant trach secretions patient has no fever or leukocytosis start labs and discussed with nursing Physical Exam Vital signs: Vital Signs 03/12/18 09:00 03/12/18 10:00 03/12/18 11:00 Temperature Pulse Rate 75 84 85 Respiratory Rate 23 32 H 30 H Blood Pressure Pulse Oximetry 98 99 95 03/12/18 11:30 03/12/18 12:00 03/12/18 13:00 Temperature 99.4 F Pulse Rate 83 83 98 H Respiratory Rate 28 H 31 H 36 H Blood Pressure 99/53 L Pulse Oximetry 96 96 95 03/12/18 13:20 03/12/18 14:00 03/12/18 15:00 Temperature Pulse Rate 93 H 96 H 92 H Respiratory Rate 34 H 39 H 24 Blood Pressure 120/56 L Pulse Oximetry 95 95 95 03/12/18 15:30 03/12/18 16:00 03/12/18 17:00 Temperature 99.6 F Pulse Rate 93 H 91 H 87 Respiratory Rate 29 H 33 H 19 Blood Pressure 129/70 Pulse Oximetry 96 97 96 03/12/18 18:00 03/12/18 19:00 03/12/18 19:30 Temperature 100.1 F H Pulse Rate 101 H 87 93 H Respiratory Rate 27 H 10 L 27 H Blood Pressure 129/62 104/55 L Pulse Oximetry 89 L 94 L 96 03/12/18 20:00 03/12/18 20:02 03/12/18 21:00 Temperature 99.2 F Pulse Rate 97 H 92 H Respiratory Rate 20 32 H Blood Pressure Pulse Oximetry 96 96 97 03/12/18 22:00 03/12/18 23:00 03/12/18 23:21 Temperature Pulse Rate 91 H 87 Respiratory Rate 19 12 Blood Pressure Pulse Oximetry 97 97 97 03/12/18 23:30 03/13/18 00:00 03/13/18 01:00 Temperature 98.3 F Pulse Rate 85 88 94 H Respiratory Rate 23 12 32 H Blood Pressure 98/53 L Pulse Oximetry 97 96 94 L 03/13/18 02:00 03/13/18 03:00 03/13/18 03:30 Temperature Pulse Rate 94 H 95 H 99 H Respiratory Rate 27 H 30 H 22 Blood Pressure 181/72 H Pulse Oximetry 94 L 96 95 03/13/18 03:34 03/13/18 04:00 03/13/18 05:00 Temperature 98.7 F Pulse Rate 90 88 Respiratory Rate 28 H 28 H Blood Pressure Pulse Oximetry 98 95 96 03/13/18 05:02 03/13/18 06:00 03/13/18 08:08 Temperature Pulse Rate 88 86 Respiratory Rate 29 H Blood Pressure 104/59 L Pulse Oximetry 96 96 Intake & Output 03/12/18 03/13/18 03/13/18 18:59 06:59 18:59 Intake Total 1862.5 / 1862.5 2245.5 / 2245.5 Output Total 1280 / 1280 2200 / 2200 Balance 582.5 / 582.5 45.5 / 45.5 Weight 62.3 kg Intake: IV 262.5 / 262.5 262.5 / 262.5 Vancomycin Inj 1,250 MG In NS 262.5 / 262.5 262.5 / 262.5 Inj 250 ML @ 250 mls/hr IV.SIG Q12H [facility] Rx#:[id number] Oral 240 / 240 Oral Supplement 480 / 480 500 / 500 Tube Feeding 480 / 480 683 / 683 Water Bolus Amount 400 / 400 800 / 800 Output: Stool 300 / 300 150 / 150 Urine Amount (Catheter) 980 / 980 2049 Indwelling Urethral Catheter 980 / 980 2049 Other: Date of Last Bowel Movement 03/12/18 03/13/18 Narrative: GENERAL: Well-developed, well-nourished in no distress SKIN: Warm and dry. Trach in place. Neck incision c/d/i- sutures in place CARDIOVASCULAR: Regular rate and rhythm. RESPIRATORY: No accessory muscle use. Clear to auscultation. Breath sounds equal bilaterally. GASTROINTESTINAL: Abdomen soft, non-tender, nondistended. PEG in place MUSCULOSKELETAL: Extremities without clubbing, cyanosis, or edema. No obvious deformities. NEUROLOGICAL: Moving upper extremities vigorously of arms down to wrists, some movement of hands. Following commands. No movement of lower extremities - Urinary Catheter Management Indwelling Urethral Catheter Cath placed during this visit: yes, but has since been removed by the nurse Reason for continuing: Acute urinary retention Insertion date: 03/04/18 Insertion time: 16:08 Removal date: 03/04/18 Removal time: 16:06 Results - Labs CBC & Chem 7: 03/13/18 07:51 03/13/18 07:51 Laboratory Results - last 24 hr 03/12/18 03/12/18 03/13/18 16:25 23:35 07:51 WBC 9.2 RBC 2.58 L Hgb 7.6 L Hct 22.4 L MCV 86.8 MCH 29.5 MCHC 34.0 RDW 15.2 Plt Count 143 L MPV 7.4 Neut % (Auto) 84.9 H Lymph % (Auto) 7.3 L Rock % (Auto) 7.1 Eos % (Auto) 0.5 Baso % (Auto) 0.2 Neut # (Auto) 7.8 H Lymph # (Auto) 0.7 L Rock # (Auto) 0.7 Eos # (Auto) 0.0 Baso # (Auto) 0.0 WBC Differential . Differential Comment Auto diff final Sodium Potassium Chloride Carbon Dioxide Anion Gap BUN Creatinine Estimated GFR POC Glucose 139 H Random Glucose Calcium Calcium Adj for Albumin Magnesium Albumin Vancomycin Trough Greater than 50.0 H 03/13/18 07:51 WBC RBC Hgb Hct MCV MCH MCHC RDW Plt Count MPV Neut % (Auto) Lymph % (Auto) Rock % (Auto) Eos % (Auto) Baso % (Auto) Neut # (Auto) Lymph # (Auto) Rock # (Auto) Eos # (Auto) Baso # (Auto) WBC Differential Differential Comment Sodium 147 H Potassium 3.4 L D Chloride 115 H D Carbon Dioxide 25.8 Anion Gap 6 BUN 43 H Creatinine 0.96 Estimated GFR 77 L POC Glucose Random Glucose 123 H Calcium 6.8 L* D Calcium Adj for Albumin 8.9 Magnesium 2.0 Albumin 1.4 L Vancomycin Trough - Procedures Operative debridement, resection of C7 and T1 spinous processes, irrigation with Vancomycin powder, closure over a drain Assessment and Plan - Plan 72yM with dehisced posterior cervical incisional wound with MRSA wound infection , now debrided and closed over drain. MRSA wound infection status post surgery - ID following on IV Vanco stop date per ID, MRSA growing from wound culture. Ct rifampin at least 4 months of oral antibiotic with as needed periodic imaging studies - Blood/ urine cultures pending - Neurosurgery following DC sutures March 25, 2018 - RN to verify PICC insertion date may need exchange Incomplete quadriplegia - Wean trach collar o2 as tolerated - Aggressive pulmonary toilet - Turning/ offloading to prevent pressure wounds - Feedings per PEG tube and mechanical soft per speech therapy Acute protein calorie malnutrition- severe - Prealbumin on admission 16 - Tube feeds calculated, goal is jevity 1.5 - Use PEG tube Chronic respiratory failure - Trach collar o2 - Aggressive pulmonary toilet - PT consult - Levsin Chronic urinary retention - UA on admission showed few bacteria, no leukocytes or nitrites - Keep chronic indwelling Turner catheter C diff ct po Vanco. Improving Lactinex monitor electrolyte Hypernatremia and hypokalemia. Still hyponatremic increase free water via G- tube and replace potassium per protocol Anemia hemoglobin is 7.6. Obtain iron studies, Hemoccult and transfuse to keep hemoglobin at least 8 SCDs SQHeparin (on hold) Prevacid Update med rec Overall impression: Satisfactorily weaned from mechanical ventilation. Tolerating trach collar. Watch for dehydration secondary to diarrhea. CBC and BMP in am Discharge Planning: [facility] will not be able to take the patient at this time. [facility] to [facility] awaiting [facility]
[2018-03-13] MEDS ORDERED: Sodium Chlor 0.9% Inj 250 ML IV.SIG SCH (09:00)
[2018-03-13] MEDS: Lansoprazole ODT 15 MG Tablet G-TUBE SCH (09:08)
[2018-03-13] MEDS: Gabapentin 100 MG Capsule G-TUBE SCH ×3 (09:08→17:45)
[2018-03-13] MEDS: Lactobacillus Acidophilus/L. Spores Tablet G-TUBE SCH ×3 (09:08→17:45)
[2018-03-13] MEDS: Beneprotein Powder Packet G-TUBE SCH ×2 (09:11→20:57)
[2018-03-13 09:50] LABS: % Iron Saturation 11.3 % (20-50)
[2018-03-13 09:51] LABS: Calcium 7.8 mg/dL (8.5-10.1)
[2018-03-13 09:52] LABS: Albumin 1.6 g/dL (3.4-5.0)
[2018-03-13 09:54] LABS: Calcium-Albumin Corrected 9.7 mg/dL (8.5-10.1)
[2018-03-13] MEDS: Potassium Chloride 25 MEQ Effervescent Tablet PO PRN (11:00)
[2018-03-13 18:25] LABS: Hematocrit 27.2 % (39.0-51.0); Hemoglobin 9.3 gm/dL (13.0-17.0)
[2018-03-14] MEDS: Insulin NovoLIN Regular Correctional Sugar Inj SQ SCH ×4 (00:25→20:06)
[2018-03-14 06:38] LABS: Anion Gap 7 meq/L (5-15); Blood Urea Nitrogen 32 mg/dL (7-18); Calcium 7.8 mg/dL (8.5-10.1); Carbon Dioxide 28.5 meq/L (21.0-32.0); Chloride 112 meq/L (98-107); Glomerular Filtration Rate Greater Than 89 mL/min (>89); Glucose,Random 133 mg/dL (74-106); Magnesium 2.2 mg/dL (1.5-2.5); Potassium 3.8 meq/L (3.5-5.1); Sodium 147 meq/L (136-145); Vancomycin,Random 32.1 Comment
[2018-03-14 08:03] LABS: Baso # (Auto) 0.1 th/mm3 (0.0-0.2); Baso % (Auto) 0.7 % (0.0-2.0); Eos # (Auto) 0.1 th/mm3 (0.0-0.4); Eos % (Auto) 0.6 % (0.0-4.0); Hematocrit 26.8 % (39.0-51.0); Hemoglobin 8.9 gm/dL (13.0-17.0); Mean Corpuscular Hemoglobin 29.1 pg (27.0-34.0); Mean Platelet Volume 8.2 fL (7.0-11.0); Mono # (Auto) 1.1 th/mm3 (0.0-0.9); Mono % (Auto) 7.7 % (0.0-8.0); Neut # (Auto) 11.7 th/mm3 (1.8-7.7); Platelet Count 135 th/mm3 (150-450); Red Blood Count 3.05 mil/mm3 (4.50-5.90); Red Cell Distribution Width 15.4 % (11.6-17.2)
[2018-03-14 08:05] LABS: Ovalocytes 1+; Platelet Morphology Normal (Normal); Tear Drop Cells 1+; Toxic Granulation 1+
--- NOTE | 2018-03-14 08:50 | P.PN ---
Subjective Interval history: Follow-up C. difficile colitis. Stool volume 400 mL past 24 hours. T-max 99.5. Leukocytosis noted on CBC today. Patient has a Picc placed prior to admission. Also with yellow trach secretions.. Sacral decub with necrotic area Physical Exam Vital signs: Vital Signs 03/13/18 09:00 03/13/18 10:00 03/13/18 11:00 Temperature Pulse Rate 85 84 86 Respiratory Rate 23 25 H 26 H Blood Pressure 112/57 L 153/63 H 109/59 L Pulse Oximetry 94 L 96 95 03/13/18 11:19 03/13/18 11:36 03/13/18 12:00 Temperature 99.5 F Pulse Rate 89 89 91 H Respiratory Rate 20 28 H 25 H Blood Pressure 109/59 L 135/67 143/66 H Pulse Oximetry 94 L 96 95 03/13/18 13:00 03/13/18 14:00 03/13/18 15:00 Temperature Pulse Rate 94 H 106 H 96 H Respiratory Rate 26 H 27 H 31 H Blood Pressure 126/74 153/69 H Pulse Oximetry 96 96 97 03/13/18 15:10 03/13/18 16:00 03/13/18 17:00 Temperature Pulse Rate 98 H 97 H 94 H Respiratory Rate 23 24 30 H Blood Pressure 131/62 117/76 126/60 Pulse Oximetry 96 97 97 03/13/18 18:00 03/13/18 19:00 03/13/18 19:45 Temperature Pulse Rate 95 H 94 H Respiratory Rate 28 H 30 H Blood Pressure 116/60 119/70 Pulse Oximetry 97 98 98 03/13/18 20:00 03/13/18 21:00 03/13/18 22:00 Temperature 99.3 F Pulse Rate 88 92 H 85 Respiratory Rate 22 26 H 19 Blood Pressure 130/69 134/64 103/61 Pulse Oximetry 97 97 98 03/13/18 23:00 03/14/18 00:00 03/14/18 01:00 Temperature 99 F Pulse Rate 91 H 93 H 88 Respiratory Rate 30 H 24 25 H Blood Pressure 108/63 142/69 H 118/74 Pulse Oximetry 96 96 96 03/14/18 02:00 03/14/18 03:00 03/14/18 04:00 Temperature 99.5 F Pulse Rate 91 H 89 87 Respiratory Rate 30 H 23 16 Blood Pressure 127/63 116/60 118/64 Pulse Oximetry 96 97 97 03/14/18 04:25 03/14/18 06:00 03/14/18 07:51 Temperature Pulse Rate 81 Respiratory Rate Blood Pressure Pulse Oximetry 98 98 Intake & Output 03/13/18 03/14/18 03/14/18 18:59 06:59 18:59 Intake Total 2265 / 2265 1523 / 1523 Output Total 300 / 300 1700 / 1700 Balance 1964 / 1965 -177 / -177 Weight 58.9 kg Intake: IV 250 / 250 NS Inj 250 ML @ 15 mls/hr IV. 250 / 250 SIG ONCE LOS Rx#:[id number] Oral 240 / 240 Tube Feeding 825 / 825 673 / 673 Water Bolus Amount 800 / 800 600 / 600 Intake (Blood Product) Amt 400 / 400 Rbc As-3 Leukoreduced Unit 400 / 400 [id number] Output: Stool 300 / 300 100 / 100 Urine Amount (Catheter) 1600 / 1600 Indwelling Urethral Catheter 1600 / 1600 Other: Date of Last Bowel Movement 03/13/18 03/14/18 Narrative: GENERAL: Well-developed, well-nourished in no distress SKIN: Warm and dry. Trach in place. Neck incision c/d/i- sutures in place CARDIOVASCULAR: Regular rate and rhythm. RESPIRATORY: No accessory muscle use. Clear to auscultation. Breath sounds equal bilaterally. GASTROINTESTINAL: Abdomen soft, non-tender, nondistended. PEG in place MUSCULOSKELETAL: Extremities without clubbing, cyanosis, or edema. No obvious deformities. NEUROLOGICAL: Moving upper extremities vigorously of arms down to wrists, some movement of hands. Following commands. No movement of lower extremities - Urinary Catheter Management Indwelling Urethral Catheter Cath placed during this visit: yes, but has since been removed by the nurse Reason for continuing: Acute urinary retention Insertion date: 03/04/18 Insertion time: 16:08 Removal date: 03/04/18 Removal time: 16:06 Results - Labs CBC & Chem 7: 03/14/18 05:30 03/14/18 05:30 Laboratory Results - last 24 hr 03/13/18 03/13/18 03/13/18 07:51 09:14 12:43 WBC RBC Hgb Hct MCV MCH MCHC RDW Plt Count MPV Prelim Diff (Auto) Neut % (Auto) Lymph % (Auto) [place] % (Auto) Eos % (Auto) Baso % (Auto) Neut # (Auto) Lymph # (Auto) [place] # (Auto) Eos # (Auto) Baso # (Auto) WBC Differential Diff Scan Differential Comment Toxic Granulation Platelet Estimate Platelet Morphology Tear Drop Cells Ovalocytes Sodium Potassium Chloride Carbon Dioxide Anion Gap BUN Creatinine Estimated GFR POC Glucose 118 H Random Glucose Calcium 7.8 L D Calcium Adj for Albumin 9.7 D Magnesium Iron 16 L TIBC 141 L % Saturation 11.3 L Ferritin 629 H Albumin 1.6 L Random Vancomycin Blood Type O Negative Antibody Screen Negative MTS Gel Crossmatch See Detail 03/13/18 03/13/18 03/13/18 17:50 17:50 18:08 WBC RBC Hgb 9.3 L Hct 27.2 L MCV MCH MCHC RDW Plt Count MPV Prelim Diff (Auto) Neut % (Auto) Lymph % (Auto) [place] % (Auto) Eos % (Auto) Baso % (Auto) Neut # (Auto) Lymph # (Auto) [place] # (Auto) Eos # (Auto) Baso # (Auto) WBC Differential Diff Scan Differential Comment Toxic Granulation Platelet Estimate Platelet Morphology Tear Drop Cells Ovalocytes Sodium Potassium 4.3 D Chloride Carbon Dioxide Anion Gap BUN Creatinine Estimated GFR POC Glucose 152 H Random Glucose Calcium Calcium Adj for Albumin Magnesium Iron TIBC % Saturation Ferritin Albumin Random Vancomycin Blood Type Antibody Screen MTS Gel Crossmatch 03/13/18 03/14/18 03/14/18 23:57 05:30 05:30 WBC 14.0 H D RBC 3.05 L Hgb 8.9 L Hct 26.8 L MCV 88.0 MCH 29.1 MCHC 33.0 RDW 15.4 Plt Count 135 L MPV 8.2 Prelim Diff (Auto) Slide review pending Neut % (Auto) 84.0 H Lymph % (Auto) 7.0 L [place] % (Auto) 7.7 Eos % (Auto) 0.6 Baso % (Auto) 0.7 Neut # (Auto) 11.7 H Lymph # (Auto) 1.0 [place] # (Auto) 1.1 H Eos # (Auto) 0.1 Baso # (Auto) 0.1 WBC Differential . Diff Scan Auto diff confirmed Differential Comment . Toxic Granulation 1+ H Platelet Estimate Low L Platelet Morphology Normal Tear Drop Cells 1+ H Ovalocytes 1+ H Sodium 147 H Potassium 3.8 Chloride 112 H Carbon Dioxide 28.5 Anion Gap 7 BUN 32 H Creatinine 0.74 Estimated GFR Greater than 89 POC Glucose 144 H Random Glucose 133 H Calcium 7.8 L Calcium Adj for Albumin Magnesium 2.2 Iron TIBC % Saturation Ferritin Albumin Random Vancomycin 32.1 Blood Type Antibody Screen MTS Gel Crossmatch Microbiology 03/13/18 09:14 Stool Stool Occult Blood (NOEMI) - Final Hemoccult negative - Imaging ITS Impressions Cervical Spine CT 03/02/18 00:00 CONCLUSION: 1. Laminectomy and long segment posterior fusion of the cervical spine again noted. Alignment is unchanged, near-anatomic, and the posterior bone graft material appears to be slowly incorporating but not convincingly solid at this time. 2. Limited study; no definite epidural fluid collection. The fluid collection in the laminectomy bed appears to be decreasing but now appears to communicate with a large soft tissue defect overlying the posterior spinous processes of C7 and T1. Bone is exposed but without perceptible acute obstruction. Previously seen drain has been removed. Cervical Spine X-Ray 03/02/18 00:00 CONCLUSION: Abdomen X-Ray 03/05/18 00:00 CONCLUSION: 1. Diffuse colonic distention consistent with colonic ileus. 2. No gross free air as questioned. Chest X-Ray 03/14/18 00:00 CONCLUSION: Underinflation with mild bibasilar and right midlung zone opacity. Although nonspecific this could represent subsegmental atelectasis. However, airspace consolidation is also possible. - Procedures Operative debridement, resection of C7 and T1 spinous processes, irrigation with Vancomycin powder, closure over a drain Assessment and Plan - Plan 72yM with dehisced posterior cervical incisional wound with MRSA wound infection , now debrided and closed over drain. Leukocytosis with fever. Also also has increased trach secretions. Also has a PICC. Repeat chest x-ray, obtain sputum culture, blood cultures, UA and discontinue PICC and replace Turner catheter discussed with nurse. Wound care MRSA wound infection status post surgery - ID following on IV Vanco stop date per ID, MRSA growing from wound culture. Ct rifampin at least 4 months of oral antibiotic with as needed periodic imaging studies - Blood/ urine cultures pending - Neurosurgery following DC sutures March 25, 2018 Incomplete quadriplegia - Wean trach collar o2 as tolerated - Aggressive pulmonary toilet - Turning/ offloading to prevent pressure wounds - Feedings per PEG tube and mechanical soft per speech therapy Acute protein calorie malnutrition- severe - Prealbumin on admission 16 - Tube feeds calculated, goal is jevity 1.5 - Use PEG tube Chronic respiratory failure - Trach collar o2 - Aggressive pulmonary toilet - PT consult - Vicente Chronic urinary retention - UA on admission showed few bacteria, no leukocytes or nitrites - Keep chronic indwelling Turner catheter, replace every [address] po Vanco and Lactinex monitor electrolyte. Hypernatremia and hypokalemia. Still hyponatremic increase free water via G- tube and replace potassium per protocol Anemia. Guaiac negative. Improved with blood transfusion. Keep hemoglobin at least 8 SCDs SQHeparin, resume Prevacid Follow-up Doppler of the left upper extremity Overall impression: Satisfactorily weaned from mechanical ventilation. Tolerating trach collar. Watch for dehydration secondary to diarrhea. CBC and BMP in am Discharge Planning: [facility] will not be able to take the patient at this time. [facility]. Not ready for discharge at this time
--- NOTE | 2018-03-14 08:51 | XR ---
EXAM DATE: 03/14/2018 8:46 AM EST AGE/SEX: 72 years / Male INDICATIONS: Cough. CLINICAL DATA: This is the patient's subsequent encounter. Patient reports that signs and symptoms h ave been present for 2 weeks and indicates a pain score of 0/10. MEDICAL/SURGICAL HISTORY: Hypothyroidism. Hypercholesterolemia. Arthritis. Fusion, cervical. COMPARISON: [facility], CHEST 1V SINGLE AP, 03/02/2018. . FINDINGS: Portable AP view of the chest demonstrates a normal-sized cardiac silhouette. EKG lines overlie the p atient. Tracheostomy and left upper extremity PICC remain present. Lungs are underinflated and there is mild bibasilar opacity and the right midlung zone opacity. No pleural effusion or pneumothorax is identified. Bones and soft tissues demonstrate no acute abnormality. No focal spine hardware is prese nt. CONCLUSION: Underinflation with mild bibasilar and right midlung zone opacity. Although nonspecific this could re present subsegmental atelectasis. However, airspace consolidation is also possible. Electronically signed by: Edgardo Dorman MD 03/14/2018 8:49 AM EST
[2018-03-14] MEDS ORDERED: Ferrous Sulfate 325 MG Tablet PO SCH (09:00)
[2018-03-14] MEDS: Ferrrous Sulfate 300 MG/5 ML UDC G-TUBE SCH (10:03)
[2018-03-14] MEDS: Beneprotein Powder Packet G-TUBE SCH ×2 (10:03→22:13)
[2018-03-14] MEDS: Hyoscyamine Liq Drops 0.125 MG/ML 15 ML Bottle SL PRN (10:04)
[2018-03-14] MEDS: Lansoprazole ODT 15 MG Tablet G-TUBE SCH (10:04)
[2018-03-14] MEDS: Lactobacillus Acidophilus/L. Spores Tablet G-TUBE SCH ×3 (10:04→17:34)
[2018-03-14] MEDS: Gabapentin 100 MG Capsule G-TUBE SCH ×3 (10:04→17:34)
--- NOTE | 2018-03-14 10:25 | P.PNID ---
Subjective Remarks: is a 72 y/o CM with h/o fall from a ladder originally on 2017. He was diagnosed with paraplegia, ended up being trached and PEGed. Patient underwent C3-T1 Instrumentation to stabilize his spine by . Post op there was wound dehiscence noted and he was seen by Dr.Alexandra Manuela RUSSELL and started on Vanco IV. He was later sent to [facility] in [place]. He had a trach collar at some point leading to ulcer under his left chin and on back of his forehead timing of these is not known. He was transferred back to [facility] for washout of the wounds by . A CT spine was done which showed fluid collection in the deeper tissues connecting to exterior wound. Due to concern for discitis and epidural abscess ID consulted. At the time of my evaluation patient is in the intensive surgical care unit currently trached and pegged and in a trach collar. Patient opens his eyes but is unable to move any of his extremities except his right upper extremity that he possibly withdraws from spasms. Patient has ongoing diarrhea and was diagnosed with C. difficile at the other hospital. Upon opening straight collar and noticed a ulcer on her left mandible area, another ulcer on the posterior occipital area on the right side as well as the original surgical incision on the superior aspect appeared to be dehisced in both of these appear to be tracking down to the bone there is no surgical site has yellowish discharge which appears to be copious. Overnight events reviewed with RN Tmax 101 F WBC increased to 14. No rash Trach site ok Increase in secretions amount, color yellow needing freq suctioning. Diarrhea freq loose BMs volume increased. Outside hospital PICC in place. Antibiotics: Vanco IV Lines: Lines ok Past Medical History: reviewed. Allergies/Adverse Reactions: Allergies No Known Allergies Allergy (Verified 01/21/18 18:40) Objective Vital Signs 03/13/18 11:00 03/13/18 11:19 03/13/18 11:36 Temperature 99.5 F Pulse Rate 86 89 89 Respiratory Rate 26 H 20 28 H Blood Pressure 109/59 L 109/59 L 135/67 Pulse Oximetry 95 94 L 96 03/13/18 12:00 03/13/18 13:00 03/13/18 14:00 Temperature Pulse Rate 91 H 94 H 106 H Respiratory Rate 25 H 26 H 27 H Blood Pressure 143/66 H 126/74 153/69 H Pulse Oximetry 95 96 96 03/13/18 15:00 03/13/18 15:10 03/13/18 16:00 Temperature Pulse Rate 96 H 98 H 97 H Respiratory Rate 31 H 23 24 Blood Pressure 131/62 117/76 Pulse Oximetry 97 96 97 03/13/18 17:00 03/13/18 18:00 03/13/18 19:00 Temperature Pulse Rate 94 H 95 H 94 H Respiratory Rate 30 H 28 H 30 H Blood Pressure 126/60 116/60 119/70 Pulse Oximetry 97 97 98 03/13/18 19:45 03/13/18 20:00 03/13/18 21:00 Temperature 99.3 F Pulse Rate 88 92 H Respiratory Rate 22 26 H Blood Pressure 130/69 134/64 Pulse Oximetry 98 97 97 03/13/18 22:00 03/13/18 23:00 03/14/18 00:00 Temperature 99 F Pulse Rate 85 91 H 93 H Respiratory Rate 19 30 H 24 Blood Pressure 103/61 108/63 142/69 H Pulse Oximetry 98 96 96 03/14/18 01:00 03/14/18 02:00 03/14/18 03:00 Temperature Pulse Rate 88 91 H 89 Respiratory Rate 25 H 30 H 23 Blood Pressure 118/74 127/63 116/60 Pulse Oximetry 96 96 97 03/14/18 04:00 03/14/18 04:25 03/14/18 06:00 Temperature 99.5 F Pulse Rate 87 81 Respiratory Rate 16 Blood Pressure 118/64 Pulse Oximetry 97 98 03/14/18 07:51 Temperature Pulse Rate Respiratory Rate Blood Pressure Pulse Oximetry 98 Intake & Output 03/13/18 03/14/18 03/14/18 18:59 06:59 18:59 Intake Total 2265 / 2265 1523 / 1523 Output Total 300 / 300 1700 / 1700 Balance 1965 / 1965 -177 / -177 Weight 58.9 kg Intake: IV 250 / 250 NS Inj 250 ML @ 15 mls/hr IV. 250 / 250 SIG ONCE LOS Rx#:[id number] Oral 240 / 240 Tube Feeding 825 / 825 673 / 673 Water Bolus Amount 800 / 800 600 / 600 Intake (Blood Product) Amt 400 / 400 Rbc As-3 Leukoreduced Unit 400 / 400 [id number] Output: Stool 300 / 300 100 / 100 Urine Amount (Catheter) 1600 / 1600 Indwelling Urethral Catheter 1600 / 1600 Other: Date of Last Bowel Movement 03/13/18 03/14/18 03/13/18 09:14 Stool Stool Occult Blood (NOEMI) - Final Hemoccult negative 03/04/18 16:21 Wound - Back Fungal Smear - Final No fungal elements seen 03/04/18 16:21 Wound - Back Fungal Culture - Preliminary No growth in 1 week 03/04/18 16:21 Wound - Back Acid Fast Bacilli Smear - Final No acid fast bacilli seen 03/04/18 16:21 Wound - Back Mycobacterial Culture - Preliminary No growth in 1 week 03/04/18 16:25 Other Fungal Smear - Final No fungal elements seen 03/04/18 16:25 Other Fungal Culture - Preliminary No growth in 1 week 03/04/18 16:25 Other Acid Fast Bacilli Smear - Final No acid fast bacilli seen 03/04/18 16:25 Other Mycobacterial Culture - Preliminary No growth in 1 week Lab - Hematology Results 03/13/18 03/13/18 03/14/18 07:51 17:50 05:30 WBC 9.2 14.0 H D RBC 2.58 L 3.05 L Hgb 7.6 L 9.3 L 8.9 L Hct 22.4 L 27.2 L 26.8 L MCV 86.8 88.0 MCH 29.5 29.1 MCHC 34.0 33.0 RDW 15.2 15.4 Plt Count 143 L 135 L MPV 7.4 8.2 Prelim Diff (Auto) Slide review pending Neut % (Auto) 84.9 H 84.0 H Lymph % (Auto) 7.3 L 7.0 L [place] % (Auto) 7.1 7.7 Eos % (Auto) 0.5 0.6 Baso % (Auto) 0.2 0.7 Neut # (Auto) 7.8 H 11.7 H Lymph # (Auto) 0.7 L 1.0 [place] # (Auto) 0.7 1.1 H Eos # (Auto) 0.0 0.1 Baso # (Auto) 0.0 0.1 WBC Differential . . Diff Scan Auto diff confirmed Differential Comment Auto diff final . Toxic Granulation 1+ H Platelet Estimate Low L Platelet Morphology Normal Tear Drop Cells 1+ H Ovalocytes 1+ H Lab - Chemistry Results 03/12/18 03/13/18 03/13/18 23:35 07:51 07:51 Sodium 147 H Potassium 3.4 L D Chloride 115 H D Carbon Dioxide 25.8 Anion Gap 6 BUN 43 H Creatinine 0.96 Estimated GFR 77 L POC Glucose 139 H Random Glucose 123 H Calcium 6.8 L* D 7.8 L D Calcium Adj for Albumin 8.9 9.7 D Magnesium 2.0 Iron 16 L TIBC 141 L % Saturation 11.3 L Ferritin 629 H Albumin 1.4 L 1.6 L 03/13/18 03/13/18 03/13/18 12:43 17:50 18:08 Sodium Potassium 4.3 D Chloride Carbon Dioxide Anion Gap BUN Creatinine Estimated GFR POC Glucose 118 H 152 H Random Glucose Calcium Calcium Adj for Albumin Magnesium Iron TIBC % Saturation Ferritin Albumin 03/13/18 03/14/18 23:57 05:30 Sodium 147 H Potassium 3.8 Chloride 112 H Carbon Dioxide 28.5 Anion Gap 7 BUN 32 H Creatinine 0.74 Estimated GFR Greater than 89 POC Glucose 144 H Random Glucose 133 H Calcium 7.8 L Calcium Adj for Albumin Magnesium 2.2 Iron TIBC % Saturation Ferritin Albumin Imaging: ITS Impressions Cervical Spine CT 03/02/18 00:00 CONCLUSION: 1. Laminectomy and long segment posterior fusion of the cervical spine again noted. Alignment is unchanged, near-anatomic, and the posterior bone graft material appears to be slowly incorporating but not convincingly solid at this time. 2. Limited study; no definite epidural fluid collection. The fluid collection in the laminectomy bed appears to be decreasing but now appears to communicate with a large soft tissue defect overlying the posterior spinous processes of C7 and T1. Bone is exposed but without perceptible acute obstruction. Previously seen drain has been removed. Cervical Spine X-Ray 03/02/18 00:00 CONCLUSION: Abdomen X-Ray 03/05/18 00:00 CONCLUSION: 1. Diffuse colonic distention consistent with colonic ileus. 2. No gross free air as questioned. Chest X-Ray 03/14/18 00:00 CONCLUSION: Underinflation with mild bibasilar and right midlung zone opacity. Although nonspecific this could represent subsegmental atelectasis. However, airspace consolidation is also possible. Physical Exam: GENERAL: Well-nourished well-developed, not in acute distress SKIN: Cool and dry, no generalized rash HEAD: Atraumatic. Normocephalic. No temporal or scalp tenderness. EYES: Pupils equal round and reactive. Scleral icterus. No injection or drainage. No petechia Trach site with no e.o infection Left mandibular area with ulceration down to the bone. Left scalp posterior occipital area on right with ulceration and unhealthy granulation tissue. Surgical site with dressing. NECK: Trachea midline. Supple, nontender, no meningeal signs. CARDIOVASCULAR: HS audible. RESPIRATORY: Clear to auscultation bilaterally. GASTROINTESTINAL: Abdomen soft nontender. MUSCULOSKELETAL: Extremities without clubbing, cyanosis. NEUROLOGICAL: Alert oriented 3. Nonfocal. Psych cooperative IV line sites ok Assessment and Plan - Plan MRSA epidural abscess/discitis Surgical site infection at site of recent C5-T1 Instrumentation (hardware in place) New fever? PICC line infection vs HCAP. H/o fall as preceding incident to surgery. Occipital wound stage 3-4 down to bone ? osteomyelitis. Left mandible inferior aspect with ulcer down to done ? osteomyelitis. Cdiff diagnosed at [facility]. Trach in place PEG in place h/o HCAP at other hospital with Sten Mal Rxed per records. 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 Continue oral vanco for Cdiff Send Peripheral Blood cultures Send PICC line blood cultures DC PICC line. New PICC cannot be placed as new fevers and Increase in WBC concerning for new infection. Check Doppler LUE to r/o septic thrombophlebitis. CXR reviewed by me due to increased secretions and SIRS will send sputum cultures. Follow cultures Follow clinical course maria luisa RN Maria Luisa Marc: hold [facility] for now pending further evaluation and ID workup results. maria luisa Clinical pharmacist about Vanco levels and dosing target of 15-20.
--- NOTE | 2018-03-14 12:05 | US ---
EXAM DATE: 03/14/2018 11:59 AM EST AGE/SEX: 72 years / Male INDICATIONS: Left arm swelling. CLINICAL DATA: This is the patient's initial encounter. Patient reports that signs and symptoms have been present for 1 day and indicates a pain score of Nonresponsive. MEDICAL/SURGICAL HISTORY: Rheumatoid arthritis. MRSA. None. COMPARISON: [facility], CHEST 1V SINGLE AP, 03/14/2018. . FINDINGS: There is a left-sided PICC line in place. There is evidence of occlusive deep venous throm bosis involving the left subclavian vein and left axillary vein. The clot is seen surrounding the mo ous catheter. There is flow in the left brachial vein. There is flow in the ulnar and radial veins. Other: None. CONCLUSION: 1. There is evidence of occlusive thrombus characteristic of DVT in the left subclavian and left axi llary veins. Electronically signed by: Brown Benitez MD 03/14/2018 12:03 PM EST
[2018-03-14 12:18] LABS: Albumin 1.7 g/dL (3.4-5.0); C-Reactive Protein 9.1 mg/dL (0.00-0.30)
[2018-03-14 12:20] LABS: Total Protein 5.5 g/dL (6.4-8.2)
[2018-03-14] MEDS: Heparin - SQ 10,000 UNITS/ML Vial SQ SCH ×2 (13:36→22:14)
--- NOTE | 2018-03-14 18:28 | P.PNWCN ---
Wound Care Nurse Consult Description: Received wound management consult for sacral decub from Doctor Naman Communicated with: Doctor Naman and RN Falguni Weems [facility] Recommendation: 1.Please cleanse bilateral buttock wounds with normal saline only and pat dry. 2.Apply Santyl pietro thickness to wound beds 3. Apply Calazime skin protectant paste to periwound in a thin layer. 4. Apply Cavilon skin barrier film to intact skin before covering wounds with bordered gauze. 5. Change dressing daily. 6.If dignishield is not intact and patient is having multiple loose stools. Hold dressings and santyl. Leave wounds open to air and apply Calazime skin protectant paste BID and PRN 7. Please turn patient every 2 hours from L side to R side limiting time spent on back to P.T. and meals. 8. Place patient on low airloss mattress/ bed when it arrives. 9. Do not use Cotton pads under patient, use ultra sorb pad only. Wound/Pressure Injury - Wound Right Buttocks Wound Staging: Unstageable Wound Assessment: Ongoing Wound Type: Pressure Injury Requested from Provider a Wound Care Consult: Yes (Wound care saw patient today) Length (cm): 8 Width (cm): 4.5 Depth (cm): 0.1 (~0.1cm) Wound Bed Appearance: Necrotic, Red Wound Bed Appearance: Wound bed presents with ~20% black eschar that is thin, ~10% purple tissue and ~ 70% red non granulation tissue. Surrounding Tissue Appearance: [place] Surrounding Tissue Temperature: Cool Drainage Description: Serosanguinous Drainage Amount: Scant Drainage Odor: No Odor Dressing Status: Changed Cleansing Solution: Saline Cover Dressing: Bordered gauze Wound Dressing Change Date: 03/14/18 Wound Margin Description: Poorly defined due and open Left Buttocks Wound Staging: Stage II Wound Assessment: Ongoing Wound Type: Pressure Injury Is This a Chronic Wound: No Requested from Provider a Wound Care Consult: Yes (Wound care saw patient today) Length (cm): 3 Width (cm): 2 Depth (cm): 0.1 (~0.1cm) Wound Bed Appearance: Red Wound Bed Appearance: 100% red non granulation tissue Surrounding Tissue Appearance: [place] Surrounding Tissue Temperature: Cool Drainage Description: Serosanguinous Drainage Amount: Scant Drainage Odor: No Odor Dressing Status: Changed Cleansing Solution: Saline Cover Dressing: Bordered gauze Wound Margin Description: Well defined and open - Additional Information Patient seen on [address] [place] [address] for wound management of Sacral decub. Patient was seen with the assistance of principal technical writer and NA Montes De Oca [facility]. Patient was turned with total assistance toward the L side to reveal wounds to R buttock and L buttock that are open to air. Patient also is noted with leaking Dignisheild and mann catheter in place. Patient is laying on cotton underpad, with ultrasorb pad. Wound to L buttock presents as a shallow stage 3 pressure injury with mixed etiology of moisture, pressure and friction. Wound tissue is 100% red non granulation . Wound to R buttock is larger and presents with ~20% thin layer of eschar, ~10% purple tissue and ~ 70% red non granulation tissue. Wound is also a stage 3 with mixed etiology of moisture, pressure and friction. Periwound presents with denuded peeling skin. NA Montes De Oca flushed dignishield. Wound was cleansed with normal saline and patted dry. Applied Calazime in a thin layer to periwound lining the wound edges. Applied Cavilon skin barrier film spray to intact skin before applying bordered gauze into place. Patient was positioned toward the L side with pillows in place for support following wound assessment, dressing change and pericare. Full wound description, measurements and recommendations are noted above.
[2018-03-15] MEDS: Insulin NovoLIN Regular Correctional Sugar Inj SQ SCH ×3 (01:40→16:29)
[2018-03-15] MEDS: Heparin - SQ 10,000 UNITS/ML Vial SQ SCH (06:46)
[2018-03-15 06:55] LABS: Baso % (Auto) 0.2 % (0.0-2.0); Eos # (Auto) 0.1 th/mm3 (0.0-0.4); Hematocrit 29.6 % (39.0-51.0); Lymph # (Auto) 0.7 th/mm3 (1.0-4.8); Lymph % (Auto) 8.1 % (9.0-44.0); Mean Corpuscular HGB Conc 33.7 % (32.0-36.0); Mean Corpuscular Hemoglobin 29.5 pg (27.0-34.0); Mean Corpuscular Volume 87.7 fL (80.0-100.0); Mean Platelet Volume 7.9 fL (7.0-11.0); Mono # (Auto) 0.8 th/mm3 (0.0-0.9); Mono % (Auto) 8.7 % (0.0-8.0); Neut # (Auto) 7.3 th/mm3 (1.8-7.7); Platelet Count 162 th/mm3 (150-450); Red Blood Count 3.37 mil/mm3 (4.50-5.90); Red Cell Distribution Width 15.7 % (11.6-17.2); White Blood Count 8.9 th/mm3 (4.0-11.0)
[2018-03-15 07:09] LABS: Anion Gap 7 meq/L (5-15); Blood Urea Nitrogen 28 mg/dL (7-18); Calcium 7.8 mg/dL (8.5-10.1); Carbon Dioxide 28.9 meq/L (21.0-32.0); Chloride 108 meq/L (98-107); Glomerular Filtration Rate Greater Than 89 mL/min (>89); Glucose,Random 120 mg/dL (74-106); Magnesium 2.3 mg/dL (1.5-2.5); Potassium 3.8 meq/L (3.5-5.1); Sodium 144 meq/L (136-145)
[2018-03-15 07:10] LABS: Vancomycin,Random 18.4 Comment
[2018-03-15] MEDS: Ferrrous Sulfate 300 MG/5 ML UDC G-TUBE SCH (07:59)
[2018-03-15] MEDS: Lansoprazole ODT 15 MG Tablet G-TUBE SCH (08:00)
[2018-03-15] MEDS: Beneprotein Powder Packet G-TUBE SCH ×2 (08:00→20:43)
[2018-03-15] MEDS: Lactobacillus Acidophilus/L. Spores Tablet G-TUBE SCH ×3 (08:00→18:24)
[2018-03-15] MEDS: Gabapentin 100 MG Capsule G-TUBE SCH ×3 (08:01→18:25)
--- NOTE | 2018-03-15 08:46 | P.PN ---
Subjective Interval history: Follow-up leukocytosis. Stool volume 150 mL. Aware of DVT of the left upper extremity. Agrees to be started on Eliquis discussed with neurosurgery. Discussed with infectious disease, not cleared to have central line/ PICC Physical Exam Vital signs: Vital Signs 03/14/18 09:00 03/14/18 10:00 03/14/18 11:00 Temperature Pulse Rate 79 80 82 Respiratory Rate 25 H 18 25 H Blood Pressure 108/62 107/71 150/70 H Pulse Oximetry 97 97 99 03/14/18 12:00 03/14/18 13:00 03/14/18 14:00 Temperature Pulse Rate 86 90 90 Respiratory Rate 26 H 28 H 25 H Blood Pressure 130/64 134/67 123/75 Pulse Oximetry 99 97 97 03/14/18 15:00 03/14/18 16:00 03/14/18 17:00 Temperature 98.8 F Pulse Rate 87 88 85 Respiratory Rate 12 21 22 Blood Pressure 108/60 127/71 98/57 L Pulse Oximetry 96 97 94 L 03/14/18 18:00 03/14/18 19:00 03/14/18 20:00 Temperature Pulse Rate 90 87 88 Respiratory Rate 28 H 16 26 H Blood Pressure 109/69 109/57 L 127/67 Pulse Oximetry 97 97 99 03/14/18 21:00 03/14/18 21:22 03/14/18 22:00 Temperature Pulse Rate 82 77 Respiratory Rate 17 17 Blood Pressure 107/63 Pulse Oximetry 98 98 95 03/14/18 22:18 03/14/18 23:00 03/15/18 00:00 Temperature 99 F Pulse Rate 78 83 82 Respiratory Rate 13 21 11 L Blood Pressure 117/65 109/63 103/61 Pulse Oximetry 97 97 98 03/15/18 01:00 03/15/18 02:00 03/15/18 03:00 Temperature Pulse Rate 93 H 92 H 96 H Respiratory Rate 33 H 18 31 H Blood Pressure 128/61 127/77 112/60 Pulse Oximetry 96 98 97 03/15/18 04:00 03/15/18 05:00 03/15/18 06:00 Temperature 99 F Pulse Rate 98 H 95 H 95 H Respiratory Rate 18 25 H Blood Pressure 121/68 124/68 Pulse Oximetry 96 97 Intake & Output 03/14/18 03/15/18 03/15/18 18:59 06:59 18:59 Intake Total 1647 / 1647 1520 / 1520 Output Total 1550 / 1550 1050 / 1050 Balance 97 / 97 470 / 470 Weight 58.4 kg Intake: Tube Feeding 647 / 647 720 / 720 Tube Irrigant 200 / 200 200 / 200 Water Bolus Amount 800 / 800 600 / 600 Output: Stool 100 / 100 50 / 50 Urine Amount (Catheter) 1450 / 1450 1000 / 1000 Indwelling Urethral Catheter 1450 / 1450 1000 / 1000 Other: Date of Last Bowel Movement 03/14/18 03/15/18 Narrative: GENERAL: Well-developed, well-nourished in no distress SKIN: Warm and dry. Trach in place. Neck incision c/d/i- sutures in place CARDIOVASCULAR: Regular rate and rhythm. RESPIRATORY: No accessory muscle use. Clear to auscultation. Breath sounds equal bilaterally. GASTROINTESTINAL: Abdomen soft, non-tender, nondistended. PEG in place MUSCULOSKELETAL: Extremities without clubbing, cyanosis, or edema. No obvious deformities. NEUROLOGICAL: Moving upper extremities vigorously of arms down to wrists, some movement of hands. Following commands. No movement of lower extremities - Urinary Catheter Management Indwelling Urethral Catheter Cath placed during this visit: yes, but has since been removed by the nurse Reason for continuing: Acute urinary retention Insertion date: 03/04/18 Insertion time: 16:08 Removal date: 03/04/18 Removal time: 16:06 Results - Labs CBC & Chem 7: 03/15/18 05:52 03/15/18 05:52 Laboratory Results - last 24 hr 03/14/18 03/14/18 03/14/18 11:15 11:38 17:13 WBC RBC Hgb Hct MCV MCH MCHC RDW Plt Count MPV Neut % (Auto) Lymph % (Auto) Gregory % (Auto) Eos % (Auto) Baso % (Auto) Neut # (Auto) Lymph # (Auto) Gregory # (Auto) Eos # (Auto) Baso # (Auto) WBC Differential Differential Comment Sodium Potassium Chloride Carbon Dioxide Anion Gap BUN Creatinine Estimated GFR POC Glucose 131 H 118 H Random Glucose Calcium Magnesium Total Bilirubin 0.4 Direct Bilirubin 0.2 Indirect Bilirubin 0.2 AST 17 ALT 26 Alkaline Phosphatase 112 C-Reactive Protein 9.10 H Total Protein 5.5 L Albumin 1.7 L Random Vancomycin 03/15/18 03/15/18 03/15/18 00:17 05:52 05:52 WBC 8.9 RBC 3.37 L Hgb 10.0 L Hct 29.6 L MCV 87.7 MCH 29.5 MCHC 33.7 RDW 15.7 Plt Count 162 MPV 7.9 Neut % (Auto) 82.0 H Lymph % (Auto) 8.1 L Gregory % (Auto) 8.7 H Eos % (Auto) 1.0 Baso % (Auto) 0.2 Neut # (Auto) 7.3 Lymph # (Auto) 0.7 L Gregory # (Auto) 0.8 Eos # (Auto) 0.1 Baso # (Auto) 0.0 WBC Differential . Differential Comment Auto diff final Sodium 144 Potassium 3.8 Chloride 108 H Carbon Dioxide 28.9 Anion Gap 7 BUN 28 H Creatinine 0.60 Estimated GFR Greater than 89 POC Glucose 135 H Random Glucose 120 H Calcium 7.8 L Magnesium 2.3 Total Bilirubin Direct Bilirubin Indirect Bilirubin AST ALT Alkaline Phosphatase C-Reactive Protein Total Protein Albumin Random Vancomycin 18.4 03/15/18 06:33 WBC RBC Hgb Hct MCV MCH MCHC RDW Plt Count MPV Neut % (Auto) Lymph % (Auto) Gregory % (Auto) Eos % (Auto) Baso % (Auto) Neut # (Auto) Lymph # (Auto) Gregory # (Auto) Eos # (Auto) Baso # (Auto) WBC Differential Differential Comment Sodium Potassium Chloride Carbon Dioxide Anion Gap BUN Creatinine Estimated GFR POC Glucose 129 H Random Glucose Calcium Magnesium Total Bilirubin Direct Bilirubin Indirect Bilirubin AST ALT Alkaline Phosphatase C-Reactive Protein Total Protein Albumin Random Vancomycin Microbiology 03/14/18 12:47 Stool Stool Occult Blood (NOEMI) - Final Hemoccult negative - Imaging Impressions Chest X-Ray 03/14/18 00:00 CONCLUSION: Underinflation with mild bibasilar and right midlung zone opacity. Although nonspecific this could represent subsegmental atelectasis. However, airspace consolidation is also possible. Venous Doppler Study 03/14/18 00:00 CONCLUSION: 1. There is evidence of occlusive thrombus characteristic of DVT in the left subclavian and left axillary veins. - Procedures Operative debridement, resection of C7 and T1 spinous processes, irrigation with Vancomycin powder, closure over a drain Assessment and Plan - Plan 72yM with dehisced posterior cervical incisional wound with MRSA wound infection , now debrided and closed over drain. Leukocytosis with fever. Also also has increased trach secretions. Also has a PICC. Repeat chest x-ray with Underinflation with mild bibasilar and right midlung zone opacity. Although nonspecific this could represent subsegmental atelectasis. However, airspace consolidation is also possible. Improved leukocytosis. Follow-up sputum culture and blood cultures. Discontinue PICC and replace Turner catheter discussed with nursing. Wound care MRSA wound infection status post surgery - ID following on IV Vanco stop date per ID, MRSA growing from wound culture. Ct rifampin at least 4 months of oral antibiotic with as needed periodic imaging studies - Blood urine cultures neg - Neurosurgery following DC sutures March 25, 2018 Incomplete quadriplegia - Wean trach collar o2 as tolerated - Aggressive pulmonary toilet - Turning/ offloading to prevent pressure wounds - Feedings per PEG tube and mechanical soft per speech therapy Acute protein calorie malnutrition- severe - Prealbumin on admission 16 - Tube feeds calculated, goal is jevity 1.5 - Use PEG tube Chronic respiratory failure - Trach collar o2 - Aggressive pulmonary toilet - PT consult - Levsin and mucomyst Chronic urinary retention - UA on admission showed few bacteria, no leukocytes or nitrites - Keep chronic indwelling Turner catheter, replace every [address] po Vanco and Lactinex monitor electrolyte. Hypernatremia and hypokalemia. Improved continue free water via G-tube and replace potassium per protocol Anemia. Guaiac negative. Improved with blood transfusion. Keep hemoglobin at least 8 DVT LUE . PICC removed start Eliquis 10 mg twice a day for 7 days then 5 mg twice a day(need to order) SCDs Eliquis Prevacid Overall impression: Satisfactorily weaned from mechanical ventilation. Tolerating trach collar. Watch for dehydration secondary to diarrhea. CBC and BMP in am Discharge Planning: [facility] will not be able to take the patient at this time. [facility]erred to [facility] awaiting [facility]. Not ready for discharge at this time. Transferred to floor pending bed availability
--- NOTE | 2018-03-15 10:57 | P.PNID ---
Subjective Remarks: is a 72 y/o CM with h/o fall from a ladder originally on 2017. He was diagnosed with paraplegia, ended up being trached and PEGed. Patient underwent C3-T1 Instrumentation to stabilize his spine by . Post op there was wound dehiscence noted and he was seen by Dr.Alexandra Manuela RUSSELL and started on Vanco IV. He was later sent to [facility] in [place]. He had a trach collar at some point leading to ulcer under his left chin and on back of his forehead timing of these is not known. He was transferred back to [facility] for washout of the wounds by . A CT spine was done which showed fluid collection in the deeper tissues connecting to exterior wound. Due to concern for discitis and epidural abscess ID consulted. At the time of my evaluation patient is in the intensive surgical care unit currently trached and pegged and in a trach collar. Patient opens his eyes but is unable to move any of his extremities except his right upper extremity that he possibly withdraws from spasms. Patient has ongoing diarrhea and was diagnosed with C. difficile at the other hospital. Upon opening straight collar and noticed a ulcer on her left mandible area, another ulcer on the posterior occipital area on the right side as well as the original surgical incision on the superior aspect appeared to be dehisced in both of these appear to be tracking down to the bone there is no surgical site has yellowish discharge which appears to be copious. Overnight events reviewed with RN No fevers overnight. WBC at 8.9 No rash Trach site ok Increase in secretions amount, color yellow needing freq suctioning. Diarrhea Antibiotics: Vanco IV Vanco Oral Rifampin oral Lines: Lines ok Past Medical History: reviewed. Allergies/Adverse Reactions: Allergies No Known Allergies Allergy (Verified 01/21/18 18:40) Objective Vital Signs 03/14/18 11:00 03/14/18 12:00 03/14/18 13:00 Temperature Pulse Rate 82 86 90 Respiratory Rate 25 H 26 H 28 H Blood Pressure 150/70 H 130/64 134/67 Pulse Oximetry 99 99 97 03/14/18 14:00 03/14/18 15:00 03/14/18 16:00 Temperature 98.8 F Pulse Rate 90 87 88 Respiratory Rate 25 H 12 21 Blood Pressure 123/75 108/60 127/71 Pulse Oximetry 97 96 97 03/14/18 17:00 03/14/18 18:00 03/14/18 19:00 Temperature Pulse Rate 85 90 87 Respiratory Rate 22 28 H 16 Blood Pressure 98/57 L 109/69 109/57 L Pulse Oximetry 94 L 97 97 03/14/18 20:00 03/14/18 21:00 03/14/18 21:22 Temperature Pulse Rate 88 82 Respiratory Rate 26 H 17 Blood Pressure 127/67 107/63 Pulse Oximetry 99 98 98 03/14/18 22:00 03/14/18 22:18 03/14/18 23:00 Temperature Pulse Rate 77 78 83 Respiratory Rate 17 13 21 Blood Pressure 117/65 109/63 Pulse Oximetry 95 97 97 03/15/18 00:00 03/15/18 01:00 03/15/18 02:00 Temperature 99 F Pulse Rate 82 93 H 92 H Respiratory Rate 11 L 33 H 18 Blood Pressure 103/61 128/61 127/77 Pulse Oximetry 98 96 98 03/15/18 03:00 03/15/18 04:00 03/15/18 05:00 Temperature 99 F Pulse Rate 96 H 98 H 95 H Respiratory Rate 31 H 18 25 H Blood Pressure 112/60 121/68 124/68 Pulse Oximetry 97 96 97 03/15/18 06:00 Temperature Pulse Rate 95 H Respiratory Rate Blood Pressure Pulse Oximetry Intake & Output 03/14/18 03/15/18 03/15/18 18:59 06:59 18:59 Intake Total 1647 / 1647 1520 / 1520 Output Total 1550 / 1550 1050 / 1050 Balance 97 / 97 470 / 470 Weight 58.4 kg Intake: Tube Feeding 647 / 647 720 / 720 Tube Irrigant 200 / 200 200 / 200 Water Bolus Amount 800 / 800 600 / 600 Output: Stool 100 / 100 50 / 50 Urine Amount (Catheter) 1450 / 1450 1000 / 1000 Indwelling Urethral Catheter 1450 / 1450 1000 / 1000 Other: Date of Last Bowel Movement 03/14/18 03/15/18 03/14/18 11:00 Sputum - Tracheal Aspirate Gram Stain - Final 03/14/18 11:00 Sputum - Tracheal Aspirate Sputum Culture - Pending 03/14/18 12:47 Stool Stool Occult Blood (NOEMI) - Final Hemoccult negative 03/14/18 10:59 Blood - Line Aerobic Blood Culture - Pending 03/14/18 10:59 Blood - Line Anaerobic Blood Culture - Pending 03/14/18 11:00 Blood - Peripheral Aerobic Blood Culture - Pending 03/14/18 11:00 Blood - Peripheral Anaerobic Blood Culture - Pending 03/13/18 09:14 Stool Stool Occult Blood (NOEMI) - Final Hemoccult negative Lab - Hematology Results 03/13/18 03/14/18 03/15/18 17:50 05:30 05:52 WBC 14.0 H D 8.9 RBC 3.05 L 3.37 L Hgb 9.3 L 8.9 L 10.0 L Hct 27.2 L 26.8 L 29.6 L MCV 88.0 87.7 MCH 29.1 29.5 MCHC 33.0 33.7 RDW 15.4 15.7 Plt Count 135 L 162 MPV 8.2 7.9 Prelim Diff (Auto) Slide review pending Neut % (Auto) 84.0 H 82.0 H Lymph % (Auto) 7.0 L 8.1 L Treasure % (Auto) 7.7 8.7 H Eos % (Auto) 0.6 1.0 Baso % (Auto) 0.7 0.2 Neut # (Auto) 11.7 H 7.3 Lymph # (Auto) 1.0 0.7 L [place] # (Auto) 1.1 H 0.8 Eos # (Auto) 0.1 0.1 Baso # (Auto) 0.1 0.0 WBC Differential . . Diff Scan Auto diff confirmed Differential Comment . Auto diff final Toxic Granulation 1+ H Platelet Estimate Low L Platelet Morphology Normal Tear Drop Cells 1+ H Ovalocytes 1+ H Lab - Chemistry Results 03/13/18 03/13/18 03/13/18 12:43 17:50 18:08 Sodium Potassium 4.3 D Chloride Carbon Dioxide Anion Gap BUN Creatinine Estimated GFR POC Glucose 118 H 152 H Random Glucose Calcium Magnesium Total Bilirubin Direct Bilirubin Indirect Bilirubin AST ALT Alkaline Phosphatase C-Reactive Protein Total Protein Albumin 03/13/18 03/14/18 03/14/18 23:57 05:30 11:15 Sodium 147 H Potassium 3.8 Chloride 112 H Carbon Dioxide 28.5 Anion Gap 7 BUN 32 H Creatinine 0.74 Estimated GFR Greater than 89 POC Glucose 144 H Random Glucose 133 H Calcium 7.8 L Magnesium 2.2 Total Bilirubin 0.4 Direct Bilirubin 0.2 Indirect Bilirubin 0.2 AST 17 ALT 26 Alkaline Phosphatase 112 C-Reactive Protein 9.10 H Total Protein 5.5 L Albumin 1.7 L 03/14/18 03/14/18 03/15/18 11:38 17:13 00:17 Sodium Potassium Chloride Carbon Dioxide Anion Gap BUN Creatinine Estimated GFR POC Glucose 131 H 118 H 135 H Random Glucose Calcium Magnesium Total Bilirubin Direct Bilirubin Indirect Bilirubin AST ALT Alkaline Phosphatase C-Reactive Protein Total Protein Albumin 03/15/18 03/15/18 05:52 06:33 Sodium 144 Potassium 3.8 Chloride 108 H Carbon Dioxide 28.9 Anion Gap 7 BUN 28 H Creatinine 0.60 Estimated GFR Greater than 89 POC Glucose 129 H Random Glucose 120 H Calcium 7.8 L Magnesium 2.3 Total Bilirubin Direct Bilirubin Indirect Bilirubin AST ALT Alkaline Phosphatase C-Reactive Protein Total Protein Albumin Imaging: ITS Impressions Cervical Spine CT 03/02/18 00:00 CONCLUSION: 1. Laminectomy and long segment posterior fusion of the cervical spine again noted. Alignment is unchanged, near-anatomic, and the posterior bone graft material appears to be slowly incorporating but not convincingly solid at this time. 2. Limited study; no definite epidural fluid collection. The fluid collection in the laminectomy bed appears to be decreasing but now appears to communicate with a large soft tissue defect overlying the posterior spinous processes of C7 and T1. Bone is exposed but without perceptible acute obstruction. Previously seen drain has been removed. Cervical Spine X-Ray 03/02/18 00:00 CONCLUSION: Abdomen X-Ray 03/05/18 00:00 CONCLUSION: 1. Diffuse colonic distention consistent with colonic ileus. 2. No gross free air as questioned. Chest X-Ray 03/14/18 00:00 CONCLUSION: Underinflation with mild bibasilar and right midlung zone opacity. Although nonspecific this could represent subsegmental atelectasis. However, airspace consolidation is also possible. Venous Doppler Study 03/14/18 00:00 CONCLUSION: 1. There is evidence of occlusive thrombus characteristic of DVT in the left subclavian and left axillary veins. Physical Exam: GENERAL: Well-nourished well-developed, not in acute distress SKIN: Cool and dry, no generalized rash HEAD: Atraumatic. Normocephalic. No temporal or scalp tenderness. EYES: Pupils equal round and reactive. Scleral icterus. No injection or drainage. No petechia Trach site with no e.o infection Left mandibular area with ulceration down to the bone. Left scalp posterior occipital area on right with ulceration and unhealthy granulation tissue. Surgical site with dressing. NECK: Trachea midline. Supple, nontender, no meningeal signs. CARDIOVASCULAR: HS audible. RESPIRATORY: Clear to auscultation bilaterally. GASTROINTESTINAL: Abdomen soft nontender. MUSCULOSKELETAL: Extremities without clubbing, cyanosis. NEUROLOGICAL: Alert oriented 3. Nonfocal. Psych cooperative IV line sites ok Assessment and Plan - Plan MRSA epidural abscess/discitis Surgical site infection at site of recent C5-T1 Instrumentation (hardware in place) New fever? PICC line infection vs HCAP. H/o fall as preceding incident to surgery. Occipital wound stage 3-4 down to bone ? osteomyelitis. Left mandible inferior aspect with ulcer down to done ? osteomyelitis. Cdiff diagnosed at [facility]. Trach in place PEG in place h/o HCAP at other hospital with Sten Mal Rxed per records. 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 Continue oral vanco for Cdiff Thrombosis noted on DVT. Follow cultures Follow clinical course maria luisa MONZON
[2018-03-15] MEDS ORDERED: RESP: Acetylcysteine 10% 4 ML Neb NEB SCH (12:00)
[2018-03-15] MEDS: Vancomycin Inj 1,250 MG in Sodium Chlor 0.9% Inj 250 ML IV.SIG SCH (14:06)
[2018-03-15] MEDS: Collagenase Oint 30 GM Tube TOPICAL SCH (20:43)
[2018-03-16] MEDS: Insulin NovoLIN Regular Correctional Sugar Inj SQ SCH ×5 (00:22→17:41)
[2018-03-16 05:49] LABS: Glomerular Filtration Rate Greater Than 89 mL/min (>89)
[2018-03-16] MEDS: Lactobacillus Acidophilus/L. Spores Tablet G-TUBE SCH ×3 (08:21→17:40)
[2018-03-16] MEDS: Ferrrous Sulfate 300 MG/5 ML UDC G-TUBE SCH (08:21)
[2018-03-16] MEDS: Gabapentin 100 MG Capsule G-TUBE SCH ×3 (08:21→17:41)
[2018-03-16] MEDS: Lansoprazole ODT 15 MG Tablet G-TUBE SCH (08:21)
[2018-03-16] MEDS: Collagenase Oint 30 GM Tube TOPICAL SCH ×2 (08:22→08:25)
[2018-03-16] MEDS: Beneprotein Powder Packet G-TUBE SCH ×3 (08:23→21:19)
[2018-03-16] MEDS: Hyoscyamine Liq Drops 0.125 MG/ML 15 ML Bottle SL PRN (08:25)
--- NOTE | 2018-03-16 10:54 | P.DIET ---
Nutritional Evaluation Type of nutrition evaluation: follow-up Nutrition consult regarding: Tube Feeding Nutrition screening: [facility] (03[place]03) Screening comments: 03/15 [facility] Wound stage 3 pressure injuries Objective - Diagnosis Spinal Cord Injury - Objective % IBW: 84 (IBW: 75.5kg) Body Weight Used for Calculations: Actual (63.3kg) Energy Needs - Lower Range (kCal/kg): 30 Energy Needs - Upper Range (kCal/kg): 35 Lower Limit kCal/kg (kCals): 1,899 Upper Limit kCal/kg (kCals): 2,216 Lower Limit Protein Factor (Grams per Kg): 1.2 Upper Limit Protein Factor (Grams per Kg): 1.5 Lower Protein Needs (Protein): 76 Upper Protein Needs (Protein): 95 Fluid Factor (ml/kg): 32 Estimated Fluid Needs (ml): 2,026 Dietitian Reviewed in Medical Record: Current diet, Curent medications, Intake & Output, Labs, Medical history, Tube feeding, Wound/DTI Diet Order: Mechanical soft Wound Care Note: see WOCN dated 03/14: R buttock unstageable, L buttock-stage 2 Objective Comments: Spinal Cord Injury (01/23/2018) Assessment Assessment: Pt remains at high nutritional risk 2' pressure injuries, dx and the need for TF for nutrition support. Pt is s/p spinal cord injury from a fall from a ladder on 01/23/18. He is now s/p debridement and primary closure of posterior cervical incision (03/04). Pt is receiving Jevity 1.5 @ 60 mls/hr which provides 2160 kcals, 92 gms protein and 1094 mls of free water. Diet has just been advanced; will monitor intake and adjust TF recs accordingly. In addition , pt is receiving 2 packets Beneprotein/day which adds 50 kcals and 12 gms of protein. Pt would also benefit from Jhony to aid in wound healing. Recommendations: TF Jevity 1.5 with goal rate 60ml/hr Beneprotein 1 pkt bid Jhony bid for wound healing Diet per ST Dietitian to Monitor: Lab values, Intake & Output, Tube feeding tolerance, Weight change, PO Intake, Wound/skin status, Swallow recommendations, Medical course
[2018-03-16] MEDS: Vancomycin Inj 1,250 MG in Sodium Chlor 0.9% Inj 250 ML IV.SIG SCH (13:10)
--- NOTE | 2018-03-16 14:38 | P.PNID ---
Subjective Remarks: is a 72 y/o CM with h/o fall from a ladder originally on 2017. He was diagnosed with paraplegia, ended up being trached and PEGed. Patient underwent C3-T1 Instrumentation to stabilize his spine by . Post op there was wound dehiscence noted and he was seen by Dr.Alexandra Manuela RUSSELL and started on Vanco IV. He was later sent to [facility] in [place]. He had a trach collar at some point leading to ulcer under his left chin and on back of his forehead timing of these is not known. He was transferred back to [facility] for washout of the wounds by . A CT spine was done which showed fluid collection in the deeper tissues connecting to exterior wound. Due to concern for discitis and epidural abscess ID consulted. At the time of my evaluation patient is in the intensive surgical care unit currently trached and pegged and in a trach collar. Patient opens his eyes but is unable to move any of his extremities except his right upper extremity that he possibly withdraws from spasms. Patient has ongoing diarrhea and was diagnosed with C. difficile at the other hospital. Upon opening straight collar and noticed a ulcer on her left mandible area, another ulcer on the posterior occipital area on the right side as well as the original surgical incision on the superior aspect appeared to be dehisced in both of these appear to be tracking down to the bone there is no surgical site has yellowish discharge which appears to be copious. Overnight events reviewed with RN No fevers overnight. WBC at 8.9 No rash Trach site ok Increase in secretions amount, color yellow needing freq suctioning. Pulled trach out and was replaced. Pulled PEG tube now eating and on calorie count. Diarrhea Antibiotics: Vanco IV Vanco Oral Rifampin oral Lines: Lines ok Past Medical History: reviewed. Allergies/Adverse Reactions: Allergies No Known Allergies Allergy (Verified 01/21/18 18:40) Objective Vital Signs 03/15/18 15:48 03/15/18 16:00 03/15/18 17:00 Temperature Pulse Rate 83 87 88 Respiratory Rate 20 29 H 21 Blood Pressure 111/57 L 104/61 Pulse Oximetry 97 97 03/15/18 18:00 03/15/18 19:00 03/15/18 20:00 Temperature 99.2 F Pulse Rate 92 H 101 H 95 H Respiratory Rate 25 H 14 14 Blood Pressure 115/78 154/72 H 118/67 Pulse Oximetry 97 97 97 03/15/18 20:56 03/15/18 21:02 03/15/18 21:03 Temperature Pulse Rate 101 H 100 H Respiratory Rate 16 16 Blood Pressure 109/62 Pulse Oximetry 96 03/15/18 22:00 03/15/18 23:00 03/15/18 23:19 Temperature Pulse Rate 98 H 96 H 95 H Respiratory Rate 16 16 18 Blood Pressure 110/60 116/56 L Pulse Oximetry 97 97 03/16/18 00:00 03/16/18 01:00 03/16/18 02:00 Temperature 98.9 F Pulse Rate 104 H 101 H 86 Respiratory Rate 18 16 15 Blood Pressure 119/60 108/69 103/53 L Pulse Oximetry 96 95 97 03/16/18 03:00 03/16/18 03:38 03/16/18 04:00 Temperature 99.3 F Pulse Rate 83 88 96 H Respiratory Rate 15 24 18 Blood Pressure 91/52 L Pulse Oximetry 96 100 03/16/18 04:02 03/16/18 06:00 03/16/18 08:00 Temperature 100.7 F H Pulse Rate 100 H 82 88 Respiratory Rate 18 23 Blood Pressure 128/60 128/60 Pulse Oximetry 100 98 03/16/18 08:52 03/16/18 08:53 03/16/18 10:00 Temperature Pulse Rate 103 H 90 Respiratory Rate 20 Blood Pressure Pulse Oximetry 99 03/16/18 12:48 Temperature Pulse Rate 93 H Respiratory Rate 18 Blood Pressure Pulse Oximetry Intake & Output 03/15/18 03/16/18 03/16/18 18:59 06:59 18:59 Intake Total 1014 / 1014 1580 / 1580 262.5 / 262.5 Output Total 460 / 460 1999 / 1999 Balance 554 / 554 -420 / -420 262.5 / 262.5 Weight 68.5 kg Intake: IV 262.5 / 262.5 Vancomycin Inj 1,250 MG In NS 262.5 / 262.5 Inj 250 ML @ 250 mls/hr IV.SIG Q24H [facility] Rx#:[id number] Oral 240 / 240 0 / 0 Tube Feeding 774 / 774 720 / 720 Tube Irrigant 60 / 60 Water Bolus Amount 800 / 800 Output: Urine 460 / 460 Stool 800 / 800 Urine Amount (Catheter) 1200 / 1200 Indwelling Urethral Catheter 1200 / 1200 Other: Date of Last Bowel Movement 03/15/18 03/16/18 03/16/18 03/14/18 10:59 Blood - Line Aerobic Blood Culture - Preliminary No growth in 2 days 03/14/18 10:59 Blood - Line Anaerobic Blood Culture - Preliminary No growth in 2 days 03/14/18 11:00 Blood - Peripheral Aerobic Blood Culture - Preliminary No growth in 2 days 03/14/18 11:00 Blood - Peripheral Anaerobic Blood Culture - Preliminary No growth in 2 days 03/14/18 11:00 Sputum - Tracheal Aspirate Gram Stain - Final 03/14/18 11:00 Sputum - Tracheal Aspirate Sputum Culture - Preliminary S. aureus MRSA 03/15/18 18:45 Stool Stool Occult Blood (NOEMI) - Final Hemoccult negative 03/14/18 12:47 Stool Stool Occult Blood (NOEMI) - Final Hemoccult negative 03/13/18 09:14 Stool Stool Occult Blood (NOEMI) - Final Hemoccult negative Lab - Hematology Results 03/15/18 05:52 WBC 8.9 RBC 3.37 L Hgb 10.0 L Hct 29.6 L MCV 87.7 MCH 29.5 MCHC 33.7 RDW 15.7 Plt Count 162 MPV 7.9 Neut % (Auto) 82.0 H Lymph % (Auto) 8.1 L [place] % (Auto) 8.7 H Eos % (Auto) 1.0 Baso % (Auto) 0.2 Neut # (Auto) 7.3 Lymph # (Auto) 0.7 L [place] # (Auto) 0.8 Eos # (Auto) 0.1 Baso # (Auto) 0.0 WBC Differential . Differential Comment Auto diff final Lab - Chemistry Results 03/14/18 03/15/18 03/15/18 17:13 00:17 05:52 Sodium 144 Potassium 3.8 Chloride 108 H Carbon Dioxide 28.9 Anion Gap 7 BUN 28 H Creatinine 0.60 Estimated GFR Greater than 89 POC Glucose 118 H 135 H Random Glucose 120 H Calcium 7.8 L Magnesium 2.3 03/15/18 03/15/18 03/15/18 06:33 14:36 18:04 Sodium Potassium Chloride Carbon Dioxide Anion Gap BUN Creatinine Estimated GFR POC Glucose 129 H 130 H 129 H Random Glucose Calcium Magnesium 03/16/18 03/16/18 03/16/18 00:19 04:35 04:50 Sodium Potassium Chloride Carbon Dioxide Anion Gap BUN Creatinine 0.63 Estimated GFR Greater than 89 POC Glucose 131 H 140 H Random Glucose Calcium Magnesium Imaging: ITS Impressions Cervical Spine CT 03/02/18 00:00 CONCLUSION: 1. Laminectomy and long segment posterior fusion of the cervical spine again noted. Alignment is unchanged, near-anatomic, and the posterior bone graft material appears to be slowly incorporating but not convincingly solid at this time. 2. Limited study; no definite epidural fluid collection. The fluid collection in the laminectomy bed appears to be decreasing but now appears to communicate with a large soft tissue defect overlying the posterior spinous processes of C7 and T1. Bone is exposed but without perceptible acute obstruction. Previously seen drain has been removed. Cervical Spine X-Ray 03/02/18 00:00 CONCLUSION: Abdomen X-Ray 03/05/18 00:00 CONCLUSION: 1. Diffuse colonic distention consistent with colonic ileus. 2. No gross free air as questioned. Chest X-Ray 03/14/18 00:00 CONCLUSION: Underinflation with mild bibasilar and right midlung zone opacity. Although nonspecific this could represent subsegmental atelectasis. However, airspace consolidation is also possible. Venous Doppler Study 03/14/18 00:00 CONCLUSION: 1. There is evidence of occlusive thrombus characteristic of DVT in the left subclavian and left axillary veins. Physical Exam: GENERAL: Well-nourished well-developed, not in acute distress SKIN: Cool and dry, no generalized rash HEAD: Atraumatic. Normocephalic. No temporal or scalp tenderness. EYES: Pupils equal round and reactive. Scleral icterus. No injection or drainage. No petechia Trach site with no e.o infection Left mandibular area with ulceration down to the bone. Left scalp posterior occipital area on right with ulceration and unhealthy granulation tissue. Surgical site with dressing. NECK: Trachea midline. Supple, nontender, no meningeal signs. CARDIOVASCULAR: HS audible. RESPIRATORY: Clear to auscultation bilaterally. GASTROINTESTINAL: Abdomen soft nontender.PEG tube site with no e.o infection. MUSCULOSKELETAL: Extremities without clubbing, cyanosis. NEUROLOGICAL: Alert oriented 3. Nonfocal. Psych cooperative IV line sites ok Assessment and Plan - Plan MRSA epidural abscess/discitis Surgical site infection at site of recent C5-T1 Instrumentation (hardware in place) PEG tube site cellulitis. MRSA Tracheobronchitis. H/o fall as preceding incident to surgery. Occipital wound stage 3-4 down to bone ? osteomyelitis. Left mandible inferior aspect with ulcer down to done ? osteomyelitis. Cdiff diagnosed at [facility]. 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 Continue oral vanco for Cdiff Thrombosis noted on DVT. Check CT Abd/Pelvis non contrast r/o abscess at PEG tube site intra abdominally. Start Diflucan Start Augmentin (PEG tube site cellulitis) Follow cultures Follow clinical course maria luisa MONZON
--- NOTE | 2018-03-16 14:50 | P.PN ---
Subjective Interval history: Discussed with the ICU nurse Patient pulled PEG tube Patient is able to eat, will consult executive vice president and chief operating officer for redd count ST following The patient does not appear in acute distress. Physical Exam Vital signs: Vital Signs 03/15/18 15:48 03/15/18 16:00 03/15/18 17:00 Temperature Pulse Rate 83 87 88 Respiratory Rate 20 29 H 21 Blood Pressure 111/57 L 104/61 Pulse Oximetry 97 97 03/15/18 18:00 03/15/18 19:00 03/15/18 20:00 Temperature 99.2 F Pulse Rate 92 H 101 H 95 H Respiratory Rate 25 H 14 14 Blood Pressure 115/78 154/72 H 118/67 Pulse Oximetry 97 97 97 03/15/18 20:56 03/15/18 21:02 03/15/18 21:03 Temperature Pulse Rate 101 H 100 H Respiratory Rate 16 16 Blood Pressure 109/62 Pulse Oximetry 96 03/15/18 22:00 03/15/18 23:00 03/15/18 23:19 Temperature Pulse Rate 98 H 96 H 95 H Respiratory Rate 16 16 18 Blood Pressure 110/60 116/56 L Pulse Oximetry 97 97 03/16/18 00:00 03/16/18 01:00 03/16/18 02:00 Temperature 98.9 F Pulse Rate 104 H 101 H 86 Respiratory Rate 18 16 15 Blood Pressure 119/60 108/69 103/53 L Pulse Oximetry 96 95 97 03/16/18 03:00 03/16/18 03:38 03/16/18 04:00 Temperature 99.3 F Pulse Rate 83 88 96 H Respiratory Rate 15 24 18 Blood Pressure 91/52 L Pulse Oximetry 96 100 03/16/18 04:02 03/16/18 06:00 03/16/18 08:00 Temperature 100.7 F H Pulse Rate 100 H 82 88 Respiratory Rate 18 23 Blood Pressure 128/60 128/60 Pulse Oximetry 100 98 03/16/18 08:52 03/16/18 08:53 03/16/18 10:00 Temperature Pulse Rate 103 H 90 Respiratory Rate 20 Blood Pressure Pulse Oximetry 99 03/16/18 12:48 Temperature Pulse Rate 93 H Respiratory Rate 18 Blood Pressure Pulse Oximetry Intake & Output 03/15/18 03/16/18 03/16/18 18:59 06:59 18:59 Intake Total 1014 / 1014 1580 / 1580 262.5 / 262.5 Output Total 460 / 460 1999 / 1999 Balance 554 / 554 -420 / -420 262.5 / 262.5 Weight 68.5 kg Intake: IV 262.5 / 262.5 Vancomycin Inj 1,250 MG In NS 262.5 / 262.5 Inj 250 ML @ 250 mls/hr IV.SIG Q24H [facility] Rx#:[id number] Oral 240 / 240 0 / 0 Tube Feeding 774 / 774 720 / 720 Tube Irrigant 60 / 60 Water Bolus Amount 800 / 800 Output: Urine 460 / 460 Stool 800 / 800 Urine Amount (Catheter) 1200 / 1200 Indwelling Urethral Catheter 1200 / 1200 Other: Date of Last Bowel Movement 03/15/18 03/16/18 03/16/18 Narrative: GENERAL: 72-year-old patient, well-developed, well-nourished in no distress. SKIN: Warm and dry. Trach in place. Neck incision c/d/i- sutures in place CARDIOVASCULAR: Regular rate and rhythm. RESPIRATORY: No accessory muscle use. Clear to auscultation. Breath sounds equal bilaterally. GASTROINTESTINAL: Abdomen soft, non-tender, nondistended. Patient pulled PEG, site is dressed c/d/i will continue to monitor site MUSCULOSKELETAL: Extremities without clubbing, cyanosis, or edema. No obvious deformities. NEUROLOGICAL: Moving upper extremities vigorously of arms down to wrists, some movement of hands. Following commands. No movement of lower extremities - Urinary Catheter Management Indwelling Urethral Catheter Cath placed during this visit: yes, but has since been removed by the nurse Reason for continuing: Severe pressure ulcer/wound Insertion date: 03/15/18 Insertion time: 15:00 Removal date: 03/04/18 Removal time: 16:06 Results - Labs CBC & Chem 7: 03/15/18 05:52 03/16/18 04:35 Laboratory Results - last 24 hr 03/15/18 03/15/18 03/16/18 14:36 18:04 00:19 Creatinine Estimated GFR POC Glucose 130 H 129 H 131 H 03/16/18 03/16/18 04:35 04:50 Creatinine 0.63 Estimated GFR Greater than 89 POC Glucose 140 H Microbiology 03/14/18 10:59 Blood - Line Aerobic Blood Culture - Preliminary No growth in 2 days 03/14/18 10:59 Blood - Line Anaerobic Blood Culture - Preliminary No growth in 2 days 03/14/18 11:00 Blood - Peripheral Aerobic Blood Culture - Preliminary No growth in 2 days 03/14/18 11:00 Blood - Peripheral Anaerobic Blood Culture - Preliminary No growth in 2 days 03/14/18 11:00 Sputum - Tracheal Aspirate Gram Stain - Final 03/14/18 11:00 Sputum - Tracheal Aspirate Sputum Culture - Preliminary S. aureus MRSA 03/15/18 18:45 Stool Stool Occult Blood (NOEMI) - Final Hemoccult negative - Procedures Operative debridement, resection of C7 and T1 spinous processes, irrigation with Vancomycin powder, closure over a drain Assessment and Plan - Plan 72yM with dehisced posterior cervical incisional wound with MRSA wound infection , now debrided and closed over drain. Leukocytosis with fever. Also also has increased trach secretions. Also has a PICC. Repeat chest x-ray with Underinflation with mild bibasilar and right midlung zone opacity. Although nonspecific this could represent subsegmental atelectasis. However, airspace consolidation is also possible. Improved leukocytosis. Follow-up sputum culture and blood cultures. Discontinue PICC and replace Turner catheter discussed with nursing. Wound care MRSA wound infection status post surgery - ID following on IV Vanco stop date per ID, MRSA growing from wound culture. Ct rifampin at least 4 months of oral antibiotic with as needed periodic imaging studies - Blood urine cultures neg - Neurosurgery following DC sutures March 25, 2018 - add diflucan, add augmentin - wound care is ff -patient pulled PEG tube on 03/16, plan for CT a/p to r/o abscess per ID recs Incomplete quadriplegia - Wean trach collar o2 as tolerated - Aggressive pulmonary toilet - Turning/ offloading to prevent pressure wounds - Feedings per PEG tube and mechanical soft per speech therapy Acute protein calorie malnutrition- severe - Prealbumin on admission 16 - Tube feeds calculated, goal is jevity 1.5 - patient pulled PEG tube executive vice president and chief operating officer is ff for redd count Chronic respiratory failure - Trach collar o2 - Aggressive pulmonary toilet - PT consult - Levsin and mucomyst Chronic urinary retention - UA on admission showed few bacteria, no leukocytes or nitrites - Keep chronic indwelling Turner catheter, replace every [address] po Vanco and Lactinex monitor electrolyte. Hypernatremia and hypokalemia. Improved continue free water via G-tube and replace potassium per protocol Anemia. Guaiac negative. Improved with blood transfusion. Keep hemoglobin at least 8 DVT LUE . PICC removed start Eliquis 10 mg twice a day for 7 days then 5 mg twice a day(need to order) SCDs Eliquis Prevacid Overall impression: Satisfactorily weaned from mechanical ventilation. Tolerating trach collar. Watch for dehydration secondary to diarrhea. CBC and BMP in am Discharge Planning: [facility] will not be able to take the patient at this time. [facility]erred to [facility] awaiting [facility]. Not ready for discharge at this time. Transferred to floor pending bed availability patient pulled PEG tube 03/16. CT a/p pending for evel abscess per ID
[2018-03-16] MEDS ORDERED: Amoxicillin/Clavulanate 400 MG/5 ML Susp 100 ML Bottle PO SCH (16:00)
[2018-03-16] MEDS: Fluconazole 100 MG Tablet PO SCH (17:40)
[2018-03-16] MEDS: Amoxicillin/Clavulanate 400 MG/5 ML Susp 100 ML Bottle PO SCH (17:54)
[2018-03-17] MEDS: Amoxicillin/Clavulanate 400 MG/5 ML Susp 100 ML Bottle PO SCH ×3 (01:44→16:24)
[2018-03-17] MEDS: Insulin NovoLIN Regular Correctional Sugar Inj SQ SCH ×3 (01:45→12:15)
--- NOTE | 2018-03-17 06:06 | CT ---
EXAM DATE: 03/17/2018 5:18 AM EST AGE/SEX: 72 years / Male INDICATIONS: Abdomen pain. Evaluate peg tube site for abscess. CLINICAL DATA: This is the patient's initial encounter. Patient reports that signs and symptoms have been present for 1 day and indicates a pain score of 5/10. MEDICAL/SURGICAL HISTORY: Rheumatoid arthritis. MRSA. Paraplegia. Fusion, cervical. RADIATION DOSE: 7.24 CTDI (mGy) [place] [facility] [place]. . TECHNIQUE: Multiple contiguous axial images were obtained through the abdomen. Images were obtained using multiple row detector helical technique. Using automated exposure control and adjustment of the mA and/or kV according to patient size, radiation dose was kept as low as reasonably achievable to o btain optimal diagnostic quality images. DICOM format image data is available electronically for rev iew and comparison. FINDINGS: Lower Lungs: Small posterior layering pleural effusions bilaterally. Associated passive atelectasis. Mild cardiomegaly. A 2.8 cm rim calcified nodule is seen within the right posterior costophrenic sulc us. There is associated calcified pleural plaque. This is unchanged from the prior study. Liver: The liver has a homogeneous density without space-occupying lesion. There is no dilation of th e biliary tree. Gallbladder is decompressed. Spleen: Homogeneous density without enlargement. Pancreas: Unremarkable without mass or calcification. Kidneys: Normal in size and shape. No evidence of mass or hydronephrosis. Adrenal Glands: Unremarkable. Aorta: The aorta and proximal iliac vessels are grossly unremarkable without aneurysmal dilation. Bowel/Mesentery: A gastrostomy tube tract is observed. No abscess. A rectal tube observed. The bowel loops are grossly unremarkable. The cecum and sigmoid colon have a normal configuration. Abdominal Wall: Intact. Retroperitoneum: No evidence of adenopathy in the retrocrural, para-aortic, or deep pelvic regions. Bladder: Contains a Turner and is totally decompressed.. Reproductive Organs: No abnormal masses or calcifications seen. Inguinal: The inguinal region is unremarkable without evidence of adenopathy. Bony Structures: Unremarkable. CONCLUSION: 1. Gastrostomy tube tract. No abscess. 2. Small bilateral pleural effusions with associated atelectasis. 3. Rim calcified nodule within the right posterior costophrenic sulcus with associated calcified ple ural plaque. Stable in the short interval. Electronically signed by: Jaguar Braun MD 03/17/2018 6:05 AM EST
[2018-03-17 07:10] LABS: Baso % (Auto) 0.3 % (0.0-2.0); Eos # (Auto) 0.1 th/mm3 (0.0-0.4); Eos % (Auto) 1.3 % (0.0-4.0); Hematocrit 26.7 % (39.0-51.0); Hemoglobin 8.9 gm/dL (13.0-17.0); Lymph # (Auto) 0.7 th/mm3 (1.0-4.8); Lymph % (Auto) 8.4 % (9.0-44.0); Mean Corpuscular HGB Conc 33.5 % (32.0-36.0); Mean Corpuscular Hemoglobin 29.3 pg (27.0-34.0); Mean Corpuscular Volume 87.6 fL (80.0-100.0); Mean Platelet Volume 7.5 fL (7.0-11.0); Mono # (Auto) 0.7 th/mm3 (0.0-0.9); Mono % (Auto) 8.3 % (0.0-8.0); Neut # (Auto) 7.1 th/mm3 (1.8-7.7); Neut % (Auto) 81.7 % (16.0-70.0); Platelet Count 172 th/mm3 (150-450); Red Blood Count 3.05 mil/mm3 (4.50-5.90); Red Cell Distribution Width 15.3 % (11.6-17.2); White Blood Count 8.6 th/mm3 (4.0-11.0)
[2018-03-17 07:35] LABS: Anion Gap 8 meq/L (5-15); Blood Urea Nitrogen 21 mg/dL (7-18); Calcium 8.3 mg/dL (8.5-10.1); Chloride 110 meq/L (98-107); Glomerular Filtration Rate Greater Than 89 mL/min (>89); Glucose,Random 83 mg/dL (74-106); Potassium 3.7 meq/L (3.5-5.1); Sodium 147 meq/L (136-145)
[2018-03-17] MEDS: Collagenase Oint 30 GM Tube TOPICAL SCH (08:37)
[2018-03-17] MEDS: Lactobacillus Acidophilus/L. Spores Tablet G-TUBE SCH ×3 (08:56→18:20)
[2018-03-17] MEDS: Ferrrous Sulfate 300 MG/5 ML UDC G-TUBE SCH (08:56)
[2018-03-17] MEDS: Beneprotein Powder Packet G-TUBE SCH ×2 (08:56→20:12)
[2018-03-17] MEDS: Lansoprazole ODT 15 MG Tablet G-TUBE SCH (08:57)
[2018-03-17] MEDS: Gabapentin 100 MG Capsule G-TUBE SCH ×3 (08:57→18:20)
[2018-03-17 11:09] VITALS: TEMP 99.2
--- NOTE | 2018-03-17 11:43 | P.DIET ---
Nutritional Evaluation Type of nutrition evaluation: follow-up Nutrition consult regarding: Tube Feeding Nutrition screening: [facility] [place] (03/03) Screening comments: 03/15 [facility] [place] Wound stage 3 pressure injuries 03/17 [facility] [place] for Calorie Counting Subjective Subjective Comments: Informed nurse of calorie count. She states the pt ate a little with her and then ate more when his fed him. Objective - Diagnosis Spinal Cord Injury - Objective % IBW: 84 (IBW: 75.5kg) Body Weight Used for Calculations: Actual (63.3kg) Energy Needs - Lower Range (kCal/kg): 30 Energy Needs - Upper Range (kCal/kg): 35 Lower Limit kCal/kg (kCals): 1,899 Upper Limit kCal/kg (kCals): 2,216 Lower Limit Protein Factor (Grams per Kg): 1.2 Upper Limit Protein Factor (Grams per Kg): 1.5 Lower Protein Needs (Protein): 76 Upper Protein Needs (Protein): 95 Fluid Factor (ml/kg): 32 Estimated Fluid Needs (ml): 2,026 Dietitian Reviewed in Medical Record: Current diet, Curent medications, Intake & Output, Labs, Medical history, Tube feeding, Wound/DTI Diet Order: Mechanical soft Wound Care Note: see WOCN dated 03/14: R buttock unstageable, L buttock-stage 2 Objective Comments: Spinal Cord Injury (01/23/2018) Assessment Assessment: Pt remains at high nutritional risk 2' pressure injuries, dx and the need for TF for nutrition support. Pt is s/p spinal cord injury from a fall from a ladder on 01/23/18. He is now s/p debridement and primary closure of posterior cervical incision (03/04). Pt was receiving Jevity 1.5 @ 60 mls/hr which provides 2160 kcals, 92 gms protein and 1094 mls of free water but he has pulled out his feeding tube. Diet has just been advanced, calorie counts started to eval adequacy of po intake and to determine the need for PEG. Pt is receiving 2 packets Beneprotein/day which adds 50 kcals and 12 gms of protein. Pt would also benefit from Jhony to aid in wound healing. Recommendations: TF Jevity 1.5 with goal rate 60ml/hr Beneprotein 1 pkt bid Jhony bid for wound healing Diet per ST Calorie counts from 03/17-03/21 Dietitian to Monitor: Lab values, Intake & Output, Tube feeding tolerance, Weight change, PO Intake, Wound/skin status, Swallow recommendations, Medical course
[2018-03-17] MEDS ORDERED: Pharmacy Ordered Lab Info OTHER ONE (11:45)
[2018-03-17] MEDS: Vancomycin Inj 1,250 MG in Sodium Chlor 0.9% Inj 250 ML IV.SIG SCH (13:23)
--- NOTE | 2018-03-17 13:35 | P.PNID ---
Subjective Remarks: is a 72 y/o CM with h/o fall from a ladder originally on 2017. He was diagnosed with paraplegia, ended up being trached and PEGed. Patient underwent C3-T1 Instrumentation to stabilize his spine by . Post op there was wound dehiscence noted and he was seen by Dr.Alexandra Manuela RUSSELL and started on Vanco IV. He was later sent to [facility] in [place]. He had a trach collar at some point leading to ulcer under his left chin and on back of his forehead timing of these is not known. He was transferred back to [facility] for washout of the wounds by . A CT spine was done which showed fluid collection in the deeper tissues connecting to exterior wound. Due to concern for discitis and epidural abscess ID consulted. At the time of my evaluation patient is in the intensive surgical care unit currently trached and pegged and in a trach collar. Patient opens his eyes but is unable to move any of his extremities except his right upper extremity that he possibly withdraws from spasms. Patient has ongoing diarrhea and was diagnosed with C. difficile at the other hospital. Upon opening straight collar and noticed a ulcer on her left mandible area, another ulcer on the posterior occipital area on the right side as well as the original surgical incision on the superior aspect appeared to be dehisced in both of these appear to be tracking down to the bone there is no surgical site has yellowish discharge which appears to be copious. Overnight events reviewed with RN No fevers overnight. WBC at 8.9 No rash Trach site ok Increase in secretions amount, color yellow needing freq suctioning. Pulled trach out and was replaced. Pulled PEG tube now eating and on calorie count. Diarrhea Antibiotics: Vanco IV Vanco Oral Rifampin oral Lines: Lines ok Past Medical History: reviewed. Allergies/Adverse Reactions: Allergies No Known Allergies Allergy (Verified 01/21/18 18:40) Objective Vital Signs 03/16/18 14:00 03/16/18 15:00 03/16/18 16:00 Temperature 99.6 F Pulse Rate 93 H 96 H 90 Respiratory Rate 22 22 28 H Blood Pressure 132/75 140/82 136/63 Pulse Oximetry 96 96 97 03/16/18 17:00 03/16/18 18:00 03/16/18 19:00 Temperature Pulse Rate 90 105 H 103 H Respiratory Rate 33 H 24 20 Blood Pressure 149/73 H 135/66 128/73 Pulse Oximetry 97 96 97 03/16/18 20:00 03/16/18 20:28 03/16/18 21:00 Temperature 99.0 F Pulse Rate 100 H 93 H 109 H Respiratory Rate 15 22 17 Blood Pressure 125/71 129/66 Pulse Oximetry 98 97 100 03/16/18 22:00 03/16/18 23:00 03/17/18 00:00 Temperature 98.8 F Pulse Rate 101 H 92 H 97 H Respiratory Rate 17 22 36 H Blood Pressure 115/65 105/56 L 110/61 Pulse Oximetry 97 98 100 03/17/18 00:14 03/17/18 01:00 03/17/18 02:00 Temperature Pulse Rate 101 H 91 H 86 Respiratory Rate 22 16 16 Blood Pressure 91/53 L 100/57 L Pulse Oximetry 97 98 03/17/18 03:00 03/17/18 04:00 03/17/18 04:11 Temperature 98.7 F Pulse Rate 91 H 88 86 Respiratory Rate 16 38 H 22 Blood Pressure 116/63 119/61 Pulse Oximetry 97 99 98 03/17/18 05:00 03/17/18 06:00 03/17/18 07:00 Temperature 99.2 F Pulse Rate 90 83 93 H Respiratory Rate 36 H 19 9 L Blood Pressure 140/70 105/59 L 111/64 Pulse Oximetry 98 96 98 03/17/18 07:31 03/17/18 08:00 03/17/18 10:00 Temperature 99.2 F Pulse Rate 90 102 H 87 Respiratory Rate 24 33 H Blood Pressure 132/67 Pulse Oximetry 99 98 03/17/18 11:05 03/17/18 12:00 Temperature Pulse Rate 86 98 H Respiratory Rate 25 H Blood Pressure Pulse Oximetry Intake & Output 03/16/18 03/17/18 03/17/18 18:59 06:59 18:59 Intake Total 1070.0 / 1070.0 240 / 240 Output Total 2300 / 2300 1450 / 1450 Balance -1230.0 / -1230.0 -1210 / -1210 Weight 65.2 kg Intake: IV 525.0 / 525.0 Vancomycin Inj 1,250 MG In NS 525.0 / 525.0 Inj 250 ML @ 250 mls/hr IV.SIG Q24H [facility] Rx#:[id number] Oral 360 / 360 240 / 240 Tube Feeding 125 / 125 Tube Irrigant 60 / 60 Output: Stool 450 / 450 Urine Amount (Catheter) 1850 / 1850 1450 / 1450 Indwelling Urethral Catheter 1849 1850 1450 / 1450 Other: Date of Last Bowel Movement 03/16/18 03/17/18 03/17/18 03/14/18 11:00 Sputum - Tracheal Aspirate Gram Stain - Final 03/14/18 11:00 Sputum - Tracheal Aspirate Sputum Culture - Final S. aureus MRSA 03/14/18 10:59 Blood - Line Aerobic Blood Culture - Preliminary No growth in 3 days 03/14/18 10:59 Blood - Line Anaerobic Blood Culture - Preliminary No growth in 3 days 03/14/18 11:00 Blood - Peripheral Aerobic Blood Culture - Preliminary No growth in 3 days 03/14/18 11:00 Blood - Peripheral Anaerobic Blood Culture - Preliminary No growth in 3 days 03/15/18 18:45 Stool Stool Occult Blood (NOEMI) - Final Hemoccult negative 03/14/18 12:47 Stool Stool Occult Blood (NOEMI) - Final Hemoccult negative Lab - Hematology Results 03/17/18 05:48 WBC 8.6 RBC 3.05 L Hgb 8.9 L Hct 26.7 L MCV 87.6 MCH 29.3 MCHC 33.5 RDW 15.3 Plt Count 172 MPV 7.5 Neut % (Auto) 81.7 H Lymph % (Auto) 8.4 L [place] % (Auto) 8.3 H Eos % (Auto) 1.3 Baso % (Auto) 0.3 Neut # (Auto) 7.1 Lymph # (Auto) 0.7 L [place] # (Auto) 0.7 Eos # (Auto) 0.1 Baso # (Auto) 0.0 WBC Differential . Differential Comment Auto diff final Lab - Chemistry Results 03/15/18 03/15/18 03/16/18 14:36 18:04 00:19 Sodium Potassium Chloride Carbon Dioxide Anion Gap BUN Creatinine Estimated GFR POC Glucose 130 H 129 H 131 H Random Glucose Calcium 03/16/18 03/16/18 03/17/18 04:35 04:50 05:48 Sodium 147 H Potassium 3.7 Chloride 110 H Carbon Dioxide 29.0 Anion Gap 8 BUN 21 H Creatinine 0.63 0.57 L Estimated GFR Greater than 89 Greater than 89 POC Glucose 140 H Random Glucose 83 Calcium 8.3 L 03/17/18 12:08 Sodium Potassium Chloride Carbon Dioxide Anion Gap BUN Creatinine Estimated GFR POC Glucose 130 H Random Glucose Calcium Imaging: ITS Impressions Cervical Spine CT 03/02/18 00:00 CONCLUSION: 1. Laminectomy and long segment posterior fusion of the cervical spine again noted. Alignment is unchanged, near-anatomic, and the posterior bone graft material appears to be slowly incorporating but not convincingly solid at this time. 2. Limited study; no definite epidural fluid collection. The fluid collection in the laminectomy bed appears to be decreasing but now appears to communicate with a large soft tissue defect overlying the posterior spinous processes of C7 and T1. Bone is exposed but without perceptible acute obstruction. Previously seen drain has been removed. Cervical Spine X-Ray 03/02/18 00:00 CONCLUSION: Abdomen X-Ray 03/05/18 00:00 CONCLUSION: 1. Diffuse colonic distention consistent with colonic ileus. 2. No gross free air as questioned. Chest X-Ray 03/14/18 00:00 CONCLUSION: Underinflation with mild bibasilar and right midlung zone opacity. Although nonspecific this could represent subsegmental atelectasis. However, airspace consolidation is also possible. Venous Doppler Study 03/14/18 00:00 CONCLUSION: 1. There is evidence of occlusive thrombus characteristic of DVT in the left subclavian and left axillary veins. Abdomen/Pelvis CT 03/17/18 00:00 CONCLUSION: 1. Gastrostomy tube tract. No abscess. 2. Small bilateral pleural effusions with associated atelectasis. 3. Rim calcified nodule within the right posterior costophrenic sulcus with associated calcified pleural plaque. Stable in the short interval. Physical Exam: GENERAL: Well-nourished well-developed, not in acute distress SKIN: Cool and dry, no generalized rash HEAD: Atraumatic. Normocephalic. No temporal or scalp tenderness. EYES: Pupils equal round and reactive. Scleral icterus. No injection or drainage. No petechia Trach site with no e.o infection Left mandibular area with ulceration down to the bone. Left scalp posterior occipital area on right with ulceration and unhealthy granulation tissue. Surgical site with dressing. NECK: Trachea midline. Supple, nontender, no meningeal signs. CARDIOVASCULAR: HS audible. RESPIRATORY: Clear to auscultation bilaterally. GASTROINTESTINAL: Abdomen soft nontender.PEG tube site with no e.o infection. MUSCULOSKELETAL: Extremities without clubbing, cyanosis. NEUROLOGICAL: Alert oriented 3. Nonfocal. Psych cooperative IV line sites ok Assessment and Plan - Plan MRSA epidural abscess/discitis Surgical site infection at site of recent C5-T1 Instrumentation (hardware in place) PEG tube site cellulitis. MRSA Tracheobronchitis. H/o fall as preceding incident to surgery. Occipital wound stage 3-4 down to bone ? osteomyelitis. Left mandible inferior aspect with ulcer down to done ? osteomyelitis. Cdiff diagnosed at [facility]. 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 Continue Diflucan 100 mg po daily for 5-7 days depending on clinical response for PEG tube cellulitis. Continue oral vanco for Cdiff has persistent diarrhea. Ideally would recommend continuing it while on IV antibiotics and for an additional [address] Abd/Pelvis non contrast no e/o abscess at PEG tube site intra abdominally. Follow cultures Follow clinical course maria luisa Ruano for LTAC patient needs ID consult at [facility] for close monitoring of the hardware infection in spine. Consider oral suppressive therapy for 2-4 months after that based on Cdiff status. Ok to transfer to LTAC from ID standpoint. Will sign off please call back if any change in clinical condition or questions.
[2018-03-17 13:51] LABS: Vancomycin,Trough 15.7 mcg/mL (5.0-10.0)
--- NOTE | 2018-03-17 14:23 | P.PNIM ---
Subjective Interval history: 72yM s/p posterior cervical decompression and fusion 01/22/2018 after original injury of fall from ladder. Course complicated by paraplegia requiring trach/ peg and LTAC placement. In LTAC ([facility]), he had worsening of two wounds on his posterior head/neck, one at the incisional site which is deeper and now has exposed bone. Wound culture from 02/25 grew MRSA, he is on vancomycin. Discussed the case with Dr. Szymanski who is planning on doing a washout and closure on Sunday 03/04. 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 ROS unobtainable from the patient due to his trach dependency. 03/03: Stable overnight, collar cleared by neurosurgery, going to OR tomorrow. 03/04: Remains on trach collar. Awaiting surgery today. 03/05: Status post multiple neck debridements. Patient continues with profuse diarrhea, C. difficile positive at referring hospital. KUB obtained today shows a lot of air in the colon but no dangerous distention. 03/06: Remains with acceptable respiratory effort on T-piece. Gas exchange acceptable. KIANA bulb remains draining neck region. We can start making arrangements for transfer either to [place] or back to [facility]. 03/07: Continues to breathe comfortably on T-piece. Once KIANA drain is out of neck we can safely transfer him to a rehab facility. He came to us from [facility]. 03/08 Consulted by [facility] for med mgt and transfer of care. Chart reviewed. Patient awake and following simple commands. Nonverbal patient has tracheostomy on 5 L 03/09 Follow-up C. difficile/ Still with diarrhea has rectal tube dw and [place] rep 03/10 Follow-up C. difficile. Still having diarrhea but improving. Dw she is aware he will likely not walk again but wishes he could again. 03/11 Follow-up C. difficile. No BM since yesterday. Awaiting acceptance from [facility] 03/12 Improving diarrhea has rectal tube. Moderate yellow trach secretions no fever. Awaiting [facility] acceptance 03/13 Follow-up anemia and C. difficile. No gross bleeding. Improving diarrhea. Still with significant trach secretions patient has no fever or leukocytosis start labs and discussed with nursing 03/14 Follow-up C. difficile colitis. Stool volume 400 mL past 24 hours. T-max 99.5. Leukocytosis noted on CBC today. Patient has a Picc placed prior to admission. Also with yellow trach secretions.. Sacral decub with necrotic area 03/15 Follow-up leukocytosis. Stool volume 150 mL. Aware of DVT of the left upper extremity. Agrees to be started on Eliquis discussed with neurosurgery. Discussed with infectious disease, not cleared to have central line/ PICC 03/16 Discussed with the ICU nurse Patient pulled PEG tube Patient is able to eat, will consult legal nurse consultant for redd count ST following The patient does not appear in acute distress. 03/17 PEG PULLED OUT TOLERATING A DIET CLEARED BY ID FOR [facility]CHARGE [facility] DW RN AND PT AND CM AND ID Physical Exam Vital signs: Vital Signs 03/16/18 15:00 03/16/18 16:00 03/16/18 17:00 Temperature 99.6 F Pulse Rate 96 H 90 90 Respiratory Rate 22 28 H 33 H Blood Pressure 140/82 136/63 149/73 H Pulse Oximetry 96 97 97 03/16/18 18:00 03/16/18 19:00 03/16/18 20:00 Temperature 99.0 F Pulse Rate 105 H 103 H 100 H Respiratory Rate 24 20 15 Blood Pressure 135/66 128/73 125/71 Pulse Oximetry 96 97 98 03/16/18 20:28 03/16/18 21:00 03/16/18 22:00 Temperature Pulse Rate 93 H 109 H 101 H Respiratory Rate 22 17 17 Blood Pressure 129/66 115/65 Pulse Oximetry 97 100 97 03/16/18 23:00 03/17/18 00:00 03/17/18 00:14 Temperature 98.8 F Pulse Rate 92 H 97 H 101 H Respiratory Rate 22 36 H 22 Blood Pressure 105/56 L 110/61 Pulse Oximetry 98 100 03/17/18 01:00 03/17/18 02:00 03/17/18 03:00 Temperature Pulse Rate 91 H 86 91 H Respiratory Rate 16 16 16 Blood Pressure 91/53 L 100/57 L 116/63 Pulse Oximetry 97 98 97 03/17/18 04:00 03/17/18 04:11 03/17/18 05:00 Temperature 98.7 F Pulse Rate 88 86 90 Respiratory Rate 38 H 22 36 H Blood Pressure 119/61 140/70 Pulse Oximetry 99 98 98 03/17/18 06:00 03/17/18 07:00 03/17/18 07:31 Temperature 99.2 F Pulse Rate 83 93 H 90 Respiratory Rate 19 9 L 24 Blood Pressure 105/59 L 111/64 Pulse Oximetry 96 98 99 03/17/18 08:00 03/17/18 10:00 03/17/18 11:05 Temperature 99.2 F Pulse Rate 102 H 87 86 Respiratory Rate 33 H 25 H Blood Pressure 132/67 Pulse Oximetry 98 03/17/18 12:00 Temperature Pulse Rate 98 H Respiratory Rate Blood Pressure Pulse Oximetry Intake & Output 03/16/18 03/17/18 03/17/18 18:59 06:59 18:59 Intake Total 1070.0 / 1070.0 240 / 240 Output Total 2300 / 2300 1450 / 1450 Balance -1230.0 / -1230.0 -1210 / -1210 Weight 65.2 kg Intake: IV 525.0 / 525.0 Vancomycin Inj 1,250 MG In NS 525.0 / 525.0 Inj 250 ML @ 250 mls/hr IV.SIG Q24H [facility] Rx#:[id number] Oral 360 / 360 240 / 240 Tube Feeding 125 / 125 Tube Irrigant 60 / 60 Output: Stool 450 / 450 Urine Amount (Catheter) 1850 / 1850 1450 / 1450 Indwelling Urethral Catheter 1850 / 1850 1450 / 1450 Other: Date of Last Bowel Movement 03/16/18 03/17/18 03/17/18 Narrative: GENERAL: 72-year-old patient, well-developed, well-nourished in no distress. SKIN: Warm and dry. Trach in place. Neck incision c/d/i- sutures in place NECK TRACH IN PLACE SUPPLE CARDIOVASCULAR: Regular rate and rhythm. S1, S2 NO S3 OR S4 RESPIRATORY: No accessory muscle use. Breath sounds equal bilaterally. COARSE BS BL GASTROINTESTINAL: Abdomen soft, non-tender, nondistended. Patient pulled PEG, site is dressed c/d/i will continue to monitor site MUSCULOSKELETAL: Extremities without clubbing, cyanosis, or edema. No obvious deformities. NEUROLOGICAL: Moving upper extremities vigorously of arms down to wrists, some movement of hands. Following commands. No movement of lower extremities AWAKE AND ALERT - Urinary Catheter Management Indwelling Urethral Catheter Cath placed during this visit: yes, but has since been removed by the nurse Reason for continuing: Severe pressure ulcer/wound Insertion date: 03/15/18 Insertion time: 15:00 Removal date: 03/04/18 Removal time: 16:06 Results - Labs CBC & Chem 7: 03/17/18 05:48 03/17/18 05:48 Laboratory Results - last 24 hr 03/17/18 03/17/18 03/17/18 05:48 05:48 12:08 WBC 8.6 RBC 3.05 L Hgb 8.9 L Hct 26.7 L MCV 87.6 MCH 29.3 MCHC 33.5 RDW 15.3 Plt Count 172 MPV 7.5 Neut % (Auto) 81.7 H Lymph % (Auto) 8.4 L [place] % (Auto) 8.3 H Eos % (Auto) 1.3 Baso % (Auto) 0.3 Neut # (Auto) 7.1 Lymph # (Auto) 0.7 L [place] # (Auto) 0.7 Eos # (Auto) 0.1 Baso # (Auto) 0.0 WBC Differential . Differential Comment Auto diff final Sodium 147 H Potassium 3.7 Chloride 110 H Carbon Dioxide 29.0 Anion Gap 8 BUN 21 H Creatinine 0.57 L Estimated GFR Greater than 89 POC Glucose 130 H Random Glucose 83 Calcium 8.3 L Prealbumin Vancomycin Trough 03/17/18 13:00 WBC RBC Hgb Hct MCV MCH MCHC RDW Plt Count MPV Neut % (Auto) Lymph % (Auto) [place] % (Auto) Eos % (Auto) Baso % (Auto) Neut # (Auto) Lymph # (Auto) [place] # (Auto) Eos # (Auto) Baso # (Auto) WBC Differential Differential Comment Sodium Potassium Chloride Carbon Dioxide Anion Gap BUN Creatinine Estimated GFR POC Glucose Random Glucose Calcium Prealbumin 11 L Vancomycin Trough 15.7 H Microbiology 03/14/18 11:00 Sputum - Tracheal Aspirate Gram Stain - Final 03/14/18 11:00 Sputum - Tracheal Aspirate Sputum Culture - Final S. aureus MRSA 03/14/18 10:59 Blood - Line Aerobic Blood Culture - Preliminary No growth in 3 days 03/14/18 10:59 Blood - Line Anaerobic Blood Culture - Preliminary No growth in 3 days 03/14/18 11:00 Blood - Peripheral Aerobic Blood Culture - Preliminary No growth in 3 days 03/14/18 11:00 Blood - Peripheral Anaerobic Blood Culture - Preliminary No growth in 3 days - Imaging Impressions Abdomen/Pelvis CT 03/17/18 00:00 CONCLUSION: 1. Gastrostomy tube tract. No abscess. 2. Small bilateral pleural effusions with associated atelectasis. 3. Rim calcified nodule within the right posterior costophrenic sulcus with associated calcified pleural plaque. Stable in the short interval. - Procedures Operative debridement, resection of C7 and T1 spinous processes, irrigation with Vancomycin powder, closure over a drain Assessment and Plan - Plan 72yM with dehisced posterior cervical incisional wound with MRSA wound infection , now debrided and closed over drain. Leukocytosis with fever. Also also has increased trach secretions. Also has a PICC. Repeat chest x-ray with Underinflation with mild bibasilar and right midlung zone opacity. Although nonspecific this could represent subsegmental atelectasis. However, airspace consolidation is also possible. Improved leukocytosis. Follow-up sputum culture and blood cultures. Discontinue PICC and replace Turner catheter discussed with nursing. Wound care MRSA wound infection status post surgery - ID following on IV Vanco stop date per ID, MRSA growing from wound culture. Ct rifampin at least 4 months of oral antibiotic with as needed periodic imaging studies - Blood urine cultures neg - Neurosurgery following DC sutures March 25, 2018 - add diflucan, add augmentin - wound care is ff -patient pulled PEG tube on 03/16, plan for CT a/p to r/o abscess per ID recs Incomplete quadriplegia - Wean trach collar o2 as tolerated - Aggressive pulmonary toilet - Turning/ offloading to prevent pressure wounds - Feedings per PEG tube and mechanical soft per speech therapy Acute protein calorie malnutrition- severe - Prealbumin on admission 16 - Tube feeds calculated, goal is jevity 1.5 - patient pulled PEG tube legal nurse consultant is ff for redd count Chronic respiratory failure - Trach collar o2 - Aggressive pulmonary toilet - PT consult - Levsin and mucomyst Chronic urinary retention - UA on admission showed few bacteria, no leukocytes or nitrites - Keep chronic indwelling Turner catheter, replace every [address] po Vanco and Lactinex monitor electrolyte. Hypernatremia and hypokalemia. Improved continue free water via G-tube and replace potassium per protocol Anemia. Guaiac negative. Improved with blood transfusion. Keep hemoglobin at least 8 DVT LUE . PICC removed start Eliquis 10 mg twice a day for 7 days then 5 mg twice a day(need to order) SCDs Eliquis Prevacid Overall impression: Satisfactorily weaned from mechanical ventilation. Tolerating trach collar. Watch for dehydration secondary to diarrhea. CBC and BMP in am [facility] will not be able to take the patient at this time. [facility]. Not ready for discharge at this time. Transferred to floor pending bed availability patient pulled PEG tube 03/16. CT a/p pending for evel abscess per ID [facility] CLEARED BY ID FOR DISCHARGE Code Status: FULL CODE Discussed Condition With: RN AND PT AND ID AND CM Discharge Planning: [facility] WHEN BED AVAILABLE
--- NOTE | 2018-03-17 14:33 | P.DS ---
Date of admission: 03/02/18 17:34 Primary care physician: No Primary Care Physician Attending physician on discharge: Mich Baca Anticipated date of discharge: 03/17/18 Brief History from admission: 72yM s/p posterior cervical decompression and fusion 01/22/2018 after original injury of fall from ladder. course complicated by paraplegia requiring trach/ peg and LTAC placement. in LTAC ([facility]), he had worsening of two wounds on his posterior head/neck, one at the incisional site which is deeper and now has exposed bone. wound culture from 02/25 grew MRSA, he is on vancomycin. Discussed the case with Dr. Szymanski and he is planning on doing a washout and closure on sunday 03/04. He does not think the CHILD DEVELOPMENT SPECIALIST is grossly infected, though agrees that we should cover broadly with CHILD DEVELOPMENT SPECIALIST penetrating antibiotics until further data is obtained. ROS unobtainable from the patient due to his trach dependency. Patient update on day of discharge: 72yM s/p posterior cervical decompression and fusion 01/22/2018 after original injury of fall from ladder. Course complicated by paraplegia requiring trach/ peg and LTAC placement. In LTAC ([facility]), he had worsening of two wounds on his posterior head/neck, one at the incisional site which is deeper and now has exposed bone. Wound culture from 02/25 grew MRSA, he is on vancomycin. Discussed the case with Dr. Szymanski who is planning on doing a washout and closure on Sunday 03/04. He does not think the CHILD DEVELOPMENT SPECIALIST is grossly infected, though agrees that we should cover broadly with CHILD DEVELOPMENT SPECIALIST penetrating antibiotics until further data is obtained. ROS unobtainable from the patient due to his trach dependency. 03/03: Stable overnight, collar cleared by neurosurgery, going to OR tomorrow. 03/04: Remains on trach collar. Awaiting surgery today. 03/05: Status post multiple neck debridements. Patient continues with profuse diarrhea, C. difficile positive at referring hospital. KUB obtained today shows a lot of air in the colon but no dangerous distention. 03/06: Remains with acceptable respiratory effort on T-piece. Gas exchange acceptable. KAINA bulb remains draining neck region. We can start making arrangements for transfer either to [facility] or back to [facility]. 03/07: Continues to breathe comfortably on T-piece. Once KIANA drain is out of neck we can safely transfer him to a rehab facility. He came to us from [facility]. 03/08 Consulted by CCM for med mgt and transfer of care. Chart reviewed. Patient awake and following simple commands. Nonverbal patient has tracheostomy on 5 L 03/09 Follow-up C. difficile/ Still with diarrhea has rectal tube dw and Sainz rep 03/10 Follow-up C. difficile. Still having diarrhea but improving. Dw she is aware he will likely not walk again but wishes he could again. 03/11 Follow-up C. difficile. No BM since yesterday. Awaiting acceptance from [facility] 03/12 Improving diarrhea has rectal tube. Moderate yellow trach secretions no fever. [facility]wait[facility] 03/13 Follow-up anemia and C. difficile. No gross bleeding. Improving diarrhea. Still with significant trach secretions patient has no fever or leukocytosis start labs and discussed with nursing 03/14 Follow-up C. difficile colitis. Stool volume 400 mL past 24 hours. T-max 99.5. Leukocytosis noted on CBC today. Patient has a Picc placed prior to admission. Also with yellow trach secretions.. Sacral decub with necrotic area 03/15 Follow-up leukocytosis. Stool volume 150 mL. Aware of DVT of the left upper extremity. Agrees to be started on Eliquis discussed with neurosurgery. Discussed with infectious disease, not cleared to have central line/ PICC 03/16 Discussed with the ICU nurse Patient pulled PEG tube Patient is able to eat, will consult support specialist for redd count ST following The patient does not appear in acute distress. 03/17 PEG PULLED OUT TOLERATING A DIET CLEARED BY ID FOR DISCHARGE TO [facility] TO [facility] TODAY NIDA RN AND PT AND CM AND ID DS: Diagnosis - Discharge Diagnosis (1) Wound dehiscence Status: Acute (2) Closed C6 fracture Status: Acute (3) Spinal cord injury at T1-T6 level Status: Acute DS: Medications - Discharge Medications Prescriptions: acidophilus-sporogenes [Acidophilus Ex Str (L. sporog)] 1 tab G-TUBE TID #90 tab gabapentin 100 mg G-TUBE TID #90 cap lansoprazole [Prevacid SoluTab] 15 mg G-TUBE DAILY #30 tab rifampin 150 mg FEEDING TUBE Q12HR #60 cap tramadol [Ultram] 50 mg PO Q8H PRN #10 tab PRN Reason: Acute Pain vancomycin 125 mg FEEDING TUBE QID #28 ea water for injection, sterile 200 ml G-TUBE Q8HR #84836 ml whey protein isolate [Beneprotein] 1 packet G-TUBE BID #60 ea DS: Summary Hospital Course: 72yM s/p posterior cervical decompression and fusion 01/22/2018 after original injury of fall from ladder. Course complicated by paraplegia requiring trach/ peg and LTAC placement. In LTAC ([facility]), he had worsening of two wounds on his posterior head/neck, one at the incisional site which is deeper and now has exposed bone. Wound culture from 02/25 grew MRSA, he is on vancomycin. Discussed the case with Dr. Szymanski who is planning on doing a washout and closure on Sunday 03/04. He does not think the CHILD DEVELOPMENT SPECIALIST is grossly infected, though agrees that we should cover broadly with CHILD DEVELOPMENT SPECIALIST penetrating antibiotics until further data is obtained. ROS unobtainable from the patient due to his trach dependency. 03/03: Stable overnight, collar cleared by neurosurgery, going to OR tomorrow. 03/04: Remains on trach collar. Awaiting surgery today. 03/05: Status post multiple neck debridements. Patient continues with profuse diarrhea, C. difficile positive at referring hospital. KUB obtained today shows a lot of air in the colon but no dangerous distention. 03/06: Remains with acceptable respiratory effort on T-piece. Gas exchange acceptable. KIANA bulb remains draining neck region. We can start making arrangements for transfer either to [facility] or back to [facility]. 03/07: Continues to breathe comfortably on T-piece. Once KIANA drain is out of neck we can safely transfer him to a rehab facility. He came to us from [facility]. 03/08 Consulted by [facility] for med mgt and transfer of care. Chart reviewed. Patient awake and following simple commands. Nonverbal patient has tracheostomy on 5 L 03/09 Follow-up C. difficile/ Still with diarrhea has rectal tube dw and Sainz rep 03/10 Follow-up C. difficile. Still having diarrhea but improving. Dw she is aware he will likely not walk again but wishes he could again. 03/11 Follow-up C. difficile. No BM since yesterday. Awaiting acceptance from [facility] 03/12 Improving diarrhea has rectal tube. Moderate yellow trach secretions no fever. Awaiting [facility] acceptance 12/2 Follow-up anemia and C. difficile. No gross bleeding. Improving diarrhea. Still with significant trach secretions patient has no fever or leukocytosis start labs and discussed with nursing 03/14 Follow-up C. difficile colitis. Stool volume 400 mL past 24 hours. T-max 99.5. Leukocytosis noted on CBC today. Patient has a Picc placed prior to admission. Also with yellow trach secretions.. Sacral decub with necrotic area 03/15 Follow-up leukocytosis. Stool volume 150 mL. Aware of DVT of the left upper extremity. Agrees to be started on Eliquis discussed with neurosurgery. Discussed with infectious disease, not cleared to have central line/ PICC 03/16 Discussed with the ICU nurse Patient pulled PEG tube Patient is able to eat, will consult support specialist for redd count ST following The patient does not appear in acute distress. 03/17 PEG PULLED OUT TOLERATING A DIET CLEARED BY ID FOR DISCHARGE TO [facility] DC TO [facility] TODAY DW RN AND PT AND CM AND ID E-FORCSE Prescription Drug Monitoring Database has been queried and verified prior to prescribing the controlled substance. Acute pain exception. This patient has normal, predicted, physiological, and time limited response to an adverse mechanical stimulus associated with surgery, trauma, or acute illness as described in my notes. There is a lack of alternative treatment options other than to include the prescribed narcotic treatment for this condition. - Time Spent with Patient Total time spent providing and/or coordinating discharge services: Greater than 30 minutes - Quality: VTE Deep Vein Thrombosis/Pulmonary Embolism Present on Admission: No Exam Vital signs: Vital Signs 03/16/18 15:00 03/16/18 16:00 03/16/18 17:00 Temperature 99.6 F Pulse Rate 96 H 90 90 Respiratory Rate 22 28 H 33 H Blood Pressure 140/82 136/63 149/73 H Pulse Oximetry 96 97 97 03/16/18 18:00 03/16/18 19:00 03/16/18 20:00 Temperature 99.0 F Pulse Rate 105 H 103 H 100 H Respiratory Rate 24 20 15 Blood Pressure 135/66 128/73 125/71 Pulse Oximetry 96 97 98 03/16/18 20:28 03/16/18 21:00 03/16/18 22:00 Temperature Pulse Rate 93 H 109 H 101 H Respiratory Rate 22 17 17 Blood Pressure 129/66 115/65 Pulse Oximetry 97 100 97 03/16/18 23:00 03/17/18 00:00 03/17/18 00:14 Temperature 98.8 F Pulse Rate 92 H 97 H 101 H Respiratory Rate 22 36 H 22 Blood Pressure 105/56 L 110/61 Pulse Oximetry 98 100 03/17/18 01:00 03/17/18 02:00 03/17/18 03:00 Temperature Pulse Rate 91 H 86 91 H Respiratory Rate 16 16 16 Blood Pressure 91/53 L 100/57 L 116/63 Pulse Oximetry 97 98 97 03/17/18 04:00 03/17/18 04:11 03/17/18 05:00 Temperature 98.7 F Pulse Rate 88 86 90 Respiratory Rate 38 H 22 36 H Blood Pressure 119/61 140/70 Pulse Oximetry 99 98 98 03/17/18 06:00 03/17/18 07:00 03/17/18 07:31 Temperature 99.2 F Pulse Rate 83 93 H 90 Respiratory Rate 19 9 L 24 Blood Pressure 105/59 L 111/64 Pulse Oximetry 96 98 99 03/17/18 08:00 03/17/18 10:00 03/17/18 11:05 Temperature 99.2 F Pulse Rate 102 H 87 86 Respiratory Rate 33 H 25 H Blood Pressure 132/67 Pulse Oximetry 98 03/17/18 12:00 Temperature Pulse Rate 98 H Respiratory Rate Blood Pressure Pulse Oximetry Intake & Output 03/16/18 03/17/18 03/17/18 18:59 06:59 18:59 Intake Total 1070.0 / 1070.0 240 / 240 Output Total 2300 / 2300 1450 / 1450 Balance -1230.0 / -1230.0 -1210 / -1210 Weight 65.2 kg Intake: IV 525.0 / 525.0 Vancomycin Inj 1,250 MG In NS 525.0 / 525.0 Inj 250 ML @ 250 mls/hr IV.SIG Q24H [facility] Rx#:[id number] Oral 360 / 360 240 / 240 Tube Feeding 125 / 125 Tube Irrigant 60 / 60 Output: Stool 450 / 450 Urine Amount (Catheter) 1850 / 1850 1450 / 1450 Indwelling Urethral Catheter 1850 / 1850 1450 / 1450 Other: Date of Last Bowel Movement 03/16/18 03/17/18 03/17/18 Narrative: GENERAL: 72-year-old patient, well-developed, well-nourished in no distress. SKIN: Warm and dry. Trach in place. Neck incision c/d/i- sutures in place NECK TRACH IN PLACE SUPPLE CARDIOVASCULAR: Regular rate and rhythm. S1, S2 NO S3 OR S4 RESPIRATORY: No accessory muscle use. Breath sounds equal bilaterally. COARSE BS BL GASTROINTESTINAL: Abdomen soft, non-tender, nondistended. Patient pulled PEG, site is dressed c/d/i will continue to monitor site MUSCULOSKELETAL: Extremities without clubbing, cyanosis, or edema. No obvious deformities. NEUROLOGICAL: Moving upper extremities vigorously of arms down to wrists, some movement of hands. Following commands. No movement of lower extremities AWAKE AND ALERT Results Procedures completed during hospitalization: Operative debridement, resection of C7 and T1 spinous processes, irrigation with Vancomycin powder, closure over a drain Completed studies during hospitalization: - Preoperative Diagnosis (1) Wound dehiscence - Postoperative Diagnosis (1) Wound dehiscence Date of procedure: 03/04/18 Procedure: Operative debridement, resection of C7 and T1 spinous processes, irrigation with Vancomycin powder, closure over a drain [facility] Surgeon: Antelmo Szymanski MD Pathology: other (bone sent to micro) Operation and Findings: Indications: This is a 72year old man who suffered a cervical spinal cord injury 6 weeks ago and became paraplegic. He underwent urgent posterior cervical decompression and fusion C3-T1. [facility] with little improvement in exam, and developed a wound dehiscence in the neck behind his collar, growing MRSA. We were contacted 2 days ago about the same and transferred him here. He also has a decub at the back of his head , likely secondary to the collar and his mandible. Description of procedure: Patient was brought to Main OR and general anesthesia induced through his trache. His mann was exchanged. He was placed in prone in Gerardo pins, exposing the posterior occiput and suboccipital region. This was clipped and prepped and draped in the usual sterile fashion. The open wound was debrided in skin edges and down to the spinous processes of C7 and T1. These were removed and sent to microbiology. Healthy bleeding edges were noted all around. The wound was irrigated with betadyne solution, then vancomycin powder and a 7flat channel drain placed. Muscle closed with 0-PDS and skin closed primarily with 2-0 Prolene vertical mattress. Drain secured with nylon. Plan for sutures to come out in extended fashion 3-4 weeks and drain to remain x 1 week. Labs on day of discharge: Labs from last 24 hours 03/17/18 03/17/18 03/17/18 13:00 12:08 05:48 WBC RBC Hgb Hct MCV MCH MCHC RDW Plt Count MPV Neut % (Auto) Lymph % (Auto) Wagoner % (Auto) Eos % (Auto) Baso % (Auto) Neut # (Auto) Lymph # (Auto) Wagoner # (Auto) Eos # (Auto) Baso # (Auto) WBC Differential Differential Comment Sodium 147 H Potassium 3.7 Chloride 110 H Carbon Dioxide 29.0 Anion Gap 8 BUN 21 H Creatinine 0.57 L Estimated GFR Greater than 89 POC Glucose 130 H Random Glucose 83 Calcium 8.3 L Prealbumin 11 L Vancomycin Trough 15.7 H 03/17/18 05:48 WBC 8.6 RBC 3.05 L Hgb 8.9 L Hct 26.7 L MCV 87.6 MCH 29.3 MCHC 33.5 RDW 15.3 Plt Count 172 MPV 7.5 Neut % (Auto) 81.7 H Lymph % (Auto) 8.4 L Wagoner % (Auto) 8.3 H Eos % (Auto) 1.3 Baso % (Auto) 0.3 Neut # (Auto) 7.1 Lymph # (Auto) 0.7 L Wagoner # (Auto) 0.7 Eos # (Auto) 0.1 Baso # (Auto) 0.0 WBC Differential . Differential Comment Auto diff final Sodium Potassium Chloride Carbon Dioxide Anion Gap BUN Creatinine Estimated GFR POC Glucose Random Glucose Calcium Prealbumin Vancomycin Trough Preliminary micro results at discharge 03/14/18 10:59 Aerobic Blood Culture - Preliminary Blood - Line No growth in 3 days Anaerobic Blood Culture - Preliminary No growth in 3 days 03/14/18 11:00 Aerobic Blood Culture - Preliminary Blood - Peripheral No growth in 3 days Anaerobic Blood Culture - Preliminary No growth in 3 days 03/04/18 16:21 Fungal Culture - Preliminary Wound - Back No growth in 1 week 03/04/18 16:21 Mycobacterial Culture - Preliminary Wound - Back No growth in 1 week 03/04/18 16:25 Fungal Culture - Preliminary Other No growth in 1 week 03/04/18 16:25 Mycobacterial Culture - Preliminary Other No growth in 1 week - Impressions ITS Impressions Cervical Spine CT 03/02/18 00:00 CONCLUSION: 1. Laminectomy and long segment posterior fusion of the cervical spine again noted. Alignment is unchanged, near-anatomic, and the posterior bone graft material appears to be slowly incorporating but not convincingly solid at this time. 2. Limited study; no definite epidural fluid collection. The fluid collection in the laminectomy bed appears to be decreasing but now appears to communicate with a large soft tissue defect overlying the posterior spinous processes of C7 and T1. Bone is exposed but without perceptible acute obstruction. Previously seen drain has been removed. Cervical Spine X-Ray 03/02/18 00:00 CONCLUSION: Abdomen X-Ray 03/05/18 00:00 CONCLUSION: 1. Diffuse colonic distention consistent with colonic ileus. 2. No gross free air as questioned. Chest X-Ray 03/14/18 00:00 CONCLUSION: Underinflation with mild bibasilar and right midlung zone opacity. Although nonspecific this could represent subsegmental atelectasis. However, airspace consolidation is also possible. Venous Doppler Study 03/14/18 00:00 CONCLUSION: 1. There is evidence of occlusive thrombus characteristic of DVT in the left subclavian and left axillary veins. Abdomen/Pelvis CT 03/17/18 00:00 CONCLUSION: 1. Gastrostomy tube tract. No abscess. 2. Small bilateral pleural effusions with associated atelectasis. 3. Rim calcified nodule within the right posterior costophrenic sulcus with associated calcified pleural plaque. Stable in the short interval. Discharge Plan - Discharge Disposition Patient Disposition: Discharge to SNF - Discharge Condition Condition: Stable - Discharge Order Discharge Orders: Discharge Order (Routine); Ordered 03/17/18 Ordered By: Mich Baca - Discharge Details Anticipated Discharge Date: 03/17/18 Discharge Comment: to [facility] today when bed available abx per ID - Physicians Team Primary Care Provider: Primary Care Physici,No Attending Provider: Mich Baca Other Providers: [facility]iana Garcia MD ; Antelmo Szymanski MD ; Jesus Klein MD ; [facility] ; Kristin Villatoro MD - Rxs /Orders / Referrals /Forms Prescriptions: New acidophilus-sporogenes [Acidophilus Ex Str (L. sporog)] 35 million- 25 million cell Tablet 1 tab G-Tube TID Qty: 90 RF: 0 amoxicillin-pot clavulanate 400-57 mg/5 mL Suspension For Reconstitution 875 mg PO Q8H RF: 0 apixaban [Eliquis] 5 mg Tablet 10 mg PO BID RF: 0 bisacodyl [Bisac-Evac] 10 mg Suppository 10 mg SC DAILY PRN (Reason: if no BM in last 24h) RF: 0 collagenase clostridium histo. [Santyl] 250 unit/gram Ointment 1 applicatio Topical DAILY RF: 0 ferrous sulfate 300 mg (60 mg iron)/5 mL Liquid 300 mg G-Tube DAILY RF: 0 fluconazole 100 mg Tablet 100 mg PO Q24H RF: 0 gabapentin 100 mg Capsule 100 mg G-Tube TID Qty: 90 RF: 0 hyoscyamine sulfate [Hyosyne] 0.125 mg/mL Drops 0.125 mg Sublingual Q4H PRN (Reason: Secretions) RF: 0 lansoprazole [Prevacid SoluTab] 15 mg Tablet,Disintegrat, Delay Rel 15 mg G-Tube DAILY Qty: 30 RF: 0 rifampin 150 mg Capsule 150 mg Feeding Tube Q12HR Qty: 60 RF: 0 tramadol [Ultram] 50 mg Tablet 50 mg PO Q8H PRN (Reason: Acute Pain) Qty: 10 RF: 0 vancomycin 500 mg Recon Soln 125 mg Feeding Tube QID Qty: 28 RF: 0 vancomycin 10 gram Recon Soln 1,250 mg IV Q24H RF: 0 whey protein isolate [Beneprotein] 6 gram-25 kcal/7 gram Powder In Packet 1 packet G-Tube BID Qty: 60 RF: 0 Continue acetaminophen 325 mg Tablet 650 mg PO Q4H PRN (Reason: Pain 1-10 And/Or Fever >101f) RF: 0 hydralazine 20 mg/mL Solution 10 mg IV.PUSH Q4H PRN (Reason: Hypertension) RF: 0 ipratropium-albuterol 0.5 mg-3 mg(2.5 mg base)/3 mL Solution For Nebulization 1 amp NEB Q2HR NEB PRN (Reason: Wheezing) RF: 0 water for injection, sterile Parenteral Solution 200 ml G-Tube Q8HR Qty: 89039 RF: 0 Changed cholecalciferol (vitamin D3) 1,000 unit Tablet 1,000 unit Feeding Tube DAILY Qty: 0 RF: 0 Changed from: 1,000 unit oral daily levothyroxine 25 mcg Tablet 1 tab Feeding Tube QAM Qty: 0 RF: 0 Changed from: 1 tab oral every morning simvastatin 40 mg Tablet 40 mg Feeding Tube QPM Qty: 0 RF: 0 Changed from: 40 mg oral every evening Discontinued bacitracin 500 unit/gram Ointment 1 applicatio Topical BID RF: 0 carboxymethylcellulose sodium 0.5 % Drops 1 drp EACH EYE Q4-6H PRN (Reason: Dry Eyes) ceftriaxone 1 gram Recon Soln 1,000 mg IV Q24H RF: 0 chlorhexidine gluconate 0.12 % Mouthwash 15 ml OROPHARYNG BID@0800,2000 RF: 0 clonidine [Prqksjao-EVP-1] 0.3 mg/24 hr Patch Weekly 1 patch Transdermal Q7D RF: 0 docusate sodium 50 mg/5 mL Liquid 100 mg NG/OG BID RF: 0 docusate sodium tablet PO 5XW enalaprilat 1.25 mg/mL Solution 1.25 mg IV.PUSH Q8H PRN (Reason: Blood pressure 180/95) RF: 0 enalaprilat 1.25 mg/ml PO enoxaparin [Lovenox] 30 mg/0.3 mL Syringe 30 mg subcut Q12HR RF: 0 etanercept 50 mg/mL (0.98 mL) Pen Injector 50 mg SUBCUT QWEEK famotidine 20 mg Tablet 20 mg PO BID fentanyl [Duragesic] 50 mcg/hr Patch 72 Hour 1 patch Transdermal Q3D RF: 0 hydrophilic cream Cream 1 applic TOPICAL TID PRN (Reason: Dry Skin) hydroquinone 4 % Cream 1 applic TOPICAL BID PRN (Reason: Itching) lactulose 20 gram/30 mL Solution 30 ml PO DAILY RF: 0 metoprolol tartrate 5 mg/5 mL solution 5 mg IV.PUSH Q6H metoprolol tartrate 25 mg Tablet 12.5 PO Q6HR oxycodone 5 mg Tablet 5 mg PO Q4H PRN (Reason: Breakthrough Pain) RF: 0 pantoprazole [Protonix] 40 mg Recon Soln 40 mg IV.PUSH Q24H RF: 0 triamcinolone acetonide 0.025 % Cream 1 dose Topical BID PRN (Reason: Itching) vancomycin 10 gram Recon Soln 750 mg IV Q12H RF: 0 Referrals: Antelmo Szymanski MD [Physician] - See Instructions (1-2weeks) Primary Care Laura Stiles [Primary Care Provider] - See Instructions (1wk) - Discharge Instructions Patient Printed Instructions: Laminectomy (DC) - Post Discharge Care Plan Care Plan Goals: Your Health Problems: Goals to Promote Your Health: * To prevent worsening of your condition * To maintain your health at the optimal level Directions to Meet Your Goals: * Take your medications as prescribed * Follow your dietary instruction * Follow activity as directed * Keep your appointments as scheduled * Take your immunizations and boosters as scheduled * If your symptoms worsen call your PCP * If no PCP go to Urgent Care or Emergency Room Smoking is dangerous to your health. Avoid second hand smoke. You may reach the 24-hour crisis hotline for domestic abuse at .
[2018-03-17] MEDS: Fluconazole 100 MG Tablet PO SCH (15:24)
[2018-03-17 19:00] VITALS: BP 134/70
[2018-03-17 20:13] VITALS: PULSE 102; RESP 22; O2SAT 99
[2018-03-20] MEDS ORDERED: Pharmacy Ordered Lab Info OTHER ONE (11:45)
== END 2018-03-17 20:56 | disposition short-term general hospital (02) ==
LOC: N03 17:34
PROVIDERS: ADMIT Hospitalist; ATTEND Hospitalist